=== PATIENT | male | born 1950 | race Caucasian/White ===

== ENCOUNTER 2023-09-27 08:58 | Inpatient (IN) | payer MEDICARE, OTHER, SELFPAY ==
[2023-09-27] VITALS (8 sets, daily range): BP systolic 134–166; BP diastolic 53–73; BMI 26.3; BMI 26.1
--- NOTE | 2023-09-27 06:33 | ED.GENMED ---
Addendum entered and electronically signed by Rasheed Summers DO 09/27/23 08:20:
Reviewed with patient has been compliant with his lactulose, was given a prescription for Xifaxan was not started due to cost
Sees GI at [place]
Addendum entered and electronically signed by Rasheed Summers DO 09/27/23 08:11:
Update labs noted CT report noted will start lactulose and saline check urine
Will require admission
Original Note:
History of Present Illness
General
Chief Complaint: Fall
Source: patient and spouse
Exam Limitations: altered mental status
Time Seen by Provider: 09/27/23 06:23
Nursing documentation reviewed up to this point in time: agreed with
Travel History
Have you had any contact with someone who has COVID-19?: No
Do you have any symptoms of coronavirus? Fever > 100 degrees, chills, cough, shortness of breath, sore throat, loss of taste or smell, muscle aches, or headache?: No
History of Present Illness
History of Present Illness:
73-year-old male former alcoholic chronic liver disease no alcohol for a year per the she found him on the ground today confused she had heard a thump and some acute on the ground very long brought to the ER because he was confused, he is
required lactulose in the past, here he knows his he follows commands looks tremulous but nontoxic
Past History
Past History
ED Past Medical History: CAD, HTN, Other (Alcohol abuse) and Other (anemia)
ED Past Surgical History: None
Social History
Tobacco: Non-smoker
Alcohol: Former
Drug: None
Personal:
Living: with family
Employment: Not employed
Review of Systems
Review of Systems
Unable to obtain full review of systems at this time due to: due to acuity
Other source history: family
All Other Systems: Not applicable
EENT: Reports no symptoms
Respiratory: Reports no symptoms
Cardiac: Reports no symptoms
ABD/GI: Reports no symptoms
: Reports no symptoms
Musculoskeletal: Denies joint pain, muscle pain or neck pain
Skin: Reports no symptoms
Neurological: Reports weakness; Denies headache
Phy Exam
Physical Exam
Physical Exam:
Physical Exam
General: Tremulous 73 male without jaundice
Neck: No tongue bite
Heart: s1/s2 regular rate and rhythm, no murmur. equal radial pulses.
Lungs: no acute respiratory distress. clear bilaterally
Abdomen: Nontender
Neuro: Follows commands oriented to person tremulous
Skin: no rash
Psychiatric: Cooperative
Extremities: No pain with movement of the hip
Course
Orders/Labs/Results
Orders:
Orders
09/27/23 06:30
Electrocardiogram (*1) Urgent
Reason for Study: Other
Other Reason for Exam: trauma
CT Cervical Spine W/o Iv Contr Urgent
Comment:
Reason For Exam: fall
CT Head W/o Iv Contrast Urgent
Comment:
Reason For Exam: fall
Cardiac Monitoring- Treatment ONCE
EKG- Treatment ONCE
Alcohol Urgent
Complete Blood Count/With Diff Urgent
Comprehensive Metabolic Panel Urgent
09/27/23 06:31
Ammonia Urgent
Vital Signs
Initial and Last Documented VS:
Initial Vital Signs
Temp Pulse Resp BP Pulse Ox
98.3 F 63 20 158/70 93
09/27/23 06:03 09/27/23 06:03 09/27/23 06:03 09/27/23 06:03 09/27/23 06:03
Last Documented Vital Signs
Temp Pulse Resp BP Pulse Ox
98.3 F 67 15 149/73 99
09/27/23 06:03 09/27/23 06:45 09/27/23 06:45 09/27/23 06:33 09/27/23 06:45
MDM/Problems Addressed
Differential Diagnosis Includes:
Encephalopathy alcohol intoxication alcohol withdrawal occult infection occult trauma
MDM/Problems Addressed:
Fall confusion
Chronic conditions affecting care:
Alcoholism AF
Chronic conditions affecting care: Neurological disorder and Psychiatric illness
Acute Exacerbation and/or Progression of Chronic Illness: Neurological disorder and Psychiatric illness
*Radiology
Radiology exam reviewed: preliminary read by ED provider
*Pulse Oximetry
Patient hypoxic: no
*EKG
Interpreted by ED Provider?: Yes
Interpretation: abnormal
Comparison EKG: no comparison EKG present
Heart Rate: 61
Rate: normal
Rhythm: sinus
Ischemia: other (long qtd)
*Belt Turner Interpretation
Rate: normal
Interpretation: normal
Heart Rate: 78
Rhythm: sinus
*Critical Care Note
Total Time (30-74mins, 75-104mins- exclusive of procedures): 30
ED Attending Note
-
Portions of this chart may have been created with voice recognition software.� Occasional wrong word or��sound alike� substitutions may have occurred due to the inherent limitations of voice recognition software.
Discharge Plan
Departure
Prescriptions:
No Action
atorvastatin 40 mg Tablet
40 mg PO QPM Qty: 0 0RF
folic acid 1 mg Tablet
1 mg PO DAILY Qty: 0 0RF
naltrexone 50 mg tablet
50 mg PO DAILY
amiodarone [Pacerone] 200 mg Tablet
100 mg PO DAILY 30 Days Qty: 15 0RF
thiamine HCl (vitamin B1) 100 mg Tablet
100 mg PO DAILY 30 Days Qty: 30 0RF
pantoprazole 40 mg Tablet,Delayed Release (Dr/Ec)
40 mg PO BID 30 Days Qty: 60 0RF
magnesium oxide 500 mg Tablet
500 mg PO BID 30 Days Qty: 60 0RF
furosemide 20 mg Tablet
20 mg PO DAILY 30 Days Qty: 30 0RF
potassium chloride [Klor-Con M20] 20 mEq Tablet,Er Particles/Crystals
20 meq PO BID
ferrous sulfate 325 mg (65 mg iron) tablet
325 mg PO Q48H
lactulose 10 gram/15 mL Solution
30 g PO TID Qty: 0 0RF
Rx Instructions:
Aim for having 2-3 soft bowel movements every day
Can take an extra dose if needed or skip doses if already have 2-3 bowel movements for the day.
Interventions
Interventions:
*Risk Screen - Suicide Last Done: 09/27/23 06:03
*General Assessment Last Done: 09/27/23 06:03
*Neglect/Abuse Screening Last Done: 09/27/23 06:03
ED- Fall Risk Assessment Last Done: 09/27/23 06:03
*ED COVID-19 Vaccine History Last Done: 09/27/23 06:03
[2023-09-27 07:27] LABS: % Basophils 0.3 % (0-2); % Eosinophils 1.9 % (0-6); % Immature Granulocytes 0.8 % (0-0.5); % Lymphocytes 9.4 % (20.5-51.1); % Monocytes 28.2 % (1.7-9.3); % Neutrophils 59.4 % (42.2-75.2); Absolute Eosinophils 0.1 10^3/uL (0-0.7); Absolute Lymphocytes 0.4 10^3/uL (1.2-3.4); Absolute Monocytes 1.1 10^3/uL (0.1-0.6); Absolute Neutrophils 2.2 10^3/uL (1.4-6.5); Hematocrit 30.9 % (39.0-52.0); Hemoglobin 10.6 g/dL (13.0-18.0); Mean Corp Hgb Conc. 34.3 g/dL (33.0-37.0); Mean Corpuscular Hgb 28.1 pg (27.0-31.0); Mean Platelet Volume 11.6 fL (7.4-10.4); Nucleated Red Blood Cells % 0 % (-); Platelet Count 62 10^3/uL (130-400); Red Blood Cell Count 3.77 10^6/uL (4.70-6.10); Red Cell Dist. Width 16.8 % (11.5-14.5); White Blood Cell Count 3.7 10^3/uL (4.8-10.8)
[2023-09-27 07:48] LABS: Ammonia 91 umol/L (9-30)
[2023-09-27 07:54] LABS: ALT (SGPT) 25 U/L (0-50); AST (SGOT) 34 U/L (17-59); Albumin 3.4 g/dl (3.5-5.0); Alkaline Phosphatase 215 U/L (38-126); Blood Urea Nitrogen 29 mg/dl (9-20); Calcium 8.8 mg/dl (8.4-10.2); Carbon Dioxide 24 mmol/L (22-30); Chloride 109 mmol/L (98-107); Estimated Creatinine Clearance 61 ml/min; Glucose 100 mg/dl (70-99); Potassium 3.9 mmol/L (3.5-5.1); Sodium 137 mmol/L (135-145); Total Bilirubin 3.4 mg/dl (0.2-1.3); Total Protein 5.7 g/dl (6.3-8.2); eGFR 58.73
[2023-09-27 07:55] LABS: Alcohol None Detected
[2023-09-27] MEDS: DUPHALAC/CHRONULAC 20 GRAMS PO (08:14)
[2023-09-27] MEDS: NSS 1000 IV (08:16)
--- NOTE | 2023-09-27 08:43 | HPS.HSE ---
Addendum entered and electronically signed by Per Schwartz MD 09/27/23 14:16:
Correction--> time spent on encounter 75 minutes total.
Original Note:
Family Physician
-
Family Physician: AISHWARYA Vivas
Chief Complaint
-
Mental status changes
History of Present Illness
Patient is 73 years old male with history of alcohol use disorder, liver cirrhosis, alcohol use disorder, CVA, paroxysmal A-fib, coronary artery disease, CHF, CKD, hyperlipidemia, ambulatory dysfunction, presented to the hospital with mental status
changes. Most of information gathered from at bedside as patient is unable to provide accurate information at the moment. Patient fell today at home and he has been confused over the last couple days. No reports of fevers chills cough or
dysuria. There is report of some constipation and when I asked if he has been moving his bowels regularly, his tells me that sometimes he moves his bowels only once a day and he has been taking lactulose. Denies melena or hematemesis,
odynophagia, dysphagia, abdominal pain, or diarrhea. He has upper endoscopy and colonoscopy with capsule endoscopy back in 2022 from anemia workup by GI. He also had FibroScan back in July this year with concern for cirrhosis. In the ER, he
was noted to have an ammonia level of 91. He has hemoglobin 10.6, WBC of 2.7 platelet of 62 to creatinine 1.3, BUN of 29, CT scan of the head diffuse cortical atrophy with nonspecific white matter changes but no acute intracranial abnormalities.
He also had CT scan of the cervical spine with no degenerative changes or fractures. He was referred to hospitalist service for evaluation.
Medical History
Past Medical History
Past Medical History: Reports Other (Warnicke's encephalopathy, alcohol use disorder, liver cirrhosis, CVA, paroxysmal A-fib, CAD, CHF, CKD, hyperlipidemia, ambulatory dysfunction.)
Past Surgical History: Reports None
Social History
Tobacco: Non-smoker
Alcohol: Former
Drug: None
Family History
Family History: Not pertinent
Allergies / Home Medications
Allergies reflects when Allergies were last updated in [facility].
Home Medications with original date entered in [facility]
Allergy/Medication List:
Allergies
Allergy/AdvReac Type Severity Reaction Status Date / Time
No Known Allergies Allergy Verified 06/29/23 10:30
Home Medications
atorvastatin 40 mg tablet 40 mg PO QPM High cholesterol #0 tabs 08/28/22
folic acid 1 mg tablet 1 mg PO DAILY Supplement #0 tabs 08/28/22
naltrexone 50 mg tablet 50 mg PO DAILY AUD 10/12/22
amiodarone 200 mg tablet (Pacerone) 100 mg PO DAILY 30 days #15 tabs 12/20/22
furosemide 20 mg tablet 20 mg PO DAILY 30 days #30 tabs 12/20/22
magnesium oxide 500 mg PO BID 30 days #60 tabs 12/20/22
pantoprazole 40 mg tablet,delayed release 40 mg PO BID 30 days #60 tabs 12/20/22
thiamine HCl (vitamin B1) 100 mg tablet 100 mg PO DAILY 30 days #30 tabs 12/20/22
ferrous sulfate 325 mg (65 mg iron) tablet 325 mg PO Q48H 06/29/23
potassium chloride 20 mEq tablet,extended release(part/cryst) (Klor-Con M) 20 meq PO BID 06/29/23
lactulose 10 gram/15 mL oral solution 30 g (45 mL) PO TID #0 mL 06/30/23
Review of Systems
-
Unable to obtain full review of systems at this time due to: Acuity
Physical Exam
Vital Signs
Vital Signs
Temp Pulse Resp BP Pulse Ox
98.3 F 60 15 134/53 98
09/27/23 06:03 09/27/23 08:15 09/27/23 06:45 09/27/23 08:11 09/27/23 07:55
Physical exam:
General: Acutely ill
HEENT: Normocephalic, Atraumatic and Moist Mucous Membranes
Respiratory: Clear to Auscultation; Negative Wheezes, Rales or Rhonchi
Cardiac: Regular Rhythm and S1/S2
GI: Soft, Nontender and Nondistended
Musculoskeletal: No Clubbing, No Cyanosis and No Edema
Neuro: Lethargic and disoriented, mild asterixis present
Psych: Calm
Physical Exam
General: Other
Laboratory Results
-
09/27/23 07:16
09/27/23 07:16
Laboratory Results
Total Bilirubin 3.4 mg/dl (0.2-1.3) H 09/27/23 07:16
AST 34 U/L (17-59) 09/27/23 07:16
ALT 25 U/L (0-50) 09/27/23 07:16
Alkaline Phosphatase 215 U/L (38-126) H 09/27/23 07:16
Impression/Plan
-
IMPRESSION:
Patient 73 years old male with multiple comorbidities presented to the hospital with mental status changes consistent with acute hepatic encephalopathy. Ammonia level was 91.
Impression:
Acute hepatic encephalopathy
Pancytopenia
Conditions prior to presentation:
Liver cirrhosis
Wernicke's encephalopathy
Paroxysmal A-fib
History of alcohol use disorder in the past
CVA
PLAN:
Obtain chest x-ray and urinalysis and urine culture
Follow-up blood cultures
Increase lactulose, 20 g p.o. 3 times daily
Monitor LFTs and ammonia level and electrolytes
GI consult ([facility] texted GI today)
Follow-up cultures
Cardiac monitoring
Monitor mental status closely
PT OT eval
Speech therapy eval for swallow
DVT prophylaxis, SCD (hold off on Lovenox in light of thrombocytopenia)
CODE STATUS full code
Addendum:
Shortly after admission, patient became more agitated, so dose of Ativan IV was given and placed on soft restraints. Will give further recommendations based on his clinical course.
Total time spent on today's encounter was 52 minutes which included time spent in counseling the patient/family regarding diagnosis and treatment plan as listed above, goals of care, and symptom management. Case was discussed with nursing staff,
specialists, and care coordinators/case management. All labs and imaging personally reviewed by me. Remainder the time spent in detailed review of previous records, lab data, imaging, and other medical provider documentation.
[2023-09-27] MEDS: ATIVAN 1 MG IV (11:08)
[2023-09-27] MEDS: NSS (PRESERVATIVE FREE) 0.5 ML IV (11:09)
--- NOTE | 2023-09-27 11:10 | CON.GI ---
Addendum entered and electronically signed by AISHWARYA Sanches 09/27/23 17:02:
spoke with case management Xifaxan will need prior auth through GI office. Message sent for Saturday to get auth.
Addendum entered and electronically signed by Carissa Rudolph MD 09/27/23 16:14:
I saw and examined the patient.
The SUPERINTENDENT TRANSMISSION or PA's note was reviewed and I agree with the note.
Comment:
This patient is a 73-year-old man with a history of hypertension, CHF and A-fib. He also has a history of cirrhosis and had several admissions for an elevated ammonia. He has followed up as an outpatient is noted to be cirrhotic. He did come in
with confusion and decreased stool. He reportedly had increased lactulose doses given by his without result.
Sedate but not combative.
abd: soft, nontender
impression:
cirrhosis
encephalopathy
plan:
mcgrath culture
increase lactulose
add xifaxin
add PPI
Original Note:
Consultation
-
Date/Time Consultation Requested: 09/27/23 0920
Date/Time Consultation Performed: 09/27/23 1110
Requesting Provider: Per Schwartz MD
Performing Provider: AISHWARYA Corral, Carissa Rudolph MD
Reason for Consultation: hepatic encephalopathy
Medical History
Chief Complaint / HPI
Chief Complaint: confusion
History of Present Illness:
Pt is a 73yo with hx HTN, CHF, afib not on anticoagulation with hx GI bleed, ETOH abuse quit 07/2022, cirrhosis, thrombocytopenia, anemia, CKD, with admission in May and June with confusion with elevated ammonia level with fall. CT
around that time with possible rectal mass but rectal exam neg and pt had recent stable colonoscopy and noted anemia. He had follow up with Dr. Elam in June with fibroscan noted F4 in July with concern for cirrhosis. He now returns today
with fall and change in mental status on admission ammonia was 91. Asked to see for hepatic encephalopathy. He was also noted with combative behavior after admission requiring restraints and Ativan use. In reviewing with family patient has been
compliant with medication. actually did give addition doses of lactulose this past week with confusion and decreased stools. does assist with medication and would be aware if any dose skipped. Pt did not have script plan in past and
difficulty with Xifaxan cost but now has new plan.
In reviewing with some mild confusion at times since admission several months ago. He otherwise denies odynophagia, dysphagia, GERD, abdominal pain, diarrhea, blood or black in stools. Pt did completed EGD/colon and capsule in 2022
with noted anemia.
Past Medical History
Past Medical History: Arrhythmias (afib no on AC, prolonged QT), CAD, CHF, HTN, Hypercholesterolemia, Renal Failure (CKD) and Other (alcohol abuse, anemia, possible cirrhosis, thrombocytopenia, mumps as child, PNA/UTI sepsis July 2022, covid
2021, fatty liver, constipation)
Social History
Tobacco: Non-Smoker
Alcohol: Former (hx heavy ETOH )
Drug: None
Personal:
Living: With Family
Employment: Retired
Family History
Family History: Other (no family hx colon cA or polyps)
Allergies / Home Medications
Allergy/AdvReac Type Severity Reaction Status Date / Time
No Known Allergies Allergy Verified 06/29/23 10:30
Medication Instructions Recorded
atorvastatin 40 mg tablet 40 mg PO QPM High cholesterol #0 08/28/22
tabs
folic acid 1 mg tablet 1 mg PO DAILY Supplement #0 tabs 08/28/22
amiodarone 200 mg tablet (Pacerone) 100 mg PO DAILY 30 days #15 tabs 12/20/22
furosemide 20 mg tablet 20 mg PO DAILY 30 days #30 tabs 12/20/22
magnesium oxide 500 mg PO BID 30 days #60 tabs 12/20/22
pantoprazole 40 mg tablet,delayed 40 mg PO BID 30 days #60 tabs 12/20/22
release
thiamine HCl (vitamin B1) 100 mg 100 mg PO DAILY 30 days #30 tabs 12/20/22
tablet
ferrous sulfate 325 mg (65 mg 325 mg PO Q48H Supplement 06/29/23
iron) tablet
potassium chloride 20 mEq 20 meq PO BID Electrolyte Repletion 06/29/23
tablet,extended
release(part/cryst) (Klor-Con M)
lactulose 10 gram/15 mL oral 30 g (45 mL) PO TID #0 mL 06/30/23
solution
Benefiber Powder 1.5 tsp PO BIDPRN PRN constipation 09/27/23
polyethylene glycol 3350 17 gram 17 g PO DAILY PRN constipation 09/27/23
oral powder packet (Miralax)
Review of Systems
-
History Source: Patient and Family
Constitutional: Reports No Symptoms
EENT: Reports No Symptoms
Respiratory: Reports No Symptoms
Cardiac: Reports No Symptoms
Abdomen/GI: Reports Other (several stools per day with lactulose use )
: Reports No Symptoms
Musculoskeletal: Reports Other (s/p fall overnight )
Neurological: Reports Other (some confusion in coversation )
Endocrine: Reports No Symptoms
Vital Signs
Temp Pulse Resp BP Pulse Ox
98.3 F 63 12 166/69 100
09/27/23 10:04 09/27/23 10:04 09/27/23 10:04 09/27/23 10:04 09/27/23 10:04
Physical Exam
Exam
General: Well Developed, Well Nourished and Other (improved with ativan )
HEENT: Normocephalic, Anicteric and Moist Mucous Membranes
Respiratory: Clear
Cardiac: Regular Rhythm
GI: Soft, Non Tender and Non Distended
Musculoskeletal: No Clubbing and No Cyanosis
Skin: Warm and Dry
Neuro: Other (sleepy but arousable and less combative than on admission)
Psych: Calm and Confused
Results
WBC 3.7 10^3/uL (4.8-10.8) L 09/27/23 07:16
Hgb 10.6 g/dL (13.0-18.0) L 09/27/23 07:16
Hct 30.9 % (39.0-52.0) L 09/27/23 07:16
MCV 82.0 fL (80.0-94.0) 09/27/23 07:16
Plt Count 62 10^3/uL (130-400) L 09/27/23 07:16
Absolute Neuts (auto) 2.2 10^3/uL (1.4-6.5) 09/27/23 07:16
Sodium 137 mmol/L (135-145) 09/27/23 07:16
Potassium 3.9 mmol/L (3.5-5.1) 09/27/23 07:16
Chloride 109 mmol/L (98-107) H 09/27/23 07:16
Carbon Dioxide 24 mmol/L (22-30) 09/27/23 07:16
BUN 29 mg/dl (9-20) H 09/27/23 07:16
Creatinine 1.3 mg/dL (0.7-1.3) 09/27/23 07:16
Calcium 8.8 mg/dl (8.4-10.2) 09/27/23 07:16
Total Bilirubin 3.4 mg/dl (0.2-1.3) H 09/27/23 07:16
AST 34 U/L (17-59) 09/27/23 07:16
ALT 25 U/L (0-50) 09/27/23 07:16
Alkaline Phosphatase 215 U/L (38-126) H 09/27/23 07:16
Diagnostic Image Results:
06/18/23 US abdomen
1). Diffuse fatty infiltration of the liver.
2). Portal hypertension with splenomegaly and hepatofugal flow in the main portal vein
3). Mild intrahepatic biliary dilatation
06/20- GENIA 1.59
Prior GI Procedures:�
EGD:� 11/2022- small HH, gastritis, normal duodenum
Colonoscopy:� 11/2022- fair prep, small polyp in cecum, friability of anorectum, prominent IC valve
capsule 12/2022 normal
Fibroscan: - F4 cirrhosis
Assessment / Plan
-
Pt is a 73yo with hx HTN, CHF, afib not on anticoagulation with hx GI bleed, ETOH abuse quit 07/2022, cirrhosis, thrombocytopenia, anemia, CKD, with admission in May and June with confusion with elevated ammonia level with fall. CT
around that time with possible rectal mass but rectal exam neg and pt had recent stable colonoscopy and noted anemia. He had follow up with Dr. Elam in June with fibroscan noted F4 in July with concern for cirrhosis. He now returns today
with fall and change in mental status on admission ammonia was 91. Asked to see for hepatic encephalopathy. He was also noted with combative behavior after admission requiring restraints and Ativan use. In reviewing with family patient has been
compliant with medication. actually did give addition doses of lactulose this past week with confusion and decreased stools. does assist with medication and would be aware if any dose skipped. Pt did not have script plan in past and
difficulty with Xifaxan cost but now has new plan.
�
-hepatic encephalopathy
-cirrhosis
-pancytopenia
-hx multiple fall with fall prior to admission
-ETOH abuse quit 07/2022
other
-afib off anticoagulation
-CAD
-CKD
-tremor
- PNA/UTI/sepsis 07/2022
-hx DELILAH
-echo 07/2022 with severely reduced LV function with Ef 30-35% improved on Echo in 05/2023 50-55 %
-covid infection
-abnormal CT with underfilling upper rectum -- no abnormality on rectal exam and recent colonoscopy in November 2022
-possible PVT not seen on follow up MRI in 2022
-hx prior non compliance
PLAN:
concern for hepatic encephalopathy with hx cirrhosis with elevated ammonia on admission
HE can be seen with infection(await urine cx, will add blood cx and CXR), bleeding(current stable hbg), electrolyte imbalance, progression of disease, med non compliance(per family no skipped meds)
vs other
will increase lactulose to 30gram QID
add xifaxan and check medication coverage with new plan
continued ETOH abstinence
trend labs
add INR for AM to calculate meld
reviewed with nursing to monitor for bruising with recent fall prior to admission
add PPI as patient was taking at home
remains off anticoagulation with hx GI bleeding
US/AFP 06/20 up to date on HCC screening
family updated, no prior hepatology evaluation in past
Pt due follow up 10/[address] Elam -- may need to reschedule pending length of admission
will follow
-
-
Thank you for consultation and allowing me to participate in the patient's care. Please call the metal bonding worker GI physician during the after hours with any questions or concerns.
[2023-09-27] MEDS: KCL 20 MEQ PO (13:19)
[2023-09-27] MEDS: VITAMIN B1 100 MG PO (13:19)
[2023-09-27] MEDS: XIFAXAN 550 MG PO ×2 (13:19→22:23)
[2023-09-27] MEDS: PACERONE 100 MG PO (13:19)
[2023-09-27] MEDS: LASIX 20 MG PO (13:19)
[2023-09-27] MEDS: FOLVITE 1 MG PO (13:19)
[2023-09-27] MEDS: DUPHALAC/CHRONULAC 30 GRAMS PO ×3 (13:20→22:23)
[2023-09-27] MEDS: MAGNESIUM OXIDE 500 MG PO ×2 (13:20→22:23)
--- NOTE | 2023-09-27 14:35 | PTOTSP ---
SPEECH THERAPY SWALLOW EVALUATION:
Clinical signs of oropharyngeal dysphagia, likely acute related to altered mental status secondary to hepatic encephalopathy. Patient remains at risk for aspiration and related complications given confusion, lethargy, and current CXR concerning for
pneumonia. Recommend cautious diet of IDDSI Level 4 Puree diet, thin liquids. Medications crushed in puree. 1:1 assistance/100% supervision with meals. Strict aspiration precautions including: NO straw; small single sips; small bites; only feed when
awake/alert; upright positioning. Discontinue oral diet should patient show decline in mental or respiratory status. Speech therapy to follow, monitor CXR and labs, assess diet tolerance and modify as appropriate, provide continued education
regarding aspiration risks and precautions, and determine need for instrumental assessment of swallowing. Discussed with patient, RN, and MD.
RECOMMEND:
1) cautious diet of IDDSI Level 4 Puree diet, thin liquids
2) Medications crushed in puree
3) 1:1 assistance/100% supervision with meals
4) Strict aspiration precautions including: NO straw; small single sips; small bites; only feed when awake/alert; upright positioning
5) Discontinue oral diet should patient show decline in mental or respiratory status
6) Speech therapy to follow, monitor CXR and labs, assess diet tolerance and modify as appropriate, provide continued education regarding aspiration risks and precautions, and determine need for instrumental assessment of swallowing
--- NOTE | 2023-09-27 16:04 | CM ---
Spoke with STEEPING PRESS OPERATOR who stated that she needed a check on Xifaxan 550 BID. Looked up hodgson and for 60 it is [phone]. Per pricing screen it appears that this medication requires prior authorization. This was communicated to medical staff.
Plan: Case management will continue to follow and assist with discharge planning. Will need to meet with patient to obtain assessment.
[2023-09-27] MEDS: LIPITOR 40 MG PO (18:03)
[2023-09-27] MEDS: KCL PO (22:17)
[2023-09-27] MEDS: KCL ELIXIR 20 MEQ PO (22:23)
[2023-09-28] VITALS (7 sets, daily range): BP systolic 117–145; BP diastolic 50–65; PULSE 60; O2SAT 99
[2023-09-28 07:55] LABS: Hematocrit 29.9 % (39.0-52.0); Hemoglobin 10.3 g/dL (13.0-18.0); Mean Corp Hgb Conc. 34.4 g/dL (33.0-37.0); Mean Corpuscular Hgb 28.4 pg (27.0-31.0); Mean Corpuscular Volume 82.4 fL (80.0-94.0); Mean Platelet Volume 11.3 fL (7.4-10.4); Platelet Count 73 10^3/uL (130-400); Red Blood Cell Count 3.63 10^6/uL (4.70-6.10); White Blood Cell Count 3.8 10^3/uL (4.8-10.8)
[2023-09-28 08:05] LABS: INR 1.31; PT 16.2 Sec (11.4-14.6)
[2023-09-28 08:11] LABS: Ammonia 36 umol/L (9-30)
[2023-09-28] MEDS: DUPHALAC/CHRONULAC 30 GRAMS PO ×4 (08:49→21:30)
[2023-09-28] MEDS: KCL ELIXIR 20 MEQ PO ×2 (08:51→21:30)
[2023-09-28] MEDS: VITAMIN B1 100 MG PO (08:51)
[2023-09-28] MEDS: PACERONE 100 MG PO (08:51)
[2023-09-28] MEDS: LASIX 20 MG PO (08:51)
[2023-09-28] MEDS: FOLVITE 1 MG PO (08:51)
[2023-09-28] MEDS: FEOSOL 325 MG PO (08:51)
[2023-09-28] MEDS: PROTONIX 40 MG PO (08:51)
[2023-09-28] MEDS: MAGNESIUM OXIDE 500 MG PO ×2 (08:51→21:30)
[2023-09-28] MEDS: XIFAXAN 550 MG PO ×2 (08:51→21:30)
[2023-09-28 09:29] LABS: ALT (SGPT) 21 U/L (0-50); AST (SGOT) 26 U/L (17-59); Albumin 3.3 g/dl (3.5-5.0); Alkaline Phosphatase 135 U/L (38-126); Blood Urea Nitrogen 22 mg/dl (9-20); Carbon Dioxide 25 mmol/L (22-30); Chloride 106 mmol/L (98-107); Estimated Creatinine Clearance 70 ml/min; Glucose 81 mg/dl (70-99); Potassium 3.9 mmol/L (3.5-5.1); Sodium 138 mmol/L (135-145); Total Bilirubin 3.6 mg/dl (0.2-1.3); Total Protein 5.4 g/dl (6.3-8.2); eGFR > 60.00
--- NOTE | 2023-09-28 10:20 | W.PN.HOSP.TC ---
Today's Communication/Plan
-
Continue lactulose. Monitor mental status.
Assessment / Plan
Assessment / Plan
Physical exam:
General: Acutely ill
HEENT: Normocephalic, Atraumatic and Moist Mucous Membranes
Respiratory: Clear to Auscultation; Negative Wheezes, Rales or Rhonchi
Cardiac: Regular Rhythm and S1/S2
GI: Soft, Nontender and Nondistended
Musculoskeletal: No Clubbing, No Cyanosis and No Edema
Neuro: Alert and disoriented, mild asterixis present, cognitive deficits
Psych: Calm
A/P:
Impression:
Acute hepatic encephalopathy
Pancytopenia
Probable Pneumonia
Abnormal chest x-ray
Conditions prior to presentation:
Liver cirrhosis
Wernicke's encephalopathy
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
History of alcohol use disorder in the past
CVA
CAD
CKD
Possible PVT
PLAN:
Ammonia level, 91--> 36
MELD-NA score around 15 (6% mortality risk 90 d)
Blood cultures no growth, urinalysis clear.
Seen and reviewed and interpreted by myself chest x-ray. Chest x-ray mildly abnormal unclear if pneumonia but we will cover for pneumonia with IV ceftriaxone and Doxy. Also lymphadenopathy so will need follow-up images as outpatient.
Potassium normal
No evidence of GI bleed.
Increase lactulose, now up to 30 g 4 times daily
Continues with Xifaxan
Up to date on US AFP, plan to repeat 11/2023.
ETOH abstinence
Monitor LFTs and ammonia level and electrolytes
GI consult and follow-up appreciated
Continue follow-up cultures
Continue cardiac monitoring
Monitor mental status closely
PT� OT eval Speech therapy eval for swallow appreciated.
Updated at bedside today on 09/27
DVT prophylaxis, SCD (hold off on Lovenox in light of thrombocytopenia)
CODE STATUS full code
Anticipated Discharge: 24 - 48 hours
Subjective/Interval History
-
Date of Service: September 28, 2023
Patient was more calm overall today compared to yesterday but did have an episode of agitation requiring benzodiazepines. No bowel movement reported today.
Objective Data
-
Labs:
Laboratory Results
09/28/23
07:44
WBC 3.8 L
Hgb 10.3 L
Hct 29.9 L
Plt Count 73 L
PT 16.2 H
INR 1.31
Sodium 138
Potassium 3.9
Chloride 106
Carbon Dioxide 25
BUN 22 H
Creatinine 1.1
Glucose 81
Calcium 9.0
Total Bilirubin 3.6 H
AST 26
ALT 21
Alkaline Phosphatase 135 H
Vital Signs:
Vital Signs
Temp Pulse Resp BP Pulse Ox
98.0 F 56 16 136/57 98
09/28/23 07:00 09/28/23 07:00 09/28/23 07:00 09/28/23 07:00 09/28/23 07:00
I&O
09/27/23 09/28/23 09/29/23
06:59 06:59 06:59
Intake Total 240 / 240
Balance 240 / 240
[2023-09-28 10:27] LABS: Absolute Neutrophils -Man Diff 2.3 10^3/uL (1.4-6.5); Atypical Lymphocytes 1 %; Band Neutrophils 0 % (0-3); Eosinophils 1 % (0-6); Lymphocytes 14 % (20-51); Monocytes 23 % (2-9); Platelets Checked Yes; Segmented Neutrophils 61 % (42-75)
[2023-09-28 10:28] LABS: Anisocytosis 1+; Hypochromasia 1+; Normal RBC Morphology No; Polychromasia 1+
[2023-09-28 10:29] LABS: Acanthocytes 1+; Ovalocytes 1+; Total Cells Counted 100
--- NOTE | 2023-09-28 11:40 | W.PN.GI.CBS2 ---
Addendum entered and electronically signed by Carissa Rudolph MD 09/28/23 13:43:
I saw and examined the patient.
The SOLID DIE CUTTER or PA's note was reviewed and I agree with the note.
Comment:
Pt was oriented and calm when I saw him early am but then was more agitated a few hours later. No complaints of pain
oriented for me x2
impression:
alcohol abuse
cirrhosis
encephalopathy
plan:
infectious w/u
lactulose 4x/day
Original Note:
Today's Communication / Plan
-
Infectious workup. Continue lactulose 30 g 4 times daily. Monitor mental status. Trend daily MELD labs.
Assessment / Plan
-
The pt is a 73yo with hx HTN, CHF, afib not on anticoagulation with hx GI bleed, ETOH abuse quit 07/2022, cirrhosis, thrombocytopenia, anemia, CKD, with admission in May and June with confusion with elevated ammonia level with fall. CT
around that time with possible rectal mass but rectal exam neg and pt had recent stable colonoscopy and noted anemia. He had follow up with Dr. Elam in June with fibroscan noted F4 in July with concern for cirrhosis. He now returns today
with fall and change in mental status on admission ammonia was 91. Asked to see for hepatic encephalopathy. He was also noted with combative behavior after admission requiring restraints and Ativan use. In reviewing with family patient has been
compliant with medication. actually did give addition doses of lactulose this past week with confusion and decreased stools. does assist with medication and would be aware if any dose skipped.
Problem list:
-hepatic encephalopathy, elevated ammonia level improving
-cirrhosis
-pancytopenia
-hx multiple fall with fall prior to admission
-ETOH abuse quit 07/2022
-Chest x-ray showing questionable pneumonia, right hilar enlargement per radiology read
-Agitation
Other pertinent medical history:
-afib off anticoagulation
-CAD
-CKD
-tremor
- PNA/UTI/sepsis 07/2022
-hx DELILAH
-echo 07/2022 with severely reduced LV function with Ef 30-35% improved on Echo in 05/2023 50-55 %
-covid infection
-abnormal CT with underfilling upper rectum -- no abnormality on rectal exam and recent colonoscopy in November 2022
-possible PVT not seen on follow up MRI in 2022
-hx prior non compliance
Recommendations:
-Etiology of presentation likely secondary to hepatic encephalopathy with hx cirrhosis with elevated ammonia on admission versus underlying infectious etiology versus other.
---Chest x-ray showing possible pneumonia/right hilar enlargement. Urinalysis pending. Blood cultures are pending. No signs of bleeding currently.
-Await cultures, rule out infectious process
-Continue lactulose 30g 4 times daily and titrate to 2-3 bowel movements daily. Ammonia level improved to 36
-Continue Xifaxan twice daily
-Trend daily MELD labs, MELD sodium score is 15 indicating a 6% estimated 90-day mortality rate.
-Alcohol abstinence
-Did discuss with the patient Lesli that the patient is agitated currently. Monitor for falls.
-Daily PPI
-US/AFP 06/20 up to date on HCC screening, needs repeat in November 2023
-Outpatient GI follow-up after discharge if not discharged before his follow-up on 10/[address] Elam
-will follow
Subjective
Subjective
Date of Service: September 28, 2023
The patient was seen and examined at the bedside. He is somewhat agitated this morning. He denies any complaints and wants to go home. Chest x-ray done yesterday which shows some possible suspicion for pneumonia. Also questionable enlargement of
the right hilum suspicious for lymphadenopathy. Urinalysis is pending. Blood cultures are pending. His family feels he is mentation is better but still somewhat confused.
Objective
Data Reviewed
Laboratory Data:
Laboratory Results
09/28/23 07:44
09/28/23 07:44
Laboratory Results
PT 16.2 Sec (11.4-14.6) H 09/28/23 07:44
INR 1.31 09/28/23 07:44
Total Bilirubin 3.6 mg/dl (0.2-1.3) H 09/28/23 07:44
AST 26 U/L (17-59) 09/28/23 07:44
ALT 21 U/L (0-50) 09/28/23 07:44
Alkaline Phosphatase 135 U/L (38-126) H 09/28/23 07:44
Vital Signs and I&O:
Vital Signs
Temp Pulse Resp BP Pulse Ox
98.0 F 56 16 136/57 98
09/28/23 07:00 09/28/23 07:00 09/28/23 07:00 09/28/23 07:00 09/28/23 07:00
I&O
09/27/23 09/28/23 09/29/23
06:59 06:59 06:59
Intake Total 240 / 240
Balance 240 / 240
Physical Exam
Physical Exam
HEENT: Anicteric
Cardiology: S1 and S2 (Regular rate/rhythm)
Pulmonary: Clear
GI: Soft, Non Distended, Non Tender and Normal Bowel Sounds
Neuro: Other (Confused, agitated)
[2023-09-28] MEDS: NSS (PRESERVATIVE FREE) 0.5 ML IV (12:42)
[2023-09-28] MEDS: ATIVAN 1 MG IV (12:42)
[2023-09-28 13:04] LABS: Urine Albumin Negative (Neg - Trace); Urine Bilirubin Negative (Negative); Urine Character Clear (Clear); Urine Color Yellow; Urine Glucose Negative (Negative); Urine Ketone Negative (Negative); Urine Leukocyte Negative (Negative); Urine Nitrite Negative (Negative); Urine Occult Blood Negative (Negative); Urine Urobilinogen Negative (Neg - 1+)
[2023-09-28] MEDS: LIPITOR 40 MG PO (17:11)
[2023-09-28] MEDS: ROCEPHIN 1000 MG IV (17:12)
[2023-09-28] MEDS: STERILE WATER FOR INJECTION 10 ML IV (17:13)
[2023-09-28] MEDS: VIBRAMYCIN 100 MG PO (21:30)
[2023-09-29 03:29] VITALS: BP 131/56
[2023-09-29 07:00] VITALS: BP 106/50
[2023-09-29 07:17] LABS: Ammonia 81 umol/L (9-30); Hematocrit 27.5 % (39.0-52.0); Hemoglobin 9.4 g/dL (13.0-18.0); Mean Corp Hgb Conc. 34.2 g/dL (33.0-37.0); Mean Corpuscular Hgb 28.1 pg (27.0-31.0); Mean Corpuscular Volume 82.3 fL (80.0-94.0); Mean Platelet Volume 11.1 fL (7.4-10.4); Platelet Count 66 10^3/uL (130-400); Red Blood Cell Count 3.34 10^6/uL (4.70-6.10); Red Cell Dist. Width 16.7 % (11.5-14.5); White Blood Cell Count 3.4 10^3/uL (4.8-10.8)
[2023-09-29 07:19] LABS: INR 1.42; PT 17.2 Sec (11.4-14.6)
[2023-09-29 08:08] LABS: ALT (SGPT) 21 U/L (0-50); AST (SGOT) 31 U/L (17-59); Albumin 2.9 g/dl (3.5-5.0); Alkaline Phosphatase 150 U/L (38-126); Blood Urea Nitrogen 26 mg/dl (9-20); Calcium 8.5 mg/dl (8.4-10.2); Carbon Dioxide 23 mmol/L (22-30); Chloride 104 mmol/L (98-107); Estimated Creatinine Clearance 64 ml/min; Glucose 89 mg/dl (70-99); Potassium 4.1 mmol/L (3.5-5.1); Sodium 135 mmol/L (135-145); Total Bilirubin 2.7 mg/dl (0.2-1.3); eGFR > 60.00
[2023-09-29] MEDS: VITAMIN B1 100 MG PO (08:19)
[2023-09-29] MEDS: DUPHALAC/CHRONULAC 30 GRAMS PO ×4 (08:19→21:20)
[2023-09-29] MEDS: VIBRAMYCIN 100 MG PO ×2 (08:19→19:21)
[2023-09-29] MEDS: PROTONIX 40 MG PO (08:19)
[2023-09-29] MEDS: KCL ELIXIR 20 MEQ PO ×2 (08:19→19:21)
[2023-09-29] MEDS: LASIX 20 MG PO (08:19)
[2023-09-29] MEDS: XIFAXAN 550 MG PO ×2 (08:20→19:21)
[2023-09-29] MEDS: PACERONE 100 MG PO (08:20)
[2023-09-29] MEDS: FOLVITE 1 MG PO (08:20)
[2023-09-29] MEDS: MAGNESIUM OXIDE 500 MG PO ×2 (08:20→19:21)
--- NOTE | 2023-09-29 08:28 | W.PN.HOSP.TC ---
Today's Communication/Plan
-
Continue lactulose and Xifaxan. Continue IV ceftriaxone and Doxy. Repeat ammonia in a.m.
Assessment / Plan
Assessment / Plan
Physical exam:
General: Acutely ill
HEENT: Normocephalic, Atraumatic and Moist Mucous Membranes
Respiratory: Clear to Auscultation; Negative Wheezes, Rales or Rhonchi
Cardiac: Regular Rhythm and S1/S2
GI: Soft, Nontender and Nondistended
Musculoskeletal: No Clubbing, No Cyanosis and No Edema
Neuro: Alert and disoriented, no asterixis present, cognitive deficits
Psych: Calm
A/P:
Impression:
Acute hepatic encephalopathy
Pancytopenia
Probable Pneumonia
Abnormal chest x-ray
Conditions prior to presentation:
Liver cirrhosis
Wernicke's encephalopathy
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
History of alcohol use disorder in the past
CVA
CAD
CKD
Possible PVT
PLAN:
Ammonia level, 91--> 36-->81
Repeat ammonia in a.m.
MELD-NA score around 15 (6% mortality risk 90 d)
Blood cultures no growth, urinalysis clear.
Seen and reviewed and interpreted by myself chest x-ray. Chest x-ray mildly abnormal unclear if pneumonia but we will cover for pneumonia and cont with IV ceftriaxone and Doxy. Also lymphadenopathy so will need follow-up images as outpatient.
Potassium normal
No evidence of GI bleed.
Increase lactulose, now up to 30 g 4 times daily
Continues with Xifaxan
Might add some benzo low dose as needed
Up to date on US AFP, plan to repeat 11/2023.
ETOH abstinence
Monitor LFTs and ammonia level and electrolytes
GI consult and follow-up appreciated
Continue follow-up cultures
Continue cardiac monitoring
Monitor mental status closely
PT� OT eval Speech therapy eval for swallow appreciated.
Updated at bedside today on 09/27
DVT prophylaxis, SCD (hold off on Lovenox in light of thrombocytopenia)
CODE STATUS full code
Anticipated Discharge: 24 - 48 hours
Subjective/Interval History
-
Date of Service: September 29, 2023
Patient more alert today and more calm. Ammonia went up. Patient is having bowel movements.
Objective Data
-
Labs:
Laboratory Results
09/29/23
06:58
WBC 3.4 L
Hgb 9.4 L
Hct 27.5 L
Plt Count 66 L
PT 17.2 H
INR 1.42
Sodium 135
Potassium 4.1
Chloride 104
Carbon Dioxide 23
BUN 26 H
Creatinine 1.2
Glucose 89
Calcium 8.5
Total Bilirubin 2.7 H
AST 31
ALT 21
Alkaline Phosphatase 150 H
Vital Signs:
Vital Signs
Temp Pulse Resp BP Pulse Ox
98.0 F 59 16 106/50 98
09/29/23 07:00 09/29/23 07:00 09/29/23 07:00 09/29/23 07:00 09/29/23 07:00
I&O
09/28/23 09/29/23 09/30/23
06:59 06:59 06:59
Intake Total 240 / 240 760 / 760
Output Total 1680 / 1680
Balance 240 / 240 -920 / -920
--- NOTE | 2023-09-29 09:42 | W.PN.GI.CBS2 ---
Today's Communication / Plan
-
follow clinically
Assessment / Plan
-
The pt is a 73yo with hx HTN, CHF, afib not on anticoagulation with hx GI bleed, ETOH abuse quit 07/2022, cirrhosis, thrombocytopenia, anemia, CKD, with admission in May and June with confusion with elevated ammonia level with fall. CT
around that time with possible rectal mass but rectal exam neg and pt had recent stable colonoscopy and noted anemia. He had follow up with Dr. Elam in June with fibroscan noted F4 in July with concern for cirrhosis. He now returns today
with fall and change in mental status on admission ammonia was 91. Asked to see for hepatic encephalopathy. He was also noted with combative behavior after admission requiring restraints and Ativan use. In reviewing with family patient has been
compliant with medication. actually did give addition doses of lactulose this past week with confusion and decreased stools. does assist with medication and would be aware if any dose skipped.
Problem list:
-hepatic encephalopathy, elevated ammonia level improving
-cirrhosis
-pancytopenia
-hx multiple fall with fall prior to admission
-ETOH abuse quit 07/2022
-Chest x-ray showing questionable pneumonia, right hilar enlargement per radiology read
-Agitation
Other pertinent medical history:
-afib off anticoagulation
-CAD
-CKD
-tremor
- PNA/UTI/sepsis 07/2022
-hx DELILAH
-echo 07/2022 with severely reduced LV function with Ef 30-35% improved on Echo in 05/2023 50-55 %
-covid infection
-abnormal CT with underfilling upper rectum -- no abnormality on rectal exam and recent colonoscopy in November 2022
-possible PVT not seen on follow up MRI in 2022
-hx prior non compliance
Recommendations:
- continue lactulose and xifaxin (pt appears oriented and calm but ammonia did go up today)
- UA and blood cultures negative
- xray questions mild pneumonia, management per primary team
Subjective
Subjective
Date of Service: September 29, 2023
Pt again appears oriented and calm when seen in am. Pt receiving lactulose
Objective
Data Reviewed
Laboratory Data:
Laboratory Results
09/29/23 06:58
09/29/23 06:58
Laboratory Results
PT 17.2 Sec (11.4-14.6) H 09/29/23 06:58
INR 1.42 09/29/23 06:58
Total Bilirubin 2.7 mg/dl (0.2-1.3) H 09/29/23 06:58
AST 31 U/L (17-59) 09/29/23 06:58
ALT 21 U/L (0-50) 09/29/23 06:58
Alkaline Phosphatase 150 U/L (38-126) H 09/29/23 06:58
Vital Signs and I&O:
Vital Signs
Temp Pulse Resp BP Pulse Ox
98.0 F 59 16 106/50 98
09/29/23 07:00 09/29/23 07:00 09/29/23 07:00 09/29/23 07:00 09/29/23 07:00
I&O
09/28/23 09/29/23 09/30/23
06:59 06:59 06:59
Intake Total 240 / 240 760 / 760
Output Total 1680 / 1680
Balance 240 / 240 -920 / -920
Physical Exam
Physical Exam
GI: Soft, Non Distended and Non Tender
Neuro: Non Focal (oriented)
[2023-09-29 09:51] LABS: Absolute Neutrophils -Man Diff 2.5 10^3/uL (1.4-6.5); Band Neutrophils 1 % (0-3); Eosinophils 2 % (0-6); Lymphocytes 9 % (20-51); Monocytes 14 % (2-9); Segmented Neutrophils 74 % (42-75)
[2023-09-29 09:52] LABS: Anisocytosis 1+; Hypochromasia 1+; Normal RBC Morphology No; Ovalocytes Slight; Platelets Checked Yes; Total Cells Counted 100
[2023-09-29 11:26] VITALS: BP 121/52
[2023-09-29] MEDS: ATIVAN 0.5 MG PO (12:03)
[2023-09-29 14:46] VITALS: BP 117/51
[2023-09-29] MEDS: LIPITOR 40 MG PO (17:28)
[2023-09-29] MEDS: STERILE WATER FOR INJECTION 10 ML IV (17:31)
[2023-09-29] MEDS: ROCEPHIN 1000 MG IV (17:31)
--- NOTE | 2023-09-29 19:33 | PTCARENOTE ---
Pt agitated demanding to leave while is at bedside. Pt difficult to redirect PRN Ativan given at 1203. left and pt calmer.
[2023-09-29 23:10] VITALS: BP 100/48
[2023-09-30 03:02] VITALS: BP 116/50
[2023-09-30 07:00] VITALS: BP 117/51
[2023-09-30 07:00] LABS: Ammonia 110 umol/L (9-30)
[2023-09-30 07:15] LABS: Hemoglobin 10.4 g/dL (13.0-18.0); Mean Corp Hgb Conc. 34.7 g/dL (33.0-37.0); Mean Corpuscular Hgb 28.4 pg (27.0-31.0); Mean Platelet Volume 11.5 fL (7.4-10.4); Nucleated Red Blood Cells % 0 % (-); Platelet Count 79 10^3/uL (130-400); Red Blood Cell Count 3.66 10^6/uL (4.70-6.10); Red Cell Dist. Width 16.7 % (11.5-14.5); White Blood Cell Count 3.9 10^3/uL (4.8-10.8)
--- NOTE | 2023-09-30 07:16 | W.PN.HOSP.TC ---
Today's Communication/Plan
-
D/C planning today
Assessment / Plan
Assessment / Plan
Physical exam:
General: No distress
HEENT: Normocephalic, Atraumatic and Moist Mucous Membranes
Respiratory: Clear to Auscultation; Negative Wheezes, Rales or Rhonchi
Cardiac: Regular Rhythm and S1/S2
GI: Soft, Nontender and Nondistended
Musculoskeletal: No Clubbing, No Cyanosis and No Edema
Neuro: Alert and disoriented, no asterixis present, cognitive deficits
Psych: Calm
A/P:
Impression:
Acute hepatic encephalopathy
Pancytopenia
Probable Pneumonia
Abnormal chest x-ray
Conditions prior to presentation:
Liver cirrhosis
Wernicke's encephalopathy
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
History of alcohol use disorder in the past
CVA
CAD
CKD
Possible PVT
PLAN:
Ammonia level, 91--> 36-->81-->110
Despite elevated ammonia GI contacted me and they strongly feel that he can be discharged today despite elevation of his numbers today and if he stays in the hospital he would get worse. GI cleared him for discharge today.
Repeat ammonia as OP.
Change abx to oral today
MELD-NA score around 15 (6% mortality risk 90 d)
Blood cultures no growth, urinalysis clear.
Seen and reviewed and interpreted by myself chest x-ray. Chest x-ray mildly abnormal unclear if pneumonia but we will cover for pneumonia and cont with IV ceftriaxone and Doxy and change to oral today. Also lymphadenopathy so will need follow-up
images as outpatient.
Potassium normal
No evidence of GI bleed.
Increase lactulose, now up to 30 g 4 times daily
Continues with Xifaxan
Added some benzo low dose as needed
Up to date on US AFP, plan to repeat 11/2023.
ETOH abstinence
Monitor LFTs and ammonia level and electrolytes
GI consult and follow-up appreciated
Continue follow-up cultures
Continue cardiac monitoring
Monitor mental status closely
PT� OT eval Speech therapy eval for swallow appreciated.
Updated today on 09/29
DVT prophylaxis, SCD (hold off on Lovenox in light of thrombocytopenia)
CODE STATUS full code
Anticipated Discharge: Today
Subjective/Interval History
-
Date of Service: September 30, 2023
Alert. No chest pain or shortness of breath
Objective Data
-
Labs:
Laboratory Results
09/30/23
06:40
WBC Pending
Hgb Pending
Hct Pending
Plt Count Pending
PT Pending
INR Pending
Sodium Pending
Potassium Pending
Chloride Pending
Carbon Dioxide Pending
BUN Pending
Creatinine Pending
Glucose Pending
Calcium Pending
Total Bilirubin Pending
AST Pending
ALT Pending
Alkaline Phosphatase Pending
Vital Signs:
Vital Signs
Temp Pulse Resp BP Pulse Ox
97.8 F 60 20 116/50 95
09/30/23 03:02 09/30/23 03:02 09/30/23 03:02 09/30/23 03:02 09/30/23 03:02
I&O
09/29/23 09/30/23 10/01/23
06:59 06:59 06:59
Intake Total 760 / 760 390 / 390
Output Total 1680 / 1680 1500 / 1500
Balance -920 / -920 -1110 / -1110
[2023-09-30 07:23] LABS: INR 1.46; PT 17.6 Sec (11.4-14.6)
[2023-09-30 07:39] LABS: ALT (SGPT) 23 U/L (0-50); AST (SGOT) 29 U/L (17-59); Albumin 3.2 g/dl (3.5-5.0); Alkaline Phosphatase 145 U/L (38-126); Blood Urea Nitrogen 25 mg/dl (9-20); Calcium 8.9 mg/dl (8.4-10.2); Carbon Dioxide 23 mmol/L (22-30); Chloride 104 mmol/L (98-107); Estimated Creatinine Clearance 59 ml/min; Glucose 88 mg/dl (70-99); Potassium 3.9 mmol/L (3.5-5.1); Sodium 137 mmol/L (135-145); Total Protein 5.3 g/dl (6.3-8.2); eGFR 58.73
[2023-09-30] MEDS: XIFAXAN 550 MG PO (07:46)
[2023-09-30] MEDS: PROTONIX 40 MG PO (07:46)
[2023-09-30] MEDS: VITAMIN B1 100 MG PO (07:46)
[2023-09-30] MEDS: LASIX 20 MG PO (07:46)
[2023-09-30] MEDS: MAGNESIUM OXIDE 500 MG PO (07:46)
[2023-09-30] MEDS: FEOSOL 325 MG PO (07:47)
[2023-09-30] MEDS: PACERONE 100 MG PO (07:47)
[2023-09-30] MEDS: FOLVITE 1 MG PO (07:47)
[2023-09-30] MEDS: VIBRAMYCIN 100 MG PO (07:47)
[2023-09-30] MEDS: KCL ELIXIR 20 MEQ PO (07:48)
[2023-09-30] MEDS: DUPHALAC/CHRONULAC 30 GRAMS PO ×2 (07:48→12:20)
[2023-09-30 08:26] LABS: Absolute Neutrophils -Man Diff 2.6 10^3/uL (1.4-6.5); Anisocytosis 1+; Atypical Lymphocytes 1 %; Band Neutrophils 0 % (0-3); Hypochromasia 1+; Lymphocytes 10 % (20-51); Monocytes 20 % (2-9); Normal RBC Morphology No; Platelets Checked Yes; Segmented Neutrophils 69 % (42-75)
[2023-09-30 08:27] LABS: Acanthocytes 1+; Ovalocytes 1+; Total Cells Counted 100
--- NOTE | 2023-09-30 09:51 | PTOTSP ---
SPEECH THERAPY SWALLOW THERAPY FOLLOW UP:
Patient continues to present with signs of oropharyngeal dysphagia, though significantly improved from evaluation 3 days ago. Dysphagia likely acutely related to weakness/lethargy secondary to hepatic encephalopathy. Patient appears to be tolerating
current diet without difficulty; Recommend diet upgrade to IDDSI Level 6 Soft and Bite size with thin liquids; Continue NO STRAW; Medications whole with liquid as tolerated. Aspiration precautions including: upright positioning; small single
sips/bites; slow rate of intake; supervision to ensure use of strategies. Speech therapy to follow, assess diet tolerance and modify as appropriate, and provide continued education regarding aspiration risks/precautions. Discussed
recommendations/aspiration precautions with patient, who verbalized his understanding. Recommendations sent to Dr. Schwartz via [facility] text.
RECOMMEND:
1) IDDSI Level 6 Soft and Bite size with thin liquids
2) NO STRAW
3) Medications whole with liquid as tolerated
4) Aspiration precautions including: upright positioning; small single sips/bites; slow rate of intake; supervision to ensure use of strategies
5) Speech therapy to follow, assess diet tolerance and modify as appropriate, and provide continued education regarding aspiration risks/precautions
--- NOTE | 2023-09-30 10:13 | CM ---
Placed a call to both patient's 's cell and home number to obtain information for assessment, however had to leave a vm left a non urgent message on both phones encouraging patient's to return call when she can. Will f/u if no return call
has been received.
Plan: Case management will continue to follow and assist with discharge planning. Assessment needs to be obtained. Will keep trying to communicate with patient's .
[2023-09-30 10:16] VITALS: BMI 26.1
--- NOTE | 2023-09-30 10:58 | W.PN.GI.CBS2 ---
Addendum entered and electronically signed by Carissa Rudolph MD 09/30/23 12:09:
I saw and examined the patient.
The RESTAURANT CREW MEMBER or PA's note was reviewed and I agree with the note.
Comment:
Pt with no complaints. Oriented x 3
not tremulous
abd: soft, nontender
impression:
resolved encephalopathy
plan:
lactulose, xifaxin
f/u with Dr Elam on
infectious w/u was negative
Addendum entered and electronically signed by Doris Schofield NP 09/30/23 11:40:
Spoke to the pts and she is aware of the plan and agreeable.
Original Note:
Today's Communication / Plan
-
Continue lactulose 4 times daily. Xifaxan twice daily, will get prior authorization from our office. Follow-up in the office on 10/02 as previously scheduled. No new GI recommendations, will sign off call back with questions or concerns.
Assessment / Plan
-
The pt is a 73yo with hx HTN, CHF, afib not on anticoagulation with hx GI bleed, ETOH abuse quit 07/2022, cirrhosis, thrombocytopenia, anemia, CKD, with admission in May and June with confusion with elevated ammonia level with fall. CT
around that time with possible rectal mass but rectal exam neg and pt had recent stable colonoscopy and noted anemia. He had follow up with Dr. Elam in June with fibroscan noted F4 in July with concern for cirrhosis. He now returns today
with fall and change in mental status on admission ammonia was 91. Asked to see for hepatic encephalopathy. He was also noted with combative behavior after admission requiring restraints and Ativan use. In reviewing with family patient has been
compliant with medication. actually did give addition doses of lactulose this past week with confusion and decreased stools. does assist with medication and would be aware if any dose skipped.
Problem list:
-hepatic encephalopathy, elevated ammonia level
-cirrhosis
-pancytopenia
-hx multiple fall with fall prior to admission
-ETOH abuse quit 07/2022
-Chest x-ray showing questionable pneumonia, right hilar enlargement per radiology read
-Agitation
Other pertinent medical history:
-afib off anticoagulation
-CAD
-CKD
-tremor
- PNA/UTI/sepsis 07/2022
-hx DELILAH
-echo 07/2022 with severely reduced LV function with Ef 30-35% improved on Echo in 05/2023 50-55 %
-covid infection
-abnormal CT with underfilling upper rectum -- no abnormality on rectal exam and recent colonoscopy in November 2022
-possible PVT not seen on follow up MRI in 2022
-hx prior non compliance
Recommendations:
-Despite rising level of ammonia he is oriented, calm, and cooperative.
-Continue lactulose 30 g 4 times daily. I did discuss with him regarding needing to adjust based on his stool response. He should have 2-3 bowel movements daily. Also was discussed with his family prior to discharge
-Continue Xifaxan twice daily. Will need to get prior authorization for Xifaxan per admitting consultation. Will get paperwork started through our office.
-Continue antibiotics as per hospitalist for pneumonia
-Discussed with aicha Garcia for discharge from GI standpoint with close follow-up outpatient.
-He does have a follow-up with Dr. Elam on 10/02 which he should go to. We can reassess him closely at that time.
-GI will sign off, no new recommendations at this time. Call back with questions or concerns
Subjective
Subjective
Date of Service: September 30, 2023
The patient seen and examined at the bedside. He denies any acute complaints. He is oriented and calm. Noted with rising ammonia level today but clinically appears at baseline. He is having bowel movements with lactulose.
Objective
Data Reviewed
Laboratory Data:
Laboratory Results
09/30/23 06:40
09/30/23 06:40
Laboratory Results
PT 17.6 Sec (11.4-14.6) H 09/30/23 06:40
INR 1.46 09/30/23 06:40
Total Bilirubin 3.0 mg/dl (0.2-1.3) H 09/30/23 06:40
AST 29 U/L (17-59) 09/30/23 06:40
ALT 23 U/L (0-50) 09/30/23 06:40
Alkaline Phosphatase 145 U/L (38-126) H 09/30/23 06:40
Vital Signs and I&O:
Vital Signs
Temp Pulse Resp BP Pulse Ox
98.2 F 58 16 117/51 95
09/30/23 07:00 09/30/23 07:00 09/30/23 07:00 09/30/23 07:00 09/30/23 07:00
I&O
09/29/23 09/30/23 10/01/23
06:59 06:59 06:59
Intake Total 760 / 760 390 / 390
Output Total 1680 / 1680 1500 / 1500
Balance -920 / -920 -1110 / -1110
Physical Exam
Physical Exam
HEENT: Anicteric
Cardiology: S1 and S2 (Regular rate/rhythm)
Pulmonary: Clear
GI: Soft, Non Distended, Non Tender and Normal Bowel Sounds
Neuro: Non Focal and Other (Mildly tremulous left upper extremity)
[2023-09-30 11:00] VITALS: BP 126/50
--- NOTE | 2023-09-30 11:26 | W.DCSUMMARY ---
Discharge Summary
Discharge Data
Date of Admission: 09/27/23
Date of Discharge: 09/30/23
-
Pending Results: No
Hospital Course
Patient 73 years old male with multiple comorbidities including hypertension, A-fib, CHF, GI bleed in the past, cirrhosis, alcohol use disorder in the past, pancytopenia, CKD presented to the hospital mental status changes consistent with acute
hepatic encephalopathy. GI was consulted. Patient was started on increased doses of lactulose and Xifaxan. Patient had periods of agitation requiring benzodiazepines. He did not have any evidence of alcohol withdrawal. There were suspicions for
pneumonia and he has been treated appropriately with IV antibiotics and will be switched to oral to complete a short course as outpatient. Mental status has improved and otherwise he is hemodynamically stable. His ammonia level on the other hand
has increased but GI feels that this is expected fluctuations of ammonia level and they have cleared him for discharge today. GI also strongly recommends to discharge otherwise he can get worse staying in the hospital as per their recommendations.
Patient and also very eager to go home. He will be discharged today.
Discharge duration: 35 minutes
Discharge Plan
-
Patient Disposition: Home (Routine Discharge)
Discharge Diagnosis/Procedures: Hepatic encephalopathy. Pancytopenia.
Condition: Fair
Diet: Low Cholesterol
Activity: As tolerated
Driving Restrictions: As prior to admission
Blood Work: Please PCP to order CBC, CMP, Ammonia within 1 week
Referrals:
Darlene Quintero CRNP [Family Provider] - in less than 1 week
Greg Elam MD [Active] - 10/03/23 11:30 am
Prescriptions:
New
cefdinir 300 mg Capsule
300 mg PO Q12 5 Days Qty: 10 0RF
Continued
atorvastatin 40 mg Tablet
40 mg PO QPM Qty: 0 0RF
folic acid 1 mg Tablet
1 mg PO DAILY Qty: 0 0RF
amiodarone [Pacerone] 200 mg Tablet
100 mg PO DAILY 30 Days Qty: 15 0RF
thiamine HCl (vitamin B1) 100 mg Tablet
100 mg PO DAILY 30 Days Qty: 30 0RF
pantoprazole 40 mg Tablet,Delayed Release (Dr/Ec)
40 mg PO BID 30 Days Qty: 60 0RF
magnesium oxide 500 mg Tablet
500 mg PO BID 30 Days Qty: 60 0RF
furosemide 20 mg Tablet
20 mg PO DAILY 30 Days Qty: 30 0RF
potassium chloride [Klor-Con M20] 20 mEq Tablet,Er Particles/Crystals
20 meq PO BID
ferrous sulfate 325 mg (65 mg iron) tablet
325 mg PO Q48H
polyethylene glycol 3350 [Miralax] 17 gram Powder In Packet
17 g PO DAILY PRN (Reason: constipation)
Benefiber Powder
1.5 tsp PO BIDPRN PRN (Reason: constipation)
Changed
lactulose 10 gram/15 mL Solution
30 g PO QID 14 Days Qty: 3785 0RF
Discharge Orders:
Discharge Patient (As Directed); Ordered 09/30/23
Ordered By: Per Schwartz
Discharge Date and Time
Discharge Date/Time: 09/30/23 13:14
[2023-09-30] MEDS: OMNICEF 300 MG PO (12:19)
--- NOTE | 2023-09-30 12:23 | CM ---
Addendum entered by JULISA He 09/30/23 12:34:
Imm provided and signed is now on chart.
Original Note:
Reviewed chart, met with patient and his who was at bedside to obtain information for assessment. Also received consult for VN. Patient's stated that patient lives with him in a two story (1st floor set up) with two steps to enter.
Patient needs assistance and supervision for all ADLs, personal care, dressing and bathing. Patient's does all the laundry, cooking, cleaning and senior cost accountant.
She drives and can get patient to his appointments and does all the shopping.
Patient has three daughters, however, they are spread out and do not live nearby, therefore patient's takes care of everything herself. She confirmed that she can handle the scope of his care but was agreeable to VN and selected .
Patient has a prescription plan and uses [facility] [phone]
Deidreet's PCP is, Darlene NEFF.
Plan: Case management will continue to follow and assist with discharge planning. Patient would like to return home with VN. VN liason updated.
[2023-09-30 12:45] VITALS: BMI 25.9
--- NOTE | 2023-09-30 14:07 | VNURNOTE ---
Home Health Liaison met with patient and Dacia at 1215 to discuss [facility] nurse/therapy, visits, schedule and homebound status. Patient is agreeable and understands that visits at home will be 2-3 x per week to assess and teach medical management.
[facility] brochure provided with contact information. Patient is aware that [facility] will contact them for start of care in 1-2 days after discharge from .
[facility] referral completed in [facility].
== END 2023-09-30 13:14 | disposition home or self-care (01) | DRG 442 ==
LOC: 3 WEST ACU 08:58
PROVIDERS: Nurse Practitioner Adult Health; Nurse Practitioner Family; ADMITTING PHYSICIAN Hospitalist; CONSULT PHYSICIAN Internal Medicine; EMERGENCY PHYSICIAN Emergency Medicine; FAMILY PHYSICIAN Nurse Practitioner Adult Health
DX: K76.82 Hepatic encephalopathy (principal); D61.818 Other pancytopenia; K76.6 Portal hypertension; I13.0 Hypertensive heart and chronic kidney disease with heart failure and stage 1 through stage 4 chronic kidney disease, or unspecified chronic kidney disease; E51.2 Wernicke's encephalopathy; K92.2 Gastrointestinal hemorrhage, unspecified; K74.60 Unspecified cirrhosis of liver; I25.10 Atherosclerotic heart disease of native coronary artery without angina pectoris; N18.9 Chronic kidney disease, unspecified; I48.0 Paroxysmal atrial fibrillation; Z78.1 Physical restraint status; F10.10 Alcohol abuse, uncomplicated; I50.9 Heart failure, unspecified
CPT/HCPCS: 70450; 71045; 72125; 80053; 81003; 82077; 82140; 85025; 85610; 87040; 92526; 92610; 93005; 96360; 97116; 97162; 97166; 99291

== ENCOUNTER 2023-12-15 14:05 | Inpatient (IN) | payer MEDICARE, OTHER, SELFPAY ==
[2023-12-15 10:06] VITALS: BP 165/79
[2023-12-15 10:43] VITALS: BMI 25.9
[2023-12-15 10:58] VITALS: BP 145/58
[2023-12-15 11:00] VITALS: BP 144/61
[2023-12-15 11:04] LABS: Hematocrit 33.3 % (39.0-52.0); Hemoglobin 11.5 g/dL (13.0-18.0); Mean Corp Hgb Conc. 34.5 g/dL (33.0-37.0); Mean Corpuscular Hgb 28.3 pg (27.0-31.0); Mean Corpuscular Volume 81.8 fL (80.0-94.0); Mean Platelet Volume 10.4 fL (7.4-10.4); Nucleated Red Blood Cells % 0 % (-); Platelet Count 60 10^3/uL (130-400); Red Blood Cell Count 4.07 10^6/uL (4.70-6.10); Red Cell Dist. Width 16.1 % (11.5-14.5); Venous Blood Gas B.E. -0.5 mmol/L (-4 to +4); Venous Blood Gas HCO3 24.9 mmol/L (22-27); Venous Blood Gas O2 Sat % 63.4 %; Venous Blood Gas pCO2 43 mmHg (35-48); Venous Blood Gas pH 7.37 (7.32-7.43); Venous Blood Gas pO2 38 mmHg (30-50)
[2023-12-15 11:06] LABS: Venous Blood Gas O2 Therapy ra
[2023-12-15 11:07] LABS: White Blood Cell Count 2.4 10^3/uL (4.8-10.8)
[2023-12-15 11:14] LABS: Ammonia 69 umol/L (9-30)
[2023-12-15 11:23] LABS: ALT (SGPT) 45 U/L (0-50); AST (SGOT) 46 U/L (17-59); Albumin 3.6 g/dl (3.5-5.0); Alkaline Phosphatase 201 U/L (38-126); Blood Urea Nitrogen 25 mg/dl (9-20); Calcium 9.6 mg/dl (8.4-10.2); Carbon Dioxide 23 mmol/L (22-30); Chloride 110 mmol/L (98-107); Estimated Creatinine Clearance 56 ml/min; Glucose 121 mg/dl (70-99); Sodium 140 mmol/L (135-145); Total Protein 5.8 g/dl (6.3-8.2); eGFR 53.74
[2023-12-15 11:29] LABS: Troponin I < 0.012 ng/ml
--- NOTE | 2023-12-15 11:48 | ED.GENMED ---
History of Present Illness
General
Chief Complaint: Change in Mental Status
Source: patient and spouse
Exam Limitations: altered mental status
Time Seen by Provider: 12/15/23 10:15
Travel History
Have you had any contact with someone who has COVID-19?: No
Do you have any symptoms of coronavirus? Fever > 100 degrees, chills, cough, shortness of breath, sore throat, loss of taste or smell, muscle aches, or headache?: No
History of Present Illness
History of Present Illness:
73-year-old male with a history of alcoholic cirrhosis who presents after his noticed that he had difficulty with the speech. She states it first was very garbled and then seemed like he could not get his words out. Symptoms now seem a little
bit better but is not quite back to his baseline. She did not note any focal motor deficits. She states he has been taking his lactulose 3 times a day. He has had hepatic encephalopathy in the past seems that his symptoms seem similar to then.
He has been taking lactulose but has not been taking the Rituxan
Past History
Past History
ED Past Medical History: CAD, HTN and Other (Alcohol abuse, cirrhosis, hepatic encephalopathy)
ED Past Surgical History: None
Social History
Tobacco: Non-smoker
Alcohol: Former
Drug: None
Personal:
Living: with family
Employment: Not employed
Phy Exam
Physical Exam
Physical Exam:
CONSTITUTIONAL Patient alert and oriented to person. Vital signs reviewed.
HEAD atraumatic, normocephalic.
EYES eyelids normal to inspection, Pupils equally round and reactive to light, Extraocular muscles intact, Conjunctiva normal, Sclera normal.
NECK normal range of motion, Trachea midline, no jugular venous distention.
RESPIRATORY CHEST No respiratory distress noted, Chest expansion equal, Bilateral breath sounds clear.
CARDIOVASCULAR regular rate and rhythm, Heart sounds normal.
ABDOMEN abdomen nontender, Bowel sounds normal. No distention.
BACK normal inspection, no obvious deformities
UPPER EXTREMITY range of motion normal, Motor strength normal, no cyanosis, no edema.
LOWER EXTREMITY range of motion normal, Motor strength normal.
NEURO speech is slow but understandable. No pronator drift. Cranial Nerves intact to screening exam. Asterixis noted.
Course
Orders/Labs/Results
Orders:
Orders
12/15/23 10:22
CT Head W/o Iv Contrast Urgent
Comment:
Reason For Exam: speech changes
Bedside Glucose- Treatment ONCE
Cardiac Monitoring- Treatment ONCE
12/15/23 10:23
Electrocardiogram (*1) Stat
Reason for Study: Other
Other Reason for Exam: neuro symptoms
EKG- Treatment ONCE
12/15/23 10:53
Ammonia Urgent
Complete Blood Count/With Diff Urgent
Comprehensive Metabolic Panel Urgent
Manual Differential Urgent
Troponin I Urgent
Venous Blood Gas Urgent
%Oxygen/Room Air: ra
12/15/23 11:45
Lactulose [Duphalac/Chronulac] 20 grams PO NOW STA
Abnormal Lab Results
12/15/23
10:53
WBC 2.4 L* 10^3/uL
(4.8-10.8)
RBC 4.07 L 10^6/uL
(4.70-6.10)
Hgb 11.5 L g/dL
(13.0-18.0)
Hct 33.3 L %
(39.0-52.0)
RDW 16.1 H %
(11.5-14.5)
Plt Count 60 L 10^3/uL
(130-400)
Lymphocytes (Manual) 13 L %
(20-51)
Monocytes (Manual) 14 H %
(2-9)
Chloride 110 H mmol/L
(98-107)
BUN 25 H mg/dl
(9-20)
Creatinine 1.4 H mg/dL
(0.7-1.3)
Glucose 121 H mg/dl
(70-99)
Total Bilirubin 4.0 H mg/dl
(0.2-1.3)
Alkaline Phosphatase 201 H U/L
(38-126)
Ammonia 69 H umol/L
(9-30)
Total Protein 5.8 L g/dl
(6.3-8.2)
12/15/23 10:53
12/15/23 10:53
Vital Signs
Initial and Last Documented VS:
Initial Vital Signs
Temp Pulse BP Pulse Ox
97.8 F 62 165/79 100
12/15/23 10:06 12/15/23 10:06 12/15/23 10:06 12/15/23 10:06
Last Documented Vital Signs
Temp Pulse Resp BP Pulse Ox
97.8 F 58 13 145/58 100
12/15/23 10:06 12/15/23 11:00 12/15/23 11:00 12/15/23 10:58 12/15/23 11:00
MDM/Problems Addressed
MDM/Problems Addressed:
Metabolic encephalopathy, hepatic encephalopathy, aphasia chronic liver disease
Chronic conditions affecting care:
Chronic liver disease
*Pulse Oximetry
Patient hypoxic: no
*EKG
Interpreted by ED Provider?: Yes
Interpretation: abnormal
Rate: bradycardiac
Rhythm: sinus and PVC's
Ischemia: non-specific ST changes
*Gas Pumping Station Operator Interpretation
Rate: bradycardiac
Interpretation: abnormal
Rhythm: sinus and PVC's
*Critical Care Note
Total Time (30-74mins, 75-104mins- exclusive of procedures): 30 minutes
Data Reviewed
Review of Other/Old Records Reveals: Labs (Prior labs reviewed)
Source: patient
Further Testing Considered But Not Given:
Consider blood cultures but afebrile. No signs of SBP
Patient Management
Discussion with other providers: Hospitalist
Escalation/DeEscalation of care consider admission/obs:
73-year-old who presents with asterixis and aphasia. Suspect metabolic encephalopathy as etiology. Cannot fully rule out TIA/CVA but symptoms are improving as per . He is having a bowel movement here and got lactulose this morning. Admit
ED Attending Note
-
Portions of this chart may have been created with voice recognition software.� Occasional wrong word or��sound alike� substitutions may have occurred due to the inherent limitations of voice recognition software.
Discharge Plan
Departure
Patient Disposition: Admit
Date of Disposition: 12/15/23
Time of Disposition: 12:55
Admit to: Telemetry
Presentation/result/management discussed w/ accepting MD/DO: Hospitalist
Discharge Problem:
Acute metabolic encephalopathy, Acute hepatic encephalopathy, Aphasia, Thrombocytopenia
Prescriptions:
No Action
atorvastatin 40 mg Tablet
40 mg PO QPM Qty: 0 0RF
folic acid 1 mg Tablet
1 mg PO DAILY Qty: 0 0RF
amiodarone [Pacerone] 200 mg Tablet
100 mg PO DAILY 30 Days Qty: 15 0RF
thiamine HCl (vitamin B1) 100 mg Tablet
100 mg PO DAILY 30 Days Qty: 30 0RF
pantoprazole 40 mg Tablet,Delayed Release (Dr/Ec)
40 mg PO BID 30 Days Qty: 60 0RF
magnesium oxide 500 mg Tablet
500 mg PO BID 30 Days Qty: 60 0RF
furosemide 20 mg Tablet
20 mg PO DAILY 30 Days Qty: 30 0RF
potassium chloride [Klor-Con M20] 20 mEq Tablet,Er Particles/Crystals
20 meq PO BID
ferrous sulfate 325 mg (65 mg iron) tablet
325 mg PO Q48H
polyethylene glycol 3350 [Miralax] 17 gram Powder In Packet
17 g PO DAILY PRN (Reason: constipation)
lactulose 10 gram/15 mL Solution
30 g PO QID 14 Days Qty: 3785 0RF
Referrals:
Darlene Quintero CRNP [Family Provider] -
Interventions
Interventions:
*Risk Screen - Suicide Last Done: 12/15/23 10:06
*General Assessment Last Done: 12/15/23 10:06
*Neglect/Abuse Screening Last Done: 12/15/23 10:06
ED- Fall Risk Assessment Last Done: 12/15/23 11:01
*ED COVID-19 Vaccine History Last Done: 12/15/23 11:01
ED- Pulmonary Assessment Last Done: 12/15/23 11:01
ED- Neurological Assessment Last Done: 12/15/23 11:01
ED- Cardiac Assessment Last Done: 12/15/23 11:01
Discharge Date and Time
Print Language: [place]
[2023-12-15 11:55] LABS: Absolute Neutrophils -Man Diff 1.7 10^3/uL (1.4-6.5); Band Neutrophils 2 % (0-3); Segmented Neutrophils 70 % (42-75)
[2023-12-15 11:56] LABS: Eosinophils 1 % (0-6); Lymphocytes 13 % (20-51); Monocytes 14 % (2-9); Platelets Checked Yes; Total Cells Counted 100
[2023-12-15 11:58] LABS: Anisocytosis Slight; Normal RBC Morphology No; Ovalocytes Slight
--- NOTE | 2023-12-15 13:39 | HPS.HSE ---
Family Physician
-
Family Physician: AISHWARYA Vivas
Chief Complaint
-
Confusion/aphasia
History of Present Illness
Patient is a 73-year-old male with past medical history of alcoholic cirrhosis, history of recurrent hepatic encephalopathy, pancytopenia, history of mechanical fall, coronary disease, paroxysmal A-fib off of anticoagulation, baseline tremors, CKD
stage II, obesity was brought into ER by spouse after patient was noted to having worsening confusion and difficulty with speech. Patient was admitted in in October 19 for episode hepatic encephalopathy and according to spouse postdischarge
patient has been compliant with medication regimen. Patient able to get around by himself with walker and spouse did not report any falls in the last few weeks. Spouse not sure if patient having any bowel movements for last few days. No reported
abdominal pain/nausea/vomiting episode. In the morning today patient was noted to be confused and aphasic and was brought into the ER. By the time my visit patient was able to verbalize few words although remains confused.
No associated complaints of chest pain/shortness of breath/dizziness/syncope/dysuria.
Medical History
Past Medical History
Past Medical History: Reports Other
Additional Past Medical History:
alcoholic cirrhosis, history of recurrent hepatic encephalopathy, pancytopenia, history of mechanical fall, coronary disease, paroxysmal A-fib off of anticoagulation, baseline tremors, CKD stage II, obesity
Past Surgical History: Reports Other
Social History
Tobacco: Non-smoker
Alcohol: Former
Drug: None
Personal:
Living: With Family
Family History
Family History: Not pertinent
Allergies / Home Medications
Allergies reflects when Allergies were last updated in [facility]
Home Medications with original date entered in [facility]
Allergy/Medication List:
Allergies
Allergy/AdvReac Type Severity Reaction Status Date / Time
No Known Allergies Allergy Verified 12/15/23 10:09
Home Medications
atorvastatin 40 mg tablet 40 mg PO QPM High cholesterol #0 tabs 08/28/22
folic acid 1 mg tablet 1 mg PO DAILY Supplement #0 tabs 08/28/22
amiodarone 200 mg tablet (Pacerone) 100 mg (1/2 x 200 mg) PO DAILY 30 days #15 tabs 12/20/22
furosemide 20 mg tablet 20 mg PO DAILY 30 days #30 tabs 12/20/22
magnesium oxide 500 mg PO BID 30 days #60 tabs 12/20/22
pantoprazole 40 mg tablet,delayed release 40 mg PO BID 30 days #60 tabs 12/20/22
thiamine HCl (vitamin B1) 100 mg tablet 100 mg PO DAILY 30 days #30 tabs 12/20/22
ferrous sulfate 325 mg (65 mg iron) tablet 325 mg PO Q48H Supplement 06/29/23
potassium chloride 20 mEq tablet,extended release(part/cryst) (Klor-Con M) 20 meq PO BID Electrolyte Repletion 06/29/23
lactulose 10 gram/15 mL oral solution 30 g (45 mL) PO QID 14 days #3,785 mL 09/30/23
Review of Systems
-
Unable to obtain full review of systems at this time due to: Acuity
Physical Exam
Vital Signs
Vital Signs
Temp Pulse Resp BP Pulse Ox
97.8 F 58 13 145/58 100
12/15/23 10:06 12/15/23 11:00 12/15/23 11:00 12/15/23 10:58 12/15/23 11:00
Physical Exam
General: No Apparent Distress and Obese
HEENT: Atraumatic; No Oxygen
Respiratory: Clear
Cardiac: S1/S2 and Regular Rhythm; No Murmur or Rub
GI: Soft, Non Tender and Non Distended; No Organomegaly
Musculoskeletal: No Clubbing, No Cyanosis and No Edema
Skin: No Rash
Neuro: Awake, Alert, Nonfocal/grossly intact and Tremors; No Oriented
Laboratory Results
-
12/15/23 10:53
12/15/23 10:53
Laboratory Results
Total Bilirubin 4.0 mg/dl (0.2-1.3) H 12/15/23 10:53
AST 46 U/L (17-59) 12/15/23 10:53
ALT 45 U/L (0-50) 12/15/23 10:53
Alkaline Phosphatase 201 U/L (38-126) H 12/15/23 10:53
Troponin I < 0.012 ng/ml 12/15/23 10:53
Data Reviewed
-
CT Scan: Image Personally Visualized and interpreted, Report Reviewed by me, Discussed with Physician and Discussed with Patient
Lab Data: Labs Reviewed by me and Discussed with Patient
Impression/Plan
-
1. Hepatic encephalopathy
-No clear exacerbating factor of infection/volume depletion/medication noncompliance/sedative medication
-Per spouse patient taking lactulose regularly although unsure if had enough bowel movements
-CT head without contrast negative for acute abnormality
-Ammonia level 69, lower than previous visit although not helpful in regarding of specificity of diagnosis
-Start patient on oral lactulose 30g qid with goal of 2-3 bowel movements a day
-Add rifaximin to regimen while in hospital
-Admit to [facility] for further monitoring
2. Alcoholic cirrhosis
Elevated LFT
-No signs of decompensated liver failure
-No history of other complicating factors of ascites/variceal bleed
-EGD in December 18 showing gastritis/hernia. Colonoscopy showing small polyp only
-check INR/LFT in morning
3. Pancytopenia
-CBC trend reviewed and counts close to baseline
-Continue to follow
4. Parox afib
-Not on anticoagulation due to increased fall risk and bleed risk
-EKG showing sinus bradycardia with first-degree AV block
history of mechanical fall
coronary disease
tremors
CKD stage II
obesity
DVT PPX - heparin subq
Full code
Total time spent : 76 mins
I personally saw and examined the patient.
I have reviewed all diagnostic interpretations and treatment plans as written.
Time includes patient management by me, time spent at the patients bedside, time to review lab and imaging results, discussing patient care, documentation in the medical record, and time spent with the family or caregiver and discussing care plan
with RN/Consultants.
[2023-12-15 15:16] VITALS: BP 163/73; BMI 25.0
[2023-12-15] MEDS: PACERONE 100 MG PO (16:07)
[2023-12-15] MEDS: FEOSOL 325 MG PO (16:08)
[2023-12-15] MEDS: LIPITOR 40 MG PO (17:21)
[2023-12-15] MEDS: DUPHALAC/CHRONULAC 30 GRAMS PO ×2 (17:22→21:02)
[2023-12-15] MEDS: XIFAXAN 550 MG PO ×2 (17:27→21:05)
--- NOTE | 2023-12-15 17:51 | PTCARENOTE ---
1500 Received patient from ED AAOx2. Pt confused secondary to Hepatic Encephalopathy. Pt oriented to room. Pt's at bedside. Pt tolerated diet well. Offered no complaints. Made pt comfortable. Cont to assess patient status.
[2023-12-15] MEDS: PROTONIX 40 MG PO (20:34)
[2023-12-15] MEDS: HEPARIN 5000 UNITS SC (20:34)
[2023-12-15 23:39] VITALS: BP 132/58
[2023-12-16 05:41] LABS: Hematocrit 28.2 % (39.0-52.0); Hemoglobin 9.7 g/dL (13.0-18.0); Mean Corp Hgb Conc. 34.4 g/dL (33.0-37.0); Mean Corpuscular Hgb 28.3 pg (27.0-31.0); Mean Corpuscular Volume 82.2 fL (80.0-94.0); Mean Platelet Volume 11.9 fL (7.4-10.4); Platelet Count 57 10^3/uL (130-400); Red Blood Cell Count 3.43 10^6/uL (4.70-6.10); Red Cell Dist. Width 15.9 % (11.5-14.5); White Blood Cell Count 3.1 10^3/uL (4.8-10.8)
[2023-12-16 06:00] VITALS: BMI 24.9
[2023-12-16 06:07] LABS: ALT (SGPT) 37 U/L (0-50); AST (SGOT) 38 U/L (17-59); Albumin 2.8 g/dl (3.5-5.0); Alkaline Phosphatase 143 U/L (38-126); Blood Urea Nitrogen 26 mg/dl (9-20); Calcium 9.1 mg/dl (8.4-10.2); Carbon Dioxide 22 mmol/L (22-30); Chloride 110 mmol/L (98-107); Estimated Creatinine Clearance 66 ml/min; Glucose 86 mg/dl (70-99); Potassium 3.6 mmol/L (3.5-5.1); Sodium 140 mmol/L (135-145); Total Bilirubin 3.6 mg/dl (0.2-1.3); Total Protein 4.8 g/dl (6.3-8.2); eGFR > 60.00
[2023-12-16 07:55] VITALS: BP 134/60
[2023-12-16] MEDS: LASIX 20 MG PO (08:12)
[2023-12-16] MEDS: PROTONIX 40 MG PO ×2 (08:12→20:30)
[2023-12-16] MEDS: VITAMIN B1 100 MG PO (08:12)
[2023-12-16] MEDS: PACERONE 100 MG PO (08:12)
[2023-12-16] MEDS: XIFAXAN 550 MG PO ×2 (08:12→20:30)
[2023-12-16] MEDS: FOLVITE 1 MG PO (08:13)
[2023-12-16] MEDS: HEPARIN 5000 UNITS SC ×2 (08:13→20:30)
[2023-12-16] MEDS: DUPHALAC/CHRONULAC 30 GRAMS PO ×4 (08:16→21:07)
[2023-12-16 08:30] VITALS: BP 134/60
[2023-12-16 10:52] LABS: Urine Albumin Negative (Neg - Trace); Urine Bilirubin Negative (Negative); Urine Character Clear (Clear); Urine Color Yellow; Urine Glucose Negative (Negative); Urine Ketone Trace (Negative); Urine Leukocyte Negative (Negative); Urine Nitrite Negative (Negative); Urine Occult Blood Negative (Negative); Urine Specific Gravity 1.015 (<1.030); Urine Urobilinogen Negative (Neg - 1+)
[2023-12-16 15:57] VITALS: BP 134/56
--- NOTE | 2023-12-16 16:21 | CM ---
Alert awake oriented patient who lives with his Dacia who lives in a 2 story home with 2 step to enter and he lives on first floor. He is assisted in all activities of daily living.He and offered Vn they declined need.
[facility] hx /[facility] history
Pharmacy [facility]
PCP DR Quintero
PLAN Home Declined VN
[2023-12-16] MEDS: LIPITOR 40 MG PO (18:37)
--- NOTE | 2023-12-16 19:29 | W.PN.HOSP.TC ---
Addendum entered and electronically signed by Erik Quiñonez MD 12/16/23 22:45:
Attending Addendum-
I saw and evaluated the patient. I reviewed the resident�s note and agree with findings and plan as documented in the resident�s note. Patient wants to go home. No BM since yesterday. Feels restless. Full 12 point ROS reviewed and negative except as
documented Exam: Vitals reviewed in chart GEN-NAD fecor hepaticus heart irreg irreg lungs clear abd soft no fluid wave LE 1+ pitting edema B/L Neuro AAOx2 asterixis present b/l
1. Hepatic encephalopathy
-grade 2
-No clear exacerbating factor of infection/volume depletion/medication noncompliance/sedative medication
-Per spouse patient taking lactulose regularly although unsure if had enough bowel movements
-CT head without contrast negative for acute abnormality
-no need to trend ammonia
-increase oral lactulose qid with goal of 2-3 bowel movements a day
-cont rifaximin to regimen while in hospital
2. Alcoholic cirrhosis
-No signs of decompensated liver failure
-No history of other complicating factors of ascites/variceal bleed
-EGD in December 18 showing gastritis/hernia. Colonoscopy showing small polyp only
-check INR/LFT in morning to calculate MELD
3. Pancytopenia
- CBC trend reviewed and counts close to baseline
- trending down
- likely to to ETOH abuse/liver disease
- Continue to follow daily
4. Parox afib
-Not on anticoagulation due to increased fall risk and bleed risk
-EKG showing sinus bradycardia with first-degree AV block
-repeat EKG
-continue amiodarone
5. DELILAH on CKD stage II
- resolving
- repeat BMP in am
6. HFpEF-
cont lasix
ef 50-55%
daily weights
fluid restrict monitor strict Isand Os
7. DAVE
- hb trending down
- repeat cbc in am
DVT PPX - heparin sub q
Full code
Time spent coordinating care, review of plan of care with resident, review of records, med rec, consults, notes, labs, rads, d/w nursing and POA/ � 57 mins
Original Note:
Today's Communication/Plan
-
.
Assessment / Plan
Assessment / Plan
# Hepatic encephalopathy
patient on lactulose at home
CT head without contrast negative for acute abnormality
Mental status and speech back to baseline
Ammonia level 69
Lactulose 30g qid with goal of 2-3 bowel movements a day
Continue rifaximin 550 mg, twice daily
#Alcoholic cirrhosis
Ultrasonogram abdomen 06/18/2023�portal hypertension with splenomegaly, fatty infiltration of the liver, biliary dilatation
FibroScan�F4
MELD score- 17.
Normal LFT, ALP 143
Trend LFTs
#Pancytopenia
CBC trend reviewed and counts close to baseline
Continue to follow
# Paroxysmal A-fib
Not on anticoagulation due to increased bleed risk
EKG showing sinus bradycardia with first-degree AV block
Continue amiodarone
Telemetry
#DVT PPX - heparin subq
# Thiamine 100 mg per oral
#Folic acid 1 mg per oral
# Ferrous sulfate 325 mg per oral
Anticipated Discharge: 24 - 48 hours
Subjective/Interval History
-
Date of Service: December 16, 2023
Patient appears to be oriented to time place and location, he is not confused. Patient's mentioned that his speech and his mental status is back to his baseline.
No nausea, vomiting, abdominal pain. Patient reports not having a bowel movement since yesterday.
Objective Data
-
Vital Signs:
Vital Signs
Temp Pulse Resp BP Pulse Ox
98.0 F 64 16 134/56 98
12/16/23 15:57 12/16/23 15:57 12/16/23 15:57 12/16/23 15:57 12/16/23 15:57
I&O
12/15/23 12/16/23 12/17/23
06:59 06:59 06:59
Intake Total 240 / 240 840 / 840
Output Total 575 / 575
Balance 240 / 240 265 / 265
Review of Systems
-
All other systems: Reviewed and negative (As per HPI)
Physical Exam
-
General: Well Developed, Well Nourished and No Apparent Distress
HEENT: Normocephalic and Atraumatic
Respiratory: Clear to Auscultation
Cardiac: S1/S2 and Murmur
GI: Soft, Nontender and Nondistended
Neuro: Awake, Alert, Oriented, AO x 3, Nonfocal/Grossly Intact and Other (Asterixis); Negative Slurred Speech
[2023-12-16 23:23] VITALS: BP 117/53
[2023-12-17 03:24] VITALS: BP 119/64
[2023-12-17 05:25] LABS: Hematocrit 28.2 % (39.0-52.0); Hemoglobin 9.5 g/dL (13.0-18.0); Mean Corp Hgb Conc. 33.7 g/dL (33.0-37.0); Mean Corpuscular Volume 83.2 fL (80.0-94.0); Mean Platelet Volume 11.4 fL (7.4-10.4); Nucleated Red Blood Cells % 0 % (-); Platelet Count 60 10^3/uL (130-400); Red Blood Cell Count 3.39 10^6/uL (4.70-6.10); Red Cell Dist. Width 15.8 % (11.5-14.5); White Blood Cell Count 2.6 10^3/uL (4.8-10.8)
[2023-12-17 05:40] LABS: PT 18.9 Sec (11.4-14.6)
[2023-12-17 05:48] LABS: ALT (SGPT) 39 U/L (0-50); AST (SGOT) 43 U/L (17-59); Albumin 2.7 g/dl (3.5-5.0); Alkaline Phosphatase 134 U/L (38-126); Blood Urea Nitrogen 25 mg/dl (9-20); Calcium 8.7 mg/dl (8.4-10.2); Carbon Dioxide 21 mmol/L (22-30); Chloride 111 mmol/L (98-107); Estimated Creatinine Clearance 66 ml/min; Glucose 80 mg/dl (70-99); Potassium 3.4 mmol/L (3.5-5.1); Sodium 139 mmol/L (135-145); Total Bilirubin 3.3 mg/dl (0.2-1.3); Total Protein 4.7 g/dl (6.3-8.2); eGFR > 60.00
[2023-12-17 06:00] VITALS: BMI 25.0
[2023-12-17 07:55] VITALS: BP 111/44
[2023-12-17 08:05] LABS: Lymphocytes 17 % (20-51); Segmented Neutrophils 65 % (42-75)
[2023-12-17 08:06] LABS: Absolute Neutrophils -Man Diff 1.6 10^3/uL (1.4-6.5); Band Neutrophils 0 % (0-3); Eosinophils 2 % (0-6); Monocytes 16 % (2-9); Normal RBC Morphology Yes; Platelets Checked Yes; Total Cells Counted 100
[2023-12-17] MEDS: DUPHALAC/CHRONULAC 30 GRAMS PO ×2 (08:41→13:41)
[2023-12-17] MEDS: LASIX 20 MG PO (08:41)
[2023-12-17] MEDS: FOLVITE 1 MG PO (08:41)
[2023-12-17] MEDS: PACERONE 100 MG PO (08:42)
[2023-12-17] MEDS: VITAMIN B1 100 MG PO (08:43)
[2023-12-17] MEDS: XIFAXAN 550 MG PO (08:43)
[2023-12-17] MEDS: PROTONIX 40 MG PO (08:43)
[2023-12-17] MEDS: HEPARIN 5000 UNITS SC (08:43)
[2023-12-17 10:55] VITALS: BP 106/43
[2023-12-17 11:55] VITALS: BP 106/43
[2023-12-17 14:00] VITALS: BP 125/54; PULSE 67; O2SAT 99
--- NOTE | 2023-12-17 14:59 | W.DCSUMMARY ---
Addendum entered and electronically signed by Erik Quiñonez MD 12/17/23 22:32:
Attending Addendum:
Read reviewed and agree. See same day progress note for additional details.
Germain Quiñonez MD
Original Note:
Documented by User: Zachary Alejandro MD, Resident 12/17/23 21:03
Discharge Summary
Discharge Data
Date of Admission: 12/15/23
Date of Discharge: 12/17/23
-
Pending Results: No
Hospital Course
Primary care physician : Dr Darlene Loaiza
Discharge diagnosis :Acute hepatic encephalopathy
Chronic conditions :
Hepatic encephalopathy, cirrhosis
Paroxysmal atrial fibrillation
History of alcohol abuse
CKD stage II
Coronary artery disease
Heart failure with preserved ejection fraction
Hyperlipidemia
Ambulatory dysfunction
Hospital Course :
73-year-old male with above-mentioned past medical history was brought in to the ER by spouse after patient was noted having confusion and speech difficulty.No associated complaints of chest pain/shortness of breath/dizziness/syncope/dysuria.
Patient had previous multiple hospital admissions, the latest 1 being in the month of September for hepatic encephalopathy. Patient's spouse mentioned that he was compliant with his home lactulose, but was not sure if he had bowel movements in the past
few days. CT head without contrast was negative for acute abnormality in the ER. Ammonia was 69 on admission. Patient was continued on oral lactulose, and started on rifaximin with which patient symptoms improved . EKG-sinus bradycardia with
first-degree AV block with frequent premature ventricular complexes. He has a history of paroxysmal A-fib, home amiodarone was continued, not anticoagulated due to risk of bleeding, fall, monitored on telemetry. Rest of his home medications were
continued during the hospital stay. His CBC, CMP were closely monitored, potassium repleted. His MELD score-19. Patient has clinically improved, back to his baseline mental status, speech normal and appeared stable for discharge, PT/OT consulted.
PT evaluation at discharge recommended home PT to help improve functional strength and reduce caregiver burden. Vital stable for discharge. Patient was discharged to home with follow-up with primary care physician and psychiatric aides teacher.
Discharge Plan
-
Patient Disposition: Home (Routine Discharge)
Discharge Diagnosis/Procedures: Hepatic encephalopathy
Condition: Fair
Diet: Low Fat and Low Sodium
Activity: As tolerated
Driving Restrictions: As prior to admission
Bathing Restrictions: None
Referrals:
Darlene Loaiza CRNP [Family Provider] -
Prescriptions:
New
polyethylene glycol 3350 [HealthyLax] 17 gram Powder In Packet
17 g PO DAILYPRN PRN (Reason: constipation) 30 Days Qty: 30 0RF
bisacodyl 10 mg Suppository
10 mg LA [id number] PRN (Reason: constipation) Qty: 90 0RF
Xifaxan 550 mg Tablet
550 mg PO BID Qty: 60 0RF
Continued
atorvastatin 40 mg Tablet
40 mg PO QPM Qty: 0 0RF
folic acid 1 mg Tablet
1 mg PO DAILY Qty: 0 0RF
amiodarone [Pacerone] 200 mg Tablet
100 mg PO DAILY 30 Days Qty: 15 0RF
thiamine HCl (vitamin B1) 100 mg Tablet
100 mg PO DAILY 30 Days Qty: 30 0RF
pantoprazole 40 mg Tablet,Delayed Release (Dr/Ec)
40 mg PO BID 30 Days Qty: 60 0RF
furosemide 20 mg Tablet
20 mg PO DAILY 30 Days Qty: 30 0RF
potassium chloride [Klor-Con M20] 20 mEq Tablet,Er Particles/Crystals
20 meq PO BID
ferrous sulfate 325 mg (65 mg iron) tablet
325 mg PO Q48H
lactulose 10 gram/15 mL Solution
30 g PO QID 14 Days Qty: 3785 0RF
magnesium oxide 500 mg tablet
500 mg PO BID
Discharge Orders:
Discharge Patient (As Directed); Ordered 12/17/23
Ordered By: Zachary Alejandro
Discharge Date and Time
Discharge Date/Time: 12/17/23 19:28
Print Language: BURMESE

Documented by User: Erik Quiñonez MD 12/17/23 22:22
Discharge Summary
Discharge Data
Date of Admission: 12/15/23
Date of Discharge: 12/17/23
Discharge Plan
-
Patient Disposition: Home (Routine Discharge)
Discharge Diagnosis/Procedures: Hepatic encephalopathy
Condition: Fair
Diet: Low Fat and Low Sodium
Activity: As tolerated
Driving Restrictions: As prior to admission
Bathing Restrictions: None
Referrals:
Darlene Loaiza CRNP [Family Provider] -
Prescriptions:
New
polyethylene glycol 3350 [HealthyLax] 17 gram Powder In Packet
17 g PO DAILYPRN PRN (Reason: constipation) 30 Days Qty: 30 0RF
bisacodyl 10 mg Suppository
10 mg LA [id number] PRN (Reason: constipation) Qty: 90 0RF
Xifaxan 550 mg Tablet
550 mg PO BID Qty: 60 0RF
Continued
atorvastatin 40 mg Tablet
40 mg PO QPM Qty: 0 0RF
folic acid 1 mg Tablet
1 mg PO DAILY Qty: 0 0RF
amiodarone [Pacerone] 200 mg Tablet
100 mg PO DAILY 30 Days Qty: 15 0RF
thiamine HCl (vitamin B1) 100 mg Tablet
100 mg PO DAILY 30 Days Qty: 30 0RF
pantoprazole 40 mg Tablet,Delayed Release (Dr/Ec)
40 mg PO BID 30 Days Qty: 60 0RF
furosemide 20 mg Tablet
20 mg PO DAILY 30 Days Qty: 30 0RF
potassium chloride [Klor-Con M20] 20 mEq Tablet,Er Particles/Crystals
20 meq PO BID
ferrous sulfate 325 mg (65 mg iron) tablet
325 mg PO Q48H
lactulose 10 gram/15 mL Solution
30 g PO QID 14 Days Qty: 3785 0RF
magnesium oxide 500 mg tablet
500 mg PO BID
Discharge Orders:
Discharge Patient (As Directed); Ordered 12/17/23
Ordered By: Zachary Alejandro
Discharge Date and Time
Discharge Date/Time: 12/17/23 19:28
Print Language: BURMESE
[2023-12-17 15:55] VITALS: BP 112/55
[2023-12-17] MEDS: FEOSOL 325 MG PO (16:19)
--- NOTE | 2023-12-17 17:09 | W.PN.HOSP.TC ---
Addendum entered and electronically signed by Erik Quiñonez MD 12/17/23 22:31:
Attending Addendum-
I saw and evaluated the patient. I reviewed the resident�s note and agree with findings and plan as documented in the resident�s note. feel much improved back to baseline mentation. had BM last PM. Full 12 point ROS reviewed and negative except as
documented Exam: Vitals reviewed in chart GEN-NAD heart irreg irreg lungs clear abd soft no fluid wave LE 1+ pitting edema B/L Neuro AAOx2 asterixis present b/l
1. Hepatic encephalopathy
-grade 2
-No clear exacerbating factor of infection/volume depletion/medication noncompliance/sedative medication
-Per spouse patient taking lactulose regularly although unsure if had enough bowel movements
-CT head without contrast negative for acute abnormality
-no need to trend ammonia
-increase oral lactulose qid with goal of 2-3 bowel movements a day
-cont rifaximin as OP- c/s CM re obtaining meds
- back to baseline mentation
2. Alcoholic cirrhosis
-No signs of decompensated liver failure
-No history of other complicating factors of ascites/variceal bleed
-EGD in December 18 showing gastritis/hernia. Colonoscopy showing small polyp only
-MELD-Na- 19
- f/u GI as OP
3. Pancytopenia
- CBC trend reviewed and counts close to baseline
- trending down
- likely to to ETOH abuse/liver disease
- Continue to follow as OP
4. Parox afib
-Not on anticoagulation due to increased fall risk and bleed risk
-EKG showing sinus bradycardia with first-degree AV block
-repeat EKG
-continue amiodarone
5. DELILAH on CKD stage II
- resolving
- repeat BMP in am
6. HFpEF-
cont lasix
ef 50-55%
daily weights
fluid restrict monitor strict Is and Os
7. DAVE
- hb stable
- repeat cbc as OP
8. Hypokalemia
- replete prior to DC
DVT PPX - heparin sub q
Full code
Dispo DC home with HC refusing VN
Time spent coordinating care, review of plan of care with resident, review of records, med rec, consults, notes, labs, rads, DC planning, d/w nursing CM re rifaximen, and POA/ � 35 mins
Original Note:
Today's Communication/Plan
-
Discharge today
Assessment / Plan
Assessment / Plan
# Hepatic encephalopathy
[place] criteria grade 2 hepatic encephalopathy
patient on lactulose at home
CT head without contrast negative for acute abnormality
Mental status and speech back to baseline
Ammonia level 69
Lactulose 30g qid with goal of 2-3 bowel movements a day
Continue rifaximin 550 mg, twice daily
#Alcoholic cirrhosis
Ultrasonogram abdomen 06/18/2023�portal hypertension with splenomegaly, fatty infiltration of the liver, biliary dilatation
FibroScan�F4
MELD Na score- 19.
Normal LFT, ALP 134
#Pancytopenia
CBC trend reviewed and counts close to baseline
Continue to follow
# Paroxysmal A-fib
Not on anticoagulation due to increased bleed risk
EKG showing sinus bradycardia with first-degree AV block
Continue amiodarone
Telemetry
#DELILAH on CKD stage II
resolving
Mild hypokalemia, 3.4
Repleted
# HFpEF-
cont lasix
Monitor I&O's
#DVT PPX - heparin subq
# Thiamine 100 mg per oral
#Folic acid 1 mg per oral
# Ferrous sulfate 325 mg per oral
#PT/OT eval
#Case management consulted, for discharge
# Follow-up with Dr. Elam as an outpatient, after discharge.
Anticipated Discharge: Today
Subjective/Interval History
-
Date of Service: December 17, 2023
Patient appears to be oriented to time place and location, he is not confused.
No nausea, vomiting, abdominal pain. Patient reports having a bowel movement yesterday night.
Objective Data
-
Labs:
Laboratory Results
12/17/23
04:30
WBC 2.6 L
Hgb 9.5 L
Hct 28.2 L
Plt Count 60 L
PT 18.9 H
INR 1.60
Sodium 139
Potassium 3.4 L
Chloride 111 H
Carbon Dioxide 21 L
BUN 25 H
Creatinine 1.2
Glucose 80
Calcium 8.7
Total Bilirubin 3.3 H
AST 43
ALT 39
Alkaline Phosphatase 134 H
Vital Signs:
Vital Signs
Temp Pulse Resp BP Pulse Ox
98.7 F 61 16 112/55 98
12/17/23 15:55 12/17/23 15:55 12/17/23 15:55 12/17/23 15:55 12/17/23 15:55
I&O
12/16/23 12/17/23 12/18/23
06:59 06:59 06:59
Intake Total 240 / 240 1080 / 1080
Output Total 1250 / 1250
Balance 240 / 240 -170 / -170
Review of Systems
-
All other systems: Reviewed and negative (As per HPI)
Physical Exam
-
General: No Apparent Distress
HEENT: Normocephalic and Atraumatic
Respiratory: Clear to Auscultation
Cardiac: S1/S2 and Irregular Rhythm
GI: Soft, Nontender, Nondistended and Normal Bowel Sounds
Skin: Warm and Dry
Neuro: Awake, Alert, Oriented and AO x 3
--- NOTE | 2023-12-17 17:39 | CM ---
entered order for dc at 17:30.
Pt refused VN .
Pts will drive him home.
PLAn Home no needs
[2023-12-17] MEDS: KCL 40 MEQ PO (17:47)
== END 2023-12-17 19:28 | disposition home or self-care (01) | DRG 442 ==
LOC: 4 EAST ACU 14:05
PROVIDERS: Student in an Organized Health Care Education/Training Program; ADMITTING PHYSICIAN Hospitalist; ATTENDING PHYSICIAN Family Medicine; EMERGENCY PHYSICIAN Emergency Medicine; FAMILY PHYSICIAN Nurse Practitioner Adult Health
DX: K76.82 Hepatic encephalopathy (principal); D61.818 Other pancytopenia; I50.30 Unspecified diastolic (congestive) heart failure; I13.0 Hypertensive heart and chronic kidney disease with heart failure and stage 1 through stage 4 chronic kidney disease, or unspecified chronic kidney disease; N17.9 Acute kidney failure, unspecified; K70.30 Alcoholic cirrhosis of liver without ascites; K29.70 Gastritis, unspecified, without bleeding; I48.0 Paroxysmal atrial fibrillation; I44.0 Atrioventricular block, first degree; N18.2 Chronic kidney disease, stage 2 (mild); E66.9 Obesity, unspecified; Z68.25 Body mass index [BMI] 25.0-25.9, adult
CPT/HCPCS: 70450; 80053; 81003; 82140; 82805; 84484; 85025; 85027; 85610; 93005; 97162; 99291

== ENCOUNTER → 2023-12-30 09:25 | Outpatient (REF) | payer MEDICARE, OTHER, SELFPAY | LOC: HWRAD 09:25 | PROVIDERS: ATTENDING PHYSICIAN Internal Medicine Gastroenterology; FAMILY PHYSICIAN Nurse Practitioner Adult Health | DX: K74.60 Unspecified cirrhosis of liver (principal) | CPT/HCPCS: 76700 ==

== ENCOUNTER 2024-03-03 09:19 | Emergency (ER) | payer MEDICARE, OTHER, SELFPAY ==
[2024-03-03 09:35] VITALS: BP 127/57
--- NOTE | 2024-03-03 10:10 | ED.GENMED ---
History of Present Illness
General
Chief Complaint: Fever
Source: patient
Exam Limitations: none
Time Seen by Provider: 03/03/24 10:01
Nursing documentation reviewed up to this point in time: agreed with
History of Present Illness
History of Present Illness:
Patient with history of chronic liver disease secondary to alcohol abuse, currently taking lactulose at home, presents to ED secondary to recurrent confusion noted by spouse over the past 2 days, similar to previous episodes related to hepatic
encephalopathy. However, per spouse, in the past, patient never had fever associated with his symptoms. Denies headache. Denies rash. Denies vomiting or diarrhea. Denies coughing or sore throat. Patient has been complaining of ear itching
sensation. Denies sick contact. Denies recent travel. Denies recent change in medications or diet. Patient has been taking lactulose and has had normal bowel movements at home.
Past History
Past History
ED Past Medical History: CAD, HTN and Other (Alcohol abuse, cirrhosis, hepatic encephalopathy)
ED Past Surgical History: None
Social History
Tobacco: Non-smoker
Alcohol: Former
Drug: None
Personal:
Living: with family
Employment: Not employed
Review of Systems
Review of Systems
Allergies reviewed?: Yes
All Other Systems: ROS reviewed and negative except as documented in HPI and ROS
Constitutional: Reports fever
EENT: Reports no symptoms
Respiratory: Reports no symptoms
Cardiac: Reports no symptoms
ABD/GI: Reports no symptoms; Denies abdominal pain, nausea, vomiting or diarrhea
Musculoskeletal: Reports no symptoms
Skin: Reports no symptoms
Neurological: Reports other (confusion)
Phy Exam
Physical Exam
Physical Exam:
Physical Exam
General: no apparent distress, not acutely ill. febrile
Head: nc/at. eomi
Neck: supple. no meningeal signs.
Heart: s1/s2 regular rate and rhythm, no murmur. equal radial pulses.
Lungs: no acute respiratory distress. clear bilaterally
Abdomen: normal bowel sounds. not tender.
Neuro: alert and oriented. no focal neurological deficits
Skin: LLE erythema/swelling/warmth noted over medial aspect including malleolus, without open drainage. Left 1st toe with dry necrotic nail noted
Psychiatric: well kept. interactive and cooperative
Extremities: no calf tenderness.
Course
Orders/Labs/Results
Orders:
Orders
03/03/24 10:10
Ibuprofen [Motrin] 400 mg PO NOW STA
03/03/24 10:17
Alcohol Urgent
Urinalysis Reflex To Culture Urgent
Date Specimen was Collected: 03/03/24
Time Specimen was Collected: 10:14
Urine Microscopic Reflex Cult Urgent
03/03/24 10:21
Ammonia Urgent
COVID-19 Antigen Urgent
Source: Nasal Swab
Complete Blood Count/With Diff Urgent
Comprehensive Metabolic Panel Urgent
Lactic Acid Q4H
Comment: CANCEL 2nd LACTIC ACID IF 1st LACTIC ACID IS LESS THAN 2
Magnesium Urgent
Blood Culture Routine
MISHEL Source: Blood/Venous
Specimen Description:
Blood Culture Urgent
MISHEL Source: Blood/Venous
Specimen Description:
03/03/24 11:07
Add On- LAB Urgent
Tests Added?: alcohol urine
03/03/24 11:40
CR Chest - 2 Views Urgent
Comment:
Reason For Exam: fever
03/03/24 11:47
Vancomycin 1 Gram/200 ml [Vancocin] 1 gram in 200 ml IV NOW
03/03/24 12:48
Case Management Consult ONCE
Case Management Consult: [facility]/Home Care
03/03/24 13:18
Add On- LAB Urgent
Tests Added?: ETOH serum
Abnormal Lab Results
03/03/24 03/03/24
10:17 10:21
WBC 11.3 H 10^3/uL
(4.8-10.8)
RBC 3.55 L 10^6/uL
(4.70-6.10)
Hgb 10.2 L g/dL
(13.0-18.0)
Hct 29.1 L %
(39.0-52.0)
RDW 16.5 H %
(11.5-14.5)
Plt Count 57 L 10^3/uL
(130-400)
MPV 11.4 H fL
(7.4-10.4)
Abs Immat Gran (auto) 0.1 H 10^3/uL
(0-0.05)
Absolute Neuts (auto) 9.2 H 10^3/uL
(1.4-6.5)
Absolute Lymphs (auto) 0.4 L 10^3/uL
(1.2-3.4)
Absolute Monos (auto) 1.7 H 10^3/uL
(0.1-0.6)
Neutrophils % 80.9 H %
(42.2-75.2)
Lymphocytes % 3.7 L %
(20.5-51.1)
Monocytes % 14.7 H %
(1.7-9.3)
Chloride 108 H mmol/L
(98-107)
Carbon Dioxide 17 L mmol/L
(22-30)
BUN 27 H mg/dl
(9-20)
Creatinine 1.5 H mg/dL
(0.7-1.3)
Glucose 122 H mg/dl
(70-99)
Lactic Acid 3.5 H mmol/L
(0.7-2.0)
Total Bilirubin 5.3 H mg/dl
(0.2-1.3)
Alkaline Phosphatase 133 H U/L
(38-126)
Total Protein 5.5 L g/dl
(6.3-8.2)
Urine Ketones Trace A
(Negative)
Urine Bilirubin 1+ A
(Negative)
Leukocyte Esterase Rfl Trace A
(Negative)
Urine RBC 3-6 A /HPF
(0-2)
Urine Bacteria (Reflex) Few A
(Negative)
03/03/24 10:21
03/03/24 10:21
Vital Signs
Initial and Last Documented VS:
Initial Vital Signs
Temp Pulse Resp BP Pulse Ox
100.4 F H 75 18 127/57 97
03/03/24 09:35 03/03/24 09:35 03/03/24 09:35 03/03/24 09:35 03/03/24 09:35
Last Documented Vital Signs
Temp Pulse Resp BP Pulse Ox
99.4 F 68 14 114/48 97
03/03/24 12:10 03/03/24 11:45 03/03/24 11:30 03/03/24 13:00 03/03/24 13:45
MDM/Problems Addressed
MDM/Problems Addressed:
History and exam concerning for sepsis, likely secondary to lower leg cellulitis. Fortunately, after Motrin was administered with improvement in his temperature, patient mental status also improved accordingly, confirmed by his spouse. In light of
patient's presenting symptoms as well as underlying liver disease, recommended admission to hospital for IV antibiotics. However, at this time, patient requesting to be discharged home. As such, patient given 1 g of vancomycin in the ED and
antibiotics will be prescribed (doxycycline), as well as setting patient up for visiting RN by case management. Advised spouse to consider bringing patient back to ED with worsening symptoms despite abx
*Critical Care Note
Total Time (30-74mins, 75-104mins- exclusive of procedures): Not Applicable
ED Attending Note
-
Portions of this chart may have been created with voice recognition software.� Occasional wrong word or��sound alike� substitutions may have occurred due to the inherent limitations of voice recognition software.
Discharge Plan
Departure
Patient Disposition: Home (Routine Discharge)
Date of Disposition: 03/03/24
Time of Disposition: 12:48
Patient with high blood pressure during this ER visit?: Yes
Condition: Fair
Discharge Problem:
Cellulitis of left leg
Instructions: Cellulitis (Skin Infection), Adult ED
Prescriptions:
New
doxycycline hyclate 100 mg tablet
100 mg PO BID Qty: 12 0RF
No Action
atorvastatin 40 mg Tablet
40 mg PO QPM Qty: 0 0RF
folic acid 1 mg Tablet
1 mg PO DAILY Qty: 0 0RF
amiodarone [Pacerone] 200 mg Tablet
100 mg PO DAILY 30 Days Qty: 15 0RF
thiamine HCl (vitamin B1) 100 mg Tablet
100 mg PO DAILY 30 Days Qty: 30 0RF
pantoprazole 40 mg Tablet,Delayed Release (Dr/Ec)
40 mg PO BID 30 Days Qty: 60 0RF
furosemide 20 mg Tablet
20 mg PO DAILY 30 Days Qty: 30 0RF
potassium chloride [Klor-Con M20] 20 mEq Tablet,Er Particles/Crystals
20 meq PO BID
ferrous sulfate 325 mg (65 mg iron) tablet
325 mg PO Q48H@1200
lactulose 10 gram/15 mL Solution
30 g PO QID 14 Days Qty: 3785 0RF
magnesium oxide 500 mg tablet
500 mg PO BID
polyethylene glycol 3350 [HealthyLax] 17 gram Powder In Packet
17 g PO DAILYPRN PRN (Reason: constipation) 30 Days Qty: 30 0RF
sennosides [senna] 8.6 mg Tablet
17.2 mg PO DAILY
Referrals:
Darlene Quintero CRNP [Family Provider] -
Activity Restrictions/Additional Instructions:
As discussed, please follow-up with your primary care physician for reevaluation. Please consider returning to ED with worsening symptoms. Your prescription has been sent electronically to [facility] pharmacy in [place].
Interventions
Interventions:
*Risk Screen - Suicide Last Done: 03/03/24 09:35
*General Assessment Last Done: 03/03/24 09:35
*Neglect/Abuse Screening Last Done: 03/03/24 09:35
ED- Fall Risk Assessment Last Done: 03/03/24 14:02
*ED COVID-19 Vaccine History Last Done: 03/03/24 10:25
*Nursing Disposition Last Done: 03/03/24 14:06
ED- Neurological Assessment Last Done: 03/03/24 10:25
ED-Skin Assessment Last Done: 03/03/24 12:47
Discharge Date and Time
Discharge Date/Time: 03/03/24 14:06
Print Language: UKRAINIAN
[2024-03-03] MEDS: MOTRIN 400 MG PO (10:22)
[2024-03-03 10:24] VITALS: BP 116/44
[2024-03-03 10:25] VITALS: BMI 28.2
[2024-03-03 10:27] LABS: Urine Albumin Trace (Neg - Trace); Urine Bilirubin 1+ (Negative); Urine Character Clear (Clear); Urine Color Yellow; Urine Glucose Negative (Negative); Urine Ketone Trace (Negative); Urine Leukocyte Trace (Negative); Urine Nitrite Negative (Negative); Urine Occult Blood Negative (Negative); Urine Specific Gravity 1.015 (<1.030); Urine Urobilinogen 1+ (Neg - 1+)
[2024-03-03 10:51] LABS: % Basophils 0.2 % (0-2); % Immature Granulocytes 0.5 % (0-0.5); % Lymphocytes 3.7 % (20.5-51.1); % Monocytes 14.7 % (1.7-9.3); % Neutrophils 80.9 % (42.2-75.2); Absolute Immature Granulocytes 0.1 10^3/uL (0-0.05); Absolute Lymphocytes 0.4 10^3/uL (1.2-3.4); Absolute Monocytes 1.7 10^3/uL (0.1-0.6); Absolute Neutrophils 9.2 10^3/uL (1.4-6.5); Hematocrit 29.1 % (39.0-52.0); Hemoglobin 10.2 g/dL (13.0-18.0); Mean Corp Hgb Conc. 35.1 g/dL (33.0-37.0); Mean Corpuscular Hgb 28.7 pg (27.0-31.0); Mean Platelet Volume 11.4 fL (7.4-10.4); Nucleated Red Blood Cells % 0 % (-); Platelet Count 57 10^3/uL (130-400); Red Blood Cell Count 3.55 10^6/uL (4.70-6.10); Red Cell Dist. Width 16.5 % (11.5-14.5); White Blood Cell Count 11.3 10^3/uL (4.8-10.8)
[2024-03-03 10:58] LABS: Urine Urothelial Cell 0-2 /LPF (FEW)
[2024-03-03 10:59] LABS: Urine Bacteria Few (Negative)
[2024-03-03 11:05] VITALS: BP 117/45
[2024-03-03 11:05] LABS: Ammonia 16 umol/L (9-30)
[2024-03-03 11:06] LABS: Lactic Acid 3.5 mmol/L (0.7-2.0)
[2024-03-03 11:08] LABS: ALT (SGPT) 33 U/L (0-50); AST (SGOT) 47 U/L (17-59); Albumin 3.5 g/dl (3.5-5.0); Alkaline Phosphatase 133 U/L (38-126); Blood Urea Nitrogen 27 mg/dl (9-20); Calcium 8.9 mg/dl (8.4-10.2); Carbon Dioxide 17 mmol/L (22-30); Chloride 108 mmol/L (98-107); Estimated Creatinine Clearance 51 ml/min; Glucose 122 mg/dl (70-99); Magnesium 1.9 mg/dl (1.6-2.3); Potassium 4.1 mmol/L (3.5-5.1); Sodium 136 mmol/L (135-145); Total Bilirubin 5.3 mg/dl (0.2-1.3); Total Protein 5.5 g/dl (6.3-8.2); eGFR 49.47
[2024-03-03 11:12] LABS: COVID-19 Antigen Negative (Negative)
[2024-03-03] MEDS: VANCOCIN 200 IV (12:05)
[2024-03-03 12:06] VITALS: BP 119/44
--- NOTE | 2024-03-03 12:59 | CM ---
Addendum entered by Regla Jackson RN 03/03/24 13:17:
CM sent referral via [facility] to [facility].
Original Note:
CM reviewed medical records. CM met with patient and in room. CM confirmed that patient and patient's are agreeable to [facility]. Referral sent TT to [facility] cadd technician.
CM updated ED physician.
[2024-03-03 13:00] VITALS: BP 114/48
--- NOTE | 2024-03-03 14:02 | VNURNOTE ---
Home Health Liaison met with patient and Dacia at bedside to discuss [facility] nurse visits, schedule and homebound status. Patient is agreeable and understands that visits at home will be 1-3 x per week to assess and teach medical management. [facility]
brochure provided with contact information. Patient is aware that [facility] will contact them for start of care within a few days after discharge from . [facility] referral updated in [facility].
[2024-03-03 15:26] LABS: Alcohol None Detected
== END 2024-03-03 14:06 | disposition home or self-care (01) ==
LOC: EMR 09:19
PROVIDERS: EMERGENCY PHYSICIAN Emergency Medicine; FAMILY PHYSICIAN Nurse Practitioner Adult Health
DX: L03.116 Cellulitis of left lower limb (principal); K76.89 Other specified diseases of liver; F10.10 Alcohol abuse, uncomplicated; I25.10 Atherosclerotic heart disease of native coronary artery without angina pectoris; I10 Essential (primary) hypertension; K76.82 Hepatic encephalopathy
CPT/HCPCS: 99283; 96365; 71046; 80053; 81003; 81015; 82077; 82140; 83605; 83735; 85025; 87040; 87811

== ENCOUNTER 2024-06-20 13:21 | Inpatient (IN) | payer MEDICARE, OTHER, SELFPAY ==
[2024-06-20] VITALS (8 sets, daily range): BP systolic 120–150; BP diastolic 49–65; BMI 28.4; BMI 27.1
--- NOTE | 2024-06-20 10:05 | ED.GENMED ---
History of Present Illness
<Gladis Cordero MD, Resident - Last Filed: 06/20/24 12:33>
General
Chief Complaint: Fall
Time Seen by Provider: 06/20/24 09:20
History of Present Illness
History of Present Illness:
74 y/o male with past medical history of cirrhosis and hepatic encephalopathy, HTN, CAD, heart failure presenting to the ED with fall. Pt notes he was walking in a dark room when he tripped and fell to the ground on night. Was not able to
stand up after that and slept on the floor that night. Per , pt refused to come to the hospital then and Saturday morning. Called EMS today since he could not ambulate and was having pain. Pt notes pain left sided extremity pain above knee. Is
unable to bear weight and has had no ambulation since fall. Denies hitting head, chest pain, lightheadedness, palpitations, recent cough, change in bowel movements, urinary symptoms, fever, chills. Denies headache and confusion. Has no history of
back pain and stroke/TIA.
Past History
<Gladis Cordero MD, Resident - Last Filed: 06/20/24 12:33>
Past History
ED Past Medical History: CAD, HTN and Other (Alcohol abuse, cirrhosis, hepatic encephalopathy)
ED Past Surgical History: None
Social History
Tobacco: Non-smoker
Alcohol: Former
Drug: None
Personal:
Living: with family
Employment: Not employed
Review of Systems
<Gladis Cordero MD, Resident - Last Filed: 06/20/24 12:33>
Review of Systems
Constitutional: Reports no symptoms
EENT: Reports no symptoms
Respiratory: Reports no symptoms
Cardiac: Reports no symptoms
ABD/GI: Reports no symptoms
: Reports no symptoms
Musculoskeletal: Reports edema and other (left lower extremity pain)
Skin: Reports no symptoms
Neurological: Reports no symptoms
Endocrine: Reports no symptoms
Hematologic/Lymphatic: Reports no symptoms
Psychiatric: Reports no symptoms
Phy Exam
<Gladis Cordero MD, Resident - Last Filed: 06/20/24 12:33>
Physical Exam
Physical Exam:
GENERAL: Alert, in no apparent distress
EYE: pupils equal and reactive
NECK: Supple, no significant adenopathy.
ENT: o/p clr, mmm.
CARDIAC: Regular rate and rhythm. Mild systolic murmur.
LUNGS: Clear breath sounds bilaterally, no acute respiratory distress, no wheezes/rales/rhonchi
ABDOMEN: Soft, without focal tenderness, no r/g, no cvat
NEUROLOGICAL: Alert and oriented, no focal neuro deficits
SKIN: Warm and dry, skin intact.
MUSCULOSKELETAL: Focal tenderness at left hip joint. Unable to move LLE due to pain. Distal LLE strength: 5/5. Bilateral LE swelling. Distal pulses could not be palpated.
PSYCH: Normal and appropriate interaction.
Course
<Gladis Cordero MD, Resident - Last Filed: 06/20/24 12:33>
Orders/Labs/Results
Orders:
Orders
06/20/24 10:02
CR Hip - LT w/wo Pel 2-3 Vw* Urgent
Comment:
Reason For Exam: fall with hip pain
Include a pelvis x-ray?: Yes
US Periph Venous LOWER Ext LT Urgent
Comment:
Reason For Exam: LLE pain and swelling
06/20/24 10:03
Urinalysis Reflex To Culture Urgent
Date Specimen was Collected: 06/20/24
Time Specimen was Collected: 12:15
06/20/24 10:05
Electrocardiogram (*1) Urgent
Reason for Study: Fatigue / Weakness
EKG- Treatment ONCE
06/20/24 10:09
CPK [Creatine Phosphokinase] Urgent
Complete Blood Count/With Diff Urgent
Comprehensive Metabolic Panel Urgent
06/20/24 10:55
CT Cervical Spine W/o Iv Contr Urgent
Comment:
Reason For Exam: found down
CT Head W/o Iv Contrast Urgent
Comment:
Reason For Exam: found down
06/20/24 11:31
Oxycodone [Roxicodone] 5 mg PO NOW STA
06/20/24 11:32
0.9% Sodium Chloride 500 ml [Nss] 500 ml IV BOLUS
06/20/24 12:17
Prothrombin Time Urgent
Abnormal Lab Results
06/20/24 06/20/24
10:09 12:17
RBC 3.56 L 10^6/uL
(4.70-6.10)
Hgb 10.4 L g/dL
(13.0-18.0)
Hct 31.9 L %
(39.0-52.0)
MCHC 32.6 L g/dL
(33.0-37.0)
RDW 18.2 H %
(11.5-14.5)
Plt Count 61 L 10^3/uL
(130-400)
MPV 10.7 H fL
(7.4-10.4)
Abs Immat Gran (auto) 0.1 H 10^3/uL
(0-0.05)
Absolute Lymphs (auto) 0.3 L 10^3/uL
(1.2-3.4)
Absolute Monos (auto) 1.2 H 10^3/uL
(0.1-0.6)
Immature Gran % 0.8 H %
(0-0.5)
Neutrophils % 75.7 H %
(42.2-75.2)
Lymphocytes % 5.2 L %
(20.5-51.1)
Monocytes % 17.7 H %
(1.7-9.3)
PT 18.4 H Sec
(11.4-14.6)
BUN 40 H mg/dl
(9-20)
Creatinine 1.8 H mg/dL
(0.7-1.3)
Glucose 145 H mg/dl
(70-99)
Total Bilirubin 7.0 H mg/dl
(0.2-1.3)
Alkaline Phosphatase 148 H U/L
(38-126)
Creatine Kinase 302 H U/L
(55-170)
Total Protein 5.6 L g/dl
(6.3-8.2)
06/20/24 10:09
06/20/24 10:09
Vital Signs
Initial and Last Documented VS:
Initial Vital Signs
Temp Pulse Resp BP Pulse Ox
37.1 C 64 28 150/65 98
06/20/24 09:06 06/20/24 09:06 06/20/24 09:06 06/20/24 09:06 06/20/24 09:06
Last Documented Vital Signs
Temp Pulse Resp BP Pulse Ox
37.1 C 56 16 122/49 93
06/20/24 09:06 06/20/24 11:15 06/20/24 11:15 06/20/24 11:00 06/20/24 11:15
<John Valladares MD - Last Filed: 06/20/24 12:48>
Orders/Labs/Results
Orders:
Orders
06/20/24 10:02
CR Hip - LT w/wo Pel 2-3 Vw* Urgent
Comment:
Reason For Exam: fall with hip pain
Include a pelvis x-ray?: Yes
US Periph Venous LOWER Ext LT Urgent
Comment:
Reason For Exam: LLE pain and swelling
06/20/24 10:03
Urinalysis Reflex To Culture Urgent
Date Specimen was Collected: 06/20/24
Time Specimen was Collected: 12:15
06/20/24 10:05
Electrocardiogram (*1) Urgent
Reason for Study: Fatigue / Weakness
EKG- Treatment ONCE
06/20/24 10:09
CPK [Creatine Phosphokinase] Urgent
Complete Blood Count/With Diff Urgent
Comprehensive Metabolic Panel Urgent
06/20/24 10:55
CT Cervical Spine W/o Iv Contr Urgent
Comment:
Reason For Exam: found down
CT Head W/o Iv Contrast Urgent
Comment:
Reason For Exam: found down
06/20/24 11:31
Oxycodone [Roxicodone] 5 mg PO NOW STA
06/20/24 11:32
0.9% Sodium Chloride 500 ml [Nss] 500 ml IV BOLUS
06/20/24 12:17
Prothrombin Time Urgent
Abnormal Lab Results
06/20/24 06/20/24
10:09 12:17
RBC 3.56 L 10^6/uL
(4.70-6.10)
Hgb 10.4 L g/dL
(13.0-18.0)
Hct 31.9 L %
(39.0-52.0)
MCHC 32.6 L g/dL
(33.0-37.0)
RDW 18.2 H %
(11.5-14.5)
Plt Count 61 L 10^3/uL
(130-400)
MPV 10.7 H fL
(7.4-10.4)
Abs Immat Gran (auto) 0.1 H 10^3/uL
(0-0.05)
Absolute Lymphs (auto) 0.3 L 10^3/uL
(1.2-3.4)
Absolute Monos (auto) 1.2 H 10^3/uL
(0.1-0.6)
Immature Gran % 0.8 H %
(0-0.5)
Neutrophils % 75.7 H %
(42.2-75.2)
Lymphocytes % 5.2 L %
(20.5-51.1)
Monocytes % 17.7 H %
(1.7-9.3)
PT 18.4 H Sec
(11.4-14.6)
BUN 40 H mg/dl
(9-20)
Creatinine 1.8 H mg/dL
(0.7-1.3)
Glucose 145 H mg/dl
(70-99)
Total Bilirubin 7.0 H mg/dl
(0.2-1.3)
Alkaline Phosphatase 148 H U/L
(38-126)
Creatine Kinase 302 H U/L
(55-170)
Total Protein 5.6 L g/dl
(6.3-8.2)
06/20/24 10:09
06/20/24 10:09
Vital Signs
Initial and Last Documented VS:
Initial Vital Signs
Temp Pulse Resp BP Pulse Ox
37.1 C 64 28 150/65 98
06/20/24 09:06 06/20/24 09:06 06/20/24 09:06 06/20/24 09:06 06/20/24 09:06
Last Documented Vital Signs
Temp Pulse Resp BP Pulse Ox
37.1 C 56 16 122/49 93
06/20/24 09:06 06/20/24 11:15 06/20/24 11:15 06/20/24 11:00 06/20/24 11:15
<Gladis Cordero MD, Resident - Last Filed: 06/20/24 12:33>
MDM/Problems Addressed
Differential Diagnosis Includes:
Left hip fracture
DVT
Rhabdomyolysis
[place]
UTI
MDM/Problems Addressed:
#Fall
- Left hip x-ray
- CBC, CMP, CPK
- EKG
- Left lower extremity US
- U/A
<Gladis Cordero MD, Resident - Last Filed: 06/20/24 12:33>
*Critical Care Note
Total Time (30-74mins, 75-104mins- exclusive of procedures): Not Applicable
ED Attending Note
<Gladis Cordero MD, Resident - Last Filed: 06/20/24 12:33>
-
Portions of this chart may have been created with voice recognition software.� Occasional wrong word or��sound alike� substitutions may have occurred due to the inherent limitations of voice recognition software.
<John Valladares MD - Last Filed: 06/20/24 12:48>
ED Attending Note
Patient seen and examined by attending physician: Yes
I performed a history and physical exam of patient and discussed management with resident, I reviewed resident's note and agree with documented findings and plan of care.: Yes
ED Attending Note:
I have seen and evaluated the patient with a [id number] encounter. I have spoken to the resident and involved in the medical history, the physical exam, medical decision making.
Evaluation and management service: agree unless noted differently below.
Results interpretation: agree unless noted differently below.
Focused HPI: 74-year-old male with a past medical history of atrial fibrillation, hypertension, hyperlipidemia, CHF, cirrhosis, alcohol use who presents to the emergency department with his from home for evaluation of left leg pain. Patient
had a fall on evening�he reports that he fell asleep in his armchair afternoon and when he woke up it was dark outside and so he got up to turn on the lights. He says that he lost his balance and fell down and landed on his left
side. He had immediate pain in his left hip/thigh and was not able to get up on his own. When his came back from work he requested that she leave him alone and let him sleep on the floor and so he slept on the floor night into Saturday
morning. Unfortunately Saturday morning he was still unable to get up and so EMS was called to the scene. They lifted him into his armchair and recommended he come to the emergency room to be assessed but he declined transport at that time. He has
not been able to put any weight on his legs since then and pain has been uncontrolled and so ultimately agreed to come to the emergency room today. He does not believe that he hit his head on the floor. He denies any headache or neck pain. He
denies any back pain. Denies any chest or rib pain. He denies any pain in his upper extremities. He is not on blood thinners but has known cirrhosis and is thrombocytopenic.
Physical exam: Awake alert with a GCS of 15. Hypertensive, otherwise normal vitals. Head is atraumatic. No tenderness in the cervical spine. No tenderness in the thoracic or lumbar spine and no signs of trauma to the back or flank. He has no
tenderness in the upper extremities bilaterally. No rib tenderness or abdominal tenderness. On exam of his left hip he has no bruising or ecchymosis. He has pain with any attempts at passive range of motion of the left hip. He has +2 pitting
edema in the left lower extremity but no erythema or warmth. No knee or calf tenderness on the left. He has a strong palpable femoral pulse and a strong palpable DP pulse in the left leg.
Medical Decision Makin-year-old male presents for evaluation after fall with left leg injury. He did have prolonged downtime into Saturday morning (by choice). Initially declined transport but with uncontrolled hip pain came in today
to be evaluated. Vitals and exam as above. Will check CT head and cervical spine, x-ray of the left hip. Will also check DVT study given asymmetric edema�could be from hip injury but will rule out DVT as well. Will check labs including a CBC and
a CMP, INR, CPK. Treat pain. Reassess after the above.
Labs reviewed: CBC shows thrombocytopenia with a platelet count of 61. Stable anemia. CMP shows mild DELILAH. Mild CPK elevation at 302. Provide IV fluids. CT head and cervical spine negative. X-ray of hip shows fracture. Case discussed with
orthopedics for consultation. Case discussed with hospitalist for admission.
Discharge Plan
Departure
Patient Disposition: Admit
Date of Disposition: 06/20/24
Time of Disposition: :24
Presentation/result/management discussed w/ accepting MD/DO: Hospitalist
Discharge Problem:
Hip fracture
Prescriptions:
No Action
atorvastatin 40 mg Tablet
40 mg PO QPM Qty: 0 0RF
folic acid 1 mg Tablet
1 mg PO DAILY Qty: 0 0RF
amiodarone [Pacerone] 200 mg Tablet
100 mg PO DAILY 30 Days Qty: 15 0RF
thiamine HCl (vitamin B1) 100 mg Tablet
100 mg PO DAILY 30 Days Qty: 30 0RF
pantoprazole 40 mg Tablet,Delayed Release (Dr/Ec)
40 mg PO BID 30 Days Qty: 60 0RF
furosemide 20 mg Tablet
20 mg PO DAILY 30 Days Qty: 30 0RF
potassium chloride [Klor-Con M20] 20 mEq Tablet,Er Particles/Crystals
20 meq PO BID
ferrous sulfate 325 mg (65 mg iron) tablet
325 mg PO Q48H@1200
lactulose 10 gram/15 mL Solution
30 g PO QID 14 Days Qty: 3785 0RF
magnesium oxide 500 mg tablet
500 mg PO BID
polyethylene glycol 3350 [HealthyLax] 17 gram Powder In Packet
17 g PO DAILYPRN PRN (Reason: constipation) 30 Days Qty: 30 0RF
sennosides [senna] 8.6 mg Tablet
17.2 mg PO DAILY
doxycycline hyclate 100 mg tablet
100 mg PO BID Qty: 12 0RF
Referrals:
Darlene Quintero CRNP [Family Provider] -
Interventions
Interventions:
*Risk Screen - Suicide Last Done: 06/20/24 09:13
*General Assessment Last Done: 06/20/24 09:13
*Neglect/Abuse Screening Last Done: 06/20/24 09:13
ED- Fall Risk Assessment Last Done: 06/20/24 09:14
*ED COVID-19 Vaccine History Last Done: 06/20/24 09:11
ED-Musculoskeletal Assessment Last Done: 06/20/24 09:15
ED- Neurological Assessment Last Done: 06/20/24 09:15
ED-Skin Assessment Last Done: 06/20/24 09:15
Discharge Date and Time
Print Language: YORUBA
[2024-06-20 10:41] LABS: % Basophils 0.3 % (0-2); % Eosinophils 0.3 % (0-6); % Immature Granulocytes 0.8 % (0-0.5); % Lymphocytes 5.2 % (20.5-51.1); % Monocytes 17.7 % (1.7-9.3); % Neutrophils 75.7 % (42.2-75.2); Absolute Immature Granulocytes 0.1 10^3/uL (0-0.05); Absolute Lymphocytes 0.3 10^3/uL (1.2-3.4); Absolute Monocytes 1.2 10^3/uL (0.1-0.6); Hematocrit 31.9 % (39.0-52.0); Hemoglobin 10.4 g/dL (13.0-18.0); Mean Corp Hgb Conc. 32.6 g/dL (33.0-37.0); Mean Corpuscular Hgb 29.2 pg (27.0-31.0); Mean Corpuscular Volume 89.6 fL (80.0-94.0); Mean Platelet Volume 10.7 fL (7.4-10.4); Nucleated Red Blood Cells % 0 % (-); Platelet Count 61 10^3/uL (130-400); Red Blood Cell Count 3.56 10^6/uL (4.70-6.10); Red Cell Dist. Width 18.2 % (11.5-14.5); White Blood Cell Count 6.6 10^3/uL (4.8-10.8)
[2024-06-20 11:03] LABS: ALT (SGPT) 33 U/L (0-50); AST (SGOT) 39 U/L (17-59); Albumin 3.6 g/dl (3.5-5.0); Alkaline Phosphatase 148 U/L (38-126); Blood Urea Nitrogen 40 mg/dl (9-20); Calcium 8.7 mg/dl (8.4-10.2); Carbon Dioxide 28 mmol/L (22-30); Chloride 101 mmol/L (98-107); Creatine Phosphokinase 302 U/L (55-170); Estimated Creatinine Clearance 44 ml/min; Glucose 145 mg/dl (70-99); Potassium 4.3 mmol/L (3.5-5.1); Sodium 139 mmol/L (135-145); Total Protein 5.6 g/dl (6.3-8.2)
[2024-06-20] MEDS: ROXICODONE 5 MG PO ×3 (12:16→22:50)
[2024-06-20] MEDS: NSS 500 IV (12:16)
[2024-06-20 12:36] LABS: PT 18.4 Sec (11.4-14.6)
--- NOTE | 2024-06-20 12:41 | HPS.HSE ---
Family Physician
-
Family Physician: AISHWARYA Vivas
Chief Complaint
-
fall
History of Present Illness
74 y/o male with past medical history of cirrhosis and hepatic encephalopathy, HTN, CAD, heart failure presenting to the ED with fall. Pt notes he was walking in a dark room when he tripped and fell to the ground on night. Was not able to
stand up after that and slept on the floor that night.he got to the chair with the assistance of EMS yesterday but he continued to have left LE pain with any activity. his pain progressed today, which prompted him to come to the ER. denied NGUYỄN, dizzy
or syncope. denied fever, chills,chest pain, sob. denied abdominal pain,n,v,d. denied dysuria or hematuria.
He drinks 1/2 pink vodka daily. last drink was on
HiP X ray with Impacted nondisplaced subcapital femoral neck fracture with varus angulation. No intra-articular or intertrochanteric extension or dislocation.received fluids and oxy in ER. admitting for further management.
Medical History
Past Medical History
Past Medical History: Reports Other
Additional Past Medical History:
CHF
fatty liver
alchol abuse
htn
anemia
CKD
alcoholic cirrhosis of liver without ascites
depression
atrial fib
portal hypertension
HLD
essential tremor
Past Surgical History: Reports None
Social History
Tobacco: Non-smoker
Alcohol: Daily
Drug: None
Personal:
Living: With Family
Family History
Family History: Not pertinent
Allergies / Home Medications
Allergies reflects when Allergies were last updated in [employer].
Home Medications with original date entered in [employer]
Allergy/Medication List:
Allergies
Allergy/AdvReac Type Severity Reaction Status Date / Time
No Known Allergies Allergy Verified 08/06/24 09:34
Home Medications
atorvastatin 40 mg tablet 40 mg PO QPM High cholesterol #0 tabs 08/28/22
folic acid 1 mg tablet 1 mg PO DAILY Supplement #0 tabs 08/28/22
amiodarone 200 mg tablet (Pacerone) 100 mg (1/2 x 200 mg) PO DAILY 30 days #15 tabs 12/20/22
furosemide 20 mg tablet 20 mg PO DAILY 30 days #30 tabs 12/20/22
pantoprazole 40 mg tablet,delayed release 40 mg PO BID 30 days #60 tabs 12/20/22
thiamine HCl (vitamin B1) 100 mg tablet 100 mg PO DAILY 30 days #30 tabs 12/20/22
ferrous sulfate 325 mg (65 mg iron) tablet 325 mg PO Q48H@1200 Supplement 06/29/23
potassium chloride 20 mEq tablet,extended release(part/cryst) (Klor-Con M) 20 meq PO BID Electrolyte Repletion 06/29/23
lactulose 10 gram/15 mL oral solution 30 g (45 mL) PO QID 14 days #3,785 mL 09/30/23
magnesium oxide 500 mg PO BID Supplement 12/16/23
polyethylene glycol 3350 17 gram oral powder packet (HealthyLax) 17 g PO DAILYPRN PRN constipation 30 days #30 ea 12/17/23
doxycycline hyclate 100 mg tablet 100 mg PO BID #12 tabs 03/03/24
sennosides 8.6 mg tablet (senna) 17.2 mg PO DAILY 03/03/24
Review of Systems
-
Constitutional: Reports No Symptoms
EENT: Reports No Symptoms
Respiratory: Reports No Symptoms
Cardiac: Reports No Symptoms
Abdomen/GI: Reports No Symptoms
: Reports No Symptoms
Musculoskeletal: Reports Other (left LE pain, swelling)
Skin: Reports No Symptoms
Neurological: Reports No Symptoms
Endocrine: Reports No Symptoms
Hematologic/Lymphatic: Reports No Symptoms
Psych: Reports No Symptoms
Physical Exam
Vital Signs
Vital Signs
Temp Pulse Resp BP Pulse Ox
98.8 F 56 16 122/49 93
06/20/24 09:06 06/20/24 11:15 06/20/24 11:15 06/20/24 11:00 06/20/24 11:15
Physical Exam
General: Well Developed, Well Nourished and No Apparent Distress
HEENT: NormoCephalic, Moist mucous membranes and Atraumatic
Respiratory: Clear
Cardiac: S1/S2 and Regular Rhythm; No Murmur or Rub
GI: Soft, Non Tender, Non Distended and Normal Bowel Sounds; No Organomegaly
Rectal: Deferred by Provider
Musculoskeletal: No Clubbing, No Cyanosis and Other (Left LE swollen, short)
Skin: No Rash
Neuro: AO x 3 and Nonfocal/grossly intact
Psych: Calm
Laboratory Results
-
06/20/24 10:09
06/20/24 10:09
Laboratory Results
Total Bilirubin 7.0 mg/dl (0.2-1.3) H 06/20/24 10:09
AST 39 U/L (17-59) 06/20/24 10:09
ALT 33 U/L (0-50) 06/20/24 10:09
Alkaline Phosphatase 148 U/L (38-126) H 06/20/24 10:09
Data Reviewed
-
Diagnostic Radiology: Report Reviewed by me
Lab Data: Labs Reviewed by me
Impression/Plan
-
#left hip fracture s/p fall
-shalini consulted
-CT head and cervical spine with No acute intracranial abnormality noted.
2. No acute fracture or subluxation of the cervical spine. Multilevel degenerative changes of the cervical spine.
-Hip x ray with Impacted nondisplaced subcapital femoral neck fracture with varus angulation. No intra-articular or intertrochanteric extension or dislocation
-pain controlled with oxy, Dilaudid and Tylenol
-NPO after MN
-PT/OT consulted
#anemia of chronic disease
-hgb stable at 10.4
-no active bleeding
-ctm
-ferrous sulfate continued
#chronic thrombocytopenia
-platelet 61
-ctm
#CKD stage 3b
-cr 1.8
-ctm
#hyperbilirubinemia
#hxt of hepatic encephalopathy
#alcohol cirrhosis
-total bili7.0
-ctm
-lactulose continued
mild rhabdo
-CK 307
-fluids
-CK in am
#alcohol abuse
-was sober for 1.5 years
-now drinks 1.5pint vodka daily
-alcohol protocol
-monitor MSAS score
#Parox afib
-EKG with sinus Rhythm with 1st degree AV block
-Not on anticoagulation due to increased fall risk
#. HFpEF
-not in acute exacerbation
-hold lasix
-ef 50-55%
daily weights
fluid restrict monitor strict Is and Os
#HLD
-statin continued
#DVT PPX - Lovenox
Full code
[2024-06-20 13:24] LABS: Urine Albumin Trace (Neg - Trace); Urine Bilirubin Negative (Negative); Urine Character Clear (Clear); Urine Color Amber; Urine Glucose Negative (Negative); Urine Ketone Negative (Negative); Urine Leukocyte Negative (Negative); Urine Nitrite Negative (Negative); Urine Occult Blood 1+ (Negative); Urine Specific Gravity 1.015 (<1.030); Urine Urobilinogen 1+ (Neg - 1+)
--- NOTE | 2024-06-20 13:57 | CM ---
Chart reviewed. Patient is here for left hip fx s/p fall. at bedside. CM introduced self and role. Patient lives in a home with 1 'big' step to enter. He shared that he was independent with a walker. He also owns a 'travel' w/c'. He has an
active PCP and pharmacy. He denies any +SDOHs. He is retired. He was an [employer] for 48 years.
ANTICIPATED DISCHARGE PLAN: Short term rehab vs. home health care PT/OT, depending on PT/OT's evaluation.
[2024-06-20 14:11] LABS: Urine Bacteria Few (Negative)
[2024-06-20] MEDS: NSS 1000 IV (15:16)
--- NOTE | 2024-06-20 15:24 | PTCARENOTE ---
Patient refusing Tylenol due to h/o cirrhosis.
[2024-06-20 16:04] LABS: GGTP 38 U/L (15-73); Magnesium 2.5 mg/dl (1.6-2.3); Phosphorus 3.2 mg/dl (2.5-4.5)
[2024-06-20 16:05] LABS: Alcohol None Detected
[2024-06-20 16:10] LABS: B-Hydroxybutyrate 0.05 mmol/L (0.02-0.27)
--- NOTE | 2024-06-20 17:08 | CON.MD ---
Consultation - Medical
-
Full consult dictated. 74 yo male with history of alcoholism, cirrhosis and multiple other medical issues fell at home night. He was able to get into a chair on Saturday but was unable to ambulate secondary to pain. Presented to the ER
today and found to have a left femoral neck fracture. Admitted for care. I have spoken to the patient and his regarding treatment recommendations. While the xrays revealed a possibly nondisplaced fracture the CT scan has revealed a displaced
femoral neck fracture. I have recommended left hip hemiarthroplasty. Risks, complications, and postop expectations discussed. The need for blood products discussed at length. NPO after MN. Plan for surgery tomorrow if stable. Platelets and
blood ordered. Plasma available in the Blood Bank.
[2024-06-20] MEDS: LIPITOR 40 MG PO (17:27)
[2024-06-20] MEDS: DUPHALAC/CHRONULAC 30 GRAMS PO ×2 (17:28→22:00)
[2024-06-20 18:27] LABS: Amphetamines Negative (Negative); Barbiturates Negative (Negative); Benzodiazepines Negative (Negative); Buprenorphine Negative (Negative); Cocaine Negative (Negative); Marijuana Negative (Negative); Methadone Negative (Negative); Methamphetamines Negative (Negative); Opiates Negative (Negative); Phencyclidine Negative (Negative); Tricyclic Antidepressants Negative (Negative)
--- NOTE | 2024-06-20 19:06 | PTCARENOTE ---
Patient resting comfortably. Roxicodone given for left hip discomfort with good relief, ice applied to left hip for comfort. Patient voiding withut difficulty in urinal, tolerated 100% of dinner. Call calero in reach, bed alarm maintained.
--- NOTE | 2024-06-20 19:13 | W.PN.UPDATE ---
Update Note
Progress Note Update
Attending addendum
74 y/o man with PMH of:
cirrhosis and hepatic encephalopathy,
HTN,
CAD,
heart failure
presents to the ED after a fall. He was walking in a dark room, tripped, fell to the ground on night. He was not able to stand up after that and slept on the floor that night. He continued to have left LE pain with any activity. and the
pain progressed today, which prompted him to come to the ED. He denies NGUYỄN, dizzy, syncope, fever, chills,chest pain, sob, abdominal pain,n,v,d, dysuria or hematuria. He usually drinks 1/2 pink vodka daily. His last drink was on . In the
ED, the HiP X-ray showed:
Impacted nondisplaced subcapital femoral neck fracture with varus angulation.
No intra-articular or intertrochanteric extension or dislocation.
He received fluids and oxy in ER.
Past Medical History
Past Medical History: Reports Other
Additional Past Medical History:
CHF
fatty liver
alchol abuse
htn
anemia
CKD
alcoholic cirrhosis of liver without ascites
depression
atrial fib
portal hypertension
HLD
essential tremor
Physical Exam
General: Well Developed, Well Nourished and No Apparent Distress
HEENT: NormoCephalic, Moist mucous membranes and Atraumatic
Respiratory: Clear
Cardiac: S1/S2 and Regular Rhythm; No Murmur or Rub
GI: Soft, Non Tender, Non Distended and Normal Bowel Sounds; No Organomegaly
Psych: Calm
Impression/Plan
1. left hip fracture s/p fall
Ortho consulted
Likely OK to have surgery if am labs OK, and platelets > 50
If platelets < 50 in am, transfuse platelets then do surgery-
NPO after MN
2. See midlevel note for further details on rest of medical issues:
anemia of chronic disease
chronic thrombocytopenia
CKD stage 3b
hyperbilirubinemia
hxt of hepatic encephalopathy
alcohol cirrhosis
mild rhabdo
alcohol abuse
Parox afib
HFpEF
HLD
[2024-06-20] MEDS: SENOKOT 17.2 MG PO (19:59)
[2024-06-20] MEDS: KCL 20 MEQ PO (19:59)
[2024-06-20] MEDS: COLACE 100 MG PO (19:59)
[2024-06-20] MEDS: PROTONIX 40 MG PO (20:00)
[2024-06-20] MEDS: THIAMINE INJECTION 200 MG IV (20:03)
[2024-06-21] VITALS (18 sets, daily range): BP systolic 113–154; BP diastolic 44–71; BMI 27.5
[2024-06-21 05:16] LABS: Creatine Phosphokinase 133 U/L (55-170)
[2024-06-21] MEDS: ROXICODONE 5 MG PO (05:21)
[2024-06-21] MEDS: NSS 1000 IV (07:05)
[2024-06-21] MEDS: PROTONIX 40 MG PO ×2 (07:49→20:18)
[2024-06-21] MEDS: FOLVITE 1 MG PO (07:49)
[2024-06-21] MEDS: DUPHALAC/CHRONULAC 30 GRAMS PO ×3 (07:49→22:22)
[2024-06-21] MEDS: SENOKOT 17.2 MG PO ×2 (07:49→20:18)
[2024-06-21] MEDS: KCL 20 MEQ PO (07:50)
[2024-06-21] MEDS: PACERONE 100 MG PO (07:50)
[2024-06-21] MEDS: THIAMINE INJECTION 200 MG IV (07:50)
[2024-06-21] MEDS: COLACE PO (07:56)
[2024-06-21 08:30] LABS: Hematocrit 28.6 % (39.0-52.0); Hemoglobin 9.3 g/dL (13.0-18.0); Mean Corp Hgb Conc. 32.5 g/dL (33.0-37.0); Mean Corpuscular Hgb 30.3 pg (27.0-31.0); Mean Corpuscular Volume 93.2 fL (80.0-94.0); Mean Platelet Volume 11.8 fL (7.4-10.4); Platelet Count 65 10^3/uL (130-400); Red Blood Cell Count 3.07 10^6/uL (4.70-6.10); Red Cell Dist. Width 18.5 % (11.5-14.5); White Blood Cell Count 4.8 10^3/uL (4.8-10.8)
[2024-06-21 08:42] LABS: Blood Urea Nitrogen 41 mg/dl (9-20); Calcium 7.8 mg/dl (8.4-10.2); Carbon Dioxide 22 mmol/L (22-30); Chloride 106 mmol/L (98-107); Estimated Creatinine Clearance 50 ml/min; Glucose 107 mg/dl (70-99); Sodium 138 mmol/L (135-145)
--- NOTE | 2024-06-21 10:24 | CM ---
Addendum entered by Crystal Rondon 06/21/24 15:08:
Patient initially seen at bedside this am, and assessment completed. Patient now transferred to ICU. CM will continue to follow for discharge planning needs.
Original Note:
Patient stated that patient had been at [facility] following covid but did not have a particularly good experience due to covid restrictions, Patient had [facility] and we somewhat resistant to participating in exercises. Patient reviewed options
with CM and discussed PAC data. Options for SNF reviewed and awaiting PT/OT assessments. CM will discuss with patient and consults concerning alcohol issues when he returns from OR. CM will continue to follow for discharge planning needs.
Plan; SNF vs home with OR; need to review Substance abuse concerns when patient able; pending PT/OT assessment
--- NOTE | 2024-06-21 12:12 | PTCARENOTE ---
Pt ordered MSAS. MSAS at 12pm not completed due to patient being in the OR.
--- NOTE | 2024-06-21 12:58 | CON.PUL ---
Consultation
Consultation Request
Date/Time Consultation Requested: 06/21/2024-2 PM
Date/Time Consultation Performed: 06/21/2024-3 PM
Requesting Provider: Hospitalist
Performing Provider: Dr. Philippe
Reason for Consultation: Postoperative critical care management
Medical History
-
Chief Complaint: Hip fracture
History of Present Illness:
74-year-old daily vodka drinker with a history of cirrhosis and hepatic encephalopathy, hypertension, CAD and heart failure presented after he tripped and fell night found to have impacted nondisplaced subcapital femoral neck fracture with
varus angulation requiring OR fixation-miner consulted for postoperative critical care management 06/21/2024. Patient seen postoperatively in the surgical intensive care unit. He is somewhat groggy but arousable. His last drink was
. He has no signs or symptoms of withdrawal. Several years ago he went through withdrawal and did not have anything to drink for 21 months, however, recently started to drink again. He currently denies any shortness of breath, chest pain,
chest tightness, mucus, productive cough, abdominal pain, nausea or focal weakness
Past Medical History
Past Medical History: None (Hypertension. Hyperlipidemia. Alcohol use disorder. Cirrhosis with history of hepatic encephalopathy. Portal hypertension. CAD. Atrial fibrillation. Heart failure-unknown EF. Fatty liver. Chronic kidney disease.
Depression. Essential tremors.)
Social History
Tobacco: Non-smoker
Alcohol: Daily (Half a bottle of vodka daily)
Drug: None
Personal:
Living: With Family
Occupational Exposures: No known asbestos exposure
Environmental Exposures: No known tuberculosis exposure
Family History
Family History: Reviewed & Not Pertinent
Allergies / Home Medications
Allergies
Allergy/AdvReac Type Severity Reaction Status Date / Time
No Known Allergies Allergy Verified 03/03/24 09:34
Home Medications
�Medication �Instructions �Recorded �Confirmed �Last Taken �Type
atorvastatin 40 mg tablet 40 mg PO QPM High cholesterol #0 08/28/22 06/20/24 06/19/24 Rx
tabs
folic acid 1 mg tablet 1 mg PO DAILY Supplement #0 tabs 08/28/22 06/20/24 06/20/24 Rx
amiodarone 200 mg tablet (Pacerone) 100 mg (1/2 x 200 mg) PO DAILY 30 12/20/22 06/20/24 06/20/24 Rx
days #15 tabs
pantoprazole 40 mg tablet,delayed 40 mg PO BID 30 days #60 tabs 12/20/22 06/20/24 06/20/24 Rx
release
thiamine HCl (vitamin B1) 100 mg 100 mg PO DAILY 30 days #30 tabs 12/20/22 06/20/24 06/20/24 Rx
tablet
ferrous sulfate 325 mg (65 mg 325 mg PO Q48H@1200 Supplement 06/29/23 06/20/24 06/18/24 History
iron) tablet
potassium chloride 20 mEq 20 meq PO BID Electrolyte Repletion 06/29/23 06/20/24 06/20/24 History
tablet,extended
release(part/cryst) (Klor-Con M)
lactulose 10 gram/15 mL oral 30 g (45 mL) PO QID 14 days #3,785 09/30/23 06/20/24 06/20/24 Rx
solution mL
magnesium oxide 500 mg PO BID Supplement 12/16/23 06/20/24 06/20/24 History
polyethylene glycol 3350 17 gram 17 g PO DAILYPRN PRN constipation 12/17/23 06/20/24 03/02/24 Rx
oral powder packet (HealthyLax) 30 days #30 ea
furosemide 20 mg tablet 20 mg PO DAILY Fluid 06/20/24 06/20/24 06/20/24 History
Retention/Swelling
Review of Systems
-
Unable to Obtain full review of systems at this time due to: Other (Per HPI)
Vitals / Labs / Diagnostic Testing
Vital Signs
Temp Pulse Resp BP Pulse Ox
98.2 F 63 17 115/52 93
06/21/24 07:15 06/21/24 07:15 06/21/24 07:15 06/21/24 07:15 06/21/24 08:00
Lab Data
06/21/24 08:11
06/21/24 08:11
Diagnostic Testing:
Physical Exam
-
Exam:
Well-nourished and well-developed in no apparent distress
HEENT-atraumatic, normocephalic
Neck-supple, no JVD, no bruit
Heart-regular rate and rhythm-no murmurs, rubs or gallops
Chest-clear to auscultation, no wheezes, crackles
Back-no tenderness
Abdomen-soft, nontender, nondistended, no hepatosplenomegaly
Extremities-no cyanosis, clubbing, edema and good peripheral pulses
Integument-intact, no rashes, lesions or ecchymosis
Neurology-alert and oriented, nonfocal motor and sensory exam
Assessment
-
74-year-old daily vodka drinker with a history of cirrhosis and hepatic encephalopathy, hypertension, CAD and heart failure presented after he tripped and fell night found to have impacted nondisplaced subcapital femoral neck fracture with
varus angulation requiring OR fixation-miner consulted for postoperative critical care management 06/21/2024.
Status post fall/impacted left nondisplaced subcapital femoral fracture and varus angulation
For OR fixation-Dr. Parker 06/21/2024
Mild fxnfsf-gisbtplbjt-igpinjdheg 9.3 and postoperatively 8.0-500 mL EBL
Chronic thrombocytopenia-platelets 61
DELILAH on top of chronic kidney disease
Mild hyperglycemia
Elevated LFTs-total bilirubin 7.0
Alcohol use disorder-last drink -alcohol level undetected on admission 06/21/2024
Mild rhabdomyolysis-CPK 307
Conditions present prior to admission:
Hypertension.
Hyperlipidemia.
Alcohol use disorder.
Cirrhosis with history of hepatic encephalopathy.
Portal hypertension.
CAD.
Atrial fibrillation.
Heart failure-preserved EF
Fatty liver.
Chronic kidney disease.
Depression.
Essential tremors.
Plan
Patient will be monitored postoperatively in the surgical intensive care unit
Extubate if successful spontaneous breathing trial
Supplemental oxygen as needed
Nebulizers as needed-currently not bronchospastic
Aspiration precautions
Orthopedic surgery following-correspondence reviewed
Operative records reviewed
Cefazolin initiated
Monitor hemoglobin and platelet count-500 mL EBL
Transfuse as needed
Intravenous fluids
Monitor renal function
Nephrology evaluation if renal function does not improve
Monitor blood sugar
Insulin supplementation as needed
Follow-up LFTs
Follow MSAS
Thiamine, folate and multivitamins
Monitor for alcohol withdrawal treatment protocol
Benzodiazepines as needed
Phenobarbital if needed
Alcohol cessation counseling
DVT mkvwpdjosne-ogsfdmqzhi-ygrxi chemical once okayed by orthopedics-note patient has chronic thrombocytopenia
GI prophylaxis-on pantoprazole
Nutrition
Early mobilization/physical therapy
Reviewed with at the bedside
Critical care statement: A total of 55 minutes of critical care time was provided for this patient today. This includes management of unstable vital signs, evaluation of the patient at bedside, reviewing the patient's pertinent medical records
including radiographs, microbiology, laboratory evaluations, and discussion with primary team, consultants, pharmacy, nutrition, physical therapy, case management, charge nurse, critical care nursing, and respiratory therapy.
Diagnostic data:
Chest x-ray 09/27/2023-low lung volumes with increased interstitial markings
Chest x-ray 03/03/2024-hyperaeration suggesting a component of COPD
Hip x-ray 06/20/2024-impacted nondisplaced subcapital femoral neck fracture on the left
Lower extremity ultrasound 06/20/2024-no evidence for left lower extremity DVT
CT head and spine cervical 06/20/2024-no acute intracranial abnormalities, no acute fracture or subluxation of the cervical spine
CT pelvis 06/20/2024-mildly displaced left femoral neck fracture with slight impaction and varus angulation, mild colonic stool burden
Echocardiogram 06/14/2023-EF 60-65%, trace mitral regurgitation, no aortic stenosis or regurgitation
Data Reviewed
-
EKG: Report reviewed by me
Radiology: Report reviewed by me
CT Scan: Report reviewed by me
Ultrasound: Report reviewed by me
Medical Tests (Nuc Med, Echo etc): Report reviewed by me
Labs: Labs reviewed by me
Old Records: Reviewed
Critical Care Time (in minutes): 55
--- NOTE | 2024-06-21 13:57 | W.PN.HOSP.TC ---
Today's Communication/Plan
-
check labs
Tawny
monitor BP
hold lasix today
IV abx per ortho
ICU monitoring overnight
Assessment / Plan
Assessment / Plan
#left hip fracture s/p fall
-CT head and cervical spine with No acute intracranial abnormality noted. No acute fracture or subluxation of the cervical spine. Multilevel degenerative changes of the cervical spine.
-Hip x ray with Impacted nondisplaced subcapital femoral neck fracture with varus angulation. No intra-articular or intertrochanteric extension or dislocation
-pain controlled with oxy, Dilaudid and Tylenol
-PT/OT consulted
-s/p left hip hemiarthoplasty by Dr. Parker. Recommend ICU monitoring post op.
-on asa 81mg BID for DVT ppx.
-Anesthesia report noted. 450-500cc blood loss. repeat h/h. Monitor hgb closely.
-per ortho-additional 2 dose of cefazolin post op noted
-ICU consulted
#Suspecting acute blood loss anemia
#anemia of chronic disease
-repeat labs stat now
-ferrous sulfate continued
#chronic thrombocytopenia
-platelet 65
-ctm
#Elevated creatine w/CKD stage 3b
-cr 1.6 from 1.8
-ctm
#hyperbilirubinemia
#hxt of hepatic encephalopathy
#alcohol cirrhosis
-total bili7.0
-ctm
-lactulose continued
mild rhabdo
-CK improved
-DC IVF.
#alcohol abuse
-was sober for 1.5 years
-now drinks 1.5pint vodka daily
-alcohol protocol
-monitor MSAS score
#Parox afib
-EKG with sinus Rhythm with 1st degree AV block
-Not on anticoagulation due to increased fall risk/thrombocytopenia
#. HFpEF
-restart lasix in am if bp stable
-ef 50-55%
daily weights
fluid restrict monitor strict Is and Os
#HLD
-statin continued
#DVT PPX - asa bid
Full code
Anticipated Discharge: > 48 hours
Subjective/Interval History
-
Date of Service: June 21, 2024
seen post OP
states hip pain is better compared to yesterday
awake
A line noted-bp stable
Objective Data
-
Labs:
Laboratory Results
06/21/24 06/21/24
08:11 13:56
WBC 4.8 Pending
Hgb 9.3 L Pending
Hct 28.6 L Pending
Plt Count 65 L Pending
Sodium 138
Potassium 4.0
Chloride 106
Carbon Dioxide 22
BUN 41 H
Creatinine 1.6 H
Glucose 107 H
Calcium 7.8 L
Vital Signs:
Vital Signs
Temp Pulse Resp BP Pulse Ox
98.2 F 62 18 131/56 98
06/21/24 13:35 06/21/24 13:35 06/21/24 13:35 06/21/24 13:30 06/21/24 13:35
I&O
06/20/24 06/21/24 06/22/24
06:59 06:59 06:59
Intake Total 1680 / 1680
Output Total 600 / 600
Balance 1080 / 1080
Physical Exam
-
General: Well Developed, Well Nourished and No Apparent Distress
HEENT: Normocephalic and Atraumatic
Respiratory: Clear to Auscultation
Cardiac: S1/S2
GI: Soft, Nontender, Nondistended and Normal Bowel Sounds
Musculoskeletal: Other (R a line noted)
Skin: Warm and Dry
Neuro: Awake, Alert, Oriented and No Motor Deficits
Psych: Calm
Data Reviewed
-
Total Time Spent with Patient (in minutes): 55
--- NOTE | 2024-06-21 14:15 | PTCARENOTE ---
pt aaox3. states no pain left hip dressing intact with min bloody drainage noted. nc2l. breath sounds diminished at base shallow. a line in place. nsr seen on monitor. reviewed plan of care with pt and at bedside. dp pulses present.
[2024-06-21 14:20] LABS: % Basophils 0.4 % (0-2); % Eosinophils 1.3 % (0-6); % Immature Granulocytes 1.1 % (0-0.5); % Lymphocytes 6.1 % (20.5-51.1); % Monocytes 16.9 % (1.7-9.3); % Neutrophils 74.2 % (42.2-75.2); Absolute Eosinophils 0.1 10^3/uL (0-0.7); Absolute Immature Granulocytes 0.1 10^3/uL (0-0.05); Absolute Lymphocytes 0.3 10^3/uL (1.2-3.4); Absolute Monocytes 0.9 10^3/uL (0.1-0.6); Absolute Neutrophils 3.9 10^3/uL (1.4-6.5); Hematocrit 25.2 % (39.0-52.0); Mean Corp Hgb Conc. 31.7 g/dL (33.0-37.0); Mean Corpuscular Hgb 29.3 pg (27.0-31.0); Mean Corpuscular Volume 92.3 fL (80.0-94.0); Mean Platelet Volume 10.5 fL (7.4-10.4); Nucleated Red Blood Cells % 0 % (-); Platelet Count 57 10^3/uL (130-400); Red Blood Cell Count 2.73 10^6/uL (4.70-6.10); Red Cell Dist. Width 18.2 % (11.5-14.5); White Blood Cell Count 5.3 10^3/uL (4.8-10.8)
[2024-06-21] MEDS: ANCEF 10 IV (14:25)
[2024-06-21] MEDS: DUPHALAC/CHRONULAC PO (16:03)
[2024-06-21] MEDS: ANCEF 5 IV ×2 (16:09→22:24)
[2024-06-21] MEDS: FEOSOL 325 MG PO (16:09)
[2024-06-21] MEDS: LIPITOR 40 MG PO (17:50)
[2024-06-21 20:15] LABS: Hematocrit 23.8 % (39.0-52.0); Hemoglobin 7.9 g/dL (13.0-18.0)
--- NOTE | 2024-06-21 20:15 | PTCARENOTE ---
resumed care of pt laying in bed AAOx3. MSAS assessed 5 at this time, pt with marked tremor, diaphoretic, and reports feeling anxious. see MAR. HR in the 50's-60's SB with prolonged QT on the monitor. POX 96% on 2 LO2 NC. Lungs dec at bases, occ.
non productive cough. + bowel, round abd. Pt unable to void at this time, will monitor. Left hip antibacterial surgical dressing intact with drainage traced. Pt rpeorts pain at tolerable level at this time. +2 LLE edema noted. Palpable peripheral
pulses present. Knee high seq in place. Right radial Tawny in place and transduced. Left forearm int capped. Pt repositioned per comfort. call calero in reach. Bed alarm in place. Will continue to monitor.
[2024-06-21] MEDS: COLACE 100 MG PO (20:18)
[2024-06-21] MEDS: LOW STRENGTH ASPIRIN 81 MG PO (20:18)
[2024-06-21] MEDS: ATIVAN 1 MG PO (20:29)
--- NOTE | 2024-06-21 22:51 | PTCARENOTE ---
Pt with no urine output and unable to void at this time. Bladder scanned for 610ml. St cath per MD order, 700ml dark tea urine drained. Pt repositioned per comfort. Pt reports pain at tolerable level. Remains tremulous. Will continue to monitor.
[2024-06-22] VITALS (15 sets, daily range): BP systolic 105–135; BP diastolic 44–98; PULSE 77–78; O2SAT 95–96; BMI 27.9
--- NOTE | 2024-06-22 04:00 | PTCARENOTE ---
Pt awake, G bath provided. Oral care complete. Face washed. pt repositioned. Pt reports left hip pain 4/10, PRN pain medication administered as ordered. Marked tremor noted. Pt with no urine output. bladder scanned for 200ml. Pt verbalizes no urge
to void. no other changes in assessment noted at this time. Will continue to monitor
[2024-06-22] MEDS: ROXICODONE 5 MG PO ×3 (04:17→20:40)
[2024-06-22 04:20] LABS: % Basophils 0.3 % (0-2); % Eosinophils 0.1 % (0-6); % Immature Granulocytes 0.6 % (0-0.5); % Lymphocytes 4.4 % (20.5-51.1); % Monocytes 18.2 % (1.7-9.3); % Neutrophils 76.4 % (42.2-75.2); ALT (SGPT) 23 U/L (0-50); AST (SGOT) 29 U/L (17-59); Absolute Lymphocytes 0.3 10^3/uL (1.2-3.4); Absolute Monocytes 1.2 10^3/uL (0.1-0.6); Absolute Neutrophils 5.2 10^3/uL (1.4-6.5); Albumin 2.5 g/dl (3.5-5.0); Alkaline Phosphatase 105 U/L (38-126); Blood Urea Nitrogen 38 mg/dl (9-20); Calcium 7.6 mg/dl (8.4-10.2); Carbon Dioxide 22 mmol/L (22-30); Chloride 107 mmol/L (98-107); Estimated Creatinine Clearance 50 ml/min; Glucose 135 mg/dl (70-99); Hematocrit 23.1 % (39.0-52.0); Hemoglobin 7.7 g/dL (13.0-18.0); Mean Corp Hgb Conc. 33.3 g/dL (33.0-37.0); Mean Corpuscular Hgb 29.7 pg (27.0-31.0); Mean Corpuscular Volume 89.2 fL (80.0-94.0); Mean Platelet Volume 9.7 fL (7.4-10.4); Nucleated Red Blood Cells % 0 % (-); Platelet Count 63 10^3/uL (130-400); Potassium 4.3 mmol/L (3.5-5.1); Red Blood Cell Count 2.59 10^6/uL (4.70-6.10); Red Cell Dist. Width 17.7 % (11.5-14.5); Sodium 138 mmol/L (135-145); Total Bilirubin 4.4 mg/dl (0.2-1.3); Total Protein 4.4 g/dl (6.3-8.2); White Blood Cell Count 6.8 10^3/uL (4.8-10.8)
--- NOTE | 2024-06-22 07:09 | W.PN.INTV ---
Addendum entered and electronically signed by Roxanne Fierro DO 06/28/24 07:48:
Acute pulmonary insufficiency (following surgery)
No other definitive diagnosis to support the need for oxygen (COPD exac, CHF etc.)
When criteria for respiratory failure not present
May extend stay or require additional resources; may need home O2
Original Note:
Today's Communication / Plan
Recommendations
Doing well postop, pain control
OOB, PT, rehab needed
Wean off supplemental O2, IS
Diet advanced, tolerated
Can transfer to floors today, we will sign off upon transfer
Assessment
-
74-year-old daily vodka drinker with a history of cirrhosis and hepatic encephalopathy, hypertension, CAD and heart failure presented after he tripped and fell night found to have impacted nondisplaced subcapital femoral neck fracture with
varus angulation requiring OR fixation-assembler chassis consulted for postoperative critical care management 06/21/2024.
Status post fall/impacted left nondisplaced subcapital femoral fracture and varus angulation
For OR fixation-Dr. Parker 06/22/2024
Mild fccusp-bwvvpyczoq-bujpbnuyqu 9.3 and postoperatively 8.0-500 mL EBL
Chronic thrombocytopenia-platelets 61
DELILAH on top of chronic kidney disease
Mild hyperglycemia
Elevated LFTs-total bilirubin 7.0
Alcohol use disorder-last drink -alcohol level undetected on admission 06/21/2024
Mild rhabdomyolysis-CPK 307
Pulmonary insufficiency, likely postop atelectasis
Conditions present prior to admission:
Hypertension.
Hyperlipidemia.
Alcohol use disorder.
Cirrhosis with history of hepatic encephalopathy.
Portal hypertension.
CAD.
Atrial fibrillation.
Heart failure-preserved EF
Fatty liver.
Chronic kidney disease.
Depression.
Essential tremors.
Plan
Patient will be monitored postoperatively in the surgical intensive care unit
Supplemental oxygen as needed, on 2L likely postop atelectasis, wean as tolerated
Nebulizers as needed-currently not bronchospastic
Aspiration precautions
Orthopedic surgery following-correspondence reviewed
Operative records reviewed
Cefazolin initiated-observe off abx postop
Pain control
Monitor hemoglobin and platelet count-500 mL EBL
Transfuse as needed
Can advance ASA to full strength eventually
Intravenous fluids
Monitor renal function
Nephrology evaluation if renal function does not improve
Monitor blood sugar
Insulin supplementation as needed
Follow-up LFTs
Follow MSAS
Thiamine, folate and multivitamins
Monitor for alcohol withdrawal treatment protocol
Benzodiazepines as needed
Phenobarbital if needed
Alcohol cessation counseling
DVT nabvynoyewa-ruzsssagmb-rpkxq chemical once okayed by orthopedics-note patient has chronic thrombocytopenia
GI prophylaxis-on pantoprazole
Nutrition
Early mobilization/physical therapy
Reviewed with at the bedside
Diagnostic data:
Chest x-ray 09/27/2023-low lung volumes with increased interstitial markings
Chest x-ray 03/03/2024-hyperaeration suggesting a component of COPD
Hip x-ray 06/20/2024-impacted nondisplaced subcapital femoral neck fracture on the left
Lower extremity ultrasound 06/20/2024-no evidence for left lower extremity DVT
CT head and spine cervical 06/20/2024-no acute intracranial abnormalities, no acute fracture or subluxation of the cervical spine
CT pelvis 06/20/2024-mildly displaced left femoral neck fracture with slight impaction and varus angulation, mild colonic stool burden
Echocardiogram 06/14/2023-EF 60-65%, trace mitral regurgitation, no aortic stenosis or regurgitation
-----
Critical Care time 35 mins -- The patient is admitted for acute critical illness for the treatment of vital organ failure and/or prevention of further life-threatening conditions. Total care includes time spent in review of history, physical exam,
medications, hemodynamic/ventilator parameters, laboratory data, imaging and discussion with house staff, pharmacy, respiratory therapy, frame opener, and nursing.
Subjective Dataa
Subjective Data
Date of Service:
Date of Service: June 22, 2024
Chief Complaint: Superintendent Distribution Follow Up
Subjective:
Doing well postop, stable on 2L NC
No new complaints
Pain improved with OR repair
Objective Data
Data Reviewed
Vital Signs / I&O / Oxygen:
Vital Signs
Temp Pulse Resp BP Pulse Ox
98.9 F 72 18 130/52 96
06/22/24 03:22 06/22/24 06:30 06/22/24 06:30 06/22/24 06:00 06/22/24 06:30
Intake and Output
06/21/24 06/22/24 06/23/24
06:59 06:59 06:59
Intake Total 1680 / 1680 480 / 480
Output Total 600 / 600 700 / 700
Balance 1080 / 1080 -220 / -220
SaO2 96
Nasal Cannula flow liters per 2
minute
Physical Exam
General: Comfortable and Other (NAD)
HEENT: Normocephalic, Anicteric and Moist Mucous Membranes
Cardiovascular: S1-S2 and Regular Rhythm
Respiratory: Clear and Non-Labored Respirations
GI: Soft, Non Distended and Non Tender
Neurology: Awake, Alert, Oriented and No Motor Deficits
Skin: Warm, Dry and Good Color
Labs/Micro/Reports
Lab Data
06/22/24 03:43
06/22/24 03:43
Laboratory Results
06/21/24
14:38
APTT Cancelled
[2024-06-22] MEDS: FOLVITE 1 MG PO (07:33)
[2024-06-22] MEDS: PACERONE 100 MG PO (07:33)
[2024-06-22] MEDS: LOW STRENGTH ASPIRIN 81 MG PO ×2 (07:34→20:28)
[2024-06-22] MEDS: DUPHALAC/CHRONULAC 30 GRAMS PO ×4 (07:34→21:46)
[2024-06-22] MEDS: COLACE 100 MG PO ×2 (07:34→20:28)
[2024-06-22] MEDS: PROTONIX 40 MG PO ×2 (07:34→20:28)
[2024-06-22] MEDS: SENOKOT 17.2 MG PO ×2 (07:34→20:28)
--- NOTE | 2024-06-22 07:51 | PTCARENOTE ---
pt aaox3. tremors noted in both hands pt states they are better and he does not feel as anxious as last night. msas 2. nc2l breath sounds diminished. left hip dressing intact with min drainage on dressing. reviewed plan of care with pt.
--- NOTE | 2024-06-22 08:46 | W.PN.HOSP.TC ---
Today's Communication/Plan
-
Tx to tele
Assessment / Plan
Assessment / Plan
#left hip fracture s/p fall
-CT head and cervical spine with No acute intracranial abnormality noted. No acute fracture or subluxation of the cervical spine. Multilevel degenerative changes of the cervical spine.
-Hip x ray with Impacted nondisplaced subcapital femoral neck fracture with varus angulation. No intra-articular or intertrochanteric extension or dislocation
-pain controlled with oxy, Dilaudid and Tylenol
-PT/OT consulted
-s/p left hip hemiarthoplasty by Dr. Parker. Recommend ICU monitoring post op.
-on asa 81mg BID for DVT ppx.
-Anesthesia report noted. 450-500cc blood loss. repeat h/h. Monitor hgb closely.
-per ortho-additional 2 dose of cefazolin post op noted
-H&H 7.7 which is lower than his baseline from admission but no ongoing bleeding. Has been stable in the last 24 hours. Blood pressure stable. Aim to keep hemoglobin more than 7.
#Suspecting acute blood loss anemia
#anemia of chronic disease
-Repeat H&H in AM. Aim to keep hemoglobin more than 7. Asymptomatic without chest pain or shortness of breath.
-ferrous sulfate continued
#chronic thrombocytopenia
-platelet 63
-ctm
#Elevated creatine w/CKD stage 3b
-cr 1.6 from 1.8
-ctm
#hyperbilirubinemia
#hxt of hepatic encephalopathy
#alcohol cirrhosis
-total bili 4.4.
-ctm
-lactulose continued
mild rhabdo
-CK improved
-DC IVF.
#alcohol abuse
-was sober for 1.5 years
-now drinks 1.5pint vodka daily
-alcohol protocol-no signs of withdrawal.
-monitor MSAS score
#Parox afib
-EKG with sinus Rhythm with 1st degree AV block
-Not on anticoagulation due to increased fall risk/thrombocytopenia
-Patient in sinus rhythm this morning.
#. HFpEF
-restart lasix
-ef 50-55%
daily weights
fluid restrict monitor strict Is and Os
#HLD
-statin continued
#DVT PPX - asa bid
Full code
Discussed with industrial waste inspector
Discussed with GENERAL LOT ATTENDANT
Medically stable for transfer to telemetry.
Total time spent on today's encounter was 52 minutes which included time spent in counseling the patient/family regarding diagnosis and treatment plan as listed above, goals of care, and symptom management. Case was discussed with nursing staff,
specialists, and care coordinators/case management. All labs and imaging personally reviewed by me. Remainder the time spent in detailed review of previous records, lab data, imaging, and other medical provider documentation.
Anticipated Discharge: 24 - 48 hours
Subjective/Interval History
-
Date of Service: June 22, 2024
Patient admitted postop to ICU for close monitoring.
Patient just finished breakfast without any issues. Good appetite.
Denies any chest pain or shortness of breath.
No lightheadedness.
Pain from the surgical site is manageable with the medication.
He lives with his . He sometimes uses walker but can do without it as well.
He was sober for 20 years but he went back to drinking alcohol because of stressors of life.
Denies any prior history of alcohol withdrawal or seizures.
Objective Data
-
Labs:
Laboratory Results
06/22/24
03:43
WBC 6.8
Hgb 7.7 L
Hct 23.1 L
Plt Count 63 L
Sodium 138
Potassium 4.3
Chloride 107
Carbon Dioxide 22
BUN 38 H
Creatinine 1.6 H
Glucose 135 H
Calcium 7.6 L
Total Bilirubin 4.4 H
AST 29
ALT 23
Alkaline Phosphatase 105
Vital Signs:
Vital Signs
Temp Pulse Resp BP Pulse Ox
98.9 F 70 17 125/52 99
06/22/24 07:55 06/22/24 07:45 06/22/24 07:45 06/22/24 07:33 06/22/24 07:51
I&O
06/21/24 06/22/24 06/23/24
06:59 06:59 06:59
Intake Total 1680 / 1680 480 / 480
Output Total 600 / 600 700 / 700
Balance 1080 / 1080 -220 / -220
Review of Systems
-
Respiratory: Denies Cough or Trouble Breathing
Cardiac: Denies Chest Pain
Abdomen/GI: Denies Abdominal Pain, Nausea or Vomiting
Neuro: Denies Dizzy or Headache
Physical Exam
-
General: Comfortable
Respiratory: Non Labored Respirations; Negative Wheezes, Crackles or Accessory Resp Muscle Use
Cardiac: Regular Rhythm, S1/S2 and Murmur; Negative Tachycardic
GI: Soft and Nontender
Musculoskeletal: Other (Left hip surgical site dressing clean)
Neuro: AO x 3; Negative Tremors
Psych: Calm; Negative Confused or Agitated
Data Reviewed
-
Labs: Labs Reviewed by me
--- NOTE | 2024-06-22 09:23 | W.PN.ORTHO ---
Today's Communication / Plan
-
Appreciate primary team's management, continue treatment
Dispo likely SNF, appreciate CM
Trend Hgb, goal 7+
Continue WBAT B/L LEs on walker/ assistance if deemed safe from a medical standpoint
ASA 81mg BID for DVT ppx
PT/OT when able, THPs x 6 weeks
Dressing to remain 7-10 days
Nakul out 2 weeks (office or SNF)
If nakul out at SNF recommend outpatient orthopedic follow-up in 4 weeks
Will follow
Assessment
.
Distal Motor Intact: Yes
Dressing:
Clean, dry and intact. Aquacel in place left thigh
Assessment:
POD#1 Left Hip Ever
Plan
.
Surgery / Date: Left Hip Ever Jun 21 ([facility])
DVT Prophylaxis: Aspirin
Activity:
Out of bed. May be WBAT on walker/assistance if deemed safe by the medical team
PT/OT, THPs x 6 weeks
Discharge Plan: SNF ([facility])
Subjective
.
.:
Patient resting comfortably. did not respond to verbal stimuli, therefore I DND
Vital Signs and Labs
.
Vital Signs and Labs:
Lab Results
06/22/24 03:43
06/22/24 03:43
Temp Pulse Resp BP Pulse Ox
98.9 F 70 17 125/52 99
06/22/24 07:55 06/22/24 07:45 06/22/24 07:45 06/22/24 07:33 06/22/24 07:51
PT 18.4 Sec (11.4-14.6) H 06/20/24 12:17
INR 1.50 06/20/24 12:17
--- NOTE | 2024-06-22 11:53 | PTCARENOTE ---
report given to 2s RN pt transferred to 2100 on 2l.
--- NOTE | 2024-06-22 12:07 | W.PN.INTV ---
Today's Communication / Plan
Recommendations
Transfer to telemetry
Monitor hemoglobin, transfuse for less than 7
PT OT
Assessment
-
74-year-old male with past medical history of liver cirrhosis secondary to abuse, HFpEF, atrial fibrillation presented to the ED on 06/20 for a fall. Hip x-ray revealed impacted nondisplaced subcapital femoral neck fracture with varus angulation.
He is brought to the OR and left hip hemiarthroplasty was performed by Dr. Parker on 06/21/24. He was then admitted to ICU for further monitoring postop.
Impression
#L hip fracture s/p fall - non displaced subcapital femoral fracture and varus angulation
#s/p OR L hip hemoarthoplasty by Anderson Parker 06/21/24
#Acute blood loss anemia s/p op on chronic anemia of chronic disease
#Liver cirrhosis secondary to alcohol use
#Alcohol use disorder
#Chronic thrombocytopenia
#Hyperbilirubinemia
#Mild Rhabdomyolysis
Conditions present prior to admission:
#HTN
#HLD
#Liver cirrhosis secondary to alcohol use
#Hx of hepatic enccephalopathy
#Portal hypertension
#Chronic thrombocytopenia
#Fatty liver
#CAD
#HFpEF
#A. Fib
#Depression
#Essential tremors
Plan
Orthopedic
-s/p L. hip hemiarthroplasty for observation in ICU
-Today downgrade to Tele
-PT/OT
Neurologic
-AAOx3, RASS 0
-Pain well managed on current pain regimen
-Alcohol use disorder
-MSAS
-Thiamine and folic acid
-Benzodiazepines as needed
-Monitor for signs of withdrawal
Cardiovascular
-Not on pressors, hemodynamically stable
-Hx HFpEF
-Not in acute exacerbation
-Last echo 06/14/23 LVEF 60-65%
-Increase in weight 2kg since admission and lower extremity edema
-Furosemide on hold for surgery - consider restarting tomorrow after repeat BMP to eval Cr as still elevated
-Daily I&Os, daily weights
-Fluid restrictions
-A. fib
-In sinus rhythm
-Continue amio
-ASA 81 BID per ortho for acute DVT prophylaxis. Not on home anticoagulation due to hx of falls, anemia of chronic disease and chronic thrombocytopenia.
Respiratory
-Comfortable on 2L O2
-Wean as possible
GI
-advance diet as tolerated
-Pantoprazole 40 BID per home meds
-Continue home constipation meds
-Hx Alcoholic cirrhosis
-Elevated LFTs/Bilirubinemia
-Continue lactulose
-LFTs now wnl
-Bilirubin downtrending 7.0 -> 4.4 today
-Monitor
Renal
-DELILAH on chronic CKD - Currently stage 3a
-Cr 1.8 on admission -> 1.6
-Baseline appears to be around 1.2-1.5 but unclear
-Monitor and restart lasix pending am cr
-Follow I&Os
ID
- Pre and post op cefazolin
- WBC wnl, chest x-ray clear, U/A clean
Heme/Onc
-DVT on ASA 81 BID per ortho
-Acute blood loss anemia on anemia of chronic disease
-hg 10.4 on admission ->7.7 today
-Anesthesia reports 450-500cc blood loss
-Monitor H&H
-Transfuse for hg <7
-Continue iron supplement
-Chronic thrombocytopenia
-secondary to liver cirrhosis
-Monitor ptl
-Transfuse plt <15 or if active signs of bleeding then transfuse for <50
Endocrine
-SSI as needed
-BG goals 140-180
-No hx of diabetes - HgA1c pending
DVT ASA 81 BID
Early nutrition
Early mobilization
Full Code
Subjective Dataa
Subjective Data
Date of Service:
Date of Service: June 22, 2024
Chief Complaint: Comber Operator Follow Up
Review of Systems
General: Fever (n), Chills (n) and Pain (Controlled)
Cardiopulmonary: Dyspnea (n), Cough (n), Wheezing, Chest Pain (n) and Edema
GI: Abdominal Pain (n), Nausea (n) and Vomiting (n)
Objective Data
Data Reviewed
Vital Signs / I&O / Oxygen:
Vital Signs
Temp Pulse Resp BP Pulse Ox
99.2 F 82 16 113/47 93
06/22/24 11:58 06/22/24 11:58 06/22/24 11:58 06/22/24 11:58 06/22/24 11:58
Intake and Output
06/21/24 06/22/24 06/23/24
06:59 06:59 06:59
Intake Total 1680 / 1680 480 / 480
Output Total 600 / 600 700 / 700 400 / 400
Balance 1080 / 1080 -220 / -220 -400 / -400
SaO2 93
Nasal Cannula flow liters per 2
minute
Physical Exam
General: Comfortable
HEENT: Normocephalic
Cardiovascular: S1-S2, Murmur (Systolic best heard at aortic point), Peripheral Edema (1+ bilateral lower extremities ) and Other
Respiratory: Clear
GI: Soft, Non Distended, Non Tender and Normal Bowel Sounds
Neurology: AO x 3
Skin: Warm
Labs/Micro/Reports
Lab Data
06/22/24 03:43
06/22/24 03:43
Laboratory Results
06/21/24
14:38
APTT Cancelled
--- NOTE | 2024-06-22 12:10 | PTCARENOTE ---
Patient transferred to [address] [place] [address] from ICU.Patient post left hemiarthroplasty yesterday to repair fractured left hip.He is alert and oriented.He reports his pain at a 5 out of 10.Therapy just finished working with him prior to his
transfer.Neurovascular assessment is within normal limits and ongoing.The left hip dressing has a small amount of old drainage present.The patient is in his bed with the call calero in reach.
[2024-06-22 14:25] LABS: Glycohemoglobin (HgbA1c) 4.3 % (4.0-5.6)
--- NOTE | 2024-06-22 14:28 | CM ---
CM following re: discharge planing.
Reviewed pt's chart, met with pt. Pt is downgraded from ICU level of care and CM met with pt in room 210.
PT and OT evaluations noted. Pt is aware, expressed his agreement. Pt stated he was at [facility] and he did not have a good experience and he does not want to have [facility] as an option. A list of SNFs provided to the pt. Pt preferred: [facility],
[facility] and [facility]'s home SNF. A referral to above SNFs made. Awaiting for determination
Also, pt stated his is at work and he will discuss with her those options and if his will have additional option he will let me know.
IMM reviewed, placed on chart, pt has a copy.
D/C plan: preferred SNF: [facility]. [facility] or [facility] [place].
CM will follow to assist pt with discharge to a preferred and accepted SNF.
[2024-06-22] MEDS: LIPITOR 40 MG PO (17:04)
[2024-06-22] MEDS: KCL 20 MEQ PO (20:27)
[2024-06-22] MEDS: MAGNESIUM OXIDE 500 MG PO (20:28)
[2024-06-23] VITALS (12 sets, daily range): BP systolic 87–130; BP diastolic 41–69; PULSE 73–78; O2SAT 100
[2024-06-23 05:50] LABS: Hemoglobin 6.6 g/dL (13.0-18.0); Mean Corpuscular Hgb 30.6 pg (27.0-31.0); Mean Corpuscular Volume 92.6 fL (80.0-94.0); Mean Platelet Volume 10.3 fL (7.4-10.4); Platelet Count 50 10^3/uL (130-400); Red Blood Cell Count 2.16 10^6/uL (4.70-6.10); White Blood Cell Count 5.9 10^3/uL (4.8-10.8)
[2024-06-23 06:02] LABS: ALT (SGPT) 21 U/L (0-50); AST (SGOT) 36 U/L (17-59); Albumin 2.1 g/dl (3.5-5.0); Alkaline Phosphatase 126 U/L (38-126); Blood Urea Nitrogen 43 mg/dl (9-20); Calcium 7.4 mg/dl (8.4-10.2); Carbon Dioxide 24 mmol/L (22-30); Chloride 102 mmol/L (98-107); Estimated Creatinine Clearance 47 ml/min; Glucose 114 mg/dl (70-99); Potassium 4.1 mmol/L (3.5-5.1); Sodium 131 mmol/L (135-145); Total Bilirubin 3.3 mg/dl (0.2-1.3); Total Protein 3.9 g/dl (6.3-8.2)
--- NOTE | 2024-06-23 07:17 | W.PN.ORTHO ---
Today's Communication / Plan
-
POD#2 left hip hemiarthroplasty under the direction of Dr. Parker
-WBAT. Total hip precautions. Ambulate with assistance of walker
-PT/OT
-Aspirin 81mg BID x4 weeks for DVT prophylaxis
-Continue pain management as needed
-Hemoglobin 6.6 on AM labs. Transfuse per primary. Continue to monitor
-Dressing to remain in place 7-10 days
-[place] out at 2 weeks postop
-Dispo likely SNF. Case management consulted
-If nakul out at SNF, recommend outpatient follow up in 4 weeks
-Patient is orthopedically stable postop, will sign off. Please reach out with any additional questions
Assessment
.
Distal Motor Intact: Yes
Dressing:
Clean, dry and intact.
Plan
.
Surgery / Date: Left Hip Ever Jun 21 (Elena)
DVT Prophylaxis: Aspirin
Activity:
Out of bed.
PT/OT
Subjective
.
.:
Patient resting comfortably in bed. He reports soreness to the left hip
Vital Signs and Labs
.
Vital Signs and Labs:
Lab Results
06/23/24 04:19
06/23/24 04:19
Temp Pulse Resp BP Pulse Ox
98.8 F 73 22 127/53 96
06/23/24 02:58 06/23/24 02:58 06/23/24 02:58 06/23/24 02:58 06/23/24 02:58
PT 18.4 Sec (11.4-14.6) H 06/20/24 12:17
INR 1.50 06/20/24 12:17
Physical Exam
-
Directed exam of left hip reveals surgical dressing in place, clean dry and intact. Mild tenderness to palpation of lateral hip. Thigh is soft and compressible. Able to plantar/dorsiflex the ankle. NVI distally.
[2024-06-23] MEDS: LOW STRENGTH ASPIRIN 81 MG PO ×2 (08:05→20:22)
[2024-06-23] MEDS: SENOKOT 17.2 MG PO ×2 (08:05→20:23)
[2024-06-23] MEDS: COLACE 100 MG PO ×2 (08:05→20:22)
[2024-06-23] MEDS: PROTONIX 40 MG PO ×2 (08:05→20:22)
[2024-06-23] MEDS: PACERONE 100 MG PO (08:06)
[2024-06-23] MEDS: LASIX 20 MG PO (08:07)
[2024-06-23] MEDS: FOLVITE 1 MG PO (08:07)
[2024-06-23] MEDS: MAGNESIUM OXIDE 500 MG PO ×2 (08:07→20:23)
[2024-06-23] MEDS: KCL 20 MEQ PO ×2 (08:07→20:22)
[2024-06-23] MEDS: DUPHALAC/CHRONULAC 30 GRAMS PO ×4 (08:07→21:39)
[2024-06-23] MEDS: ROXICODONE 5 MG PO ×2 (08:11→20:34)
--- NOTE | 2024-06-23 11:24 | CM ---
Chart reviewed
For blood transfusion today
PT - recs SNF - choices obtained. [facility] and [facility] can accept pend bed availability
CM will follow for discharge needs
Plan - snf when medically ready
[2024-06-23] MEDS: FEOSOL 325 MG PO (13:29)
--- NOTE | 2024-06-23 13:53 | W.PN.HOSP.TC ---
Today's Communication/Plan
-
Tx PRBC and follow HH
CW PT/OT eval after transfusion
DC planning
Assessment / Plan
Assessment / Plan
#left hip fracture s/p fall
-CT head and cervical spine with No acute intracranial abnormality noted. No acute fracture or subluxation of the cervical spine. Multilevel degenerative changes of the cervical spine.
-Hip x ray with Impacted nondisplaced subcapital femoral neck fracture with varus angulation. No intra-articular or intertrochanteric extension or dislocation
-pain controlled with oxy, Dilaudid and Tylenol
-PT/OT consulted
-s/p left hip hemiarthoplasty by Dr. Parker. Recommend ICU monitoring post op.
-on asa 81mg BID for DVT ppx.
-Anesthesia report noted. 450-500cc blood loss. repeat h/h. Monitor hgb closely.
-per ortho-additional 2 dose of cefazolin post op noted
-H&H 6.6 without external bleeding . Blood pressure stable. Aim to keep hemoglobin more than 7. Tx PRBC today
#Suspecting acute blood loss anemia
#anemia of chronic disease
-Follow H&H in AM. Aim to keep hemoglobin more than 7. Asymptomatic without chest pain or shortness of breath.
-ferrous sulfate continued
#chronic thrombocytopenia
-platelet 63
-ctm
#Elevated creatine w/CKD stage 3b
-cr 1.6 from 1.8
-ctm
#hyperbilirubinemia
#hxt of hepatic encephalopathy
#alcohol cirrhosis
-total bili 4.4.
-ctm
-lactulose continued
mild rhabdo
-CK improved
-DCed IVF.
#alcohol abuse
-was sober for 1.5 years
-now drinks 1.5pint vodka daily
-alcohol protocol-no signs of withdrawal.
-monitor MSAS score
#Parox afib
-EKG with sinus Rhythm with 1st degree AV block
-Not on anticoagulation due to increased fall risk/thrombocytopenia
-Patient in sinus rhythm this morning.
#. HFpEF
-restart lasix
-ef 50-55%
daily weights
fluid restrict monitor strict Is and Os
#HLD
-statin continued
#DVT PPX - asa bid
Full code
Anticipated Discharge: 24 - 48 hours
Subjective/Interval History
-
Date of Service: June 23, 2024
Pain from the left hip fracture repair #2 especially with movement otherwise okay.
Denies any shortness of breath or chest pain.
No nausea vomiting. Tolerating diet.
Does not have any tremors or feeling anxious without alcohol.
Objective Data
-
Labs:
Laboratory Results
06/23/24
04:19
WBC 5.9
Hgb 6.6 L*
Hct 20.0 L*
Plt Count 50 L D
Sodium 131 L
Potassium 4.1
Chloride 102
Carbon Dioxide 24
BUN 43 H
Creatinine 1.7 H
Glucose 114 H
Calcium 7.4 L
Total Bilirubin 3.3 H
AST 36
ALT 21
Alkaline Phosphatase 126
Vital Signs:
Vital Signs
Temp Pulse Resp BP Pulse Ox
99.5 F 72 14 117/43 96
06/23/24 11:10 06/23/24 11:10 06/23/24 11:10 06/23/24 11:10 06/23/24 11:10
I&O
06/22/24 06/23/24 06/24/24
06:59 06:59 06:59
Intake Total 480 / 480 1200 / 1200 0 / 0
Output Total 700 / 700 1075 / 1075
Balance -220 / -220 125 / 125 0 / 0
Review of Systems
-
Constitutional: Denies Fever
EENT: Denies Sore Throat
Respiratory: Denies Cough or Trouble Breathing
Cardiac: Denies Chest Pain
Neuro: Denies Dizzy
Physical Exam
-
General: No Apparent Distress
HEENT: Moist Mucous Membranes
Respiratory: Clear to Auscultation
Cardiac: Regular Rhythm and S1/S2
GI: Soft
Musculoskeletal: Other (Left hip surgical site dressing clean)
Neuro: AO x 3
Psych: Calm
Data Reviewed
-
Labs: Labs Reviewed by me
--- NOTE | 2024-06-23 16:16 | PN.CDI ---
CDI
- -
CDI:
Physician Documentation Request
Admit Date: 06/20/24 13:21
Dear Doctor Zeus,
Please review the following and provide your response in the progress notes.
Clinical Indicators:
Pt admitted for left hip fracture.
06/22 Dance Director note: 'Supplemental oxygen as needed, on 2L likely postop atelectasis, wean as tolerated.'
Selected Entries
06/21/24
20:00 06/22/24
20:30 06/23/24
16:15
Nasal Cannula flow liters per minute 2 2 2
Clarify which of the following accurately represents the patient's respiratory status following surgery:
Acute pulmonary insufficiency (following surgery)
Hypoxia only
Other
Additional information for Pulmonary Insufficiency:
Consider when patients require lobsterman oxygen therapy postoperatively
Weaned off oxygen initially then requiring supplemental oxygen
No other definitive diagnosis to support the need for oxygen (COPD exac, CHF etc.)
Unable to wean from vent
When criteria for respiratory failure not present
May extend stay or require additional resources; may need home O2
Additional information for Respiratory Failure:
Recognized criteria for Respiratory Failure (Source: [facility] Hospitalist May 2013)
ABGs: (1 or more) Symptoms Indicate:
1. p)2 <60 or RA SPO2 <91% on RA 1. Tachypnea, SOB, dyspnea 1. Type as:
2. pCO2 50 and pH <7.35 2. Use of accessory muscles a. Hypoxic
3. pO2 decrease of pCO2 increase by 3. Pallor or cyanosis b. Hypercapnic
10 mmHg from baseline if known 4. Anxiety or restlessness 2. If due to procedure or due to another cause
5. Unable to speak in full sentences
Supplemental O2 of > 40% Intubation is not required
Use of terms such as suspected, likely, concern for, or probable (associated with a specific diagnosis that is being evaluated, monitored, or treated as if it exists) are acceptable and can be coded in the inpatient setting, when documented at the
time of discharge.
Thank you,
Madisyn Cramer RN, BSN
CDI Specialist
Available via [employer] Text
Please use your independent medical judgment in providing your response.
[2024-06-23] MEDS: LIPITOR 40 MG PO (17:07)
[2024-06-23] MEDS: VITAMIN B1 100 MG PO (20:22)
[2024-06-24] VITALS (10 sets, daily range): BP systolic 106–125; BP diastolic 46–53; PULSE 73; BMI 28.9
--- NOTE | 2024-06-24 04:00 | DOWNTIME ---
There was a [facility] Client Cinder Pit Crane Operator Downtime on 06/24/2024 from 0100 to 06/24/2024 at 0350. Downtime documentation of patient's care, including medication administrations, has been reconciled in the electronic record per guidelines. Refer to the
patient's paper chart under the miscellaneous tab to see printed paper medication records and downtime forms.
[2024-06-24 06:39] LABS: Hematocrit 22.5 % (39.0-52.0); Hemoglobin 7.3 g/dL (13.0-18.0); Mean Corp Hgb Conc. 32.4 g/dL (33.0-37.0); Mean Corpuscular Hgb 29.7 pg (27.0-31.0); Mean Corpuscular Volume 91.5 fL (80.0-94.0); Mean Platelet Volume 10.4 fL (7.4-10.4); Platelet Count 67 10^3/uL (130-400); Red Blood Cell Count 2.46 10^6/uL (4.70-6.10); White Blood Cell Count 5.7 10^3/uL (4.8-10.8)
[2024-06-24 06:56] LABS: Blood Urea Nitrogen 43 mg/dl (9-20); Calcium 7.4 mg/dl (8.4-10.2); Carbon Dioxide 26 mmol/L (22-30); Chloride 103 mmol/L (98-107); Estimated Creatinine Clearance 47 ml/min; Glucose 106 mg/dl (70-99); Potassium 4.6 mmol/L (3.5-5.1); Sodium 136 mmol/L (135-145)
--- NOTE | 2024-06-24 09:04 | PN.CDI ---
CDI
- -
CDI:
Physician Documentation Request
Admit Date: 06/20/24 13:21
Dear Doctor Sri,
Please review the following and provide your response in the progress notes.
Clinical Indicators:
Pt admitted with left hip fracture s/p Hemiarthroplasty on 06/20.
06/22 Pulmonology note, ' Pulmonary insufficiency, likely postop atelectasis...Supplemental oxygen as needed, on 2L likely postop atelectasis, wean as tolerated...'
Per Vital signs it looks like pt was weaned to Room air 06/23 @ 0803 and then placed back on 2 LPM Via NC 06/23 1615
Selected Entries
06/20/24
09:06 06/21/24
13:00 06/21/24
13:15
Resp Rate 28
Nasal Cannula flow liters per minute 4 2
06/21/24
17:00 06/22/24
07:48 06/23/24
07:02
SaO2 91
Nasal Cannula flow liters per minute 2 2
06/23/24
16:15
Nasal Cannula flow liters per minute 2
Clarify which of the following accurately represents the patient's respiratory status following surgery:
Acute pulmonary insufficiency (following surgery)
Chronic pulmonary insufficiency (following surgery)
Other
Additional information for Pulmonary Insufficiency:
Consider when patients require care home oxygen therapy postoperatively
Weaned off oxygen initially then requiring supplemental oxygen
No other definitive diagnosis to support the need for oxygen (COPD exac, CHF etc.)
Unable to wean from vent
When criteria for respiratory failure not present
May extend stay or require additional resources; may need home O2
Additional information for Respiratory Failure:
Recognized criteria for Respiratory Failure (Source: [facility] Hospitalist May 2013)
ABGs: (1 or more) Symptoms Indicate:
1. p)2 <60 or RA SPO2 <91% on RA 1. Tachypnea, SOB, dyspnea 1. Type as:
2. pCO2 50 and pH <7.35 2. Use of accessory muscles a. Hypoxic
3. pO2 decrease of pCO2 increase by 3. Pallor or cyanosis b. Hypercapnic
10 mmHg from baseline if known 4. Anxiety or restlessness 2. If due to procedure or due to another cause
5. Unable to speak in full sentences
Supplemental O2 of > 40% Intubation is not required
Use of terms such as suspected, likely, concern for, or probable (associated with a specific diagnosis that is being evaluated, monitored, or treated as if it exists) are acceptable and can be coded in the inpatient setting, when documented at the
time of discharge.
Thank you,
Madisyn Cramer RN,BSN
CDI Specialist
Available via [employer] Text
Please use your independent medical judgment in providing your response.
[2024-06-24] MEDS: DUPHALAC/CHRONULAC 30 GRAMS PO ×4 (09:14→21:53)
[2024-06-24] MEDS: PACERONE 100 MG PO (09:14)
[2024-06-24] MEDS: FOLVITE 1 MG PO (09:14)
[2024-06-24] MEDS: SENOKOT 17.2 MG PO ×2 (09:14→20:14)
[2024-06-24] MEDS: PROTONIX 40 MG PO ×2 (09:14→20:13)
[2024-06-24] MEDS: VITAMIN B1 100 MG PO ×2 (09:14→20:13)
[2024-06-24] MEDS: MAGNESIUM OXIDE 500 MG PO ×2 (09:14→20:13)
[2024-06-24] MEDS: LASIX 20 MG PO (09:14)
[2024-06-24] MEDS: LOW STRENGTH ASPIRIN 81 MG PO ×2 (09:15→20:13)
[2024-06-24] MEDS: KCL 20 MEQ PO ×2 (09:15→20:13)
[2024-06-24] MEDS: COLACE 100 MG PO ×2 (09:16→20:13)
[2024-06-24] MEDS: ROXICODONE 5 MG PO ×3 (09:23→20:37)
--- NOTE | 2024-06-24 10:51 | CM ---
Addendum entered by Christina Apodaca 06/24/24 16:38:
Patient refused d/c to skilled rehab today. Patient thinks he can go home.
MD and RN both spoke with patient.
CM spoke with patient, spouse and daughter Fadumo (via phone) in patients room.
wants patient to go to skilled, daughter wants patient to go to skilled.
Discussed possibility of increased injury to self as he is not safe for d/c to home.
PT/OT both recommending skilled rehab.
Patient aware that if he is planning to go home he will need equipment and ambulance transportation and VN.
Patient sleeps on sofa, bed and bath 2nd floor.
Explained to patient VN would not be coming every day.
Patient will think about it overnight and hopefully will agree to going to skilled rehab.
Patient and spouse aware of CM availability.
RN and MD updated and aware of situation.
[facility] updated re no dc today.
Plan: hopefully skilled rehab
Addendum entered by Christina Apodaca 06/24/24 11:59:
TC to [facility] from [facility], approved for acceptance today.
Plan: [facility] after transfusion
[facility]
Report# [phone]

Original Note:
Patient seen bedside.
Patient agreeable to skilled rehab.
Spouse would prefer [facility],referral placed.
Left VM for [facility]/Admission coordinator.
Patient needs transfusion prior to d/c.
Plan: skilled rehab once bed available and medically stable.
--- NOTE | 2024-06-24 12:19 | W.PN.HOSP.TC ---
Today's Communication/Plan
-
DC
Assessment / Plan
Assessment / Plan
#left hip fracture s/p fall
-CT head and cervical spine with No acute intracranial abnormality noted. No acute fracture or subluxation of the cervical spine. Multilevel degenerative changes of the cervical spine.
-Hip x ray with Impacted nondisplaced subcapital femoral neck fracture with varus angulation. No intra-articular or intertrochanteric extension or dislocation
-pain controlled with oxy, Dilaudid and Tylenol
-PT/OT consulted -rec rehab
-s/p left hip hemiarthoplasty by Dr. Parker. Recommend ICU monitoring post op.
-on asa 81mg BID for DVT ppx.
-Anesthesia report noted. 450-500cc blood loss. repeat h/h.
-per ortho-additional 2 dose of cefazolin post op noted
#Suspecting acute blood loss anemia
#anemia of chronic disease
- Drop in post op HH to 6.6 noted. Increased to 7.3 after one unit. Pt for rehab and therapies so will aim to keep HH higher ,close to 8 -will order one more unit today.
-ferrous sulfate continued
#chronic thrombocytopenia
-platelet stable
-ctm
#Elevated creatine w/CKD stage 3b
-cr 1.7 from 1.8
-ctm
#hyperbilirubinemia
#hxt of hepatic encephalopathy
#alcohol cirrhosis
-total bili 4.4.
-ctm
-lactulose continued
mild rhabdo
-CK improved
-DCed IVF.
#alcohol abuse
-was sober for 1.5 years
-now drinks 1.5pint vodka daily
-alcohol protocol-no signs of withdrawal.
#Parox afib
-EKG with sinus Rhythm with 1st degree AV block
-Not on anticoagulation due to increased fall risk/thrombocytopenia
-Patient in sinus rhythm this morning.
#. HFpEF
-restart lasix
-ef 50-55%
daily weights
fluid restrict monitor strict Is and Os
#HLD
-statin continued
#DVT PPX - asa bid
Full code
Medically stable for DC to rehab .
More than 30 minutes spent in discharge including
Final examination of the patient
Summarizing hospital stay
Instructions for continuing care to all relevant caregivers
Preparation of discharge records, prescriptions, and referral forms
Total time spent (in minutes): 35
Anticipated Discharge: Today
Subjective/Interval History
-
Date of Service: June 24, 2024
Patient feels improved. Pain from the left hip surgical site manageable.
Denies any nausea vomiting. Tolerating diet.
Denies any chest pain or shortness of breath.
Today is off of oxygen.
Objective Data
-
Labs:
Laboratory Results
06/24/24
04:33
WBC 5.7
Hgb 7.3 L
Hct 22.5 L
Plt Count 67 L D
Sodium 136
Potassium 4.6
Chloride 103
Carbon Dioxide 26
BUN 43 H
Creatinine 1.7 H
Glucose 106 H
Calcium 7.4 L
Vital Signs:
Vital Signs
Temp Pulse Resp BP Pulse Ox
99.3 F 70 12 111/49 94
06/24/24 12:03 06/24/24 12:03 06/24/24 12:03 06/24/24 12:03 06/24/24 12:03
I&O
06/23/24 06/24/24 06/25/24
06:59 06:59 06:59
Intake Total 1200 / 1200 740 / 740 0 / 0
Output Total 1075 / 1075 1300 / 1300 300 / 300
Balance 125 / 125 -560 / -560 -300 / -300
Review of Systems
-
Constitutional: Denies Fever
EENT: Denies Sore Throat
Respiratory: Denies Cough or Trouble Breathing
Cardiac: Denies Chest Pain
Abdomen/GI: Denies Abdominal Pain, Nausea or Vomiting
Neuro: Denies Dizzy
Physical Exam
-
General: Comfortable
Respiratory: Clear to Auscultation and Non Labored Respirations; Negative Wheezes, Crackles or Accessory Resp Muscle Use
Cardiac: Regular Rhythm and S1/S2
GI: Soft and Nontender
Musculoskeletal: Other (Left hip dressing looks clean apart form old blood stain within the dressing.No active bleeding .)
Neuro: AO x 3
Psych: Calm; Negative Confused
Data Reviewed
-
Labs: Labs Reviewed by me
--- NOTE | 2024-06-24 16:41 | PTCARENOTE ---
Patient refusing SNF. Multiple conversations had w/ patient and spouse to provide insight into risks of going home. Roxanne PEREZ and Dr. Zeus jacob.
[2024-06-24] MEDS: LIPITOR 40 MG PO (17:17)
[2024-06-25] VITALS (8 sets, daily range): BP systolic 101–123; BP diastolic 39–53; PULSE 67; BMI 28.6
[2024-06-25 07:02] LABS: Hematocrit 23.4 % (39.0-52.0); Hemoglobin 7.7 g/dL (13.0-18.0); Mean Corp Hgb Conc. 32.9 g/dL (33.0-37.0); Mean Corpuscular Hgb 29.4 pg (27.0-31.0); Mean Corpuscular Volume 89.3 fL (80.0-94.0); Mean Platelet Volume 11.1 fL (7.4-10.4); Platelet Count 69 10^3/uL (130-400); Red Blood Cell Count 2.62 10^6/uL (4.70-6.10); Red Cell Dist. Width 17.4 % (11.5-14.5)
[2024-06-25] MEDS: PACERONE 100 MG PO (08:06)
[2024-06-25] MEDS: SENOKOT 17.2 MG PO (08:06)
[2024-06-25] MEDS: DUPHALAC/CHRONULAC 30 GRAMS PO ×4 (08:06→21:46)
[2024-06-25] MEDS: PROTONIX 40 MG PO ×2 (08:06→20:55)
[2024-06-25] MEDS: LASIX 20 MG PO (08:06)
[2024-06-25] MEDS: MAGNESIUM OXIDE 500 MG PO ×2 (08:06→20:55)
[2024-06-25] MEDS: COLACE 100 MG PO (08:06)
[2024-06-25] MEDS: VITAMIN B1 100 MG PO ×2 (08:06→20:55)
[2024-06-25] MEDS: FOLVITE 1 MG PO (08:06)
[2024-06-25] MEDS: LOW STRENGTH ASPIRIN 81 MG PO ×2 (08:07→20:55)
[2024-06-25] MEDS: KCL 20 MEQ PO ×2 (08:07→20:55)
[2024-06-25] MEDS: ROXICODONE 5 MG PO ×3 (08:13→21:46)
--- NOTE | 2024-06-25 08:24 | W.PN.HOSP.TC ---
Today's Communication/Plan
-
SNF placement pending
Assessment / Plan
Assessment / Plan
Physical Exam
General: Comfortable
Respiratory: Clear to Auscultation and Non Labored Respirations
Cardiac: Regular Rhythm and S1/S2
GI: Soft and Nontender. Positive bowel sounds.
Musculoskeletal: Other (Left hip dressing looks clean apart form old blood stain within the dressing.No active bleeding .)
Neuro: AO x 3
Psych: Calm; Negative Confused
Assessment/Plan
#Left hip fracture status post fall
-CT head and cervical spine with No acute intracranial abnormality noted. No acute fracture or subluxation of the cervical spine. Multilevel degenerative changes of the cervical spine.
-Hip x ray with Impacted nondisplaced subcapital femoral neck fracture with varus angulation. No intra-articular or intertrochanteric extension or dislocation
-pain controlled with oxy, Dilaudid and Tylenol
-PT/OT consulted -rec rehab
-s/p left hip hemiarthoplasty by Dr. Parker. Was in ICU post-op.
-on asa 81mg BID for DVT ppx.
-Anesthesia report noted. 450-500cc blood loss. repeat h/h.
-per ortho-additional 2 dose of cefazolin post op noted
#Suspecting acute blood loss anemia
#anemia of chronic disease
-2 units PRBCs transfused this admission
-ferrous sulfate continued
#chronic thrombocytopenia, likely from cirrhosis
-platelet stable
-ctm
#Elevated creatine w/CKD stage 3b
-cr 1.7 from 1.8
-ctm
#hyperbilirubinemia
#hxt of hepatic encephalopathy
#alcohol cirrhosis
-total bili 4.4 --> 3.3
-ctm
-lactulose continued
mild rhabdo
-CK improved
-DCed IVF.
#alcohol abuse
-was sober for 1.5 years
-now drinks 1.5pint vodka daily
-alcohol protocol-no signs of withdrawal.
#Parox afib
-EKG with sinus Rhythm with 1st degree AV block
-Not on anticoagulation due to increased fall risk/thrombocytopenia
-Continue to monitor on tele
#. HFpEF
-restart lasix
-ef 50-55%
daily weights
fluid restrict monitor strict Is and Os
#HLD
-statin continued
#DVT PPX - asa bid
Full code
Medically stable for DC to rehab .
Anticipated Discharge: 24 - 48 hours
Subjective/Interval History
-
Date of Service: June 25, 2024
Patient was seen and examined. He was sitting in his chair comfortably and denied any symptoms or complaints.
Objective Data
-
Labs:
Laboratory Results
06/25/24
06:07
WBC 5.0
Hgb 7.7 L
Hct 23.4 L
Plt Count 69 L
Vital Signs:
Vital Signs
Temp Pulse Resp BP Pulse Ox
99.3 F 69 14 101/40 95
06/25/24 07:00 06/25/24 07:00 06/25/24 07:00 06/25/24 07:00 06/25/24 07:00
I&O
06/24/24 06/25/24 06/26/24
06:59 06:59 06:59
Intake Total 740 / 740 1450 / 1450
Output Total 1300 / 1300 1225 / 1225
Balance -560 / -560 225 / 225
[2024-06-25] MEDS: FEOSOL 325 MG PO (12:14)
[2024-06-25] MEDS: LIPITOR 40 MG PO (17:27)
[2024-06-25] MEDS: SENOKOT PO (20:54)
[2024-06-25] MEDS: COLACE PO (20:55)
[2024-06-26 03:00] VITALS: BP 111/48
[2024-06-26 06:00] VITALS: BMI 28.2
[2024-06-26 06:49] LABS: Albumin 2.1 g/dl (3.5-5.0); Blood Urea Nitrogen 40 mg/dl (9-20); Calcium 7.3 mg/dl (8.4-10.2); Carbon Dioxide 25 mmol/L (22-30); Chloride 104 mmol/L (98-107); Estimated Creatinine Clearance 50 ml/min; Glucose 95 mg/dl (70-99); Magnesium 2.4 mg/dl (1.6-2.3); Potassium 4.4 mmol/L (3.5-5.1); Sodium 136 mmol/L (135-145)
[2024-06-26 07:00] VITALS: BP 98/40
[2024-06-26 07:33] LABS: Hematocrit 23.4 % (39.0-52.0); Hemoglobin 7.9 g/dL (13.0-18.0); Mean Corp Hgb Conc. 33.8 g/dL (33.0-37.0); Mean Corpuscular Hgb 30.7 pg (27.0-31.0); Mean Corpuscular Volume 91.1 fL (80.0-94.0); Mean Platelet Volume 10.5 fL (7.4-10.4); Platelet Count 70 10^3/uL (130-400); Red Blood Cell Count 2.57 10^6/uL (4.70-6.10); Red Cell Dist. Width 17.3 % (11.5-14.5); White Blood Cell Count 4.7 10^3/uL (4.8-10.8)
[2024-06-26] MEDS: PROTONIX 40 MG PO (07:35)
[2024-06-26] MEDS: LASIX 20 MG PO (07:35)
[2024-06-26] MEDS: MAGNESIUM OXIDE 500 MG PO (07:35)
[2024-06-26] MEDS: DUPHALAC/CHRONULAC 30 GRAMS PO ×3 (07:35→17:38)
[2024-06-26] MEDS: FOLVITE 1 MG PO (07:35)
[2024-06-26] MEDS: COLACE PO (07:36)
[2024-06-26] MEDS: LOW STRENGTH ASPIRIN 81 MG PO (07:36)
[2024-06-26] MEDS: PACERONE 100 MG PO (07:36)
[2024-06-26] MEDS: VITAMIN B1 100 MG PO (07:36)
[2024-06-26] MEDS: SENOKOT PO (07:36)
[2024-06-26] MEDS: KCL 20 MEQ PO (07:36)
[2024-06-26] MEDS: ROXICODONE 5 MG PO (08:47)
[2024-06-26 09:05] VITALS: BP 102/39; PULSE 64
--- NOTE | 2024-06-26 10:24 | W.PN.HOSP.TC ---
Today's Communication/Plan
-
Discharge today
Assessment / Plan
Assessment / Plan
Physical Exam
General: Comfortable
Respiratory: Clear to Auscultation Bilaterally
Cardiac: Regular Rhythm and S1/S2
GI: Soft and Nontender. Positive bowel sounds.
Musculoskeletal: Other (Left hip dressing looks clean apart form old blood stain within the dressing. No active bleeding.)
Neuro: AAO x 3
Psych: Calm; Negative Confused
Assessment/Plan
#Left hip fracture status post fall status post left hip hemiarthroplasty under the direction of Dr. Parker on 06/21/24
#Mildly displaced left femoral neck fracture with slight impaction and varus angulation with associated small overlying soft tissue contusion in the lateral soft tissues, as per CT Pelvis radiologist's report
-CT head and cervical spine with No acute intracranial abnormality noted. No acute fracture or subluxation of the cervical spine. Multilevel degenerative changes of the cervical spine.
-Hip x ray with Impacted nondisplaced subcapital femoral neck fracture with varus angulation. No intra-articular or intertrochanteric extension or dislocation
-pain controlled with oxy, Dilaudid and Tylenol
-PT/OT consulted -rec rehab
-s/p left hip hemiarthoplasty by Dr. Parker. Was in ICU post-op.
-Anesthesia report noted. 450-500cc blood loss. Hgb acceptable at this time
-WBAT. Total hip precautions. Ambulate with assistance of walker
-PT/OT
-Continue Aspirin 81mg BID x4 weeks for DVT prophylaxis (surgery was 06/21/24)
-Continue pain management as needed
-Dressing to remain in place 7-10 days
-[place] out at 2 weeks postop
-If nakul out at SNF, recommend outpatient follow up in 4 weeks, as per ortho
#Left Hip X-Ray with 'Mild degenerative changes of the pubis symphysis, both hips, bilateral sacroiliac joints and partially visualized lower lumbar spine. Soft tissues are grossly unremarkable'
#Multilevel degenerative changes of the cervical spine on CT Cervical Spine, as per radiologist's report
-As per radiologist's report
-Follow-up with PCP outpatient
#Diffuse subcutaneous edema within the lower extremity, as per radiologist's report
-Follow-up with PCP outpatient
#Mild circumferential wall thickening of the urinary bladder, as per radiologist's report
-Follow-up with PCP outpatient
#Mild colonic stool burden with a prominent rectal stool ball
-Continue bowel regimen and rectal suppository if needed
-Per patient's nurse, patient had a very large, softer but formed bowel movement last night
#Moderate atherosclerotic calcifications of the infrarenal abdominal aorta and branch vessels, as per radiologist's report on CT Pelvis
-Follow-up with PCP
#Suspecting acute blood loss anemia
#anemia of chronic disease
-2 units PRBCs transfused this admission
-ferrous sulfate continued
#chronic thrombocytopenia, likely from cirrhosis
-platelet stable
-ctm
#Hematuria on Urinalysis
-Follow-up with PCP/urology outpatient
#Elevated creatine w/CKD stage 3b
-cr 1.7 from 1.8
-ctm
#hyperbilirubinemia
#hxt of hepatic encephalopathy
#alcoholic liver cirrhosis
#Portal Hypertension
-total bili 4.4 --> 3.3
-ctm
-lactulose continued
#mild rhabdomyolysis
-CK improved
-DCed IVF.
#alcohol abuse
-was sober for 1.5 years
-now drinks 1.5pint vodka daily
-alcohol protocol-no signs of withdrawal.
#Paroxysmal atrial fibrillation
-EKG with sinus Rhythm with 1st degree AV block
-Not on anticoagulation due to increased fall risk/history of falls/thrombocytopenia/anemia of chronic disease
-Continue to monitor on tele
#Coronary Artery Disease
#HFpEF
-Continue Lasix
-ef 50-55%
daily weights
fluid restrict monitor strict Is and Os
#Hypertension
#Hyperlipidemia
-statin continued
#Depression
#Essential Tremors
#DVT PPX - asa bid
Full code
Medically stable for DC to rehab .
More than 30 minutes spent in discharge including
Final examination of the patient
Summarizing hospital stay
Instructions for continuing care to all relevant caregivers
Preparation of discharge records, prescriptions, and referral forms
Total time spent (in minutes): 38
Anticipated Discharge: Today
Subjective/Interval History
-
Date of Service: June 26, 2024
Patient was seen and examined. He denied any fever, chest pain, shortness of breath, any pain or new swelling in his legs, or any other complaints.
Objective Data
-
Labs:
Laboratory Results
06/26/24
04:16
WBC 4.7 L
Hgb 7.9 L
Hct 23.4 L
Plt Count 70 L
Sodium 136
Potassium 4.4
Chloride 104
Carbon Dioxide 25
BUN 40 H
Creatinine 1.6 H
Glucose 95
Calcium 7.3 L
Vital Signs:
Vital Signs
Temp Pulse Resp BP Pulse Ox
98.4 F 97 18 98/40 97
06/26/24 07:00 06/26/24 07:00 06/26/24 07:00 06/26/24 07:00 06/26/24 08:00
I&O
06/25/24 06/26/24 06/27/24
06:59 06:59 06:59
Intake Total 1450 / 1450 720 / 720
Output Total 1225 / 1225 550 / 550
Balance 225 / 225 170 / 170
[2024-06-26 11:10] VITALS: BP 116/52
--- NOTE | 2024-06-26 12:30 | CM ---
Addendum entered by Myah Zaldivar 06/26/24 15:14:
Pt for discharge today
Transport to be scheduled
Discussed IMM
Plan - Transfer to [facility]
R - [phone]
F - [phone]
Original Note:
Chart reviewed
PT/OT recs SNF. [facility] can accept
Discussed with pt. Discussed pt safety and improving strength and mobility prior to returning to home - pt declining
Spoke with pts - agrees with SNF, feels home would not be safe
Dr Sanchez made aware of discussion with pt and - plans to consult psych for evaluation
Plan - TBD after psych eval - poss SNF vs home with VN
--- NOTE | 2024-06-26 14:41 | CS.PSYCHR ---
Consult Summary - Psychiatry
-
Psychiatry consult for capacity to refuse SNF placement. 74 yo male admitted 06/20/2024 s/p left hip hemiarthroplasty now physically ready for transfer to SNF. Patient states he was refusing SNF secondary to concern of the potential costs. He states
that if he is certain that his health insurance will pay for it that he is willing to go. He understands the risks of refusing SNF with the alternative plan to go home. His is present and states she would like for him to go to SNF because she
knows she won't be able to care for him.
MSE- poor eye contact. non spontaneous speech. constricted affect. goal directed. denies SI/HI/AVH. no delusions. fully oriented.
Past psych hx- some anxiety growing up but nothing as an adult
D&A- admits to history of excess drinking. states he was able to avoid alcohol for 22 months but started drinking again last week
PMH-
CHF
fatty liver
alchol abuse
htn
anemia
CKD
alcoholic cirrhosis of liver without ascites
depression
atrial fib
portal hypertension
HLD
essential tremor
Social- . 3 adult daughters. grandchildren. 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
A/P- 74 yo male with alcohol use disorder s/p orthopedic surgery now in need of SNF placement. Patient has the capacity for making decision for where to go after discharge. He understands that SNF is the safest and most appropriate disposition plan
from here. He states he will go to SNF if his insurance is willing to cover the cost. Explained that I will discuss this with primary team and case management to ensure coverage. Psychiatry will sign off. Please contact team with further questions
or concerns.
[2024-06-26 16:05] VITALS: BP 102/41
--- NOTE | 2024-06-26 16:21 | W.DCSUMMARY ---
Discharge Summary
Discharge Data
Date of Admission: 06/20/24
Date of Discharge: 06/26/24
Total time spent discharging patient (in min): 38
-
Pending Results: No
Hospital Course
74 y/o male with past medical history of cirrhosis and hepatic encephalopathy, hypertension, coronary artery disease, and heart failure presented after a fall. Patient was found to have a left femoral neck fracture and had a left hip
hemiarthroplasty. Patient was admitted while intubated to the intensive care unit for postoperative critical care management. Patient had an estimated 500 mL of blood loss from surgery. Patient received 2 units of red blood cells given his anemia
with hemoglobin drop to less than 7. Patient [facility] refused [facility] to [facility] he continued to refuse despite multiple explanations that it was unsafe for him to go home, psychiatry was consulted for assessing
decision-making capacity, and patient then agreed to go to a SNF.
Discharge Plan
-
Patient Disposition: Custodial/SNF
Discharge Diagnosis/Procedures: #Mild atherosclerotic calcifications of the aortic arch, as per radiologist's report, on chest x-ray
#Left hip fracture status post fall status post left hip hemiarthroplasty under the direction of Dr. Parker on 06/21/24
#Mildly displaced left femoral neck fracture with slight impaction and varus angulation with associated small overlying soft tissue contusion in the lateral soft tissues, as per CT Pelvis radiologist's report
#Left Hip X-Ray with 'Mild degenerative changes of the pubis symphysis, both hips, bilateral sacroiliac joints and partially visualized lower lumbar spine. Soft tissues are grossly unremarkable'
#Multilevel degenerative changes of the cervical spine on CT Cervical Spine, as per radiologist's report
#Diffuse subcutaneous edema within the lower extremity, as per radiologist's report
#Mild circumferential wall thickening of the urinary bladder, as per radiologist's report
#Mild colonic stool burden with a prominent rectal stool ball
#Moderate atherosclerotic calcifications of the infra-renal abdominal aorta and branch vessels, as per radiologist's report on CT Pelvis
#Suspecting acute blood loss anemia
#Anemia of chronic disease
#Chronic thrombocytopenia, likely from cirrhosis
#Hematuria on Urinalysis
#Elevated creatine with Chronic Kidney Stage 3b
#Hyperbilirubinemia
#History of hepatic encephalopathy
#Alcoholic liver cirrhosis
#Portal Hypertension
#Mild rhabdomyolysis
#Alcohol abuse
#Paroxysmal atrial fibrillation
#1st degree AV block
#Coronary Artery Disease
#HFpEF
#Hypertension
#Hyperlipidemia
#Depression
#Essential Tremors
Condition: Good
Diet: Low Fat, Low Cholesterol, Low Sodium and Restrict fluids to 64 oz
Activity: Other activity
Additional Activity: WBAT. Total hip precautions. Ambulate with assistance of walker.
Blood Work: CBC, CMP and Magnesium within 3 to 4 days
Other Services: PT and OT
Specialty Instructions: Weigh Daily- Call MD for wt gain/loss 3 lbs overnight/5 lbs in 1 week
Activity Restrictions/Additional Instructions:
Continue Aspirin 81mg BID x4 weeks for DVT prophylaxis (surgery was 06/21/24)
Continue pain management as needed
Surgical dressing to remain in place 7-10 days; nakul out at 2 weeks post-op but if nakul are taken out at the SNF, recommend outpatient follow up with orthopedics in 4 weeks, as per ortho
Monitor closely for, and treat constipation
Referrals:
Caden Parker MD [Active] - in less than 1 week (Follow-up following hip surgery)
Darlene Quintero CRNP [Family Provider] -
Hasmukh Harding MD [Active] - in four to six weeks (Mild circumferential wall thickening of the urinary bladder on hospital imaging in May 2024)
Additional Discharge Medication Instructions: Aspirin 81 mg BID, as needed Oxycodone, Docusate and Sennosides are new medications.
Prescriptions:
New
docusate sodium 100 mg Capsule
100 mg PO BID Qty: 60 0RF
aspirin 81 mg Tablet,Chewable
81 mg PO BID Qty: 46 0RF
oxycodone 5 mg Tablet
5 mg PO Q6HPRN PRN (Reason: severe pain) Qty: 10 0RF
sennosides [Senna Laxative] 8.6 mg Tablet
17.2 mg PO BID Qty: 60 0RF
Continued
atorvastatin 40 mg Tablet
40 mg PO QPM Qty: 0 0RF
folic acid 1 mg Tablet
1 mg PO DAILY Qty: 0 0RF
amiodarone [Pacerone] 200 mg Tablet
100 mg PO DAILY 30 Days Qty: 15 0RF
thiamine HCl (vitamin B1) 100 mg Tablet
100 mg PO DAILY 30 Days Qty: 30 0RF
pantoprazole 40 mg Tablet,Delayed Release (Dr/Ec)
40 mg PO BID 30 Days Qty: 60 0RF
potassium chloride [Klor-Con M20] 20 mEq Tablet,Er Particles/Crystals
20 meq PO BID
ferrous sulfate 325 mg (65 mg iron) tablet
325 mg PO Q48H@1200
lactulose 10 gram/15 mL Solution
30 g PO QID 14 Days Qty: 3785 0RF
magnesium oxide 500 mg tablet
500 mg PO BID
polyethylene glycol 3350 [HealthyLax] 17 gram Powder In Packet
17 g PO DAILYPRN PRN (Reason: constipation) 30 Days Qty: 30 0RF
furosemide 20 mg tablet
20 mg PO DAILY
Discharge Orders:
Discharge Patient (As Directed); Ordered 06/26/24
Ordered By: Uriel Sanchez
Discharge Date and Time
Discharge Date/Time: 06/26/24 19:30
Print Language: MOSOT[place]
[2024-06-26] MEDS: LIPITOR 40 MG PO (17:38)
[2024-06-26 19:20] VITALS: BP 109/44
== END 2024-06-26 19:30 | DRG 521 ==
LOC: 2 SOUTH 13:21
PROVIDERS: Hospitalist; Internal Medicine; Nurse Practitioner Gerontology; Registered Nurse; ADMITTING PHYSICIAN Internal Medicine; ATTENDING PHYSICIAN Hospitalist; CONSULT PHYSICIAN Orthopaedic Surgery; EMERGENCY PHYSICIAN Emergency Medicine; FAMILY PHYSICIAN Nurse Practitioner Adult Health; OTHER PHYSICIAN Internal Medicine Critical Care Medicine; OTHER PHYSICIAN Psychiatry & Neurology Psychiatry
PROC: 0SRS0J9 Replacement of Left Hip Joint, Femoral Surface with Synthetic Substitute, Cemented, Open Approach (ICD-10-PCS; 2024-06-20)
PROC: 30233N1 Transfusion of Nonautologous Red Blood Cells into Peripheral Vein, Percutaneous Approach (ICD-10-PCS; 2024-06-23)
DX: S72.012A Unspecified intracapsular fracture of left femur, initial encounter for closed fracture (principal); J95.2 Acute pulmonary insufficiency following nonthoracic surgery; I13.0 Hypertensive heart and chronic kidney disease with heart failure and stage 1 through stage 4 chronic kidney disease, or unspecified chronic kidney disease; I50.32 Chronic diastolic (congestive) heart failure; K76.6 Portal hypertension; M62.82 Rhabdomyolysis; N17.9 Acute kidney failure, unspecified; D62 Acute posthemorrhagic anemia; K70.30 Alcoholic cirrhosis of liver without ascites; N18.32 Chronic kidney disease, stage 3b; F10.10 Alcohol abuse, uncomplicated; I25.10 Atherosclerotic heart disease of native coronary artery without angina pectoris; K76.0 Fatty (change of) liver, not elsewhere classified; F32.A Depression, unspecified; G25.0 Essential tremor; D63.1 Anemia in chronic kidney disease; D69.59 Other secondary thrombocytopenia; E78.5 Hyperlipidemia, unspecified; I44.0 Atrioventricular block, first degree; I48.0 Paroxysmal atrial fibrillation; W01.0XXA Fall on same level from slipping, tripping and stumbling without subsequent striking against object, initial encounter; Z79.899 Other long term (current) drug therapy
CPT/HCPCS: 70450; 71045; 72125; 72192; 73502; 80048; 80053; 80306; 81003; 81015; 82010; 82040; 82077; 82550; 82977; 83036; 83735; 84100; 85014; 85018; 85025; 85027; 85610; 86850; 86900; 86901; 86920; 86922; 93005; 93971; 97110; 97116; 97163; 97166; 97530; 97535; 99285; C1713; C1776; P9016

== ENCOUNTER → 2024-06-30 10:42 | Outpatient (REF) | payer OTHER, MEDICARE, SELFPAY ==
[2024-06-30 11:17] LABS: ALT (SGPT) 27 U/L (0-50); AST (SGOT) 31 U/L (17-59); Albumin 2.1 g/dl (3.5-5.0); Alkaline Phosphatase 114 U/L (38-126); Blood Urea Nitrogen 32 mg/dl (9-20); Calcium 7.1 mg/dl (8.4-10.2); Carbon Dioxide 24 mmol/L (22-30); Chloride 105 mmol/L (98-107); Glucose 95 mg/dl (70-99); Magnesium 2.6 mg/dl (1.6-2.3); Potassium 4.5 mmol/L (3.5-5.1); Sodium 135 mmol/L (135-145); Total Protein 3.9 g/dl (6.3-8.2)
[2024-06-30 11:44] LABS: Hematocrit 24.3 % (39.0-52.0); Mean Corp Hgb Conc. 32.9 g/dL (33.0-37.0); Mean Corpuscular Hgb 30.3 pg (27.0-31.0); Mean Platelet Volume 11.6 fL (7.4-10.4); Platelet Count 92 10^3/uL (130-400); Red Blood Cell Count 2.64 10^6/uL (4.70-6.10); Red Cell Dist. Width 17.1 % (11.5-14.5); White Blood Cell Count 5.8 10^3/uL (4.8-10.8)
== END ==
LOC: OLABP 10:42
PROVIDERS: ATTENDING PHYSICIAN Family Medicine
DX: S72.002D Fracture of unspecified part of neck of left femur, subsequent encounter for closed fracture with routine healing (principal); I50.32 Chronic diastolic (congestive) heart failure; K76.6 Portal hypertension; D62 Acute posthemorrhagic anemia; J98.11 Atelectasis; N17.9 Acute kidney failure, unspecified; K70.30 Alcoholic cirrhosis of liver without ascites; M62.82 Rhabdomyolysis; N18.32 Chronic kidney disease, stage 3b; W19.XXXD Unspecified fall, subsequent encounter; I48.0 Paroxysmal atrial fibrillation; E78.5 Hyperlipidemia, unspecified
CPT/HCPCS: 36415; 80053; 83735; 85027

== ENCOUNTER 2024-07-01 17:12 | Inpatient (IN) | payer MEDICARE, OTHER, SELFPAY ==
[2024-07-01] VITALS (11 sets, daily range): BP systolic 92–149; BP diastolic 37–59; BMI 29.6; BMI 30.4
[2024-07-01 12:30] LABS: % Basophils 0.1 % (0-2); % Immature Granulocytes 0.9 % (0-0.5); % Lymphocytes 3.3 % (20.5-51.1); % Monocytes 12.8 % (1.7-9.3); % Neutrophils 82.9 % (42.2-75.2); Absolute Immature Granulocytes 0.1 10^3/uL (0-0.05); Absolute Lymphocytes 0.4 10^3/uL (1.2-3.4); Absolute Monocytes 1.6 10^3/uL (0.1-0.6); Absolute Neutrophils 10.2 10^3/uL (1.4-6.5); Hematocrit 26.9 % (39.0-52.0); Hemoglobin 8.3 g/dL (13.0-18.0); Mean Corp Hgb Conc. 30.9 g/dL (33.0-37.0); Mean Corpuscular Hgb 29.3 pg (27.0-31.0); Mean Corpuscular Volume 95.1 fL (80.0-94.0); Mean Platelet Volume 10.8 fL (7.4-10.4); Nucleated Red Blood Cells % 0 % (-); Platelet Count 105 10^3/uL (130-400); Red Blood Cell Count 2.83 10^6/uL (4.70-6.10); Red Cell Dist. Width 17.2 % (11.5-14.5); White Blood Cell Count 12.3 10^3/uL (4.8-10.8)
--- NOTE | 2024-07-01 12:44 | ED.GENMED ---
History of Present Illness
<Radha Quispe PA-C - Last Filed: 07/01/24 22:12>
General
Chief Complaint: Fever
Source: patient
Exam Limitations: none
Time Seen by Provider: 07/01/24 12:44
Nursing documentation reviewed up to this point in time: agreed with
History of Present Illness
History of Present Illness:
74-year-old male with history of A-fib, CHF, CKD, presents today with a fever. Of note, he is status post 1 week from left hip ORIF. He currently denies pain in his hip, he states that the pain has been improving since postop. Fever noted on
routine vital sign check. He has no pain in his lower calf. He has no abdominal pain. He has no diarrhea. Does note mild cough, denies any sputum production. He denies burning with urination, shortness of breath, chest pain. He denies any pain
or drainage at his incision site. He denies any rashes or erythema noted to skin. His surgery was done by Dr. Bradford on 06/20/2024.
Past History
<Radha Quispe PA-C - Last Filed: 07/01/24 22:12>
Past History
ED Past Medical History: CAD, HTN and Other (Alcohol abuse, cirrhosis, hepatic encephalopathy)
ED Past Surgical History: None
Social History
Tobacco: Non-smoker
Alcohol: Former
Drug: None
Personal:
Living: with family
Employment: Not employed
Review of Systems
<Radha Quispe PA-C - Last Filed: 07/01/24 22:12>
Review of Systems
All Other Systems: ROS reviewed and negative except as documented in HPI and ROS
Phy Exam
<Radha Quispe PA-C - Last Filed: 07/01/24 22:12>
Physical Exam
Physical Exam:
General: Patient is well appearing and in no acute distress; non-toxic
Skin: Warm and dry, incision site noted to left hip, nakul in place, no active drainage from the wound, no surrounding erythema
Head: Normocephalic, atraumatic
Eyes: Sclera non-icteric. EOMs intact. PERRLA.
Cardiac: Regular rate and rhythm, no murmurs
Peripheral Vascular: Left lower extremity swelling noted to left calf, 2+ distal pulses bilaterally
Pulm: Normal respiratory effort, no wheezes, rales, rhonchi
Abdomen: No abdominal tenderness to palpation, abdomen soft, no guarding
Musculoskeletal: Tenderness palpation of left hip
Neuro: CN II-XII intact, no focal neurologic deficits.
Psychiatric: Appropriate mood and affect.
Sepsis
<RABIA Barragan Filed: 07/01/24 22:12>
Sepsis Screening
Sepsis Assessment: Sepsis
Sepsis Screen
Sepsis Screen: Sepsis
Date: 07/01/24
Time: 22:12
Course
<RABIA Barragan Filed: 07/01/24 22:12>
Orders/Labs/Results
Orders:
Orders
07/01/24 12:20
Complete Blood Count/With Diff Urgent
Comprehensive Metabolic Panel Urgent
Blood Culture Urgent
MISHEL Source: Blood/Venous
Specimen Description:
07/01/24 12:21
Lactate Level [Lactic Acid] Q4H
07/01/24 12:46
Blood Culture Routine
MISHEL Source: Blood/Venous
Specimen Description:
07/01/24 12:58
Acetaminophen [Tylenol] 650 mg PO NOW STA
CR Chest - 2 Views Urgent
Comment:
Reason For Exam: cough, fever
07/01/24 12:59
US Periph Venous LOWER Ext LT Urgent
Comment:
Reason For Exam: swelling LLE
07/01/24 13:16
COVID-19 Antigen Urgent
Source: Nasal Swab
Influenza A+B Rapid Molecular Urgent
MISHEL Source: Nasal Swab
Specimen Description:
07/01/24 13:20
0.9% Sodium Chloride 1000 ml [Nss] 1,000 ml IV BOLUS
07/01/24 16:25
Admit/Transfer Patient As Directed
Co-Sign Provider:
Level of Care: Inpatient admission
Assign to:: Telemetry
Physician / Group: Hospitalist
Diagnosis: Sepsis
Reason for Telemetry: Arrhythmia
Date to Stop Telemetry: 07/04/24
Time to Stop Telemetry: 11:00
Reason for Hospitalization: Sepsis likely from Pneumonia
Expected length of stay greater than two midnights?: Yes
ELOS- Estimated Length of Stay in days: 3
I certify the patient meets the requirements for IP care: Yes
07/01/24 16:27
PRN Pain Medication Management As Directed
May give lesser potent ordered pain med per pt: Yes
preference::
Protocol:: Medication orders for pain may be administered in a
manner that supports deferring to patient preference
when the pt is:
- Requesting an ordered lesser potent pain medication.
Least to most potent pain medications are defined
as: acetaminophen < NSAID < tramadol < opioids
(morphine, oxycodone, hydromorphone).
- Requesting a lesser dose of the same medication IF
ORDERED.
- Requesting a less intrusive route of administration
if both routes are prescribed by the provider (PO <
IV).
07/01/24 16:47
Code Status As Directed
Resuscitation Status: Full Code
Activity As Directed
Activity Level: As Tolerated
Intake/ Output As Directed
Frequency: Per unit guidelines
Vital Signs As Directed
Frequency: Per unit guidelines
Weight As Directed
Frequency: Daily
DX Deep Vein Thrombosis Video Routine
07/01/24 16:56
Lactate Level [Lactic Acid] Q4H
Urinalysis Reflex To Culture Urgent
Date Specimen was Collected: 07/01/24
Time Specimen was Collected: 16:56
Urine Microscopic Reflex Cult Urgent
07/01/24 19:11
MRSA Screen Routine
MISHEL Source: Nose
Specimen Description:
07/01/24 19:41
Acetaminophen [Tylenol] 650 mg PO Q4HPRN PRN
Bisacodyl [Dulcolax] 10 mg RECTAL DAILYPRN PRN
Magnesium Hydroxide [Milk of Magnesia] 30 ml PO DAILYPRN PRN
Oxycodone [Roxicodone] 5 mg PO Q6HPRN PRN
Phosphate Enema [Fleet Phosphate Enema-Adult] 118 ml RECTAL DAILYPRN PRN
Polyethylene Glycol Powder [Miralax] 17 grams PO DAILYPRN PRN
07/01/24 19:41
DX Deep Vein Thrombosis Video Routine
07/01/24 20:00
Aspirin Chewable [Low Strength Aspirin] 81 mg PO BID
Docusate Sodium [Colace] 100 mg PO BID
Pantoprazole [Protonix] 40 mg PO BID
Sennosides [Senokot] 17.2 mg PO BID
07/01/24 22:00
Atorvastatin [Lipitor] 40 mg PO HS
Lactulose [Duphalac/Chronulac] 30 grams PO QID
07/02/24 Breakfast
Regular
At Your Request: Limited Participation
Complete Blood Count/With Diff IN AM
Comprehensive Metabolic Panel IN AM
07/02/24 08:00
Amiodarone [Pacerone] 100 mg PO DAILY
FOLic ACID [Folvite] 1 mg PO DAILY
Ferrous Sulfate [Feosol] 325 mg PO Q48H
Thiamine HCl [Vitamin B1] 100 mg PO DAILY
07/04/24 11:00
DC Protocol for Telemetry ONCE
Abnormal Lab Results
07/01/24 07/01/24 07/01/24
12:20 12:21 16:56
WBC 12.3 H 10^3/uL
(4.8-10.8)
RBC 2.83 L 10^6/uL
(4.70-6.10)
Hgb 8.3 L g/dL
(13.0-18.0)
Hct 26.9 L %
(39.0-52.0)
MCV 95.1 H fL
(80.0-94.0)
MCHC 30.9 L g/dL
(33.0-37.0)
RDW 17.2 H %
(11.5-14.5)
Plt Count 105 L 10^3/uL
(130-400)
MPV 10.8 H fL
(7.4-10.4)
Abs Immat Gran (auto) 0.1 H 10^3/uL
(0-0.05)
Absolute Neuts (auto) 10.2 H 10^3/uL
(1.4-6.5)
Absolute Lymphs (auto) 0.4 L 10^3/uL
(1.2-3.4)
Absolute Monos (auto) 1.6 H 10^3/uL
(0.1-0.6)
Immature Gran % 0.9 H %
(0-0.5)
Neutrophils % 82.9 H %
(42.2-75.2)
Lymphocytes % 3.3 L %
(20.5-51.1)
Monocytes % 12.8 H %
(1.7-9.3)
Carbon Dioxide 20 L mmol/L
(22-30)
BUN 35 H mg/dl
(9-20)
Creatinine 2.0 H mg/dL
(0.7-1.3)
Glucose 161 H mg/dl
(70-99)
Lactic Acid 2.8 H mmol/L
(0.7-2.0)
Calcium 7.4 L mg/dl
(8.4-10.2)
Total Bilirubin 4.5 H mg/dl
(0.2-1.3)
Total Protein 4.3 L g/dl
(6.3-8.2)
Albumin 2.3 L g/dl
(3.5-5.0)
Urine Bilirubin 1+ A
(Negative)
Leukocyte Esterase Rfl Trace A
(Negative)
Urine Bacteria (Reflex) Few A
(Negative)
07/01/24 12:20
07/01/24 12:20
Vital Signs
Initial and Last Documented VS:
Initial Vital Signs
Temp Pulse Resp
98.4 F 70 20
07/01/24 11:53 07/01/24 11:53 07/01/24 11:53
Last Documented Vital Signs
Temp Pulse Resp BP Pulse Ox
101.3 F H 71 22 149/53 99
07/01/24 21:23 07/01/24 21:22 07/01/24 21:22 07/01/24 21:22 07/01/24 21:22
<Hasmukh Prsaad, DO - Last Filed: 07/01/24 15:39>
Orders/Labs/Results
Orders:
Orders
07/01/24 12:20
Complete Blood Count/With Diff Urgent
Comprehensive Metabolic Panel Urgent
Blood Culture Urgent
MISHEL Source: Blood/Venous
Specimen Description:
07/01/24 12:21
Lactate Level [Lactic Acid] Q4H
07/01/24 12:46
Blood Culture Routine
MISHEL Source: Blood/Venous
Specimen Description:
07/01/24 12:58
Acetaminophen [Tylenol] 650 mg PO NOW STA
CR Chest - 2 Views Urgent
Comment:
Reason For Exam: cough, fever
07/01/24 12:59
US Periph Venous LOWER Ext LT Urgent
Comment:
Reason For Exam: swelling LLE
07/01/24 13:16
COVID-19 Antigen Urgent
Source: Nasal Swab
Influenza A+B Rapid Molecular Urgent
MISHEL Source: Nasal Swab
Specimen Description:
07/01/24 13:20
0.9% Sodium Chloride 1000 ml [Nss] 1,000 ml IV BOLUS
07/01/24 16:25
Admit/Transfer Patient As Directed
Co-Sign Provider:
Level of Care: Inpatient admission
Assign to:: Telemetry
Physician / Group: Hospitalist
Diagnosis: Sepsis
Reason for Telemetry: Arrhythmia
Date to Stop Telemetry: 07/04/24
Time to Stop Telemetry: 11:00
Reason for Hospitalization: Sepsis likely from Pneumonia
Expected length of stay greater than two midnights?: Yes
ELOS- Estimated Length of Stay in days: 3
I certify the patient meets the requirements for IP care: Yes
07/01/24 16:27
PRN Pain Medication Management As Directed
May give lesser potent ordered pain med per pt: Yes
preference::
Protocol:: Medication orders for pain may be administered in a
manner that supports deferring to patient preference
when the pt is:
- Requesting an ordered lesser potent pain medication.
Least to most potent pain medications are defined
as: acetaminophen < NSAID < tramadol < opioids
(morphine, oxycodone, hydromorphone).
- Requesting a lesser dose of the same medication IF
ORDERED.
- Requesting a less intrusive route of administration
if both routes are prescribed by the provider (PO <
IV).
07/01/24 16:47
Code Status As Directed
Resuscitation Status: Full Code
Activity As Directed
Activity Level: As Tolerated
Intake/ Output As Directed
Frequency: Per unit guidelines
Vital Signs As Directed
Frequency: Per unit guidelines
Weight As Directed
Frequency: Daily
DX Deep Vein Thrombosis Video Routine
07/01/24 16:56
Lactate Level [Lactic Acid] Q4H
Urinalysis Reflex To Culture Urgent
Date Specimen was Collected: 07/01/24
Time Specimen was Collected: 16:56
Urine Microscopic Reflex Cult Urgent
07/01/24 19:11
MRSA Screen Routine
MISHEL Source: Nose
Specimen Description:
07/01/24 19:41
Acetaminophen [Tylenol] 650 mg PO Q4HPRN PRN
Bisacodyl [Dulcolax] 10 mg RECTAL DAILYPRN PRN
Magnesium Hydroxide [Milk of Magnesia] 30 ml PO DAILYPRN PRN
Oxycodone [Roxicodone] 5 mg PO Q6HPRN PRN
Phosphate Enema [Fleet Phosphate Enema-Adult] 118 ml RECTAL DAILYPRN PRN
Polyethylene Glycol Powder [Miralax] 17 grams PO DAILYPRN PRN
07/01/24 19:41
DX Deep Vein Thrombosis Video Routine
07/01/24 20:00
Aspirin Chewable [Low Strength Aspirin] 81 mg PO BID
Docusate Sodium [Colace] 100 mg PO BID
Pantoprazole [Protonix] 40 mg PO BID
Sennosides [Senokot] 17.2 mg PO BID
07/01/24 22:00
Atorvastatin [Lipitor] 40 mg PO HS
Lactulose [Duphalac/Chronulac] 30 grams PO QID
07/02/24 Breakfast
Regular
At Your Request: Limited Participation
Complete Blood Count/With Diff IN AM
Comprehensive Metabolic Panel IN AM
07/02/24 08:00
Amiodarone [Pacerone] 100 mg PO DAILY
FOLic ACID [Folvite] 1 mg PO DAILY
Ferrous Sulfate [Feosol] 325 mg PO Q48H
Thiamine HCl [Vitamin B1] 100 mg PO DAILY
07/04/24 11:00
DC Protocol for Telemetry ONCE
Abnormal Lab Results
07/01/24 07/01/24 07/01/24
12:20 12:21 16:56
WBC 12.3 H 10^3/uL
(4.8-10.8)
RBC 2.83 L 10^6/uL
(4.70-6.10)
Hgb 8.3 L g/dL
(13.0-18.0)
Hct 26.9 L %
(39.0-52.0)
MCV 95.1 H fL
(80.0-94.0)
MCHC 30.9 L g/dL
(33.0-37.0)
RDW 17.2 H %
(11.5-14.5)
Plt Count 105 L 10^3/uL
(130-400)
MPV 10.8 H fL
(7.4-10.4)
Abs Immat Gran (auto) 0.1 H 10^3/uL
(0-0.05)
Absolute Neuts (auto) 10.2 H 10^3/uL
(1.4-6.5)
Absolute Lymphs (auto) 0.4 L 10^3/uL
(1.2-3.4)
Absolute Monos (auto) 1.6 H 10^3/uL
(0.1-0.6)
Immature Gran % 0.9 H %
(0-0.5)
Neutrophils % 82.9 H %
(42.2-75.2)
Lymphocytes % 3.3 L %
(20.5-51.1)
Monocytes % 12.8 H %
(1.7-9.3)
Carbon Dioxide 20 L mmol/L
(22-30)
BUN 35 H mg/dl
(9-20)
Creatinine 2.0 H mg/dL
(0.7-1.3)
Glucose 161 H mg/dl
(70-99)
Lactic Acid 2.8 H mmol/L
(0.7-2.0)
Calcium 7.4 L mg/dl
(8.4-10.2)
Total Bilirubin 4.5 H mg/dl
(0.2-1.3)
Total Protein 4.3 L g/dl
(6.3-8.2)
Albumin 2.3 L g/dl
(3.5-5.0)
Urine Bilirubin 1+ A
(Negative)
Leukocyte Esterase Rfl Trace A
(Negative)
Urine Bacteria (Reflex) Few A
(Negative)
07/01/24 12:20
07/01/24 12:20
Vital Signs
Initial and Last Documented VS:
Initial Vital Signs
Temp Pulse Resp
98.4 F 70 20
07/01/24 11:53 07/01/24 11:53 07/01/24 11:53
Last Documented Vital Signs
Temp Pulse Resp BP Pulse Ox
101.3 F H 71 22 149/53 99
07/01/24 21:23 07/01/24 21:22 07/01/24 21:22 07/01/24 21:22 07/01/24 21:22
<Radha Quispe PA-C - Last Filed: 07/01/24 22:12>
MDM/Problems Addressed
Differential Diagnosis Includes:
see below
MDM/Problems Addressed:
NUMBER AND COMPLEXITY OF PROBLEMS ADDRESSED AT THE ENCOUNTER
� Chronic conditions affecting care: CHF, A-fib, cirrhosis
� Acute Exacerbation and/or Progression of Chronic Illness:
� Differential Diagnosis includes: Differentials include back uremia, cellulitis, DVT, pneumonia, COVID-19, influenza
AMOUNT AND/OR COMPLEXITY OF DATA TO BE REVIEWED AND ANALYZED
� I performed an independent evaluation of and my interpretation is:
X-rays: Left lower lobe pneumonia noted
Laboratory Studies: Leukocytosis with left shift
Other:
� Review of other/old records: Reviewed discharge summary from 08/26/2023, patient seen for left ORIF of hip
RISK OF COMPLICATIONS AND/OR MORBIDITY OR MORTALITY OF PATIENT MANAGEMENT
� Social determinants of health affecting care: n/a
� Discussion with other providers: ER attending
� Escalation of care including admission/observation vs risk of discharge considered:
74-year-old male department today with concerns of fever of unknown origin. Of note he had left ORIF of the hip done a week ago. He notes that his pain has been well-controlled in his hip. He denies any drainage or redness surrounding his
incision site. On physical examination, he is well-appearing, he he is febrile rectally temperature will 102, his incision site is intact. His lungs are clear. In light of fever and patient did have subjective coughing, did obtain chest x-ray
which shows pneumonia. Will admit for IV antibiotics. Blood cultures pending. Lactic acid initially elevated, will give fluids.
<Radha Quispe PA-C - Last Filed: 07/01/24 22:12>
*Critical Care Note
Total Time (30-74mins, 75-104mins- exclusive of procedures): Not Applicable
ED Attending Note
<Radha Quispe PA-C - Last Filed: 07/01/24 22:12>
-
Portions of this chart may have been created with voice recognition software.� Occasional wrong word or��sound alike� substitutions may have occurred due to the inherent limitations of voice recognition software.
<Hasmukh Prasad, DO - Last Filed: 07/01/24 15:39>
ED Attending Note
Patient seen and examined by attending physician: Yes
I performed the substantive portion of visit, reviewed & personally made and approve the management plan that is documented in note by myself or ELOY.: Yes
ED Attending Note:
I have seen and evaluated the patient with a [id number] encounter. I have spoken to the advance practicer provider and involved in the medical history, the physical exam, medical decision making.
Evaluation and management service: agree unless noted differently below.
Results interpretation: agree unless noted differently below.
Focused HPI: 74-year-old male presenting for evaluation of fever. He recently had left hip replacement. He is coming from rehab
Physical exam: Weak and fatigued. No acute distress. Thigh incision is clean and intact
Medical Decision Making: Chest x-ray consistent with pneumonia. Will start antibiotics and admit
Discharge Plan
Departure
Patient Disposition: Admit
Date of Disposition: 07/01/24
Time of Disposition: 15:28
Admit to: Med/Surg
Presentation/result/management discussed w/ accepting MD/DO: Hospitalist
Patient with high blood pressure during this ER visit?: No
Condition: Fair
Discharge Problem:
Pneumonia, Fever
Interventions
Interventions:
*Risk Screen - Suicide Last Done: 07/01/24 21:35
*General Assessment Last Done: 07/01/24 11:59
*Neglect/Abuse Screening Last Done: 07/01/24 11:59
ED- Fall Risk Assessment Last Done: 07/01/24 15:07
*ED COVID-19 Vaccine History Last Done: 07/01/24 15:18
*Nursing Disposition Last Done: 07/01/24 21:05
ED- Neurological Assessment Last Done: 07/01/24 12:55
ED-Skin Assessment Last Done: 07/01/24 12:55
Discharge Date and Time
Discharge Date/Time: 07/01/24 21:05
[2024-07-01 12:48] LABS: ALT (SGPT) 26 U/L (0-50); AST (SGOT) 31 U/L (17-59); Albumin 2.3 g/dl (3.5-5.0); Alkaline Phosphatase 121 U/L (38-126); Blood Urea Nitrogen 35 mg/dl (9-20); Calcium 7.4 mg/dl (8.4-10.2); Carbon Dioxide 20 mmol/L (22-30); Chloride 105 mmol/L (98-107); Glucose 161 mg/dl (70-99); Potassium 4.5 mmol/L (3.5-5.1); Sodium 135 mmol/L (135-145); Total Bilirubin 4.5 mg/dl (0.2-1.3); Total Protein 4.3 g/dl (6.3-8.2); eGFR 34.81
[2024-07-01 12:49] LABS: Lactic Acid 2.8 mmol/L (0.7-2.0)
[2024-07-01] MEDS: TYLENOL 650 MG PO ×2 (13:12→22:00)
[2024-07-01 13:40] LABS: COVID-19 Antigen Negative (Negative)
[2024-07-01] MEDS: NSS 1000 IV ×2 (13:50→20:51)
--- NOTE | 2024-07-01 16:23 | HPS.HSE ---
Addendum entered and electronically signed by Tenzin Adame MD 07/01/24 18:09:
I personally performed a history and physical exam of the patient and discussed management with the resident. I reviewed the resident's note and agree with the documented findings and plan of care HPI/CC.
Discussed with patient and at bedside
He recently had a fall and ORIF on the left hip was transferred to [facility] from where he is presenting with a fever. Patient denies any chest pain shortness of breath he has occasional cough occasional cough with liquid intake, no abdominal pain
no left leg pain. No headaches he had a fever today other than that he is feeling well.
Examination significant for left lower extremity edema no discharge from the left hip side. Abdomen is soft and nontender. Chest rales left base showed wheezes noted mostly expiratory
Will plan on admitting him to treat as pneumonia
Blood cultures have been sent
send sputum cultures if possible
Vancomycin and cefepime for now and narrow antibiotics as able
Orthopedics to evaluate the hip even though I do not think there is infection
Speech evaluation
Dopplers of the left lower extremity does not show any DVT
Patient is not on anticoagulation likely secondary to his alcohol use, falls and high risk of bleeding
Hold Lasix as he is also in acute kidney injury
Gentle IV fluids only 1 more liter
Restart Lasix as able. Hold potassium along with holding Lasix as potassium is 4.5 today.
No risk of alcohol withdrawal as his last drink was over 2 weeks ago
Lactic acidosis resolved
Discussed with at bedside
Original Note:
Family Physician
-
Family Physician: Madhu Pham MD
Chief Complaint
-
Fever and cough
History of Present Illness
74 y/o male with past medical history of A.fib, Ckd 3b, cirrhosis and hepatic encephalopathy, HTN, CAD, CHF presenting to the ED with new onset fever found on routine vital check. He was at [facility] when he was found to have fever of 103F. He is
status post 1 week from left hip ORIF with Dr. Parker on 06/20/24 after a fall. Patient reports that his Left leg/hip pain is improving with time. Reports occasional dry cough, Denies SOB, chest pain, abdominal pain, diarrhea. He denies any rashes
or erythema noted to skin, denies any pain in the incision site.
In the ER, he was found to have Fever of 102.2, RR 20, wbc of 12.3. Lactic acid was 2.8, He was given Tylenol which helped with the fever. Was given 1000ml of NS bolus.
CXR showed Left Lower Lobe Pneumonia.
Medical History
Past Medical History
Past Medical History: Reports CAD and CHF
Additional Past Medical History:
Alcohol abuse, cirrhosis, hepatic encephalopathy
Past Surgical History: Reports Orthopedic (Left hip ORIF 06/20/24)
Social History
Tobacco: Non-smoker
Alcohol: Former (quit 2-3 weeks ago)
Drug: None
Personal:
Living: With Family (currently at [facility] after left hip orif)
Family History
Family History: Not pertinent
Allergies / Home Medications
Allergies reflects when Allergies were last updated in [facility].
Home Medications with original date entered in [facility]
Allergy/Medication List:
Allergies
Allergy/AdvReac Type Severity Reaction Status Date / Time
No Known Allergies Allergy Verified 03/03/24 09:34
Home Medications
folic acid 1 mg tablet 1 mg PO DAILY Supplement #0 tabs 08/28/22
amiodarone 200 mg tablet (Pacerone) 100 mg (1/2 x 200 mg) PO DAILY 30 days #15 tabs 12/20/22
pantoprazole 40 mg tablet,delayed release 40 mg PO BID 30 days #60 tabs 12/20/22
thiamine HCl (vitamin B1) 100 mg tablet 100 mg PO DAILY 30 days #30 tabs 12/20/22
ferrous sulfate 325 mg (65 mg iron) tablet 325 mg PO Q48H Supplement 06/29/23
potassium chloride 20 mEq tablet,extended release(part/cryst) (Klor-Con M) 20 meq PO BID Electrolyte Repletion 06/29/23
lactulose 10 gram/15 mL oral solution 30 g (45 mL) PO QID 14 days #3,785 mL 09/30/23
polyethylene glycol 3350 17 gram oral powder packet (HealthyLax) 17 g PO DAILYPRN PRN constipation 30 days #30 ea 12/17/23
furosemide 20 mg tablet 20 mg PO DAILY Fluid Retention/Swelling 06/20/24
aspirin 81 mg chewable tablet 81 mg PO BID #46 tabs 06/26/24
docusate sodium 100 mg capsule 100 mg PO BID #60 caps 06/26/24
oxycodone 5 mg tablet 5 mg PO Q6HPRN PRN severe pain #10 tabs 06/26/24
sennosides 8.6 mg tablet (Senna Laxative) 17.2 mg (2 x 8.6 mg) PO BID #60 tabs 06/26/24
acetaminophen 325 mg tablet 650 mg PO Q4HPRN PRN mild pain/fever 07/01/24
atorvastatin 40 mg tablet 40 mg PO HS High cholesterol 07/01/24
bisacodyl 10 mg rectal suppository 10 mg NC DAILYPRN PRN if no bm on day 5 and after MOM 07/01/24
magnesium hydroxide 400 mg/5 mL oral suspension (Milk of Magnesia) 2,400 mg PO DAILYPRN PRN if no BM for 4 days 07/01/24
sodium phosphates 19 gram-7 gram/118 mL enema (Fleet Enema) 118 ml NC DAILYPRN PRN if no bm after dulcolax or by day 6 no BM 07/01/24
Review of Systems
-
History Source: Patient and Family
Constitutional: Reports Fever
Respiratory: Reports Cough
Cardiac: Denies Chest Pain
Abdomen/GI: Denies Abdominal Pain
: Reports No Symptoms
Musculoskeletal: Reports Edema (Left LE)
Skin: Reports No Symptoms
Neurological: Reports No Symptoms
Hematologic/Lymphatic: Reports No Symptoms
Psych: Reports Calm
Physical Exam
Vital Signs
Vital Signs
Temp Pulse Resp BP Pulse Ox
99.1 F 58 13 104/43 96
07/01/24 15:07 07/01/24 16:00 07/01/24 16:00 07/01/24 16:00 07/01/24 15:02
Physical Exam
General: Well Developed, Well Nourished and Comfortable
HEENT: NormoCephalic and Atraumatic
Respiratory: Crackles (Left Lower Lobe) and Non Labored Respirations
Cardiac: S1/S2 and Regular Rhythm
GI: Soft, Non Tender and Non Distended
Musculoskeletal: Edema, Left Lower Extremity (Incision clean dry and intact)
Skin: Warm and Dry
Neuro: Awake, Alert and Oriented
Psych: Calm
Laboratory Results
-
07/01/24 12:20
07/01/24 12:20
Laboratory Results
Lactic Acid Cancelled 07/01/24 13:06
Total Bilirubin 4.5 mg/dl (0.2-1.3) H 07/01/24 12:20
AST 31 U/L (17-59) 07/01/24 12:20
ALT 26 U/L (0-50) 07/01/24 12:20
Alkaline Phosphatase 121 U/L (38-126) 07/01/24 12:20
Data Reviewed
-
Diagnostic Radiology: Image Personally Visualized and interpreted, Report Reviewed by me, Discussed with Physician and Discussed with Patient
Ultrasound: Report Reviewed by me, Discussed with Physician and Discussed with Patient
Lab Data: Labs Reviewed by me, Discussed with Physician and Discussed with Patient
Impression/Plan
-
74-year-old male s/p Left hip orif 06/20/24 with history of A-fib, CHF, CKD 3b, presents today with a fever and mild cough.
#Sepsis- likely source left lower lobe pneumonia, less likely surgical site infection
-admit to med/surg
-received 1000ml bolus in id; 1 addition bag of NSS
-Iv cefepime and vanco; will limit after blood and sputum culture are back
-mrsa screen
-speech eval
#Lactic acidosis
-resolved after NS bolus
# recent Left hip ORIF
- ortho eval tomorrow am
#anemia of chronic disease- hb baseline around 8
-repeat labs in the AM
#chronic thrombocytopenia
-platelet 105;repeat cbc in the am
#Elevated creatine w/CKD stage 3b
-cr 2.0
-hold lasix for now
#hyperbilirubinemia
#hxt of hepatic encephalopathy
#alcohol cirrhosis
-total bili4.5
-continue lactulose
#alcohol abuse
-last drink 3 weeks ago
#Parox afib
-Not on anticoagulation due to increased fall risk/thrombocytopenia
-continue asa and amio
#. HFpEF
-hold lasix for now
-ef 50-55%
daily weights
#HLD
-statin continued
#DVT PPX - heparin sc
Full code
[2024-07-01 17:10] LABS: Urine Albumin Negative (Neg - Trace); Urine Bilirubin 1+ (Negative); Urine Character Clear (Clear); Urine Color Yellow; Urine Glucose Negative (Negative); Urine Ketone Negative (Negative); Urine Leukocyte Trace (Negative); Urine Nitrite Negative (Negative); Urine Occult Blood Negative (Negative); Urine Specific Gravity 1.015 (<1.030); Urine Urobilinogen 1+ (Neg - 1+)
[2024-07-01 17:18] LABS: Urine Bacteria Few (Negative); Urine Epithelial Cast 0-2 /LPF; Urine Red Blood Cell 0-2 /HPF (0-2); Urine Squamous Cell 0-2 /LPF (Few); Urine White Cell 0-2 /HPF (0-5)
[2024-07-01 17:24] LABS: Lactic Acid 1.2 mmol/L (0.7-2.0)
--- NOTE | 2024-07-01 20:27 | PHA.VAN.IN ---
Assessment
- Assessment
Renal Function: Appears elevated from baseline (06/30/24 BASELINE SCR:1.6)
Concomitant Antimicrobials: CEFEPIME
- Previous Dosing Experience
Previous Regimen: SINGLE DOSE ONLY
Plan
- Plan
Initial / Loading Dose: 2GM
Maintenance Regimen: DOSING BY RANDOM LEVELS
Monitoring: RANDOM VANCOMYCIN LEVEL 07/02/24 AM
Pharmacokinetics Vancomycin I
- -
Patient Age: 74
Patient Sex: Male
Vancomycin Day #: 1
Indication: Pulmonary/Respiratory (SEPSIS)
Requesting Provider: TERESSA
Height / Weight:
Height 6 ft 3 in
Actual Weight 107.5 kg
- Vital Signs / Lab Results
Temp Pulse Resp BP Pulse Ox
99.1 F 55 13 92/53 96
07/01/24 15:07 07/01/24 19:00 07/01/24 19:00 07/01/24 19:00 07/01/24 19:00
Lab Results - Hematology
07/01/24
12:20
WBC 12.3 H
Lab Results - Chemistry
07/01/24
12:20
BUN 35 H
Creatinine 2.0 H
Albumin 2.3 L
07/01/24 07/01/24 07/01/24
12:21 13:06 16:56
Lactic Acid 2.8 H Cancelled 1.2
Lab Results - Urine
07/01/24
16:56
Urine Nitrite (Reflex) Negative
Leukocyte Esterase Rfl Trace A
Urine WBC (Reflex) 0-2
Ur Squamous Epith Cells 0-2
Urine Bacteria (Reflex) Few A
Microbiology Results
07/01/24 13:16 Influenza Types A & B (ABDI) - Final
Nasal Swab Negative for Influenza A & B, NAAT
Negative results must be combined with clinical observations
and patient history.
Nucleic Acid Amplification test (NAAT)performed on the
[employer] platform.
[2024-07-01] MEDS: LOW STRENGTH ASPIRIN 81 MG PO (20:40)
[2024-07-01] MEDS: COLACE 100 MG PO (20:40)
[2024-07-01] MEDS: PROTONIX 40 MG PO (20:40)
[2024-07-01] MEDS: MAXIPIME 2000 MG IV (20:41)
[2024-07-01] MEDS: STERILE WATER FOR INJECTION 10 ML IV (20:41)
[2024-07-01] MEDS: HEPARIN 5000 UNITS SC (20:44)
[2024-07-01] MEDS: VANCOCIN 540 MG IV (20:53)
[2024-07-01] MEDS: DUPHALAC/CHRONULAC 30 GRAMS PO (22:00)
[2024-07-01] MEDS: LIPITOR 40 MG PO (22:00)
[2024-07-01] MEDS: SENOKOT 17.2 MG PO (22:00)
[2024-07-01] MEDS: ROXICODONE 5 MG PO (22:00)
[2024-07-02] VITALS (7 sets, daily range): BP systolic 95–119; BP diastolic 34–50; BMI 30.7; BMI 31.3
[2024-07-02] MEDS: TYLENOL 650 MG PO ×3 (05:34→20:55)
--- NOTE | 2024-07-02 07:13 | W.PN.HOSP.TC ---
Addendum entered and electronically signed by Tenzin Adame MD 07/02/24 16:57:
74-year-old man presented from [facility] with fever. He had left hip ORIF done 06/20/2024.
Patient feels better had fevers overnight
Cardiovascular system S1-S2 appreciated
Chest bilateral rales left more than right
Abdomen soft and nontender
Left lower extremity edema
# Sepsis secondary to left lower lobe pneumonia
No evidence of any surgical site infection
Patient was evaluated by orthopedics
Continue cefepime and vancomycin
Await cultures
Speech evaluation-recommends regular solids and thin liquids
White count improving
Lactic acidosis resolved
# Recent left hip ORIF-Doppler negative for any edema
Orthopedics consulted
Postop care
Laila still in-to be removed on July 04
Weightbearing as tolerated
PT OT
# Anemia of chronic disease
# Chronic thrombocytopenia
# DELILAH on CKD stage IIIb-hold Lasix. Gentle IV fluids with bicarb
# History of cirrhosis with history of heavy alcohol use in the past. Last alcohol was was on the day of admission last time he has not had any alcohol in 3 weeks
# Fatty liver
# Paroxysmal atrial fibrillation-not on anticoagulation secondary to increased risk of falls and thrombocytopenia. Continue aspirin and amiodarone
# GERD-continue PPI
# Chronic HFpEF-hold Lasix. Echo with EF of 50 to 55% # hyperlipidemia will continue statin
# Short-term memory loss
# DVT prophylaxis-subcutaneous heparin
Left a message for
Part of this note was created using voice recognition system. Occasional wrong word or��sound alike� substitutions may have inadvertently occurred due to the inherent limitations of voice recognition software. If noted kindly bring it to my
attention for correction.
Original Note:
Today's Communication/Plan
-
continue iv abx
ortho consult.
Assessment / Plan
Assessment / Plan
74-year-old male s/p Left hip orif 06/20/24 with history of A-fib, CHF, CKD 3b, presented with a fever and mild cough.
#Sepsis- likely source left lower lobe pneumonia, less likely surgical site infection
-d/c IV fluid
-continue Iv cefepime and vanco; will narrow after blood and sputum culture are back
-mrsa screen and BC pending
-speech recs regular solid/thin liquids
-wbc improving
#Lactic acidosis
-resolved
# recent Left hip ORIF
- Left LE edema
- Doppler negative
-xray unramarkable for any changes besides post op
- ortho consulted
#anemia of chronic disease- hb baseline around 8
-repeat labs in the AM
#chronic thrombocytopenia
-platelet 86;repeat cbc in the am
#Elevated creatine w/CKD stage 3b
-cr 1.9
-hold lasix for now
#hyperbilirubinemia
#hxt of hepatic encephalopathy
#alcohol cirrhosis
-total bili4.6
-continue lactulose
#alcohol abuse
-last drink 3 weeks ago
-no concern for withdrawal sym
#Parox afib
-Not on anticoagulation due to increased fall risk/thrombocytopenia
-continue asa and amio
#. HFpEF
-hold lasix for now
-ef 50-55%
daily weights
#HLD
-statin continued
#DVT PPX - heparin sc
Full code
Anticipated Discharge: 24 - 48 hours
Subjective/Interval History
-
Date of Service: July 02, 2024
Fever overnight, 101.3
Objective Data
-
Labs:
Laboratory Results
07/02/24
06:00
WBC Pending
Hgb Pending
Hct Pending
Plt Count Pending
Sodium Pending
Potassium Pending
Chloride Pending
Carbon Dioxide Pending
BUN Pending
Creatinine Pending
Glucose Pending
Calcium Pending
Total Bilirubin Pending
AST Pending
ALT Pending
Alkaline Phosphatase Pending
Vital Signs:
Vital Signs
Temp Pulse Resp BP Pulse Ox
101.1 F H 63 18 101/41 95
07/02/24 05:38 07/02/24 03:20 07/02/24 03:20 07/02/24 03:20 07/02/24 03:20
I&O
07/01/24 07/02/24 07/03/24
06:59 06:59 06:59
Output Total 200 / 200
Balance -200 / -200
Review of Systems
-
History Source: Patient
Constitutional: Reports Fever
EENT: Denies Sore Throat
Respiratory: Reports Cough; Denies Trouble Breathing
Cardiac: Denies Chest Pain
Abdomen/GI: Denies Abdominal Pain, Nausea or Vomiting
Neuro: Denies Dizzy
Physical Exam
-
General: Well Developed, Well Nourished and Comfortable
Respiratory: Wheezes, Crackles (left) and Non Labored Respirations; Negative Accessory Resp Muscle Use
Cardiac: Regular Rhythm and S1/S2
GI: Soft and Nontender
Musculoskeletal: Edema, Left Lower Extrem
Skin: Warm and Dry
Neuro: Awake, Alert and AO x 3
Psych: Calm; Negative Confused
Data Reviewed
-
Ultrasound: Report Reviewed by me
Labs: Labs Reviewed by me, Discussed with Physician and Discussed with Patient
--- NOTE | 2024-07-02 07:48 | W.PN.ORTHO ---
Today's Communication / Plan
-
PT/OT
Weightbearing as tolerated with walker
X-ray left hip this morning
Aquacel dressing in place while here at hospital
Aspirin for DVT prophylaxis
Skin clips to be removed Thursday, July 04, 2024
Follow-up with orthopedics 1 month postop
Assessment
.
Distal Motor Intact: Yes
Dressing:
Incision is open to air. Incision is clean, dry and intact. Incision was cleaned with Betadine and new Aquacel applied.
Plan
.
Surgery / Date: Left hip hemiarthroplasty 06/20 Elena
DVT Prophylaxis: Aspirin
Activity:
Out of bed.
PT/OT
Subjective
.
.:
Patient resting comfortably. Status post left hip hemiarthroplasty June 20, [address] Parker. Postoperatively he was experiencing fevers and chest x-ray revealed he has pneumonia for which she is being treated for now. Left hip no
significant pain. No pain in the left lower extremity.
Vital Signs and Labs
.
Vital Signs and Labs:
Temp Pulse Resp BP Pulse Ox
101.1 F H 63 18 101/41 95
07/02/24 05:38 07/02/24 03:20 07/02/24 03:20 07/02/24 03:20 07/02/24 03:20
[2024-07-02] MEDS: VITAMIN B1 100 MG PO (08:00)
[2024-07-02] MEDS: SENOKOT 17.2 MG PO ×2 (08:00→20:04)
[2024-07-02] MEDS: PROTONIX 40 MG PO ×2 (08:00→20:04)
[2024-07-02] MEDS: PACERONE 100 MG PO (08:00)
[2024-07-02] MEDS: LOW STRENGTH ASPIRIN 81 MG PO ×2 (08:00→20:04)
[2024-07-02] MEDS: MAXIPIME 2000 MG IV ×2 (08:01→20:04)
[2024-07-02] MEDS: FEOSOL 325 MG PO (08:01)
[2024-07-02] MEDS: COLACE 100 MG PO ×2 (08:01→20:04)
[2024-07-02] MEDS: STERILE WATER FOR INJECTION 10 ML IV ×2 (08:02→20:05)
[2024-07-02] MEDS: HEPARIN 5000 UNITS SC ×2 (08:02→20:05)
[2024-07-02] MEDS: FOLVITE 1 MG PO (08:03)
[2024-07-02] MEDS: DUPHALAC/CHRONULAC 30 GRAMS PO ×4 (08:06→20:55)
--- NOTE | 2024-07-02 08:15 | PTOTSP ---
Speech Language Pathology
Pt seen for clinical bedside swallow evaluation. Known to PHYSICAL THERAPY PROFESSOR department at with previous VSE completed 08/22/22 given PNA at that time with findings of functional swallow and recommendations for regular solids/thin liquids. Pt denied having had
PNA since that time until current admission.
P.O. trials of regular solids and thin liquids provided. Also seen for med pass with meds whole with liquids. Adequate mastication, bolus formation, and A-P transit noted with no oral residue. No overt signs of aspiration.
Pt has not noted significant change in swallow function since July 2022. Will hold on VSE at this time. Pt not interested in VSE regardless.
Recommend:
(1) Regular solids/thin liquids
(2) General aspiration precautions
(3) Meds as tolerated
(4) PHYSICAL THERAPY PROFESSOR to sign off. Please reconsult as indicated
[2024-07-02 08:50] LABS: % Basophils 0.2 % (0-2); % Eosinophils 0.1 % (0-6); % Monocytes 9.6 % (1.7-9.3); % Neutrophils 87.1 % (42.2-75.2); Absolute Immature Granulocytes 0.1 10^3/uL (0-0.05); Absolute Lymphocytes 0.2 10^3/uL (1.2-3.4); Absolute Monocytes 0.9 10^3/uL (0.1-0.6); Absolute Neutrophils 8.1 10^3/uL (1.4-6.5); Hematocrit 25.1 % (39.0-52.0); Hemoglobin 8.1 g/dL (13.0-18.0); Mean Corp Hgb Conc. 32.3 g/dL (33.0-37.0); Mean Corpuscular Hgb 30.5 pg (27.0-31.0); Mean Corpuscular Volume 94.4 fL (80.0-94.0); Mean Platelet Volume 10.8 fL (7.4-10.4); Nucleated Red Blood Cells % 0 % (-); Platelet Count 86 10^3/uL (130-400); Red Blood Cell Count 2.66 10^6/uL (4.70-6.10); Red Cell Dist. Width 17.2 % (11.5-14.5); White Blood Cell Count 9.3 10^3/uL (4.8-10.8)
[2024-07-02 09:16] LABS: ALT (SGPT) 25 U/L (0-50); AST (SGOT) 31 U/L (17-59); Albumin 2.2 g/dl (3.5-5.0); Alkaline Phosphatase 99 U/L (38-126); Blood Urea Nitrogen 41 mg/dl (9-20); Calcium 7.1 mg/dl (8.4-10.2); Carbon Dioxide 17 mmol/L (22-30); Chloride 109 mmol/L (98-107); Estimated Creatinine Clearance 46 ml/min; Glucose 97 mg/dl (70-99); Potassium 4.8 mmol/L (3.5-5.1); Sodium 136 mmol/L (135-145); Total Bilirubin 4.6 mg/dl (0.2-1.3); Total Protein 4.1 g/dl (6.3-8.2); eGFR 37.02
--- NOTE | 2024-07-02 09:20 | PHA.VAN.FU ---
Vancomycin Assessment / Plan
- Assessment
Renal Function: Stable
WBC's are: WNL
Concomitant Antimicrobials: cefepime
- Assessment - Therapeutic Drug Monitoring
Random Level: 13 - drawn ~11H after 2g loading dose
- Dosing Plan
Dosing by Level: Re-dose today (Vanc 1000mg)
- Monitoring Plan
Random Level: 07/03 0600
- Follow Up
Pharmacy will continue to follow.
Vancomycin Follow UP
- -
Patient Age: 74
Patient Sex: Male
Vancomycin Day #: 2
Indication: Pulmonary/Respiratory
Requesting Provider: Dr. Gilmore
Pertinent Antimicrobial Allergies:
NKDA
Height / Weight:
Height 6 ft 2 in
Actual Weight 108.409 kg
Pertinent Past Medical History: BMI ~31, CKD
- Vital Signs / Lab Results
Temp Pulse Resp BP Pulse Ox
98.8 F 68 18 119/49 97
07/02/24 08:09 07/02/24 08:09 07/02/24 08:09 07/02/24 08:09 07/02/24 08:09
Lab Results - Hematology
07/01/24 07/02/24
12:20 08:13
WBC 12.3 H 9.3
Lab Results - Chemistry
07/01/24 07/02/24
12:20 08:13
BUN 35 H 41 H
Creatinine 2.0 H 1.9 H
Estimated Creat Clear 46
Albumin 2.3 L 2.2 L
07/01/24 07/01/24 07/01/24
12:21 13:06 16:56
Lactic Acid 2.8 H Cancelled 1.2
Lab Results - Urine
07/01/24
16:56
Urine Nitrite (Reflex) Negative
Leukocyte Esterase Rfl Trace A
Ur Squamous Epith Cells 0-2
Microbiology Results
07/01/24 13:16 Influenza Types A & B (ABDI) - Final
Nasal Swab Negative for Influenza A & B, NAAT
Negative results must be combined with clinical observations
and patient history.
Nucleic Acid Amplification test (NAAT)performed on the
[employer] platform.
Therapeutic Drug Monitoring
Random Vancomycin 13.0 ug/ml 07/02/24 08:13
[2024-07-02] MEDS: VANCOCIN 200 IV (13:24)
[2024-07-02] MEDS: SODIUM BICARBONATE 1050 MEQ IV (17:32)
[2024-07-02] MEDS: LIPITOR 40 MG PO (20:55)
[2024-07-03] MEDS: TYLENOL 650 MG PO ×3 (03:14→23:21)
[2024-07-03 03:26] VITALS: BP 96/38
[2024-07-03 05:23] VITALS: BMI 31.3
[2024-07-03] MEDS: SODIUM BICARBONATE 1050 MEQ IV (06:03)
[2024-07-03 07:16] LABS: Vancomycin Random 12.7 ug/ml
--- NOTE | 2024-07-03 07:17 | W.PN.HOSP.TC ---
Addendum entered and electronically signed by Tenzin Adame MD 07/03/24 14:27:
I saw and evaluated the patient. I reviewed the resident�s note and agree with findings and plan as documented in the resident�s note except for changes in my documentation.
Cardiovascular system S1-S2 appreciated
Chest bilateral rales left more than right
Abdomen soft and nontender
Left lower extremity edema
# Sepsis secondary to left lower lobe pneumonia
No evidence of any surgical site infection
Patient was evaluated by orthopedics
Continue cefepime and stop vancomycin
Await cultures
Speech evaluation-recommends regular solids and thin liquids
White count improving
Lactic acidosis resolved
# Recent left hip ORIF-Doppler negative for any edema
Orthopedics consulted
Postop care
Wendover still in-to be removed on Saturday, July 04
Weightbearing as tolerated
PT OT
# Diarrhea , vomiting- Check Stools
# Anemia of chronic disease
# Chronic thrombocytopenia
# DELILAH on CKD stage IIIb-hold Lasix. Gentle IV fluids with bicarb
# History of cirrhosis with history of heavy alcohol use in the past. Last alcohol was was on the day of admission last time he has not had any alcohol in 3 weeks
# Fatty liver
# Paroxysmal atrial fibrillation-not on anticoagulation secondary to increased risk of falls and thrombocytopenia. Continue aspirin and amiodarone
# GERD-continue PPI
# Chronic HFpEF-hold Lasix. Echo with EF of 50 to 55%
# Hyperlipidemia will continue statin
# Short-term memory loss
# DVT prophylaxis-subcutaneous heparin changed to ASA
D/W at bed side
Part of this note was created using voice recognition system. Occasional wrong word or��sound alike� substitutions may have inadvertently occurred due to the inherent limitations of voice recognition software. If noted kindly bring it to my
attention for correction.
Original Note:
Today's Communication/Plan
-
cont cefepime
decrease lactulose
repeat labs in pm
d/c vanco
Assessment / Plan
Assessment / Plan
74-year-old male s/p Left hip orif 06/20/24 with history of A-fib, CHF, CKD 3b, presented with a fever and mild cough.
#Sepsis- likely source left lower lobe pneumonia, less likely surgical site infection
-s/p 1 bag dextrose with na bicarb
-continue Iv cefepime ; will narrow after blood and sputum culture are back
-mrsa screen negative; vanco d/c
-BC NGTD
-speech recs regular solid/thin liquids
-wbc improving; repeat cxr progressed PNA
- 1 additional bag of dextrose with na bicarb today
-incentive spirometer
-h&h in the pm
#nausea/vomting/diarrhea
- decreased lactulose to bid
-order c diff
#hypocalcemia
-calcium carbonate 500mg bid PO
#Lactic acidosis
-resolved
# recent Left hip ORIF
- Left LE edema
- Doppler negative
-xray unramarkable for any changes besides post op
-Wendover still in-to be removed on July 04
-Weightbearing as tolerated
#anemia of chronic disease- hb 7.3 baseline around 8
-repeat labs in the pm
-transfuse if hb drop <7
#chronic thrombocytopenia
-platelet 69;repeat cbc in the am
#Elevated creatine w/CKD stage 3b
-cr 1.9
-hold lasix for now
#hyperbilirubinemia
#hxt of hepatic encephalopathy
#alcohol cirrhosis
-total bili4.6
-continue lactulose
#alcohol abuse
-last drink 3 weeks ago
-no concern for withdrawal sym
#Parox afib
-Not on anticoagulation due to increased fall risk/thrombocytopenia
-continue asa and amio
#. HFpEF
-hold lasix,asa for now
-ef 50-55%
daily weights
#HLD
-statin continued
#DVT PPX - heparin sc
Full code
Anticipated Discharge: Within 24 hours
Subjective/Interval History
-
Date of Service: July 03, 2024
cough, nausea and fever 101.7
Objective Data
-
Labs:
Laboratory Results
07/03/24
06:46
WBC Pending
Hgb Pending
Hct Pending
Plt Count Pending
Sodium Pending
Potassium Pending
Chloride Pending
Carbon Dioxide Pending
BUN Pending
Creatinine Pending
Glucose Pending
Calcium Pending
Vital Signs:
Vital Signs
Temp Pulse Resp BP Pulse Ox
99.9 F 68 18 96/38 95
07/03/24 03:26 07/03/24 03:26 07/03/24 03:26 07/03/24 03:26 07/03/24 03:26
I&O
07/02/24 07/03/24 07/04/24
06:59 06:59 06:59
Intake Total 1020 / 1020
Output Total 200 / 200 1000 / 1000
Balance -200 / -200 20 / 20
Review of Systems
-
History Source: Patient
Constitutional: Reports Fever
EENT: Denies Sore Throat
Respiratory: Reports Cough; Denies Trouble Breathing
Cardiac: Denies Chest Pain
Abdomen/GI: Reports Nausea and Vomiting; Denies Abdominal Pain
Neuro: Denies Dizzy
Physical Exam
-
General: Well Developed, Well Nourished and Comfortable
Respiratory: Wheezes (left) and Non Labored Respirations; Negative Accessory Resp Muscle Use
Cardiac: Regular Rhythm and S1/S2
GI: Soft and Nontender
Musculoskeletal: Edema, Left Lower Extrem
Skin: Warm and Dry
Neuro: Awake, Alert and AO x 3
Psych: Calm; Negative Confused
Data Reviewed
-
Diagnostic Radiology: Report Reviewed by me, Discussed with Physician and Discussed with Patient
Labs: Labs Reviewed by me, Discussed with Physician and Discussed with Patient
--- NOTE | 2024-07-03 07:20 | W.PN.UPDATE ---
Update Note
Progress Note Update
Radiographs from 07/02/24 reviewed- no osseous or hardware abnormalities
//
PT/OT
Weightbearing as tolerated with walker
X-ray left hip this morning
Aquacel dressing in place while here at hospital
Aspirin for DVT prophylaxis
Skin clips to be removed Thursday, July 04, 2024
Follow-up with orthopedics 1 month postop
[2024-07-03 07:26] VITALS: BP 113/34
[2024-07-03 07:38] LABS: Blood Urea Nitrogen 49 mg/dl (9-20); Calcium 6.9 mg/dl (8.4-10.2); Carbon Dioxide 16 mmol/L (22-30); Chloride 107 mmol/L (98-107); Estimated Creatinine Clearance 44 ml/min; Glucose 130 mg/dl (70-99); Potassium 4.5 mmol/L (3.5-5.1); Sodium 132 mmol/L (135-145); eGFR 34.81
[2024-07-03 07:51] LABS: Hematocrit 22.2 % (39.0-52.0); Hemoglobin 7.3 g/dL (13.0-18.0); Mean Corp Hgb Conc. 32.9 g/dL (33.0-37.0); Mean Corpuscular Hgb 29.4 pg (27.0-31.0); Mean Corpuscular Volume 89.5 fL (80.0-94.0); Mean Platelet Volume 11.3 fL (7.4-10.4); Platelet Count 69 10^3/uL (130-400); Red Blood Cell Count 2.48 10^6/uL (4.70-6.10); Red Cell Dist. Width 16.7 % (11.5-14.5); White Blood Cell Count 6.6 10^3/uL (4.8-10.8)
[2024-07-03 08:54] LABS: Albumin 1.8 g/dl (3.5-5.0)
[2024-07-03] MEDS: COLACE PO (09:26)
[2024-07-03] MEDS: SENOKOT PO (09:26)
[2024-07-03] MEDS: HEPARIN 5000 UNITS SC (09:28)
[2024-07-03] MEDS: FLUSH (NSS) 1 FLUSH IV (09:29)
[2024-07-03] MEDS: MAXIPIME 2000 MG IV ×2 (09:29→21:16)
[2024-07-03] MEDS: STERILE WATER FOR INJECTION 10 ML IV ×2 (09:29→21:17)
[2024-07-03] MEDS: TIGAN 200 MG IM (09:30)
[2024-07-03] MEDS: SODIUM BICARBONATE 1150 MEQ IV (09:30)
[2024-07-03 09:32] LABS: Iron < 20 ug/dl (49-181); Total Iron Binding Capacity 216 ug/dl (261-462)
[2024-07-03] MEDS: DUPHALAC/CHRONULAC PO ×2 (09:42→21:14)
--- NOTE | 2024-07-03 10:30 | PTCARENOTE ---
Found pt this am incont large amts loose jacob BM/urine; vomiting bile secretions. Dr. Adame notified. Pt given Tigan 200 mg IM x 1 dose. Will continue to monitor.
[2024-07-03] MEDS: PROTONIX 40 MG PO ×2 (10:34→21:17)
[2024-07-03] MEDS: FOLVITE 1 MG PO (10:34)
[2024-07-03] MEDS: LOW STRENGTH ASPIRIN 81 MG PO ×2 (10:34→21:16)
[2024-07-03] MEDS: PACERONE 100 MG PO (10:35)
[2024-07-03] MEDS: OSCAL CAL 500 500 MG PO ×2 (10:35→21:17)
[2024-07-03] MEDS: VITAMIN B1 100 MG PO (10:35)
[2024-07-03 11:54] VITALS: BP 108/47
[2024-07-03 15:16] VITALS: BP 119/52
--- NOTE | 2024-07-03 16:37 | PTCARENOTE ---
Pt AAO x3, forgetful at times; occ slow to respond. COELHO slowly; can position self in bed with minimal assistance. VSS. Telemetry:NSR with occ PAC's. On room air- pulse ox 95%, no SOB noted. Abd obese, soft; refusing meal trays; taking only
small amts liquids PO. Incont large amts loose brown BM; Cdif (_). Voids clear frederick urine in urinal/incont small amts; wears Depends. Lt hip dsg D/I. IVF's D5W with 150 meq NaHCO3 @ 75 ml/hr infusing via Lt forearm site without sx of
infiltration. Resting quietly at present. Will continue to monitor.
--- NOTE | 2024-07-03 17:13 | CM ---
Pt admitted from [facility] where he was receiving therapy s/p fx femur. Readmitted for pneumonia and sepsis. Anticipate return to [facility] for continued therapy.
Plan: CM to follow for discharge back to [facility].
[2024-07-03 17:55] LABS: Vitamin D, 25-OH*** < 12.8 ng/mL (30-80)
[2024-07-03 18:28] LABS: Vitamin B12 669 pg/ml (239-931)
[2024-07-03 19:34] LABS: Hematocrit 25.3 % (39.0-52.0); Hemoglobin 8.4 g/dL (13.0-18.0)
[2024-07-03 19:50] VITALS: BP 116/54
[2024-07-03] MEDS: LIPITOR 40 MG PO (21:17)
[2024-07-03 23:50] VITALS: BP 114/54
[2024-07-04] VITALS (12 sets, daily range): BP systolic 90–114; BP diastolic 30–55; PULSE 71–83; O2SAT 91; BMI 31.2; BMI 30.7
--- NOTE | 2024-07-04 07:05 | W.PN.HOSP.TC ---
Addendum entered and electronically signed by Tenzin Adame MD 07/04/24 15:22:
I saw and evaluated the patient. I reviewed the resident�s note and agree with findings and plan as documented in the resident�s note.
Patient is afebrile. He feels okay. He is still coughing.
Left leg edematous not more than how it was when he came in.
Despite IV fluids creatinine trending up
No obstruction on ultrasound or bladder scan.
Urinalysis without significant proteinuria no eosinophils
Doubt hepatorenal
Worsening anemia. Also has thrombocytopenia
Rectal exam is heme-negative brown stool
Check complement levels, sed rate and CRP
If sed rate is elevated-we will also check vasculitis workup
Hemolysis labs-unconjugated bilirubin 1.7
Agree with nephrology evaluation
Agree with 1 unit of PRBC
Follow creatinine
Avoid hypotension
Continue PT OT
Original Note:
Today's Communication/Plan
-
1 bag pRBC
usg renal and bladder
nephro consult
cont abx
bladder scan for PVR
Assessment / Plan
Assessment / Plan
74-year-old male s/p Left hip orif 06/20/24 with history of A-fib, CHF, CKD 3b, presented with a fever and mild cough.
#Sepsis- likely source left lower lobe pneumonia, less likely surgical site infection
-s/p 2 bag dextrose with na bicarb
-continue Iv cefepime ; will narrow after blood and sputum culture are back
-mrsa screen negative; vanco d/c
-BC NGTD
-speech recs regular solid/thin liquids
-wbc improving; repeat cxr progressed PNA
-incentive spirometer
#nausea/vomting/diarrhea
- s/p 1 dose tigan
- decreased lactulose to bid
- c diff neagtive
#hypocalcemia
-calcium carbonate 500mg bid PO
#Lactic acidosis
-resolved
# recent Left hip ORIF
- Left LE edema
- Doppler negative
-xray unramarkable for any changes besides post op
-Laila still in-to be removed on July 04
-Weightbearing as tolerated
#anemia of chronic disease- hb 7.1 baseline around 8
-transfuse 1 pRBC today; consent obtained
#chronic thrombocytopenia
-platelet 71;repeat cbc in the am
#Elevated creatine w/CKD stage 3b
-cr 2.7- junior on ckd
-hold lasix for now
-nephro consulted
-usg kidney and bladder
UA, Urine NA, urine eosinophils
#hyperbilirubinemia
#hxt of hepatic encephalopathy
#alcohol cirrhosis
-total bili4.6
-continue lactulose
#alcohol abuse
-last drink 3 weeks ago
-no concern for withdrawal sym
#Parox afib
-Not on anticoagulation due to increased fall risk/thrombocytopenia
-continue asa and amio
#. HFpEF
-hold lasix,asa for now
-ef 50-55%
daily weights
#HLD
-statin continued
#DVT PPX - asa
Full code
Anticipated Discharge: 24 - 48 hours
Subjective/Interval History
-
Date of Service: July 04, 2024
offers no new complains. nausea and vomiting stopped after tigan yesterday
Objective Data
-
Labs:
Laboratory Results
07/03/24 07/04/24 07/04/24
18:50 06:52 06:53
WBC Pending
Hgb 8.4 L Pending
Hct 25.3 L Pending
Plt Count Pending
Sodium Pending
Potassium Pending
Chloride Pending
Carbon Dioxide Pending
BUN Pending
Creatinine Pending
Glucose Pending
Calcium Pending
Total Bilirubin Pending
AST Pending
ALT Pending
Alkaline Phosphatase Pending
Vital Signs:
Vital Signs
Temp Pulse Resp BP Pulse Ox
98.4 F 74 18 108/51 92
07/04/24 03:50 07/04/24 03:50 07/04/24 03:50 07/04/24 03:50 07/04/24 03:50
I&O
07/03/24 07/04/24 07/05/24
06:59 06:59 06:59
Intake Total 1020 / 1020 1220 / 1220
Output Total 1000 / 1000 700 / 700
Balance 20 520 / 520
Review of Systems
-
History Source: Patient
EENT: Denies Sore Throat
Respiratory: Reports Cough; Denies Trouble Breathing
Cardiac: Denies Chest Pain
Abdomen/GI: Denies Abdominal Pain
Neuro: Denies Dizzy
Physical Exam
-
General: Well Developed, Well Nourished and Comfortable
Respiratory: Wheezes (improved) and Non Labored Respirations; Negative Accessory Resp Muscle Use
Cardiac: Regular Rhythm and S1/S2
GI: Soft and Nontender
Musculoskeletal: Edema, Left Lower Extrem
Skin: Warm and Dry
Neuro: Awake, Alert and AO x 3
Psych: Calm; Negative Confused
Data Reviewed
-
Labs: Labs Reviewed by me, Discussed with Physician and Discussed with Patient
[2024-07-04 07:47] LABS: % Basophils 0.3 % (0-2); % Immature Granulocytes 4.5 % (0-0.5); % Lymphocytes 2.8 % (20.5-51.1); % Monocytes 18.1 % (1.7-9.3); % Neutrophils 74.3 % (42.2-75.2); Absolute Immature Granulocytes 0.2 10^3/uL (0-0.05); Absolute Lymphocytes 0.1 10^3/uL (1.2-3.4); Absolute Monocytes 0.6 10^3/uL (0.1-0.6); Absolute Neutrophils 2.6 10^3/uL (1.4-6.5); Hematocrit 21.7 % (39.0-52.0); Hemoglobin 7.1 g/dL (13.0-18.0); Mean Corp Hgb Conc. 32.7 g/dL (33.0-37.0); Mean Corpuscular Hgb 30.2 pg (27.0-31.0); Mean Corpuscular Volume 92.3 fL (80.0-94.0); Mean Platelet Volume 11.9 fL (7.4-10.4); Nucleated Red Blood Cells % 0 % (-); Platelet Count 71 10^3/uL (130-400); Red Blood Cell Count 2.35 10^6/uL (4.70-6.10); Red Cell Dist. Width 16.6 % (11.5-14.5); White Blood Cell Count 3.5 10^3/uL (4.8-10.8)
[2024-07-04 08:25] LABS: ALT (SGPT) 31 U/L (0-50); AST (SGOT) 61 U/L (17-59); Albumin 1.8 g/dl (3.5-5.0); Alkaline Phosphatase 80 U/L (38-126); Blood Urea Nitrogen 64 mg/dl (9-20); Calcium 6.6 mg/dl (8.4-10.2); Carbon Dioxide 20 mmol/L (22-30); Chloride 104 mmol/L (98-107); Estimated Creatinine Clearance 33 ml/min; Glucose 112 mg/dl (70-99); Sodium 134 mmol/L (135-145); Total Bilirubin 3.3 mg/dl (0.2-1.3); Total Protein 3.5 g/dl (6.3-8.2); eGFR 24.28
--- NOTE | 2024-07-04 08:35 | PTCARENOTE ---
Made Dr. Gilmore aware of pt's critical Calcium level of 6.6 this morning.
[2024-07-04] MEDS: DUPHALAC/CHRONULAC PO ×2 (09:25→21:59)
[2024-07-04] MEDS: LOW STRENGTH ASPIRIN 81 MG PO ×2 (09:26→21:59)
[2024-07-04] MEDS: FEOSOL 325 MG PO (09:26)
[2024-07-04] MEDS: FOLVITE 1 MG PO (09:26)
[2024-07-04] MEDS: MAXIPIME 2000 MG IV ×2 (09:26→22:00)
[2024-07-04] MEDS: STERILE WATER FOR INJECTION 10 ML IV ×2 (09:26→22:00)
[2024-07-04] MEDS: VITAMIN B1 100 MG PO (09:27)
[2024-07-04] MEDS: OSCAL CAL 500 500 MG PO ×2 (09:27→21:59)
[2024-07-04] MEDS: FLUSH (NSS) 2 FLUSH IV (09:27)
[2024-07-04] MEDS: PROTONIX 40 MG PO ×2 (09:27→21:59)
--- NOTE | 2024-07-04 09:30 | PTCARENOTE ---
Pt's BP when working with PT this morning 90/30, pt asymptomatic. Rechecked BP and noted to be 96/42. Discussed hypotension with Dr. Gilmore and if he was ok with pt receiving ordered Amiodarone this morning. Dr. Gilmore ok with pt receiving
Amiodarone.
[2024-07-04] MEDS: PACERONE 100 MG PO (09:39)
[2024-07-04 12:47] LABS: Urine Albumin Trace (Neg - Trace); Urine Bilirubin 1+ (Negative); Urine Character Clear (Clear); Urine Color Amber; Urine Glucose Negative (Negative); Urine Ketone 1+ (Negative); Urine Leukocyte Negative (Negative); Urine Nitrite Negative (Negative); Urine Occult Blood 1+ (Negative); Urine Urobilinogen Negative (Neg - 1+)
[2024-07-04 12:55] LABS: Direct Bilirubin 1.6 mg/dl (0.0-0.4)
[2024-07-04 12:58] LABS: Urine Bacteria Many (Negative); Urine Hyaline Cast 0-2 /LPF (0-2); Urine Red Blood Cell 0-2 /HPF (0-2); Urine White Cell 0-2 /HPF (0-5)
[2024-07-04 13:54] LABS: Body Fluid for Eosinophils No Eosinophils seen
[2024-07-04 14:08] LABS: Urine Sodium < 5 mmol/L (30-90)
--- NOTE | 2024-07-04 15:31 | W.CON.NEPH ---
Medical History
-
Chief Complaint: Fever,cough
History of Present Illness:
74 y/o male with past medical history of A.fib on Amiodarone, ASA, , Ckd 3b cr 1.5-1.8 range, cirrhosis and h/o hepatic encephalopathy on lactulose, CAD, CHF on lasix presenting to the ED with new onset fever noted in [facility] on 07/01. She was
at in May for fall and had hip fracture for which she had left hip ORIF with Dr. Parker on 06/20/24l. She required transfusion for acute blood loss anemia. he initially refused to go to rehab but finally agreed and d/c on 06/26. In rehab he
had n/v/d? with poor po intake, in ER He noted with temp of 102.. diagnosed sepsis with PNA(LL) and started on antibiotics. His cr on admit was at 2 which was stable until yesterday and today up at 2.7. Hence nephrology consulted to further
evaluate. He is poor historian, provided more information. He currently offers no CP or sob. Left leg edema since surgery and no DVT on US. He denies any abd pain. notes decreased appetite for last 2weeks.
Past Medical History
Afib,
CKD
HTN
CAD
Cirrhosis
Portal hypertension, h/o encephalopthy
ETOH use
CHF
Depression. Essential tremors.
HLD
Past Surgical History: Other (Left hip ORIF 06/20/24)
Social History
Tobacco: Former Smoker (quit 2-3weeks ago)
Alcohol: Former (quit 2-3weeks ago [employer])
Personal:
Living: [facility] (after recent d/c)
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
Family History
Family History: Not Pertinent
Allergies / Home Medications
Allergy/AdvReac Type Severity Reaction Status Date / Time
No Known Allergies Allergy Verified 03/03/24 09:34
�Medication �Instructions �Recorded �Confirmed �Type
folic acid 1 mg tablet 1 mg PO DAILY Supplement #0 tabs 08/28/22 07/01/24 Rx
amiodarone 200 mg tablet (Pacerone) 100 mg (1/2 x 200 mg) PO DAILY 30 12/20/22 07/01/24 Rx
days #15 tabs
pantoprazole 40 mg tablet,delayed 40 mg PO BID 30 days #60 tabs 12/20/22 07/01/24 Rx
release
thiamine HCl (vitamin B1) 100 mg 100 mg PO DAILY 30 days #30 tabs 12/20/22 07/01/24 Rx
tablet
ferrous sulfate 325 mg (65 mg 325 mg PO Q48H Supplement 06/29/23 07/01/24 History
iron) tablet
potassium chloride 20 mEq 20 meq PO BID Electrolyte Repletion 06/29/23 07/01/24 History
tablet,extended
release(part/cryst) (Klor-Con M)
lactulose 10 gram/15 mL oral 30 g (45 mL) PO QID 14 days #3,785 09/30/23 07/01/24 Rx
solution mL
polyethylene glycol 3350 17 gram 17 g PO DAILYPRN PRN constipation 12/17/23 07/01/24 Rx
oral powder packet (HealthyLax) 30 days #30 ea
furosemide 20 mg tablet 20 mg PO DAILY Fluid 06/20/24 07/01/24 History
Retention/Swelling
aspirin 81 mg chewable tablet 81 mg PO BID #46 tabs 06/26/24 07/01/24 Rx
docusate sodium 100 mg capsule 100 mg PO BID #60 caps 06/26/24 07/01/24 Rx
oxycodone 5 mg tablet 5 mg PO Q6HPRN PRN severe pain #10 06/26/24 07/01/24 Rx
tabs
sennosides 8.6 mg tablet (Senna 17.2 mg (2 x 8.6 mg) PO BID #60 06/26/24 07/01/24 Rx
Laxative) tabs
acetaminophen 325 mg tablet 650 mg PO Q4HPRN PRN mild 07/01/24 07/01/24 History
pain/fever
atorvastatin 40 mg tablet 40 mg PO HS High cholesterol 07/01/24 07/01/24 History
bisacodyl 10 mg rectal suppository 10 mg MA DAILYPRN PRN if no bm on 07/01/24 07/01/24 History
day 5 and after MOM
magnesium hydroxide 400 mg/5 mL 2,400 mg PO DAILYPRN PRN if no BM 07/01/24 07/01/24 History
oral suspension (Milk of Magnesia) for 4 days
sodium phosphates 19 gram-7 118 ml MA DAILYPRN PRN if no bm 07/01/24 07/01/24 History
gram/118 mL enema (Fleet Enema) after dulcolax or by day 6 no BM
Review of Systems
-
difficult to obtain from pt, all complete 12 point ROS have been inquired and found negative other than stated in HPI
Physical Exam
Vital Signs
Vital Signs
Temp Pulse Resp BP Pulse Ox
97.7 F 65 18 97/44 94
07/04/24 14:39 07/04/24 14:39 07/04/24 14:39 07/04/24 14:39 07/04/24 14:39
Lab Results
WBC 3.5 10^3/uL (4.8-10.8) L 07/04/24 06:52
RBC 2.35 10^6/uL (4.70-6.10) L 07/04/24 06:52
Hgb 7.1 g/dL (13.0-18.0) L 07/04/24 06:52
Hct 21.7 % (39.0-52.0) L 07/04/24 06:52
Plt Count 71 10^3/uL (130-400) L 07/04/24 06:52
Sodium 134 mmol/L (135-145) L 07/04/24 06:53
Potassium 5.0 mmol/L (3.5-5.1) 07/04/24 06:53
Chloride 104 mmol/L (98-107) 07/04/24 06:53
Carbon Dioxide 20 mmol/L (22-30) L 07/04/24 06:53
BUN 64 mg/dl (9-20) H 07/04/24 06:53
Creatinine 2.7 mg/dL (0.7-1.3) H 07/04/24 06:53
eGFR 24.28 07/04/24 06:53
Glucose 112 mg/dl (70-99) H 07/04/24 06:53
Calcium 6.6 mg/dl (8.4-10.2) L* 07/04/24 06:53
Albumin 1.8 g/dl (3.5-5.0) L 07/04/24 06:53
CXR: 07/03:
IMPRESSION:
Parenchymal airspace opacity within the left lower lobe, increasing from July 01 radiograph, and likely representing pneumonia.
No evidence for associated pleural effusion.
renal US:
FINDINGS: The right kidney measures 11.5 cm in length and the left kidney measures 11.4 cm in length. The bilateral kidneys show no signs of hydronephrosis, focal lesions, or calcifications, left kidney somewhat difficult to visualize as the patient
could not lay in decubitus position.
The urinary bladder virtually completely empty, cannot be evaluated.
IMPRESSION: Somewhat limited study, without findings to suggest renal collecting system dilatation bilaterally.
Urinary bladder virtually completely empty, cannot be evaluated.
Physical Exam
General: Awake, Alert, No Distress and Nontoxic
HEENT: EOMI, Anicteric and No JVD
Respiratory: Normal Excursion, Nonlabored Respirations and Other (decreased anteriorly)
Cardiac: S1/S2 and Regular Rate/Rhythm
Breast: Deferred by me
Abdomen: Soft, Nontender and Nondistended
Musculoskeletal: No Cyanosis and Edema (left leg 2+)
Skin: No Rash
Neuro: Nonfocal/Grossly Intact
Psych: Appropriate
Data Reviewed
-
Radiology: Report Reviewed by me, Discussed with Patient and Discussed with Family
Labs: Labs Reviewed by me, Discussed with Nurse, Discussed with Patient and Discussed with Family
Assessment/Plan
-
IMP:
DELILAH with [id number] cr 1.5-1.8
Sepsis- left lower lobe pneumonia
nausea/vomting/diarrhea
hypocalcemia-vit D def
recent Left hip ORIF 06/24
Left LE edema
Acute on chr Anemia
chronic thrombocytopenia
non gap met acidosis
Hyponatremia
hyperbilirubinemia
hxt of hepatic encephalopathy
alcohol cirrhosis
alcohol abuse
Parox afib
HFpEF
HLD
Hypoalbuminemia
Plan:
A/w sepsis, PNA
DELILAH-UA relatively bland, U na low , neg U eosinophils
prerenal specially with soft Bps and underlying cirrhosis , HRS in differential too
cr increasing despite IVF-may be ATN phase too , resume IVF 1/2 NS with bicarb
renal US with out hydro , PVR not high
need to monitor UOP-low threshold for gonzalez
complements sent per primary
severe hypoalbuminemia likely contributing to his edema too in post op state
soft BPs, add prn midodrine
holding diuretics
Transfusion for anemia , heme neg stools per notes, likely fe def-need IV fe once bld cx neg
prn diuretics
met acidosis is improving
hypocalcemia from vit D def-on po naty and s/p vit D2 today , check i naty
labs in am and daily wts
d/w at bedside in detail
d/w nursing
[2024-07-04 15:33] LABS: Reticulocyte Count 1.5 % (0.4-2.8)
[2024-07-04 15:54] LABS: LDH 215 U/L (120-246)
[2024-07-04] MEDS: DRISDOL (VITAMIN D2) 50000 UNITS PO (16:04)
[2024-07-04] MEDS: ROBITUSSIN 100 MG PO (16:04)
--- NOTE | 2024-07-04 16:45 | PTCARENOTE ---
Completed unit of PRBCs entirely at this time without any noted transfusion reaction.
[2024-07-04] MEDS: SODIUM BICARBONATE 1075 MEQ IV (18:52)
[2024-07-04] MEDS: LIPITOR 40 MG PO (21:59)
[2024-07-05 03:15] VITALS: BP 118/62
[2024-07-05] MEDS: ROXICODONE 5 MG PO (04:21)
[2024-07-05] MEDS: ROBITUSSIN 100 MG PO ×2 (04:25→09:26)
[2024-07-05 06:00] VITALS: BMI 31.0
[2024-07-05 07:03] LABS: % Basophils 0.2 % (0-2); % Immature Granulocytes 0.8 % (0-0.5); % Lymphocytes 4.6 % (20.5-51.1); % Monocytes 6.9 % (1.7-9.3); % Neutrophils 87.5 % (42.2-75.2); Absolute Lymphocytes 0.2 10^3/uL (1.2-3.4); Absolute Monocytes 0.4 10^3/uL (0.1-0.6); Absolute Neutrophils 4.5 10^3/uL (1.4-6.5); Hemoglobin 8.6 g/dL (13.0-18.0); Mean Corp Hgb Conc. 33.1 g/dL (33.0-37.0); Mean Corpuscular Hgb 29.9 pg (27.0-31.0); Mean Corpuscular Volume 90.3 fL (80.0-94.0); Mean Platelet Volume 11.4 fL (7.4-10.4); Nucleated Red Blood Cells % 0 % (-); Platelet Count 88 10^3/uL (130-400); Red Blood Cell Count 2.88 10^6/uL (4.70-6.10); Red Cell Dist. Width 16.3 % (11.5-14.5); White Blood Cell Count 5.2 10^3/uL (4.8-10.8)
--- NOTE | 2024-07-05 07:03 | W.PN.HOSP.TC ---
Addendum entered and electronically signed by Tenzin Adame MD 07/05/24 13:00:
I saw and evaluated the patient. I reviewed the resident�s note and agree with findings and plan as documented in the resident�s note
Patient was seen earlier today. He appeared to be slightly drowsy and tremulous also had an asterixis
Cardiovascular system S1-S2 appreciated
Chest decreased breath sounds at bases rales on the left side
Abdomen soft nontender left lower extremity edema
Change cefepime to ceftriaxone I would use 2 g
Blood cultures are negative
Elevated inflammatory markers
Unclear if this is a progression of his CKD.
Urine sodium low possible prerenal stimulus. Doubt hepatorenal etiology
Nephrology has been consulted
Continue IV fluids
Increased ammonia noted-mild hepatic encephalopathy. Go back on lactulose to 4 times daily -was changed to twice daily because of several loose bowel movements.
Elevated CRP. Complement levels pending. Continue serology workup as ordered.
While he admitted to being slightly depressed I would hold off on starting Remeron at this point as it will be difficult to assess his encephalopathy tomorrow.
Status post 1 unit of packed red blood cells with appropriate rise in hemoglobin-he was heme-negative on exam
Thrombocytopenia and mild pancytopenia could also be from his cirrhosis
With nursing at bedside
Discussed with nephrology
to update
Original Note:
Today's Communication/Plan
-
continue abx- changesd to ceftriaxone
repeat labs in the am
nephro following-cr improving
Assessment / Plan
Assessment / Plan
74-year-old male s/p Left hip orif 06/20/24 with history of A-fib, CHF, CKD 3b, presented with a fever and mild cough.
#Sepsis- likely source left lower lobe pneumonia, less likely surgical site infection
-s/p 2 bag dextrose with na bicarb
-continue Iv abx ; cefepime changes to ceftriaxone, will narrow after blood and sputum culture are back
-mrsa screen negative; vanco d/c
-BC NGTD
-speech recs regular solid/thin liquids
-wbc improving; repeat cxr progressed PNA
-encourage use of incentive spirometer
-Robitussin for cough
-esr 40, crp 149
heptoglobin pending
-check ammonia
#nausea/vomting/diarrhea
- s/p 1 dose tigan 07/03
- decreased lactulose to bid
- c diff neagtive
- resolved
#Depression/insomnia
-consider rameron 7.5 at hs
#hypocalcemia- likely from vit D def
-calcium carbonate 500mg bid PO
- i naty is loq 0.97
-start vit d3 50mcg
#Lactic acidosis
-resolved
# recent Left hip ORIF
- Left LE edema
- Doppler negative
-xray unramarkable for any changes besides post op
-[place] still in-to be removed on July 04
-Weightbearing as tolerated
#anemia of chronic disease- hb 8.6 baseline around 8
-s/p 1 pRBC 07/04/24
-erythropoietin pending
#chronic thrombocytopenia
-platelet 88;repeat cbc in the am
#Elevated creatine w/CKD stage 3b
-cr 2.7- junior on ckd
-hold lasix for now
-nephro input appreciated
-usg kidney and bladder unremarkable
- Cr increasing despite IVF-may be ATN phase, IVF 1/2 NS with bicarb
#hyperbilirubinemia
#hxt of hepatic encephalopathy
#alcohol cirrhosis
-total bili4.2;direct 2.0
-continue lactulose
#alcohol abuse
-last drink 3 weeks ago
-no concern for withdrawal sym
#Parox afib
-Not on anticoagulation due to increased fall risk/thrombocytopenia
-continue asa and amio
#. HFpEF
-hold lasix,asa for now
-ef 50-55%
daily weights
#HLD
-statin continued
#DVT PPX - asa
Full code
Anticipated Discharge: Within 24 hours
Subjective/Interval History
-
Date of Service: July 05, 2024
Lethargic and depressed
Objective Data
-
Labs:
Laboratory Results
07/05/24
06:44
WBC 5.2
Hgb 8.6 L D
Hct 26.0 L
Plt Count 88 L D
Sodium Pending
Potassium Pending
Chloride Pending
Carbon Dioxide Pending
BUN Pending
Creatinine Pending
Glucose Pending
Calcium Pending
Total Bilirubin Pending
AST Pending
ALT Pending
Alkaline Phosphatase Pending
Vital Signs:
Vital Signs
Temp Pulse Resp BP Pulse Ox
97.9 F 62 20 118/62 93
07/05/24 03:15 07/05/24 03:15 07/05/24 03:15 07/05/24 03:15 07/05/24 03:15
I&O
07/04/24 07/05/24 07/06/24
06:59 06:59 06:59
Intake Total 1670 / 1670 1750 / 1750
Output Total 700 / 700 275 / 275
Balance 970 / 970 1475 / 1475
Review of Systems
-
History Source: Patient
EENT: Denies Sore Throat
Respiratory: Reports Cough; Denies Trouble Breathing
Cardiac: Denies Chest Pain
Abdomen/GI: Denies Abdominal Pain
Neuro: Denies Dizzy
Psych: Reports Sad
Physical Exam
-
General: Well Developed, Well Nourished and Comfortable
Respiratory: Wheezes (improved) and Non Labored Respirations; Negative Accessory Resp Muscle Use
Cardiac: Regular Rhythm and S1/S2
GI: Soft and Nontender
Musculoskeletal: Edema, Left Lower Extrem
Skin: Warm and Dry
Neuro: Awake, Alert and AO x 3
Psych: Calm and Depressed; Negative Confused
Data Reviewed
-
Ultrasound: Report Reviewed by me
Labs: Labs Reviewed by me, Discussed with Physician and Discussed with Patient
[2024-07-05 07:05] LABS: Ionized Calcium 0.97 mMOL/L (1.15-1.33)
[2024-07-05 07:40] LABS: Complement C3 62 mg/dl (88-165)
[2024-07-05 07:45] LABS: ALT (SGPT) 37 U/L (0-50); AST (SGOT) 80 U/L (17-59); Albumin 1.8 g/dl (3.5-5.0); Alkaline Phosphatase 89 U/L (38-126); Blood Urea Nitrogen 77 mg/dl (9-20); Calcium 6.3 mg/dl (8.4-10.2); Carbon Dioxide 22 mmol/L (22-30); Chloride 103 mmol/L (98-107); Estimated Creatinine Clearance 37 ml/min; Glucose 104 mg/dl (70-99); Potassium 4.4 mmol/L (3.5-5.1); Sodium 133 mmol/L (135-145); Total Bilirubin 4.2 mg/dl (0.2-1.3); Total Protein 3.5 g/dl (6.3-8.2); eGFR 27.97
[2024-07-05 07:55] VITALS: BP 131/97
[2024-07-05 08:24] LABS: Erythrocyte Sed Rate 40 mm/hour (0-20)
[2024-07-05] MEDS: DUPHALAC/CHRONULAC PO ×3 (09:25→21:17)
[2024-07-05] MEDS: FOLVITE 1 MG PO (09:25)
[2024-07-05] MEDS: LOW STRENGTH ASPIRIN 81 MG PO ×2 (09:25→20:36)
[2024-07-05] MEDS: STERILE WATER FOR INJECTION 10 ML IV (09:25)
[2024-07-05] MEDS: OSCAL CAL 500 500 MG PO ×3 (09:25→21:17)
[2024-07-05] MEDS: PACERONE 100 MG PO (09:25)
[2024-07-05] MEDS: MAXIPIME 2000 MG IV (09:25)
[2024-07-05] MEDS: VITAMIN D3 (cholecalciferol) 50 MCG PO (09:26)
[2024-07-05] MEDS: PROTONIX 40 MG PO ×2 (09:26→20:36)
[2024-07-05] MEDS: TYLENOL 650 MG PO ×2 (09:26→15:12)
[2024-07-05] MEDS: VITAMIN B1 100 MG PO (09:26)
[2024-07-05] MEDS: SODIUM BICARBONATE 1075 MEQ IV (09:27)
[2024-07-05] MEDS: FLUSH (NSS) 1 FLUSH IV (09:28)
[2024-07-05] MEDS: DUPHALAC/CHRONULAC 30 GRAMS PO ×2 (09:41→14:46)
[2024-07-05 11:00] VITALS: BP 107/63
[2024-07-05 12:30] LABS: Ammonia 56 umol/L (9-30)
--- NOTE | 2024-07-05 13:01 | PTCARENOTE ---
Pt is up to remove telemetry today. Discussed with Dr. Adame if she wants to continue monitor or if she is ok to remove it. Dr. Adame indicated to continue telemetry today.
[2024-07-05] MEDS: ROCEPHIN 2000 MG IV (15:06)
[2024-07-05] MEDS: STERILE WATER FOR INJECTION 20 ML IV (15:06)
--- NOTE | 2024-07-05 15:08 | W.PN.NEPH.PH ---
Today's Communication / Plan
-
cotn IVF another day
IV naty
IV fe
labs in am
Assessment/Plan
-
IMP:
DELILAH with [id number] cr 1.5-1.8
Sepsis- left lower lobe pneumonia
nausea/vomting/diarrhea
hypocalcemia-vit D def
recent Left hip ORIF 06/24
Left LE edema
Acute on chr Anemia
chronic thrombocytopenia
non gap met acidosis
Hyponatremia
hyperbilirubinemia
hxt of hepatic encephalopathy
alcohol cirrhosis
alcohol abuse
Parox afib
HFpEF
HLD
Hypoalbuminemia
Plan:
A/w sepsis, PNA
DELILAH-UA relatively bland, U na low , neg U eosinophils
prerenal specially with soft Bps and underlying cirrhosis less likely HRS with improvign cr
cont on more day of IVF-monitor UOP-improving
renal US with out hydro , PVR not high
c3 is low but in setting of cirrhosis
severe hypoalbuminemia likely contributing to his edema too in post op state
improving BPs, prn midodrine
holding diuretics
He better post PRBC, likely fe def-start IV fe
met acidosis is improving
hypocalcemia from vit D def-on po naty and s/p vit D2 today ,IV naty today
monitor mild hyponatremia
labs in am and daily wts
d/w primary
d/w nursing
-
-
Date of Service: July 05, 2024
CC / HPI / ROS
-
Chief Complaint:
DELILAH with CKD
History of Present Illness:
cr improving to 2.4
sodium stable 133
UOP improving nonoliguric so far, no sig PVR per nursing
BP stable, no fever
ON RA
hb better at 8.6, naty 6.3, alb 1.8
Review of Systems:
no cp or osb
feels weak, lethargic earlier wiht oxy now more awake, AMmonia slightly up 56
Labs
-
Labs:
WBC 5.2 10^3/uL (4.8-10.8) 07/05/24 06:44
RBC 2.88 10^6/uL (4.70-6.10) L 07/05/24 06:44
Hgb 8.6 g/dL (13.0-18.0) L D 07/05/24 06:44
Hct 26.0 % (39.0-52.0) L 07/05/24 06:44
Plt Count 88 10^3/uL (130-400) L D 07/05/24 06:44
Sodium 133 mmol/L (135-145) L 07/05/24 06:44
Potassium 4.4 mmol/L (3.5-5.1) 07/05/24 06:44
Chloride 103 mmol/L (98-107) 07/05/24 06:44
Carbon Dioxide 22 mmol/L (22-30) 07/05/24 06:44
BUN 77 mg/dl (9-20) H 07/05/24 06:44
Creatinine 2.4 mg/dL (0.7-1.3) H 07/05/24 06:44
eGFR 27.97 07/05/24 06:44
Glucose 104 mg/dl (70-99) H 07/05/24 06:44
Calcium 6.3 mg/dl (8.4-10.2) L* 07/05/24 06:44
Albumin 1.8 g/dl (3.5-5.0) L 07/05/24 06:44
Physical Exam
-
Vital Signs:
Vital Signs
Temp Pulse Resp BP Pulse Ox
98.1 F 58 16 107/63 94
07/05/24 11:00 07/05/24 11:00 07/05/24 11:00 07/05/24 11:00 07/05/24 11:00
Cardiovascular:: Regular rate and rhythm
Respiratory:: Bilateral: Rales (left base)
Lung Excursion:: Normal
Abdomen:: Nontender and Soft
Extremity Edema:: +3: Left: and None: Right:
Silverio Catheter: No
[2024-07-05] MEDS: FLUSH (NSS) 2 FLUSH IV (15:10)
[2024-07-05 15:30] VITALS: BP 127/55
[2024-07-05] MEDS: FERRLECIT 110 MG IV (16:52)
--- NOTE | 2024-07-05 17:45 | PTCARENOTE ---
Made Dr. Adame aware that pt has had 3 BMs today, last one being very large, liquid brown. Dr. Adame indicated that it is ok to hold 1800 dose of Lactulose.
[2024-07-05] MEDS: CALCIUM GLUCONATE 130 MG IV (18:50)
[2024-07-05 19:05] VITALS: BP 129/56
[2024-07-05] MEDS: LIPITOR 40 MG PO (21:17)
[2024-07-05 23:09] VITALS: BP 116/59
[2024-07-06] VITALS (8 sets, daily range): BP systolic 122–147; BP diastolic 52–68; PULSE 64–65; O2SAT 96; BMI 31.0
[2024-07-06] MEDS: SODIUM BICARBONATE 1075 MEQ IV (03:05)
[2024-07-06] MEDS: ROBITUSSIN 100 MG PO (03:06)
[2024-07-06 07:40] LABS: Hematocrit 29.4 % (39.0-52.0); Hemoglobin 9.4 g/dL (13.0-18.0); Mean Corpuscular Hgb 28.9 pg (27.0-31.0); Mean Corpuscular Volume 90.5 fL (80.0-94.0); Mean Platelet Volume 12.1 fL (7.4-10.4); Platelet Count 94 10^3/uL (130-400); Red Blood Cell Count 3.25 10^6/uL (4.70-6.10); Red Cell Dist. Width 16.3 % (11.5-14.5); White Blood Cell Count 4.8 10^3/uL (4.8-10.8)
[2024-07-06 07:45] LABS: Ammonia < 9 umol/L (9-30)
--- NOTE | 2024-07-06 07:59 | W.PN.HOSP.TC ---
Addendum entered and electronically signed by Lnein Schulz MD 07/06/24 16:27:
Seen and examined by me independently in collaboration with the outside medical sales representative.
Lab data and imaging data reviewed.
Addendum as below :
Patient with ongoing large-volume loose stools. His current hypokalemia and worsened renal function suggestive of JUNIOR suspect some of it may be fluid losses from diarrhea. Hold lactulose today. Ammonia level is normal now and is mentating okay.
Replete potassium. Continue with IV fluids per nephrology and follow creatinine in a.m.
From pneumonia standpoint patient is afebrile and oxygenating well and hemodynamically stable. Has reached medical stability for discharge from pneumonia standpoint.
Obtain PT OT eval for disposition.
Original Note:
Today's Communication/Plan
-
hold lactulose
replete k
bmp in the am
pt/ot
Assessment / Plan
Assessment / Plan
74-year-old male s/p Left hip orif 06/20/24 with history of A-fib, CHF, CKD 3b, presented with a fever and mild cough.
#Sepsis- likely source left lower lobe pneumonia, less likely surgical site infection
-s/p 2 bag dextrose with na bicarb
-continue Iv abx ; cefepime changes to ceftriaxone on 07/05, will narrow after blood and sputum culture are back
-mrsa screen negative; vanco d/c
-BC NGTD
-speech recs regular solid/thin liquids
-wbc improving; repeat cxr progressed PNA
-encourage use of incentive spirometer
-Robitussin for cough
-esr 40, crp 149
heptoglobin pending
-ammonia was high 07/05/24; lactulose increased, ammonia loq on 07/06/24 and patient having large BM; hold lactulose for now
- kcl 40 for hypokalemia today
#nausea/vomting/diarrhea
- s/p 1 dose tigan 07/03
- c diff neagtive
#Depression/insomnia
-consider rameron 7.5 at hs
#hypocalcemia- likely from vit D def
-calcium carbonate 500mg bid PO
- I naty is 0.97
- vit d3 50mcg
#Lactic acidosis
-resolved
# recent Left hip ORIF
- Left LE edema
- Doppler negative
-xray unramarkable for any changes besides post op
-Lail[place] still in-to be removed on July 04
-Weightbearing as tolerated
#anemia of chronic disease- hb 8.6 baseline around 8
-s/p 1 pRBC 07/04/24
-erythropoietin pending
#chronic thrombocytopenia
-platelet 94;repeat cbc in the am
#Elevated creatine w/CKD stage 3b
-cr 2.4- junior on ckd
-hold lasix for now
-nephro input appreciated
-usg kidney and bladder unremarkable
#hyperbilirubinemia
#hxt of hepatic encephalopathy
#alcohol cirrhosis
-total bili 2.9
#alcohol abuse
-last drink 3 weeks ago
-no concern for withdrawal sym
#Parox afib
-Not on anticoagulation due to increased fall risk/thrombocytopenia
-continue asa and amio
#. HFpEF
-hold lasix,asa for now
-ef 50-55%
daily weights
#HLD
-statin continued
#DVT PPX - asa
Full code
Anticipated Discharge: 24 - 48 hours
Subjective/Interval History
-
Date of Service: July 06, 2024
no new complaints
Objective Data
-
Labs:
Laboratory Results
07/06/24
07:14
WBC 4.8
Hgb 9.4 L
Hct 29.4 L
Plt Count 94 L
Sodium Pending
Potassium Pending
Chloride Pending
Carbon Dioxide Pending
BUN Pending
Creatinine Pending
Glucose Pending
Calcium Pending
Total Bilirubin Pending
AST Pending
ALT Pending
Alkaline Phosphatase Pending
Vital Signs:
Vital Signs
Temp Pulse Resp BP Pulse Ox
97.9 F 61 16 122/52 96
07/06/24 07:02 07/06/24 07:02 07/06/24 07:02 07/06/24 07:02 07/06/24 07:02
I&O
07/05/24 07/06/24 07/07/24
06:59 06:59 06:59
Intake Total 1750 / 1750 2610 / 2610
Output Total 275 / 275 1565 / 1565
Balance 1475 / 1475 1045 / 1045
Review of Systems
-
History Source: Patient
EENT: Denies Sore Throat
Respiratory: Denies Cough or Trouble Breathing
Cardiac: Denies Chest Pain
Abdomen/GI: Denies Abdominal Pain
Neuro: Denies Dizzy
Psych: Reports Sad
Physical Exam
-
General: Well Developed, Well Nourished and Comfortable
Respiratory: Non Labored Respirations; Negative Wheezes or Accessory Resp Muscle Use
Cardiac: Regular Rhythm and S1/S2
GI: Soft and Nontender
Musculoskeletal: Edema, Left Lower Extrem
Skin: Warm and Dry
Neuro: Awake, Alert and AO x 3
Psych: Calm and Depressed; Negative Confused
Data Reviewed
-
Labs: Labs Reviewed by me, Discussed with Physician and Discussed with Patient
[2024-07-06 08:31] LABS: ALT (SGPT) 45 U/L (0-50); AST (SGOT) 100 U/L (17-59); Albumin 1.9 g/dl (3.5-5.0); Alkaline Phosphatase 103 U/L (38-126); Blood Urea Nitrogen 74 mg/dl (9-20); Calcium 6.7 mg/dl (8.4-10.2); Carbon Dioxide 20 mmol/L (22-30); Chloride 105 mmol/L (98-107); Estimated Creatinine Clearance 38 ml/min; Glucose 96 mg/dl (70-99); Sodium 135 mmol/L (135-145); Total Bilirubin 2.9 mg/dl (0.2-1.3); Total Protein 3.7 g/dl (6.3-8.2); eGFR 29.43
[2024-07-06] MEDS: DUPHALAC/CHRONULAC PO ×2 (09:28→12:54)
[2024-07-06] MEDS: LOW STRENGTH ASPIRIN 81 MG PO ×2 (09:29→20:04)
[2024-07-06] MEDS: PROTONIX 40 MG PO ×2 (09:29→20:04)
[2024-07-06] MEDS: VITAMIN B1 100 MG PO (09:29)
[2024-07-06] MEDS: FEOSOL 325 MG PO (09:29)
[2024-07-06] MEDS: PACERONE 100 MG PO (09:29)
[2024-07-06] MEDS: OSCAL CAL 500 500 MG PO ×3 (09:29→22:08)
[2024-07-06] MEDS: FOLVITE 1 MG PO (09:30)
[2024-07-06] MEDS: VITAMIN D3 (cholecalciferol) 50 MCG PO (09:30)
--- NOTE | 2024-07-06 11:42 | W.PN.NEPH.PH ---
Today's Communication / Plan
-
Follow BMP
Replete potassium
Replete calcium
Ionized calcium in a.m.
Can utilize IV albumin for blood pressure as needed
Assessment/Plan
-
IMP:
DELILAH with [id number] cr 1.5-1.8
Sepsis- left lower lobe pneumonia
nausea/vomting/diarrhea
hypocalcemia-vit D def
recent Left hip ORIF 06/24
Left LE edema
Acute on chr Anemia
chronic thrombocytopenia
non gap met acidosis
Hyponatremia
hyperbilirubinemia
hxt of hepatic encephalopathy
alcohol cirrhosis
alcohol abuse
Parox afib
HFpEF
HLD
Hypoalbuminemia
Plan:
A/w sepsis, PNA
DELILAH-UA relatively bland, U na low , neg U eosinophils
prerenal specially with soft Bps and underlying cirrhosis less likely HRS with improvign cr
UOP-improving, creatinine at 2.3, nonoliguric with urine output around 1500 cc
Replete potassium
renal US with out hydro , PVR not high
c3 is low but in setting of cirrhosis
severe hypoalbuminemia likely contributing to his edema too in post op state
improving BPs, prn midodrine
holding diuretics
He better post PRBC, likely fe def-start IV fe
met acidosis is improving
hypocalcemia from vit D def-on po naty and s/p vit D2 today ,IV naty again today
follow up ionized calcium in am
monitor mild hyponatremia
labs in am and daily wts
d/w primary
d/w nursing
-
-
Date of Service: July 06, 2024
CC / HPI / ROS
-
Chief Complaint:
DELILAH with CKD
History of Present Illness:
cr improving to 2.3
sodium stable 135
K low
UOP improving nonoliguric so far, no sig PVR per nursing
BP stable, no fever
ON RA
hb better at 8.6, naty 6.3, alb 1.8
Review of Systems:
no cp or osb
feels weak, lethargic earlier wiht oxy now more awake, AMmonia slightly up 56
Labs
-
Labs:
WBC 4.8 10^3/uL (4.8-10.8) 07/06/24 07:14
RBC 3.25 10^6/uL (4.70-6.10) L 07/06/24 07:14
Hgb 9.4 g/dL (13.0-18.0) L 07/06/24 07:14
Hct 29.4 % (39.0-52.0) L 07/06/24 07:14
Plt Count 94 10^3/uL (130-400) L 07/06/24 07:14
Sodium 135 mmol/L (135-145) 07/06/24 07:14
Potassium 3.0 mmol/L (3.5-5.1) L D 07/06/24 07:14
Chloride 105 mmol/L (98-107) 07/06/24 07:14
Carbon Dioxide 20 mmol/L (22-30) L 07/06/24 07:14
BUN 74 mg/dl (9-20) H 07/06/24 07:14
Creatinine 2.3 mg/dL (0.7-1.3) H 07/06/24 07:14
eGFR 29.43 07/06/24 07:14
Glucose 96 mg/dl (70-99) 07/06/24 07:14
Calcium 6.7 mg/dl (8.4-10.2) L* 07/06/24 07:14
Albumin 1.9 g/dl (3.5-5.0) L 07/06/24 07:14
Physical Exam
-
Vital Signs:
Vital Signs
Temp Pulse Resp BP Pulse Ox
97.9 F 61 16 122/52 96
07/06/24 07:02 07/06/24 09:29 07/06/24 07:02 07/06/24 09:29 07/06/24 09:24
Cardiovascular:: Regular rate and rhythm
Respiratory:: Bilateral: Rales (left base)
Lung Excursion:: Normal
Abdomen:: Nontender and Soft
Extremity Edema:: +3: Left: and None: Right:
Silverio Catheter: No
[2024-07-06] MEDS: FERRLECIT 110 MG IV (12:43)
[2024-07-06] MEDS: KCL 40 MEQ PO (12:43)
[2024-07-06] MEDS: FLUSH (NSS) 1 FLUSH IV ×3 (12:44→14:30)
[2024-07-06] MEDS: ROCEPHIN 2000 MG IV (14:02)
[2024-07-06] MEDS: STERILE WATER FOR INJECTION 20 ML IV (14:02)
[2024-07-06 14:28] LABS: Rheumatoid Agglutinin Less Than 10 IU (<10 IU)
[2024-07-06] MEDS: CALCIUM GLUCONATE 130 MG IV (14:30)
--- NOTE | 2024-07-06 16:02 | PTCARENOTE ---
Pt AAO x3; forgetful at times. COELHO slowly; has frequent jerking tremors of arms/legs. OOB to chair with assist x2/walker, john well. No c/o Lt hip pain with oOB activity. VSS. Telemetry:NSR. On room air- pulse ox 97%, no SOB noted. Abd obese,
soft, john PO. Incont large amts loose jacob/brown BM. Voids frederick urine in urinal; also incont at times. Lt hip dsg D/I. IVF's 1/2NSS with 75 meq NaHCO3 @ 75 ml/hr infusing via Rt forearm site without sx of ibfiltration. Resting in bed at present,
no c/o. Will continue to monitor.
--- NOTE | 2024-07-06 16:47 | CM ---
Referral sent to [facility] for return to continue rehab services at SNF. CM to follow up in AM to determine if a bed will be available for Everardo to return to [facility] at discharge.
[2024-07-06] MEDS: DUPHALAC/CHRONULAC 30 GRAMS PO (20:02)
[2024-07-06] MEDS: LIPITOR 40 MG PO (22:08)
[2024-07-06 23:34] LABS: Erythropoietin (EPO) 64 mU/mL (4-27)
[2024-07-07 03:30] VITALS: BP 120/60
[2024-07-07 06:00] VITALS: BMI 31.0
--- NOTE | 2024-07-07 07:22 | W.PN.HOSP.TC ---
Addendum entered and electronically signed by Hector Gilmore MD, Resident 07/07/24 18:08:
PT/OT evaluated him and recommended rehab however he refused to return to the rehab and insisted on going home AGAINST MEDICAL ADVICE and states ' I will sign any form to go home'. We spoke to regarding ongoing situation and she seemed
helpless and agreed to follow Mr. Restrepo's wishes. He was seen by psychiatrist who advised patient's capacity appears intact, patient remained willing to leave AMA. BMP prescription was provided. Antibiotics sent to the pharmacy . Patient
understand low potassium can cause cardiac ill effects including ventral fibrillation and arrhythmias which can also result in neurological problems including stroke. He understands without Pt/ot his risk of fall is high which can potentially cause
another fracture.
Addendum entered and electronically signed by Lenin Schulz MD 07/07/24 14:25:
seen and examined by me independently in collaboration with the medical services assistant.
Lab data and imaging data reviewed.
Addendum as below :
Patient with 3 loose bowel movements today. He had only 1 dose of lactulose yesterday.
Denies any abdominal pain. No nausea vomiting. Not much appetite. Abdomen is soft. Electrolyte abnormalities of low potassium secondary to diarrhea noted. Improving creatinine .
replete IV and p.o. potassium today and repeat BMP later today.
No tenderness to pneumonia-patient denies any cough, shortness of breath. Afebrile. White count is normal. Chest is clear without any added sounds. Will complete total of 7-day course of antibiotics. Will switch to Ceftin p.o. at the time of
discharge.
Patient is alert and oriented. Mini-Mental status exam today 26 which is normal.
He was advised that he would benefit another day in the hospital to replete the potassium and follow the kidney function as well as his diarrheal output.
He says he wants to go home.
He understands low potassium can cause cardiac ill effects including ventricular fibrillation and arrhythmias. Offered him to check his stools for more testing including norovirus.
Dwelled onhis physical ability in the setting of ongoing diarrhea. He says at home he would better at him as he has powder room the next his living room. He has a walker and has a urinal chair. He thinks he will do okay at home. Went over
concerns of physical disabilities and need of Rehab as recommended by PT . He states that he is not returning to rehab again.
I feel he understands the dz of pneumoina, diarrhea , hypokalemia and renal dysfunction tx and ill effects if not corrected appropriately.
. Discharge would be AGAINST MEDICAL ADVICE and he said he would like to go home today and will sign the document.
Left a message to his on the listed phone number.
Original Note:
Today's Communication/Plan
-
Replete potassium, IV 40 and p.o. 40 mEq in the a.m. and p.o. 40 mEq in the p.m.
P.o. antibiotics Ceftin 500 mg twice daily
Hold lactulose
Updated Ortho for potential removal of skin clips
actuarial manager aware
Assessment / Plan
Assessment / Plan
74-year-old male s/p Left hip orif 06/20/24 with history of A-fib, CHF, CKD 3b, presented with a fever and mild cough.
#Sepsis- likely source left lower lobe pneumonia, less likely surgical site infection
-s/p 2 bag dextrose with na bicarb
-continue abx ; ceftriaxone changes to Ceftin 500 mg twice daily
-mrsa screen negative; vanco d/c
-BC NGTD
-speech recs regular solid/thin liquids
-wbc improving; repeat cxr progressed PNA
-encourage use of incentive spirometer
-Robitussin for cough
-esr 40, crp 149
heptoglobin pending
-ammonia was high 07/05/24; lactulose increased, ammonia low on 07/06/24 and patient having large BM; hold lactulose for now
- will check MME today
#nausea/vomting/diarrhea
- s/p 1 dose tigan 07/03
- c diff neagtive
-check for noro
#Depression/insomnia
- likely due to electrolyte imbalance
#hypocalcemia- likely from vit D def
-calcium carbonate 500mg bid PO
- I naty is 1.05
- vit d3 50mcg
#Lactic acidosis
-resolved
# recent Left hip ORIF
- Left LE edema
- Doppler negative
-xray unramarkable for any changes besides post op
-[place] still in-to be removed; ortho updated
-Weightbearing as tolerated
#anemia of chronic disease- hb 8.6 baseline around 8
-s/p 1 pRBC 07/04/24
-erythropoietin 64H
#chronic thrombocytopenia
-platelet 94;repeat cbc in the am
#Elevated creatine w/CKD stage 3b wwith hypoKalemia
-cr 2.2
-hold lasix for now
-nephro input appreciated
-usg kidney and bladder unremarkable
- Iv kcl40 and po 40meq today in the Am, 40meq po in the pm
#hyperbilirubinemia
#hxt of hepatic encephalopathy
#alcohol cirrhosis
-total bili 2.9
#alcohol abuse
-last drink 3 weeks ago
-no concern for withdrawal sym
#Parox afib
-Not on anticoagulation due to increased fall risk/thrombocytopenia
-continue asa and amio
#. HFpEF
-hold lasix,asa for now
-ef 50-55%
daily weights
#HLD
-statin continued
#DVT PPX - asa
Full code
Anticipated Discharge: Within 24 hours
Subjective/Interval History
-
Date of Service: July 07, 2024
Large watery BM, 3 in last 12 hrs
Objective Data
-
Labs:
Laboratory Results
07/07/24
06:00
WBC Pending
Hgb Pending
Hct Pending
Plt Count Pending
Sodium Pending
Potassium Pending
Chloride Pending
Carbon Dioxide Pending
BUN Pending
Creatinine Pending
Glucose Pending
Calcium Pending
Vital Signs:
Vital Signs
Temp Pulse Resp BP Pulse Ox
97.9 F 64 20 120/60 94
07/07/24 03:30 07/07/24 03:30 07/07/24 03:30 07/07/24 03:30 07/07/24 03:30
I&O
07/06/24 07/07/24 07/08/24
06:59 06:59 06:59
Intake Total 2610 / 2610 4350 / 4350
Output Total 1565 / 1565 1225 / 1225
Balance 1045 / 1045 3125 / 3125
Review of Systems
-
History Source: Patient
EENT: Denies Sore Throat
Respiratory: Denies Cough or Trouble Breathing
Cardiac: Denies Chest Pain
Abdomen/GI: Reports Diarrhea; Denies Abdominal Pain, Nausea or Vomiting
Neuro: Denies Dizzy
Psych: Reports Sad
Physical Exam
-
General: Well Developed, Well Nourished and Comfortable
Respiratory: Non Labored Respirations; Negative Wheezes or Accessory Resp Muscle Use
Cardiac: Regular Rhythm and S1/S2
GI: Soft and Nontender
Musculoskeletal: Edema, Left Lower Extrem
Skin: Warm and Dry
Neuro: Awake, Alert and AO x 3
Psych: Calm and Depressed; Negative Confused
Data Reviewed
-
Labs: Labs Reviewed by me, Discussed with Physician and Discussed with Patient
[2024-07-07 07:25] VITALS: BP 130/60
[2024-07-07 07:57] LABS: Ionized Calcium 1.05 mMOL/L (1.15-1.33)
--- NOTE | 2024-07-07 08:00 | PTCARENOTE ---
sclera noted with yellow tint
[2024-07-07 08:45] LABS: Hematocrit 30.4 % (39.0-52.0); Hemoglobin 9.7 g/dL (13.0-18.0); Mean Corp Hgb Conc. 31.9 g/dL (33.0-37.0); Mean Corpuscular Hgb 29.3 pg (27.0-31.0); Mean Corpuscular Volume 91.8 fL (80.0-94.0); Mean Platelet Volume 11.5 fL (7.4-10.4); Platelet Count 98 10^3/uL (130-400); Red Blood Cell Count 3.31 10^6/uL (4.70-6.10); Red Cell Dist. Width 16.6 % (11.5-14.5)
[2024-07-07 08:53] LABS: Blood Urea Nitrogen 63 mg/dl (9-20); Calcium 7.2 mg/dl (8.4-10.2); Carbon Dioxide 19 mmol/L (22-30); Chloride 106 mmol/L (98-107); Estimated Creatinine Clearance 40 ml/min; Glucose 87 mg/dl (70-99); Potassium 2.7 mmol/L (3.5-5.1); Sodium 136 mmol/L (135-145); eGFR 31.05
[2024-07-07] MEDS: DESENEX/MITRAZOL/ZEASORB 1 APPLIC TOPICAL ×2 (09:39)
[2024-07-07] MEDS: KCL 40 MEQ PO (09:46)
[2024-07-07] MEDS: FOLVITE 1 MG PO (09:46)
[2024-07-07] MEDS: PROTONIX 40 MG PO (09:46)
[2024-07-07] MEDS: OSCAL CAL 500 500 MG PO ×2 (09:46→18:02)
[2024-07-07] MEDS: LOW STRENGTH ASPIRIN 81 MG PO (09:47)
[2024-07-07] MEDS: VITAMIN D3 (cholecalciferol) 50 MCG PO (09:47)
[2024-07-07] MEDS: PACERONE 100 MG PO (09:47)
[2024-07-07] MEDS: VITAMIN B1 100 MG PO (09:47)
[2024-07-07] MEDS: DUPHALAC/CHRONULAC PO (10:04)
[2024-07-07 10:24] LABS: CCP Antibody IgG/IgA 1 Units (0-19)
[2024-07-07 11:03] VITALS: BP 134/56; BP 143/58; PULSE 70; O2SAT 97
[2024-07-07 11:06] VITALS: BP 134/56; BP 143/58; PULSE 72
[2024-07-07] MEDS: FLUSH (NSS) 2 FLUSH IV ×2 (11:23→11:27)
[2024-07-07] MEDS: FERRLECIT 110 MG IV (11:26)
[2024-07-07 11:42] VITALS: BP 128/58
[2024-07-07] MEDS: KCL 270 MEQ IV (12:54)
[2024-07-07 13:37] LABS: Haptoglobin 176 mg/dL (30-200)
--- NOTE | 2024-07-07 14:56 | CM ---
Addendum entered by Kerline Pearl 07/07/24 16:13:
Update to my note: Mrs. Restrepo does NOT have the capacity to provide the care he needs.
Original Note:
Case discussed with Drs. Schulz and Jad earlier today. Pt is not medically cleared for discharge and they advised Everardo that if he insisted on discharge to home, it would be against medical advice.
CM spoke with Everardo's to make her aware that Everardo is adamant about going home and will not agree to go to any SNF at this time. Mrs. Restrepo does have the capacity to provide the care he needs.
TT to Drs. Schulz and Jad to request a call to Everardo's to discuss.
Additional SNF referrals sent to the following facilities:
[facility] [address] [place] [address]
[facility] [phone] [place] [address]
[facility] [phone] [place] [address]
[facility] [address] [place] [address]
[facility] [address] [place] [address]
[facility] [address] [place] [address]
[facility]: [id number]
CM will continue to follow.
[2024-07-07 15:02] VITALS: BP 143/65
--- NOTE | 2024-07-07 16:06 | CS.PSYCHR ---
Consult Summary - Psychiatry
-
Pt is 74 yo male, recently admitted after a fall and hip fracture, S/P ORIF approx 2 weeks ago. Pt was seen by psychiatry then due to refusing recommendation to go to SNF. Pt agreed to go to [facility], was re-admitted to 07/01 with fever,
diagnosed with LLL pneumonia. Pt having diarrhea on Ceftin, currently getting infusion for low Potassium. Pt seen sitting up in chair with headphones on. Pt alert, oriented, calm, cooperative with care, but insists on being discharged. Pt states
he has been away from home for over 2 weeks and would feel more comfortable there. Pt states he is aware of his medical status, states he is able to get around using a walker. Pt states he is willing to sign out AMA, does not want to stay another
night here.
Psych Hx: denied. Seen by psychiatry during last admission one week ago for similar situation; previous psych consult at May 2023
Substance use: hx of alcohol abuse, was able to stay sober for almost 2 years, does not drive which limits access, but noted to have started drinking again before previous admission approx 2 to 3 weeks ago
PMH: CHF, Iron deficiency anemia, CKD, alcoholic cirrhosis of liver, portal hypertension, A-fib, HLD
SH: lives with , past heavy alcohol use
MSE: alert, oriented, calm, cooperative. Speech coherent, thought goal-directed. No agitation. No signs of psychosis. Pt able to state his wishes clearly, gives his reason for wanting to return home, appears to understand the potential risks.
Insight appears fair to limited. Basic judgement appears intact. Pt able to recall the sequence of recent events; appears to understand his situation.
Imp/Rec: Capacity for medical/disposition decisions appears mostly intact. Pt appears to be primarily tired of being in facilities/away from home
Psychiatry will sign off; please reconsult for any further concerns
--- NOTE | 2024-07-07 17:29 | W.DCSUMMARY ---
Discharge Summary
Discharge Data
Date of Admission: 07/01/24
Date of Discharge: 07/07/24
-
Pending Results: Yes
Hospital Course
Discharging Physician : Hector Gilmore MD ; Lenin Schulz MD
Disposition : Home-AGAINST MEDICAL ADVICE
Primary care physician : Madhu Pham MD
Principal Discharge diagnosis : Sepsis- likely source left lower lobe pneumonia, DELILAH on CKD with hypokalemia, Diarrhea
Chronic Discharge diagnosis : Recent left hip ORIF, anemia of chronic disease, chronic thrombocytopenia, DELILAH on CKD stage IIIb, history of cirrhosis with history of heavy alcohol use in the past, fatty liver, paroxysmal A-fib, GERD, chronic HFpEF,
hyperlipidemia, short-term memory loss
Hospital Course : 74 y/o male with past medical history of A.fib, Ckd 3b, cirrhosis and hepatic encephalopathy, HTN, CAD, CHF presented to the ED with new onset fever found on routine vital check. He was at [facility] when he was found to have fever
of 103F. He is status post left hip ORIF with Dr. Parker on 06/20/2024 after a fall. He also reported occasional cough however denied any shortness of breath, chest pain, abdominal pain. In the ER, he was found to have Fever of 102.2, RR 20, wbc
of 12.3. Lactic acid was 2.8, He was given Tylenol which helped with the fever. Was given 1000ml of NS bolus. CXR showed Left Lower Lobe Pneumonia. Exam was positive for crackles on left lung. He was admitted to [facility] and was started on IV
cefepime and Vanco while waiting for blood and sputum culture results. Antibiotic was later switched to IV ceftriaxone and eventually to p.o. Ceftin 500 mg twice daily. His lactic acidosis resolved after normal saline bolus. Ortho was also
consulted given his recent hip surgery and he was found to be cleared from their standpoint and they recommended weightbearing as tolerated and plan was to remove nakul on 07/08/2024. During his hospital stay daily blood work showed rising
creatinine(2.7), worsening anemia(hb 7.1) and thrombocytopenia. Rectal exam was heme negative brown stools. His sed rate and CRP was elevated further blood work to evaluate for possible vasculitis was ordered. Nephrology was consulted and he was
given 1 unit of PRBC. He developed nausea and diarrhea during his hospital stay, nausea improved after 1 dose of IM Tigan, C. difficile was negative. His lactulose dose was decreased from 4 times daily to twice daily however his ammonia level
increased and he was slightly confused. Lactulose was increased back to 4 times daily however he continues to have large bowel movements and eventually lactulose was put on hold on 07/07/2024 and he was instructed to resume lactulose once his
diarrhea resolved. Patient received IV of 1/2 NS with bicarb per blood bank technician recommendation and also he was given p.o. and IV calcium and p.o. vitamin D in addition to IV fe. Patient had 3 large loose bowel movements on 07/07/2024 with potassium
of 2.7. Was given 40 mEq p.o. and 40meq IV potassium chloride. he was advised that he would benefit another day in the hospital to keep the potassium and follow the kidney function as well as his diarrhea output. He remained adamant on going home.
Mini-Mental status exam today 26. Patient understand low potassium can cause cardiac ill effects including ventral fibrillation and arrhythmias which can also result in neurological problems including stroke. We offered him to check his stool for
more testing including norovirus he refused. PT/OT evaluated him and recommended rehab however he refused to return to the rehab and insisted on going home AGAINST MEDICAL ADVICE and states ' I will sign an form to go home'. We spoke to
regarding ongoing situation and she seemed helpless and agreed to follow Mr. Restrepo's wishes. He was seen by psychiatrist who advised patient's capacity appears intact, patient remained willing to leave A. BMP prescription was provided.
Antibiotics sent to the pharmacy.
Important imaging findings : Chest x-ray 07/01 IMPRESSION: Left lower lobe pneumonia
US Periph Venous LOWER Ext LT 07/01: No sonographic evidence for left lower extremity deep venous thrombosis.
Hip x-ray 07/02:Orthopedic hardware related to left hip prosthesis is intact. No dislocation. Regional osseous structures are preserved. No osseous fracture. Postsurgical soft tissue swelling and superficial skin closure nakul are present.
Chest x-ray 07/03: Parenchymal airspace opacity within the left lower lobe, increasing from July 01 radiograph, and likely representing pneumonia.
US Renal With Bladder: Somewhat limited study, without findings to suggest renal collecting system dilatation bilaterally.
Urinary bladder virtually completely empty, cannot be evaluated.
Procedure findings :
Echo: CONCLUSIONS
Mildly LV dilation with mild concentric hypertrophy normal LVEF.
Normal RV size and function.
No significant valvular abnormalities.
Compared to the prior TTE of 06/14/2023, the LV is now mildly dilated and the
EF slightly lower.
Discharge Plan
-
Patient Disposition: Against Medical Advice
Discharge Diagnosis/Procedures: Sepsis- likely source left lower lobe pneumonia, DELILAH on CKD with hypokalemia, Diarrhea
Condition: Fair
Diet: Low Fat and 2 Gram Sodium
Activity: With assistance
Driving Restrictions: No driving
Bathing Restrictions: After dressing removed
Other Services: PT and OT
Referrals:
Madhu Pham MD [Family Provider] - in less than 1 week
Additional Discharge Medication Instructions: Take cefuroxime 500 mg 1 tablet by mouth twice daily for 4 more days
Stop docusate sodium and stop senna due to recent diarrhea can restart once routine bowel movement established.
BMP in 3 days, prescription provided.
Prescriptions:
New
cefuroxime axetil 500 mg Tablet
500 mg PO Q12H Qty: 8 0RF
Continued
folic acid 1 mg Tablet
1 mg PO DAILY Qty: 0 0RF
amiodarone [Pacerone] 200 mg Tablet
100 mg PO DAILY 30 Days Qty: 15 0RF
thiamine HCl (vitamin B1) 100 mg Tablet
100 mg PO DAILY 30 Days Qty: 30 0RF
pantoprazole 40 mg Tablet,Delayed Release (Dr/Ec)
40 mg PO BID 30 Days Qty: 60 0RF
potassium chloride [Klor-Con M20] 20 mEq Tablet,Er Particles/Crystals
20 meq PO BID
ferrous sulfate 325 mg (65 mg iron) tablet
325 mg PO Q48H
polyethylene glycol 3350 [HealthyLax] 17 gram Powder In Packet
17 g PO DAILYPRN PRN (Reason: constipation) 30 Days Qty: 30 0RF
furosemide 20 mg tablet
20 mg PO DAILY
aspirin 81 mg Tablet,Chewable
81 mg PO BID Qty: 46 0RF
oxycodone 5 mg Tablet
5 mg PO Q6HPRN PRN (Reason: severe pain) Qty: 10 0RF
acetaminophen 325 mg Tablet
650 mg PO Q4HPRN PRN (Reason: mild pain/fever)
magnesium hydroxide [Milk of Magnesia] 400 mg/5 mL Suspension
2,400 mg PO DAILYPRN PRN (Reason: if no BM for 4 days)
bisacodyl 10 mg Suppository
10 mg HI DAILYPRN PRN (Reason: if no bm on day 5 and after MOM)
Fleet Enema 19-7 gram/118 mL Enema
118 ml HI DAILYPRN PRN (Reason: if no bm after dulcolax or by day 6 no BM)
atorvastatin 40 mg tablet
40 mg PO HS
lactulose 10 gram/15 mL Solution
30 g PO QID 14 Days Qty: 3785 0RF
Rx Instructions:
Stop or reduce if more than 3 BM in 24 hrs
Discontinued
docusate sodium 100 mg Capsule
100 mg PO BID Qty: 60 0RF
sennosides [Senna Laxative] 8.6 mg Tablet
17.2 mg PO BID Qty: 60 0RF
Discharge Orders:
Discharge Patient (As Directed); Ordered 07/07/24
Ordered By: Hector Gilmore
Discharge Date and Time
Print Language: MALDIVIAN
[2024-07-07 17:49] LABS: ANA, IgG Reflex to HEp-2 None Detected (None Detected)
[2024-07-08 07:24] LABS: Myeloperoxidase Antibody 0 AU/mL (0-19); Serine Protease-3, IgG 0 AU/mL (0-19)
== END 2024-07-07 19:19 | disposition left against medical advice (07) | DRG 871 ==
LOC: 4 EAST ACU 17:12
PROVIDERS: Physician Assistant; Specialist; ADMITTING PHYSICIAN Hospitalist; ATTENDING PHYSICIAN Internal Medicine; CONSULT PHYSICIAN Internal Medicine; EMERGENCY PHYSICIAN Student in an Organized Health Care Education/Training Program; FAMILY PHYSICIAN Family Medicine; OTHER PHYSICIAN Psychiatry & Neurology Psychiatry
PROC: 30233N1 Transfusion of Nonautologous Red Blood Cells into Peripheral Vein, Percutaneous Approach (ICD-10-PCS; 2024-07-04)
DX: A41.9 Sepsis, unspecified organism (principal); J18.9 Pneumonia, unspecified organism; E87.1 Hypo-osmolality and hyponatremia; K76.6 Portal hypertension; N17.9 Acute kidney failure, unspecified; I13.0 Hypertensive heart and chronic kidney disease with heart failure and stage 1 through stage 4 chronic kidney disease, or unspecified chronic kidney disease; I50.32 Chronic diastolic (congestive) heart failure; E87.20 Acidosis, unspecified; Z53.29 Procedure and treatment not carried out because of patient's decision for other reasons; I25.10 Atherosclerotic heart disease of native coronary artery without angina pectoris; N18.32 Chronic kidney disease, stage 3b; K70.30 Alcoholic cirrhosis of liver without ascites; D63.1 Anemia in chronic kidney disease; D50.9 Iron deficiency anemia, unspecified; D69.6 Thrombocytopenia, unspecified; E55.9 Vitamin D deficiency, unspecified; F10.10 Alcohol abuse, uncomplicated; I48.0 Paroxysmal atrial fibrillation; F32.A Depression, unspecified; G25.0 Essential tremor; R19.7 Diarrhea, unspecified; R11.2 Nausea with vomiting, unspecified; E87.6 Hypokalemia; Z96.642 Presence of left artificial hip joint; Z79.82 Long term (current) use of aspirin; Z79.899 Other long term (current) drug therapy; Z87.891 Personal history of nicotine dependence; Z11.52 Encounter for screening for COVID-19
CPT/HCPCS: 71046; 73502; 76770; 80048; 80053; 80202; 81003; 81015; 81099; 82040; 82140; 82248; 82306; 82330; 82607; 82668; 82728; 83010; 83516; 83540; 83550; 83605; 83615; 84300; 85014; 85018; 85025; 85027; 85045; 85652; 86038; 86140; 86160; 86200; 86430; 86850; 86900; 86901; 86920; 86922; 87040; 87070; 87086; 87324; 87449; 87502; 87641; 87811; 92610; 93306; 93971; 96361; 96374; 96375; 97110; 97116; 97163; 97167; 97530; 97535; 99285; J2916; J7030; P9016

== ENCOUNTER 2024-07-18 12:09 | Emergency (ER) | payer MEDICARE, OTHER, SELFPAY ==
[2024-07-18 12:12] VITALS: BP 116/53
[2024-07-18 13:18] VITALS: BMI 31.2
[2024-07-18 13:22] VITALS: BP 134/51
--- NOTE | 2024-07-18 13:33 | ED.GENMED ---
History of Present Illness
General
Chief Complaint: Swelling
Source: patient
Exam Limitations: none
Time Seen by Provider: 07/18/24 13:22
History of Present Illness
History of Present Illness:
74-year-old male presents complaining of increased knee pain and swelling to the left knee. He was recently here and discharged on the of this month for sepsis secondary to pneumonia. He has a history of congestive heart failure and is on 20
mg of Lasix daily. Prior to the admission for pneumonia he fell and broke his left hip. He had ORIF. He was sent to rehab after surgery but developed pneumonia there and was sent here. Up until couple days ago he was doing well when he developed
left knee pain. No new injury. He denies orthopnea. He notes good urine output. No chest pain or shortness of breath
Past History
Past History
ED Past Medical History: CAD, HTN and Other (Alcohol abuse, cirrhosis, hepatic encephalopathy)
ED Past Surgical History: None
Social History
Tobacco: Non-smoker
Alcohol: Former
Drug: None
Personal:
Living: with family
Employment: Not employed
Phy Exam
Physical Exam
Physical Exam:
General: Well-appearing male no acute respiratory distress
HEENT: Normocephalic atraumatic
Heart: Regular rate and rhythm
Lungs: Clear no wheeze
Abdomen is soft nontender nondistended
Extremities: Significant pitting edema bilateral lower extremities no cyanosis the edema spreads to the left proximal thigh
Musculoskeletal exam: Left knee is without obvious effusion. He has full extension flexion is to about 40 degrees. There is no significant tenderness or excessive warmth about the knee.
Scores
Heart Failure Risk
Heart Failure Risk Score: Not Applicable
Course
Orders/Labs/Results
Orders:
Orders
07/18/24 13:32
CR Knee - Left 4 Or More View* Urgent
Comment:
Reason For Exam: pain
Venous Doppler Lwr Ext Left [US Periph Venous LOWER Ext LT] Urgent
Comment:
Reason For Exam: swelling
07/18/24 13:33
CR Chest - 2 Views Urgent
Comment:
Reason For Exam: swelling
07/18/24 13:38
CRP [C-Reactive Protein] Stat
NT-proBNP Urgent
07/18/24 13:44
Complete Blood Count/With Diff Urgent
Comprehensive Metabolic Panel Urgent
Sed Rate [Erythrocyte Sed Rate] Urgent
07/18/24 17:07
Case Management Consult ONCE
Case Management Consult: VN/Home Care
Abnormal Lab Results
07/18/24 07/18/24
13:38 13:44
RBC 2.46 L 10^6/uL
(4.70-6.10)
Hgb 7.2 L g/dL
(13.0-18.0)
Hct 23.2 L %
(39.0-52.0)
MCV 94.3 H fL
(80.0-94.0)
MCHC 31.0 L g/dL
(33.0-37.0)
RDW 17.2 H %
(11.5-14.5)
Plt Count 51 L 10^3/uL
(130-400)
MPV 12.1 H fL
(7.4-10.4)
Abs Immat Gran (auto) 0.1 H 10^3/uL
(0-0.05)
Absolute Lymphs (auto) 0.6 L 10^3/uL
(1.2-3.4)
Absolute Monos (auto) 0.8 H 10^3/uL
(0.1-0.6)
Immature Gran % 1.5 H %
(0-0.5)
Lymphocytes % 10.5 L %
(20.5-51.1)
Monocytes % 15.2 H %
(1.7-9.3)
Potassium 5.3 H mmol/L
(3.5-5.1)
Chloride 111 H mmol/L
(98-107)
Carbon Dioxide 19 L mmol/L
(22-30)
BUN 25 H mg/dl
(9-20)
Glucose 100 H mg/dl
(70-99)
Calcium 7.8 L mg/dl
(8.4-10.2)
Total Bilirubin 4.4 H mg/dl
(0.2-1.3)
ALT 62 H U/L
(0-50)
Alkaline Phosphatase 147 H U/L
(38-126)
C-Reactive Protein 41.20 H mg/L
(0.0-10.00)
Total Protein 4.1 L g/dl
(6.3-8.2)
Albumin 2.1 L g/dl
(3.5-5.0)
07/18/24 13:44
07/18/24 13:44
Vital Signs
Initial and Last Documented VS:
Initial Vital Signs
Temp Pulse Resp BP Pulse Ox
98.2 F 75 18 116/53 99
07/18/24 12:12 07/18/24 12:12 07/18/24 12:12 07/18/24 12:12 07/18/24 12:12
Last Documented Vital Signs
Temp Pulse Resp BP Pulse Ox
98.2 F 69 18 127/49 99
07/18/24 12:12 07/18/24 17:00 07/18/24 17:00 07/18/24 14:00 07/18/24 12:12
MDM/Problems Addressed
Differential Diagnosis Includes:
Patient complains of left knee pain and swelling. Consider effusion versus dependent edema versus CHF versus DVT. No fever here. Clinical exam not consistent with septic arthritis but will check inflammatory marker.
Venous ultrasound as well as x-ray left knee x-ray pending.
*Critical Care Note
Total Time (30-74mins, 75-104mins- exclusive of procedures): Not Applicable
Update Note
Update Note:
Reviewed labs. Hemoglobin 7.2. Patient has had low hemoglobin in the past but this is almost 2 g lower than 11 days ago. Expressed this concern to the patient and his . Ultrasound leg negative for DVT x-ray was negative for acute finding.
His inflammatory markers are elevated. Differential still could include inflammatory response versus less likely septic arthritis given lack of effusion and warmth. Offered for me to drain his knee to evaluate the fluid in his knee however he
declined. Recommended he get admitted to the hospital secondary to his ambulatory dysfunction knee pain anemia in the setting of chronic liver disease. At this point however he declined admission. urged him to stay however he did not want
to. I did involve counseling case manager to maximize home health at home. Return precautions were given. I did explain to him that his blood count is very low and he may need a transfusion he understood this.
ED Attending Note
-
Portions of this chart may have been created with voice recognition software.� Occasional wrong word or��sound alike� substitutions may have occurred due to the inherent limitations of voice recognition software.
Discharge Plan
Departure
Patient Disposition: Home (Routine Discharge)
Date of Disposition: 07/18/24
Time of Disposition: 17:52
Patient with high blood pressure during this ER visit?: No
Discharge Problem:
Anemia, Acute knee pain
Prescriptions:
No Action
folic acid 1 mg Tablet
1 mg PO DAILY Qty: 0 0RF
amiodarone [Pacerone] 200 mg Tablet
100 mg PO DAILY 30 Days Qty: 15 0RF
thiamine HCl (vitamin B1) 100 mg Tablet
100 mg PO DAILY 30 Days Qty: 30 0RF
pantoprazole 40 mg Tablet,Delayed Release (Dr/Ec)
40 mg PO BID 30 Days Qty: 60 0RF
potassium chloride [Klor-Con M20] 20 mEq Tablet,Er Particles/Crystals
20 meq PO BID
ferrous sulfate 325 mg (65 mg iron) tablet
325 mg PO Q48H
furosemide 20 mg tablet
20 mg PO DAILY
aspirin 81 mg Tablet,Chewable
81 mg PO BID Qty: 46 0RF
acetaminophen 325 mg Tablet
650 mg PO Q4HPRN PRN (Reason: mild pain/fever)
atorvastatin 40 mg tablet
40 mg PO HS
lactulose 10 gram/15 mL Solution
30 g PO QID 14 Days Qty: 3785 0RF
Rx Instructions:
Stop or reduce if more than 3 BM in 24 hrs
Referrals:
Darlene Quintero CRNP [Family Provider] -
Activity Restrictions/Additional Instructions:
As discussed, you are anemic. Your hemoglobin is 7.2. This is decreased from 10 days prior. It was recommended you stay in the hospital however you declined. Please follow-up with your family doctor closely for recheck of your blood count in the
next 2 to 3 days. Return here for any worsening symptoms otherwise
Interventions
Interventions:
*Risk Screen - Suicide Last Done: 07/18/24 12:12
*General Assessment Last Done: 07/18/24 12:12
*Neglect/Abuse Screening Last Done: 07/18/24 12:12
ED- Fall Risk Assessment Last Done: 07/18/24 13:26
*ED COVID-19 Vaccine History Last Done: 07/18/24 12:12
ED- Cardiac Assessment Last Done: 07/18/24 13:25
ED- Pulmonary Assessment Last Done: 07/18/24 13:25
ED-Skin Assessment Last Done: 07/18/24 12:59
Discharge Date and Time
Print Language: HUNGARIAN
[2024-07-18 14:00] VITALS: BP 127/49
[2024-07-18 14:00] LABS: % Basophils 0.6 % (0-2); % Eosinophils 2.1 % (0-6); % Immature Granulocytes 1.5 % (0-0.5); % Lymphocytes 10.5 % (20.5-51.1); % Monocytes 15.2 % (1.7-9.3); % Neutrophils 70.1 % (42.2-75.2); Absolute Eosinophils 0.1 10^3/uL (0-0.7); Absolute Immature Granulocytes 0.1 10^3/uL (0-0.05); Absolute Lymphocytes 0.6 10^3/uL (1.2-3.4); Absolute Monocytes 0.8 10^3/uL (0.1-0.6); Absolute Neutrophils 3.7 10^3/uL (1.4-6.5); Hematocrit 23.2 % (39.0-52.0); Hemoglobin 7.2 g/dL (13.0-18.0); Mean Corpuscular Hgb 29.3 pg (27.0-31.0); Mean Corpuscular Volume 94.3 fL (80.0-94.0); Nucleated Red Blood Cells % 0 % (-); Red Blood Cell Count 2.46 10^6/uL (4.70-6.10); Red Cell Dist. Width 17.2 % (11.5-14.5); White Blood Cell Count 5.3 10^3/uL (4.8-10.8)
[2024-07-18 14:09] LABS: ALT (SGPT) 62 U/L (0-50); AST (SGOT) 56 U/L (17-59); Albumin 2.1 g/dl (3.5-5.0); Alkaline Phosphatase 147 U/L (38-126); Blood Urea Nitrogen 25 mg/dl (9-20); Calcium 7.8 mg/dl (8.4-10.2); Carbon Dioxide 19 mmol/L (22-30); Chloride 111 mmol/L (98-107); Estimated Creatinine Clearance 82 ml/min; Glucose 100 mg/dl (70-99); Potassium 5.3 mmol/L (3.5-5.1); Sodium 136 mmol/L (135-145); Total Bilirubin 4.4 mg/dl (0.2-1.3); Total Protein 4.1 g/dl (6.3-8.2); eGFR > 60.00
[2024-07-18 14:15] LABS: NT-proBNP 1770 pg/ml
[2024-07-18 14:19] LABS: Mean Platelet Volume 12.1 fL (7.4-10.4); Platelet Count 51 10^3/uL (130-400)
[2024-07-18 15:26] LABS: Erythrocyte Sed Rate 12 mm/hour (0-20)
--- NOTE | 2024-07-18 17:43 | CM ---
Case management consult placed. Patient has not been able to stand or walk for the last 5 days. He has Randy PT/SN at home. Per , who is also at bedside, the nurse and PT had a conversation with patient and educated him on why he needed to come
to the hospital.
Patient is adamantly declining STR. He repeatedly stated that he would pay for transport, to go home. CM educated patient about the importance of moving and getting around. Patient repeatedly shrugged his shoulders and said he's giving up.
stated that there have been talks of hospice.
CM provided with a list of private duty caregivers in the area. shared that she has attempted to look into private duty caregivers but doesn't agree that they have a minimum required amount of hours that they must be in the home each week.
Above shared with attending physician.
== END 2024-07-18 20:53 | disposition home or self-care (01) ==
LOC: EMR 12:09
PROVIDERS: Physician Assistant; EMERGENCY PHYSICIAN Emergency Medicine; FAMILY PHYSICIAN Nurse Practitioner Adult Health
DX: D64.9 Anemia, unspecified (principal); M25.562 Pain in left knee; R60.0 Localized edema; I11.0 Hypertensive heart disease with heart failure; I50.9 Heart failure, unspecified; I25.10 Atherosclerotic heart disease of native coronary artery without angina pectoris; K76.82 Hepatic encephalopathy; K74.60 Unspecified cirrhosis of liver; Z98.890 Other specified postprocedural states; Z87.01 Personal history of pneumonia (recurrent); Z79.82 Long term (current) use of aspirin
CPT/HCPCS: 99285; 71046; 73564; 80053; 83880; 85025; 85652; 86140; 93971

== ENCOUNTER 2024-07-27 14:48 | Inpatient (IN) | payer MEDICARE, OTHER, SELFPAY ==
[2024-07-26] VITALS (8 sets, daily range): BP systolic 105–121; BP diastolic 44–52; BMI 30.7
--- NOTE | 2024-07-26 13:09 | ED.GENMED ---
History of Present Illness
General
Chief Complaint: Extremity Pain (non-traumatic)
Source: patient and family
Time Seen by Provider: 07/26/24 11:05
History of Present Illness
History of Present Illness:
74-year-old male with a history of liver disease and chronic alcoholism who presents with persistent left leg swelling and inability to get out of bed or his chair at home. Family states he was here after a hip fracture and had it repaired. He
subsequently went to rehab and then again was hospitalized for pneumonia. After the hospitalization he refused to go back to rehab. Since then he really has not gotten out of bed. He was here in the emergency department for workup and was advised
to stay in the hospital but declined. The patient states today that he thinks he needs to stay. Family is concerned about sores on his backside as well. No vomiting. No fevers. states he has sores on the backside. Daughter states that he
cognitively has not quite been himself and is making poor decisions.
Past History
Past History
ED Past Medical History: CAD, HTN and Other (Alcohol abuse, cirrhosis, hepatic encephalopathy)
ED Past Surgical History: None
Social History
Tobacco: Non-smoker
Alcohol: Former
Drug: None
Personal:
Living: with family
Employment: Not employed
Phy Exam
Physical Exam
Physical Exam:
CONSTITUTIONAL Patient alert and oriented to person, place and time. Well-appearing. Vital signs reviewed.
HEAD atraumatic, normocephalic.
EYES eyelids normal to inspection, Extraocular muscles intact, Conjunctiva normal, Sclera normal.
NECK normal range of motion, Trachea midline, no jugular venous distention.
RESPIRATORY CHEST No respiratory distress noted,
ABDOMEN abdomen nontender, Bowel sounds normal. No distention.
BACK skin excoriation noted throughout the buttocks, sacral area and low back. Small open wounds noted.
UPPER EXTREMITY range of motion normal, Motor strength normal, no cyanosis, no edema.
LOWER EXTREMITY , Motor strength normal, no cyanosis, marked edema to the left lower extremity from the toes to the hip. Is warm and well-perfused. No obvious redness. Left greater trochanteric wound is healed. Patient reports pain at the left
knee.
NEURO Speech normal, No focal motor deficits, Leola coma scale 15, Memory normal, Cranial Nerves intact to screening exam.
SKIN skin warm, dry, and normal in color.
Course
Orders/Labs/Results
Orders:
Orders
07/26/24 12:48
Case Management Consult ONCE
Case Management Consult: Discharge Planning
CR Chest - 2 Views Urgent
Comment:
Reason For Exam: cough, recent pneumonia
07/26/24 12:59
Ammonia Urgent
Complete Blood Count/With Diff Urgent
Comprehensive Metabolic Panel Urgent
07/26/24 14:32
Urinalysis Reflex To Culture Urgent
Date Specimen was Collected: 07/26/24
Time Specimen was Collected: 14:30
Urine Microscopic Reflex Cult Urgent
07/26/24 15:05
US Periph Venous LOWER Ext LT Urgent
Comment:
Reason For Exam: LLE swelling, recent hip surgery
Abnormal Lab Results
07/26/24 07/26/24
12:59 14:32
RBC 2.67 L 10^6/uL
(4.70-6.10)
Hgb 7.9 L g/dL
(13.0-18.0)
Hct 25.2 L %
(39.0-52.0)
MCV 94.4 H fL
(80.0-94.0)
MCHC 31.3 L g/dL
(33.0-37.0)
RDW 20.4 H %
(11.5-14.5)
Plt Count 80 L 10^3/uL
(130-400)
MPV 11.3 H fL
(7.4-10.4)
Abs Immat Gran (auto) 0.2 H 10^3/uL
(0-0.05)
Absolute Neuts (auto) 6.6 H 10^3/uL
(1.4-6.5)
Absolute Lymphs (auto) 0.9 L 10^3/uL
(1.2-3.4)
Absolute Monos (auto) 1.2 H 10^3/uL
(0.1-0.6)
Immature Gran % 1.8 H %
(0-0.5)
Lymphocytes % 9.7 L %
(20.5-51.1)
Monocytes % 13.9 H %
(1.7-9.3)
Sodium 133 L mmol/L
(135-145)
Glucose 116 H mg/dl
(70-99)
Calcium 7.7 L mg/dl
(8.4-10.2)
Total Bilirubin 5.8 H mg/dl
(0.2-1.3)
ALT 52 H U/L
(0-50)
Alkaline Phosphatase 181 H U/L
(38-126)
Ammonia < 9 L umol/L
(9-30)
Total Protein 4.3 L g/dl
(6.3-8.2)
Albumin 2.2 L g/dl
(3.5-5.0)
Urine Ketones Trace A
(Negative)
Urine Bilirubin 1+ A
(Negative)
Leukocyte Esterase Rfl Trace A
(Negative)
07/26/24 12:59
07/26/24 12:59
Vital Signs
Initial and Last Documented VS:
Initial Vital Signs
Temp Pulse Resp BP Pulse Ox
97.7 F 69 18 105/51 96
07/26/24 09:15 07/26/24 09:15 07/26/24 09:15 07/26/24 09:15 07/26/24 09:15
Last Documented Vital Signs
Temp Pulse Resp BP Pulse Ox
97.7 F 75 17 112/48 94
07/26/24 09:15 07/26/24 15:00 07/26/24 15:00 07/26/24 15:00 07/26/24 14:15
MDM/Problems Addressed
MDM/Problems Addressed:
Ambulatory dysfunction, chronic liver disease, lower extremity edema
*Pulse Oximetry
Patient hypoxic: no
*Critical Care Note
Total Time (30-74mins, 75-104mins- exclusive of procedures): Not Applicable
ED Attending Note
-
Portions of this chart may have been created with voice recognition software.� Occasional wrong word or��sound alike� substitutions may have occurred due to the inherent limitations of voice recognition software.
Discharge Plan
Departure
Patient Disposition: Admit
Date of Disposition: 07/26/24
Time of Disposition: 15:38
Admit to: Med/Surg
Presentation/result/management discussed w/ accepting MD/DO: Hospitalist
Discharge Problem:
Ambulatory dysfunction, Chronic liver disease, Left leg swelling, Sacral wound
Prescriptions:
No Action
folic acid 1 mg Tablet
1 mg PO DAILY Qty: 0 0RF
amiodarone [Pacerone] 200 mg Tablet
100 mg PO DAILY 30 Days Qty: 15 0RF
thiamine HCl (vitamin B1) 100 mg Tablet
100 mg PO DAILY 30 Days Qty: 30 0RF
pantoprazole 40 mg Tablet,Delayed Release (Dr/Ec)
40 mg PO BID 30 Days Qty: 60 0RF
potassium chloride [Klor-Con M20] 20 mEq Tablet,Er Particles/Crystals
20 meq PO BID
ferrous sulfate 325 mg (65 mg iron) tablet
325 mg PO Q48H
furosemide 20 mg tablet
20 mg PO DAILY
aspirin 81 mg Tablet,Chewable
81 mg PO BID Qty: 46 0RF
acetaminophen 325 mg Tablet
650 mg PO Q4HPRN PRN (Reason: mild pain/fever)
atorvastatin 40 mg tablet
40 mg PO HS
lactulose 10 gram/15 mL Solution
30 g PO QID 14 Days Qty: 3785 0RF
Rx Instructions:
Stop or reduce if more than 3 BM in 24 hrs
Referrals:
Darlene Quintero CRNP [Family Provider] -
Interventions
Interventions:
*Risk Screen - Suicide Last Done: 07/26/24 09:15
*General Assessment Last Done: 07/26/24 09:15
*Neglect/Abuse Screening Last Done: 07/26/24 09:15
ED- Fall Risk Assessment Last Done: 07/26/24 10:46
*ED COVID-19 Vaccine History Last Done: 07/26/24 09:15
ED-Skin Assessment Last Done: 07/26/24 11:06
ED-Musculoskeletal Assessment Last Done: 07/26/24 10:48
Discharge Date and Time
Print Language: TAIWANESE
--- NOTE | 2024-07-26 13:28 | CM ---
CM reviewed medical records. Patient was recently admitted on 07/01 (meets three midnight qualifying stay). Patient left AMA as he was refusing SNF.
CM met with patient, and daughter in room. stated that patient was irritated by his room mate when he left AMA and she believes that why he wanted to leave AMA. Patient was at [facility] and had conflicts with staff while he was there and
does not want to return. Patient's stated that she doesnt have another preference, but was told by home RN that [facility] is 'no good'. Patient's stated that she would be agreeable to [facility] and [facility].
Daughter stated that she feels that patient needs behavior health care as she feels he is depressed. Daughter reports a long history of alcoholism. Patient's daughter was given information on [employer] and guardianship.
CM will continue to follow. CM updated ED physician.
[2024-07-26 14:11] LABS: % Basophils 0.2 % (0-2); % Eosinophils 0.8 % (0-6); % Immature Granulocytes 1.8 % (0-0.5); % Lymphocytes 9.7 % (20.5-51.1); % Monocytes 13.9 % (1.7-9.3); % Neutrophils 73.6 % (42.2-75.2); Absolute Eosinophils 0.1 10^3/uL (0-0.7); Absolute Immature Granulocytes 0.2 10^3/uL (0-0.05); Absolute Lymphocytes 0.9 10^3/uL (1.2-3.4); Absolute Monocytes 1.2 10^3/uL (0.1-0.6); Absolute Neutrophils 6.6 10^3/uL (1.4-6.5); Hematocrit 25.2 % (39.0-52.0); Hemoglobin 7.9 g/dL (13.0-18.0); Mean Corp Hgb Conc. 31.3 g/dL (33.0-37.0); Mean Corpuscular Hgb 29.6 pg (27.0-31.0); Mean Corpuscular Volume 94.4 fL (80.0-94.0); Mean Platelet Volume 11.3 fL (7.4-10.4); Nucleated Red Blood Cells % 0 % (-); Platelet Count 80 10^3/uL (130-400); Red Blood Cell Count 2.67 10^6/uL (4.70-6.10); Red Cell Dist. Width 20.4 % (11.5-14.5); White Blood Cell Count 8.9 10^3/uL (4.8-10.8)
[2024-07-26 14:17] LABS: Ammonia < 9 umol/L (9-30)
[2024-07-26 14:18] LABS: ALT (SGPT) 52 U/L (0-50); AST (SGOT) 59 U/L (17-59); Albumin 2.2 g/dl (3.5-5.0); Alkaline Phosphatase 181 U/L (38-126); Blood Urea Nitrogen 19 mg/dl (9-20); Calcium 7.7 mg/dl (8.4-10.2); Carbon Dioxide 22 mmol/L (22-30); Chloride 105 mmol/L (98-107); Estimated Creatinine Clearance 75 ml/min; Glucose 116 mg/dl (70-99); Potassium 4.2 mmol/L (3.5-5.1); Sodium 133 mmol/L (135-145); Total Bilirubin 5.8 mg/dl (0.2-1.3); Total Protein 4.3 g/dl (6.3-8.2); eGFR > 60.00
[2024-07-26 15:16] LABS: Urine Albumin Trace (Neg - Trace); Urine Bilirubin 1+ (Negative); Urine Character Clear (Clear); Urine Color Amber; Urine Glucose Negative (Negative); Urine Ketone Trace (Negative); Urine Leukocyte Trace (Negative); Urine Nitrite Negative (Negative); Urine Occult Blood Negative (Negative); Urine Urobilinogen Negative (Neg - 1+)
[2024-07-26 15:39] LABS: Urine Red Blood Cell 0-2 /HPF (0-2); Urine Squamous Cell 0-2 /LPF (Few)
--- NOTE | 2024-07-26 15:48 | HPS.HSE ---
Family Physician
-
Family Physician: AISHWARYA Vivas
Chief Complaint
-
weakness/bedsore
History of Present Illness
Patient is a 74-fermin-old male with past medical history significant for atrial fibrillation, CKD 3, cirrhosis, HTN, CAD, HFpEF, alcohol dependency and hepatic encephalopathy who presented to [place] ED for evaluation of ongoing weakness and new
bedsore to left lower back. Patient states that follow hospitalization for pneumonia (discharged 07/07/2024) he has been unable to get out of recliner at home. Patient was recommended to return to rehab post pneumonia but he refused and wanted to go
home. After arriving home patient sat in recliner and did not really get up. Home health PT had a difficult time even getting him to stand up from chair on her two visits. Patient also with c/o LLE edema, could be post surgical (L hip ORIF) edema or
DVT. Patient reports productive cough at night described as clear phlegm. Patient denies any fever, chills, chest pain, constipation, diarrhea, or urinary symptoms.
Medical History
Past Medical History
Past Medical History: Reports Other
Additional Past Medical History:
atrial fibrillation
CKD 3
cirrhosis
HTN
CAD
HFpEF
alcohol dependency
hepatic encephalopathy
Past Surgical History: Reports Other
Additional Past Surgical History:
Left hip ORIF (06/20/2024)
Social History
Tobacco: Non-smoker
Alcohol: Former (last drink reported as 2023)
Drug: None
Personal:
Living: With Family
Employment: Retired
Family History
Family History: Not pertinent
Allergies / Home Medications
Allergies reflects when Allergies were last updated in [facility].
Home Medications with original date entered in [facility]
Allergy/Medication List:
Allergies
Allergy/AdvReac Type Severity Reaction Status Date / Time
No Known Allergies Allergy Verified 07/26/24 09:20
Home Medications
folic acid 1 mg tablet 1 mg PO DAILY Supplement #0 tabs 08/28/22
amiodarone 200 mg tablet (Pacerone) 100 mg (1/2 x 200 mg) PO DAILY 30 days #15 tabs 12/20/22
pantoprazole 40 mg tablet,delayed release 40 mg PO BID 30 days #60 tabs 12/20/22
thiamine HCl (vitamin B1) 100 mg tablet 100 mg PO DAILY 30 days #30 tabs 12/20/22
ferrous sulfate 325 mg (65 mg iron) tablet 325 mg PO Q48H Supplement 06/29/23
potassium chloride 20 mEq tablet,extended release(part/cryst) (Klor-Con M) 20 meq PO BID Electrolyte Repletion 06/29/23
furosemide 20 mg tablet 20 mg PO DAILY Fluid Retention/Swelling 06/20/24
aspirin 81 mg chewable tablet 81 mg PO BID #46 tabs 06/26/24
acetaminophen 325 mg tablet 650 mg PO Q4HPRN PRN mild pain/fever 07/01/24
atorvastatin 40 mg tablet 40 mg PO HS High cholesterol 07/01/24
guaifenesin 100 mg/5 mL oral liquid 200 mg PO Q4HPRN PRN COUGH 07/26/24
lactulose 10 gram/15 mL oral solution 30 g PO TID 07/26/24
Review of Systems
-
History Source: Patient
Constitutional: Reports No Symptoms
EENT: Reports No Symptoms
Respiratory: Reports No Symptoms
Cardiac: Reports No Symptoms
Abdomen/GI: Reports No Symptoms
: Reports No Symptoms
Musculoskeletal: Reports Joint Pain (left knee with movement) and Edema (Left lower leg hip to toes +3-+4 pitting edema)
Skin: Reports No Symptoms
Neurological: Reports Weakness
Endocrine: Reports No Symptoms
Hematologic/Lymphatic: Reports No Symptoms
Psych: Reports No Symptoms
Physical Exam
Vital Signs
Vital Signs
Temp Pulse Resp BP Pulse Ox
97.7 F 75 17 112/48 94
07/26/24 09:15 07/26/24 15:00 07/26/24 15:00 07/26/24 15:00 07/26/24 14:15
Physical Exam
General: Well Developed, Well Nourished, No Apparent Distress, Comfortable and Conversant
HEENT: NormoCephalic, Moist mucous membranes, Atraumatic, PERRLA, [place] Conjunctivae, Nose Appears Normal and Ears Appear Normal
Respiratory: Clear and Rhonchi
Cardiac: S1/S2 and Regular Rhythm; No Murmur, Rub or Gallop
Breast: Deferred by me
GI: Soft, Non Tender, Non Distended and Normal Bowel Sounds; No Organomegaly
Rectal: Deferred by Provider
Genito-urinary: Deferred by me
Musculoskeletal: No Clubbing, No Cyanosis and Edema, Left Lower Extremity (+3 - +4 pitting edema from hip to toes)
Skin: Warm and Other (Left lower back excoriation present, non-blanchable); No Rash
Neuro: Awake, Alert and Nonfocal/grossly intact
Hematologic/Lymphatic: No Lymphadenopathy
Psych: Calm and Intact Judgment/Insight
Laboratory Results
-
07/26/24 12:59
07/26/24 12:59
Laboratory Results
Total Bilirubin 5.8 mg/dl (0.2-1.3) H 07/26/24 12:59
AST 59 U/L (17-59) 07/26/24 12:59
ALT 52 U/L (0-50) H 07/26/24 12:59
Alkaline Phosphatase 181 U/L (38-126) H 07/26/24 12:59
Data Reviewed
-
Diagnostic Radiology: Report Reviewed by me (CXR: Persistent left basilar opacity which may represent ongoing pneumonia or chronic atelectasis/scarring.)
Lab Data: Labs Reviewed by me (Plt 80, Alk Phos 181, Ammonia <9)
Impression/Plan
-
IMPRESSION/PLAN:
#ambulatory dysfunction
#Left lower extremity edema
#excortiation to left lower back
s/p Left Hip ORIF 06/21/2024
edema post surgical with immobility verse LLE DVT
- Admit to M/S for observation
- LLE US pending
- PT/OT
- wound care
#paroxysmal atrial fibrillation
- continue amiodarone, aspirin
#CKD 3
BUN 19, Creat 1.2
#benign hypertension
- continue furosemide
#HFpEF
ECHO (07/06/2023): Mildly LV dilation with mild concentric hypertrophy normal LVEF.
Normal RV size and function.
No significant valvular abnormalities.
Compared to the prior TTE of 06/14/2023, the LV is now mildly dilated and the EF slightly lower.
- continue furosemide, aspirin, potassium chloride
- daily weights
- continue monitor I&Os
#CAD
- continue atorvastatin
#alcohol dependency
last drink reported 06/20-
#cirrhosis
#hepatic encephalopathy
- continue lactulose
- monitor mental status
Code Status: Full Code
DVT Prophylaxis: Contradicted
--- NOTE | 2024-07-26 17:07 | W.PN.UPDATE ---
Update Note
Progress Note Update
This is an addendum to the H&P written by Millie Cota on 07/26/2024.� Patient seen and examined independently with WATER AND SEWER SYSTEMS SUPERVISOR.
74-year-old male past medical history of paroxysmal atrial fibrillation, alcoholic cirrhosis, hepatic encephalopathy, CKD 3B, hypertension, CAD, HFpEF, anemia of chronic disease, chronic thrombocytopenia, former alcohol use disorder, hyperlipidemia,
left hip ORIF, anxiety/depression, presenting with persistent left leg swelling and inability to get out of the bed.
He recently had hip fracture status post repair and went to rehab and was again hospitalized for pneumonia.� Refused to go back to rehab after hospitalization.� Since then not getting out of bed.
Patient with sores on the backside.�
Etiology of the left lower extremity swelling could be related to recent hip fracture status post ORIF the setting of immobility since the swelling is extending up to the hip.� Check venous ultrasound to rule out DVT, although this would be
potentially problematic if he were to have it to manage given thrombocytopenia.� He might require IVC filter for this.
Bedsore does not appear infected.� Wound care consulted.
Infectious workup unremarkable.� Urinalysis unremarkable.� Chest x-ray shows persistent left basilar opacity which is likely chronic atelectasis/scarring given that it is in the same location as prior pneumonia that was treated.� Patient not hypoxic
or demonstrating signs of pneumonia.� Ammonia level unremarkable.
Anemia and thrombocytopenia relatively stable.
Patient needs to go to rehab.� PT/OT/case management.
--- NOTE | 2024-07-26 18:30 | PTCARENOTE ---
Received patient from ED via stretcher. Pt AAX3. Pox: 93-94% RA. Call calero within reach. Family at bedside. Plan of care ongoing.
[2024-07-26] MEDS: KCL 20 MEQ PO (21:42)
[2024-07-26] MEDS: PROTONIX 40 MG PO (21:42)
[2024-07-26] MEDS: LOW STRENGTH ASPIRIN 81 MG PO (21:42)
[2024-07-26] MEDS: DUPHALAC/CHRONULAC 30 GRAMS PO (21:44)
[2024-07-26] MEDS: LIPITOR 40 MG PO (21:44)
[2024-07-27 05:29] VITALS: BMI 31.2
[2024-07-27 07:00] VITALS: BP 102/39
[2024-07-27] MEDS: VITAMIN B1 100 MG PO (08:53)
[2024-07-27] MEDS: FEOSOL 325 MG PO (08:54)
[2024-07-27] MEDS: PACERONE 100 MG PO (08:54)
[2024-07-27] MEDS: LOW STRENGTH ASPIRIN 81 MG PO (08:54)
[2024-07-27] MEDS: DUPHALAC/CHRONULAC 30 GRAMS PO ×3 (08:54→21:21)
[2024-07-27] MEDS: PROTONIX 40 MG PO ×2 (08:54→21:21)
[2024-07-27] MEDS: FOLVITE 1 MG PO (08:54)
[2024-07-27 09:03] LABS: Hematocrit 20.2 % (39.0-52.0); Hemoglobin 6.6 g/dL (13.0-18.0); Mean Corp Hgb Conc. 32.7 g/dL (33.0-37.0); Mean Corpuscular Hgb 29.6 pg (27.0-31.0); Mean Corpuscular Volume 90.6 fL (80.0-94.0); Red Blood Cell Count 2.23 10^6/uL (4.70-6.10); Red Cell Dist. Width 20.2 % (11.5-14.5)
[2024-07-27 09:26] LABS: Blood Urea Nitrogen 23 mg/dl (9-20); Calcium 7.3 mg/dl (8.4-10.2); Carbon Dioxide 19 mmol/L (22-30); Chloride 105 mmol/L (98-107); Estimated Creatinine Clearance 70 ml/min; Glucose 114 mg/dl (70-99); Potassium 4.1 mmol/L (3.5-5.1); Sodium 132 mmol/L (135-145); eGFR 58.37
[2024-07-27 09:45] LABS: Platelet Count 46 10^3/uL (130-400)
[2024-07-27] MEDS: KCL 20 MEQ PO ×2 (09:59→17:32)
[2024-07-27] MEDS: LASIX 20 MG PO (09:59)
[2024-07-27 10:46] LABS: Iron < 20 ug/dl (49-181); Total Iron Binding Capacity 176 ug/dl (261-462)
[2024-07-27 12:16] LABS: Folate 12.3 ng/ml (2.76-20); Vitamin B12 806 pg/ml (239-931)
--- NOTE | 2024-07-27 12:50 | CM ---
Chart reviewed and per previous catalytic case operator notes patient has a 3 night qualifying stay for skilled placement, catalytic case operator met with patient this am. Patient with depression per chart, psychiatry consult pending. PT/OT unable to work with patient
today due to Hgb. Patient and family have selected [facility]. manager meeting will send referrals as soon as patient has been assessed by PT/OT.
Plan; Skilled placement if patient qualifies.
--- NOTE | 2024-07-27 13:10 | WOUNDNOTE ---
WO RN note: Patient admitted with ambulation dysfunction. Patient sleeps in a recliner chair. He lives with family.
See H&P for complete history.
PMH: a fib, CKD3, cirrhosis, HTN, CAD, HF, ETOH dependence, hepatic encephalopathy, recent stay earlier in June for pneumonia, L ORIF.
Wound Location and type/assessment: Patient admitted with: Scattered stage 2 along with MASD sacral/buttocks. MASD mild to lower back. Bruises on abdomen and arms/hands (and L hip as per GAGAN Ramirez). L lateral upper calf small scabbed abrasion.
Appetite: good.
Pressure redistribution devices in place: [employer] Accumax. Patient assists with turning. GAGAN Ramirez and PCT Felicia to apply a waffle air overlay.
Plan: Silicone border foam dressings applied to sacral/buttocks. Calazime applied to yefri/back MASD. Heels off bed with pillow and air chair cushion. Patient turned to L semi side lying position. t/c SPD and ordered TruVue lite boots.
Will confirm orders with Dr. Diaz and discussed with GAGAN Ramirez.
Care plan to be updated and will follow as needed.
Note to case management of equipment requested for discharge: Air mattress.
Recommend follow up at wound care center upon discharge.
--- NOTE | 2024-07-27 13:12 | WOUNDNOTE ---
SACRAL/BUTTOCKS/LOWER BACK
--- NOTE | 2024-07-27 13:12 | WOUNDNOTE ---
L CALF (ANTERIOR LATERAL)
--- NOTE | 2024-07-27 13:54 | W.PN.HOSP.TC ---
Today's Communication/Plan
-
1 unit PRBC and f/u Hb
ortho consult for hematoma
if Hb drops or further concern of bleeding; CT angio would be next study
Assessment / Plan
Assessment / Plan
Assessment:
LLE swelling with ambulatory dysfunction
Acute blood loss anemia from acute L thigh hematoma
Hx if left hip hemiarthroplasty 06/21
- DVT study negative
- CT: Asymmetric enlargement of soft tissue density in the region of the left lateral thigh musculature with compared to the right. This appears to be mainly at the lateral margin of the vastus lateralis muscle, and would be most compatible with a
left lateral thigh hematoma. Possible contrast density within the inferior aspect of the hematoma, which suggests the possibility of a component of active bleeding. Consider correlation with serial hemoglobin values. Moderate to severe diffuse
subcutaneous edema, greater on the left when compared to the right.
- Orthopedic consulted to evaluate
- if further bleeding or drop in Hb; perform CT angio study per IR.
- 1 unit PRBC
- f/u anemia workup
- serial exams to monitor for CS
Chronic wounds POA
Hyponatremia
- monitor BMP
Parox A. fib
- continue Amiodarone
- holding Aspirin with hematoma
CKD stage 3b
- monitor BMP
Essential HTN
Chronic HFpEF
- continue Lasix
- monitor I/Os, weights, lytes
CAD
- holding ASA
- continue statin
ETOH dependancy
HX of Cirrhosis and HE
- continue Lactulose
- CT with moderate ascites; will consider para this admission
DVT ppx: SCDs
Code: Full
Anticipated Discharge: > 48 hours
Subjective/Interval History
-
Date of Service: July 27, 2024
reports LLE swelling, pain with bending knee
denies bruising
denies any new complaints
Objective Data
-
Labs:
Laboratory Results
07/27/24
08:06
WBC 6.0
Hgb 6.6 L*
Hct 20.2 L*
Plt Count 46 L D
Sodium 132 L
Potassium 4.1
Chloride 105
Carbon Dioxide 19 L
BUN 23 H
Creatinine 1.3
Glucose 114 H
Calcium 7.3 L
Vital Signs:
Vital Signs
Temp Pulse Resp BP Pulse Ox
98.3 F 72 17 116/48 95
07/27/24 07:00 07/27/24 09:59 07/27/24 07:00 07/27/24 09:59 07/27/24 10:55
I&O
07/26/24 07/27/24 07/28/24
06:59 06:59 06:59
Intake Total 120 / 120 480 / 480
Output Total 250 / 250
Balance -130 / -130 480 / 480
Physical Exam
-
General: No Apparent Distress
HEENT: Normocephalic and Atraumatic
Respiratory: Clear to Auscultation; Negative Wheezes or Rales
Cardiac: Regular Rhythm and S1/S2
GI: Soft and Nontender
Musculoskeletal: Other (LLE edema from thigh to ankles, L thigh firmness likely hematoma)
Neuro: AO x 3
Hematologic / Lymphatic: No Lymphadenopathy
Data Reviewed
-
Total Time Spent with Patient (in minutes): 51
Diagnostic Radiology: Discussed with Physician (Orthopedics)
Labs: Labs Reviewed by me, Discussed with Patient and Discussed with Family
--- NOTE | 2024-07-27 15:02 | W.PN.UPDATE ---
Update Note
Progress Note Update
Orthopedic follow-up: ( Dacia in room)
Patient underwent left hip hemiarthroplasty under the direction of Dr. Parker June 20, 2024. He does have history of chronic anemia and postoperatively underwent transfusion 2 units packed red blood cells postop. He was medically stable so was
discharged to long-term facility and he really has not been able to make progress with physical therapy. Past medical history significant for chronic liver disease, thrombocytopenia, chronic kidney disease and paroxysmal atrial fibrillation.
Per patient and his who is present in room today states that he is always had a lot of swelling in his left thigh. He has had continued swelling and pain in the thigh which precipitated admission to the hospital. He has been afebrile and
vital signs were stable. Left hip incision well-healed. No warmth or erythema noted. Moderate edema noted about the left thigh and down into the leg. Range of motion reveals flexion 90 degrees, internal rotation 10 degrees and external rotation
20 degrees without significant pain. Distal neurovascular was intact. WBC have been normal but hemoglobin was 7.9 (07/26) and 6.6 (07/27). Ultrasound of the left lower extremity was negative for DVT. He did undergo CT of the abdomen pelvis and
left lower extremity without IV contrast. No evidence of retroperitoneal bleed or rectus hematoma. No evidence of fracture or dislocation. There was asymmetric enlargement in the soft tissue of the left lateral thigh. This was felt likely to be
hematoma and radiologist question possibility for active bleeding. Chris Maciel had reviewed Ct scan with interventional radiologist, Poncho Blanco. He had low suspicion for active bleeding. Current plan is to receive 1 unit packed red blood cells
and observe hemoglobin. If hemoglobin should drop again he will undergo CT angiogram to better evaluate for active bleeding. If active bleeding noted interventional radiologist felt that they could address. Patient to undergo x-rays of left hip
today and hopefully resume formal physical therapy soon. Discussed with Dr. Joe Augustine as well.
Addendum to note: 07/27/24 22:40
X-ray left hip July 27, 2024 reviewed these were negative for fracture, dislocation or any postoperative change from prior x-ray.
[2024-07-27 15:54] VITALS: BP 126/55
[2024-07-27 16:20] VITALS: BP 106/41
[2024-07-27 18:44] VITALS: BP 101/42
--- NOTE | 2024-07-27 18:44 | PTCARENOTE ---
Patient received 1unit PRBCs. No s/s of transfusion reaction noted. Plan of care ongoing.
[2024-07-27] MEDS: LIPITOR 40 MG PO (21:21)
[2024-07-27 21:40] LABS: Hematocrit 22.5 % (39.0-52.0); Hemoglobin 7.3 g/dL (13.0-18.0)
[2024-07-27 23:13] VITALS: BP 117/48
[2024-07-28 06:00] VITALS: BMI 31.5
[2024-07-28 07:42] VITALS: BP 102/39
[2024-07-28] MEDS: DUPHALAC/CHRONULAC 30 GRAMS PO ×3 (09:26→21:29)
[2024-07-28] MEDS: VITAMIN B1 100 MG PO (09:30)
[2024-07-28] MEDS: LASIX 20 MG PO (09:30)
[2024-07-28] MEDS: PACERONE 100 MG PO (09:32)
[2024-07-28] MEDS: KCL 20 MEQ PO ×2 (09:32→18:22)
[2024-07-28] MEDS: PROTONIX 40 MG PO ×2 (09:33→21:29)
[2024-07-28] MEDS: FOLVITE 1 MG PO (09:35)
[2024-07-28 10:41] LABS: Hematocrit 23.4 % (39.0-52.0); Hemoglobin 7.4 g/dL (13.0-18.0); Mean Corp Hgb Conc. 31.6 g/dL (33.0-37.0); Mean Corpuscular Hgb 29.6 pg (27.0-31.0); Mean Corpuscular Volume 93.6 fL (80.0-94.0); Mean Platelet Volume 11.1 fL (7.4-10.4); Platelet Count 62 10^3/uL (130-400); Red Cell Dist. Width 19.9 % (11.5-14.5); White Blood Cell Count 6.4 10^3/uL (4.8-10.8)
[2024-07-28 10:54] LABS: Blood Urea Nitrogen 23 mg/dl (9-20); Calcium 7.2 mg/dl (8.4-10.2); Carbon Dioxide 19 mmol/L (22-30); Chloride 106 mmol/L (98-107); Estimated Creatinine Clearance 70 ml/min; Glucose 136 mg/dl (70-99); Sodium 132 mmol/L (135-145); eGFR 58.37
[2024-07-28 12:36] VITALS: BP 127/49; PULSE 76; O2SAT 93
[2024-07-28 12:39] VITALS: BP 127/49; PULSE 76; O2SAT 93
--- NOTE | 2024-07-28 13:31 | CS.PSYCHR ---
Consult Summary - Psychiatry
-
Pt is 74 yo male, recently admitted after a fall and hip fracture, S/P ORIF approx 5 weeks ago. Pt was seen by psychiatry then due to refusing recommendation to go to SNF. Pt agreed to go to [facility], was re-admitted to 07/01 with fever,
diagnosed with LLL pneumonia. Pt was seen at that time for capacity eval, insisted on leaving AMA. Patient stated that since return home on 07/07/2024 he has been unable to get out of the recliner at home. Reportedly the home-health PT had a
difficult time even getting him to stand up from chair on her two visits. Patient also with c/o LLE edema, knee pain. Psychiatry asked to assess pt for depression. He acknowledges feeing discouraged, with decreased sleep. He denies any SI, states
appetite is okay. Sodium slightly low- 132.
Psych Hx: denies recent tx. Had previous psych consult at May 2023. Pt reports he was prescribed Triavil for anxiety many years ago- made him tired/sluggish, no recent psych meds
Substance use: hx of alcohol abuse, was able to stay sober for almost 2 years, does not drive which limits access, but noted to have started drinking again before previous admission
PMH: CHF, Iron deficiency anemia, CKD, alcoholic cirrhosis of liver, portal hypertension, A-fib, HLD
SH: lives with , past heavy alcohol use
MSE: alert, oriented, calm, cooperative. Speech coherent, thought goal-directed. No agitation. No signs of psychosis. Mood/Affect dysphoric/appropriate. Denies SI. Insight appears fair.
Imp/Rec: Unspecified depression, situational
Will start Remeron 7.5 mg HS. Outpatient treatment when medically stabilized.
Will follow
--- NOTE | 2024-07-28 13:40 | CM ---
Chart reviewed and pillowcase maker spoke with patient and spouse and referrals have been set to [facility] [place], [facility] and [facility]. Patient to return to home with spouse after rehab.
Plan; Skilled placement whgen medically stable.
--- NOTE | 2024-07-28 14:07 | W.PN.HOSP.TC ---
Today's Communication/Plan
-
Knee Xrays
Abd US
continue PT/OT
Assessment / Plan
Assessment / Plan
Assessment:
LLE swelling with ambulatory dysfunction
Acute blood loss anemia from acute L thigh hematoma
Hx of left hip hemiarthroplasty 06/21
- DVT study negative 07/26
- CT: Asymmetric enlargement of soft tissue density in the region of the left lateral thigh musculature with compared to the right. This appears to be mainly at the lateral margin of the vastus lateralis muscle, and would be most compatible with a
left lateral thigh hematoma. Possible contrast density within the inferior aspect of the hematoma, which suggests the possibility of a component of active bleeding. Consider correlation with serial hemoglobin values. Moderate to severe diffuse
subcutaneous edema, greater on the left when compared to the right.
- Orthopedic following; clinically they were more concerned for DVT more so than hematoma. d/w Radiology who reviewed CT images with myself and more consistent with hematoma. all easily compressible veins in LLE on DVT US.
- s/p 1 unit PRBC; Hb 7.4. start IV iron for iron deficiency
- serial exams to monitor for CS
L knee effusion
- likely from immobility, hematoma and underlying OA
- Knee X-rays pending
- apply ICE
Moderate ascites on Ct
- check Abd US with Doppler to evaluate for clot and degree of ascites
Scattered stage 2 along with MASD sacral/buttocks. MASD mild to lower back. Bruises on abdomen and arms/hands (and L hip as per GAGAN Ramirez). L lateral upper calf small scabbed abrasion.
- all present on arrival
- wound care following
Hyponatremia
- monitor BMP
Parox A. fib
- continue Amiodarone
- holding Aspirin with hematoma
CKD stage 3b
- monitor BMP
Essential HTN
Chronic HFpEF
- continue Lasix
- monitor I/Os, weights, lytes
CAD
- holding ASA
- continue statin
ETOH dependancy
HX of Cirrhosis and HE
- continue Lactulose
- CT with moderate ascites; will consider para this admission if US shows similar amount
DVT ppx: SCDs with hematoma
Code: Full
Anticipated Discharge: > 48 hours
Subjective/Interval History
-
Date of Service: July 28, 2024
no new complaints
Hb 7.4 after 1 unit PRBC yesterday
IV Iron
Objective Data
-
Labs:
Laboratory Results
07/28/24
09:39
WBC 6.4
Hgb 7.4 L
Hct 23.4 L
Plt Count 62 L D
Sodium 132 L
Potassium 4.0
Chloride 106
Carbon Dioxide 19 L
BUN 23 H
Creatinine 1.3
Glucose 136 H
Calcium 7.2 L
Vital Signs:
Vital Signs
Temp Pulse Resp BP Pulse Ox
98.6 F 72 18 102/39 92
07/28/24 07:42 07/28/24 07:42 07/28/24 07:42 07/28/24 07:42 07/28/24 07:42
I&O
07/27/24 07/28/24 07/29/24
06:59 06:59 06:59
Intake Total 120 / 120 1690 / 1690
Output Total 250 / 250 50 / 50
Balance -130 / -130 1640 / 1640
Physical Exam
-
General: No Apparent Distress
HEENT: Normocephalic and Atraumatic
Cardiac: Regular Rhythm and S1/S2
GI: Soft and Nontender
Genito-urinary: No Costovertebral Tender
Musculoskeletal: Other (LLE edema)
Neuro: AO x 3
Hematologic / Lymphatic: No Lymphadenopathy
Psych: Calm
Data Reviewed
-
Total Time Spent with Patient (in minutes): 44
Labs: Labs Reviewed by me
[2024-07-28] MEDS: FERRLECIT 110 MG IV (15:13)
[2024-07-28 15:29] VITALS: BP 113/43
[2024-07-28] MEDS: REMERON 7.5 MG PO (21:29)
[2024-07-28] MEDS: LIPITOR 40 MG PO (21:29)
[2024-07-28 23:18] VITALS: BP 108/55
[2024-07-29 05:32] LABS: Hemoglobin 8.5 g/dL (13.0-18.0); Mean Corp Hgb Conc. 32.7 g/dL (33.0-37.0); Mean Corpuscular Hgb 30.2 pg (27.0-31.0); Mean Corpuscular Volume 92.5 fL (80.0-94.0); Mean Platelet Volume 11.5 fL (7.4-10.4); Platelet Count 74 10^3/uL (130-400); Red Blood Cell Count 2.81 10^6/uL (4.70-6.10); Red Cell Dist. Width 19.9 % (11.5-14.5); White Blood Cell Count 9.4 10^3/uL (4.8-10.8)
[2024-07-29 05:46] LABS: Blood Urea Nitrogen 24 mg/dl (9-20); Calcium 7.3 mg/dl (8.4-10.2); Carbon Dioxide 20 mmol/L (22-30); Chloride 106 mmol/L (98-107); Estimated Creatinine Clearance 70 ml/min; Glucose 91 mg/dl (70-99); Potassium 4.2 mmol/L (3.5-5.1); Sodium 131 mmol/L (135-145); eGFR 58.37
[2024-07-29 06:00] VITALS: BMI 30.9
[2024-07-29 07:00] VITALS: BP 112/44
[2024-07-29] MEDS: PACERONE 100 MG PO (08:48)
[2024-07-29] MEDS: VITAMIN B1 100 MG PO (08:48)
[2024-07-29] MEDS: PROTONIX 40 MG PO ×2 (08:48→21:01)
[2024-07-29] MEDS: FEOSOL 325 MG PO (08:49)
[2024-07-29] MEDS: KCL 20 MEQ PO ×2 (08:49→18:20)
[2024-07-29] MEDS: FOLVITE 1 MG PO (08:50)
[2024-07-29] MEDS: LASIX 20 MG PO (08:51)
[2024-07-29] MEDS: DUPHALAC/CHRONULAC 30 GRAMS PO ×2 (08:52→15:03)
--- NOTE | 2024-07-29 09:26 | W.PN.UPDATE ---
Update Note
Progress Note Update
Patient seen and evaluated this morning by Orthopedic surgery. Patient underwent left hip hemiarthroplasty 06/20/[address] Parker. PMH significant for chronic liver disease, thrombocytopenia, chronic kidney disease and paroxysmal atrial
fibrillation. Readmitted on 07/26/2024 due to continued left lower extremity edema and ambulatory dysfunction. Ultrasound of the left lower extremity was negative for DVT. He did undergo CT of the left thigh with intravenous contrast on 07/27.
Impression: Asymmetric enlargement of soft tissue density in the region of the left lateral thigh musculature with compared to the right. This appears to be mainly at the lateral margin of the vastus lateralis muscle, and would be most compatible
with a left lateral thigh hematoma. Possible contrast density within the inferior aspect of the hematoma, which suggests the possibility of a component of active bleeding. Consider correlation with serial hemoglobin values. Moderate to severe
diffuse subcutaneous edema, greater on the left when compared to the right. Hemoglobin this AM 8.5 from 7.4 yesterday. WBC WNL. VSS. Afebrile. X-rays of the left knee were ordered yesterday. Patient reports developing left knee pain starting mid
June. Denies any injuries or traumatic events. Denies any constitutional symptoms. He reports that symptoms have not worsened since onset. He endorses increased pain with ROM.
CR Knee - LEFT 4 or More Vew* was obtained at [facility] on 07/28/2024 and was made available for my review today. Findings: The bones appear diffusely demineralized. There is no CR evidence for acute fracture. There is mild lateral
subluxation of patella. There is mild lateral compartment joint space loss. There is no medial compartment joint space loss. There are tiny patellofemoral compartment osteophytes. There is no radiographic evidence for osseous erosion. There is
a small superior patellar enthesophyte. There are tiny ossifications anterior to the patella. There is a small joint effusion. There is mild calcific atherosclerotic plaque in the popliteal artery. There is several calcific arthrosclerotic
plaques in the infrapopliteal arteries. There is severe diffuse soft tissue swelling and subcutaneous edema in the left knee. Impression: 1) Minimal arthritis in the patellofemoral and lateral compartments of the left knee. 2) Diffuse bone
demineralization. 3) Small joint effusion. 4) Severe diffuse soft tissue swelling and subcutaneous edema.
Physical Exam:
PE reveals extensive subcutaneous edema from proximal thigh to toes. Left hip incision well-healed. Left knee skin intact. No erythema. Clinically, no significant effusion appreciated about left knee today. No reproducible tenderness to palpation
about left knee. No excessive or increased warmth about left knee in comparison to contralateral side. ROM 0-30 degrees with pain. Able to plantarflex and dorsiflex left ankle. NVI distally.
Discussed with Dr. Joe Augustine. Plain radiographs of left knee are nonweightbearing films. Likely more OA than appreciated on plain radiographs. This coupled with extensive LLE subcutaneous edema, hematoma, and immobility contributing to symptoms.
At this time, we discussed close observation. Will re-evaluate in the AM on rounds. Recommended compression stocking from thigh to toes. Ice therapy and elevation. Deferred aspiration for the time being due to no significant effusion appreciated
today. Orthopedic surgery will continue to follow.
--- NOTE | 2024-07-29 11:56 | W.PN.UPDATE ---
Addendum entered and electronically signed by Wendy Robin MD 07/29/24 12:30:
returned to see patient. spoke with who gave me hx from her perspective. he did not come her from [facility] [facility] was an earlier stop on his journey but rather from home after signing self out ama. she has had a very hard time getting him
to accept treatment recommended for him. one of his three d's was of the opinion that he was depressed. explained to and patient whom i did see after his return from ultrasound that need to follow serum sodium as it is down a tiny bit more
today at 131 and while remeron is a little less likely to cause hyponatremia it can still cause it. patient was pleasant. he had just ordered lunch after being npo throughout the morning. will see him in am and recheck sodium
Original Note:
Update Note
Progress Note Update
attempted to see mr solis but he was at ultrasound to assess abdomen. i reviewed chart and spoke with nsg. from nsg perspective he is cooperate and no major psych issues. he comes here from [facility] where he was in snf given a fall and hip fx
over a month ago. he was admitted with weakness and found to have fever and pneumonia. etoh hx is a complicating factor . he also suffers from other underlying medical issues including ckd a fib htn cirrhosis cad. he was started on remeron after
discussing that he felt depressed w dr renteria. noted sodium on the low side today 131. would need to monitor serum sodium closely although remeron may be s/w less likely to cause hyponatremia. will try to see him later today or tomorrow am.
--- NOTE | 2024-07-29 14:19 | W.PN.HOSP.TC ---
Today's Communication/Plan
-
paracentesis 07/30/24
serial exams per ortho
ongoing PT/OT - SNF planned
Assessment / Plan
Assessment / Plan
Assessment:
LLE swelling with ambulatory dysfunction
Acute blood loss anemia from acute L thigh hematoma
Hx of left hip hemiarthroplasty 06/21
- DVT study negative 07/26
- CT: Asymmetric enlargement of soft tissue density in the region of the left lateral thigh musculature with compared to the right. This appears to be mainly at the lateral margin of the vastus lateralis muscle, and would be most compatible with a
left lateral thigh hematoma. Possible contrast density within the inferior aspect of the hematoma, which suggests the possibility of a component of active bleeding. Consider correlation with serial hemoglobin values. Moderate to severe diffuse
subcutaneous edema, greater on the left when compared to the right.
- Orthopedic following; clinically they were more concerned for DVT more so than hematoma. d/w Radiology who reviewed CT images with myself and more consistent with hematoma. all easily compressible veins in LLE on DVT US.
- s/p 1 unit PRBC; Hb 8.5. continue IV iron for iron deficiency
- serial exams to monitor for CS
L knee effusion
- likely from immobility, hematoma and underlying OA
- Knee X-rays with minimal OA
- apply ICE and compression
- serial exams per Orthopedics
Moderate ascites on Ct
- moderate on US
- paracentesis 07/30/24; labs ordered
Scattered stage 2 along with MASD sacral/buttocks. MASD mild to lower back. Bruises on abdomen and arms/hands (and L hip as per RN James). L lateral upper calf small scabbed abrasion.
- all present on arrival
- wound care following
Hyponatremia
- monitor BMP
Parox A. fib
- continue Amiodarone
- holding Aspirin with hematoma
CKD stage 3b
- monitor BMP
Essential HTN
Chronic HFpEF
- continue Lasix
- monitor I/Os, weights, lytes
CAD
- holding ASA
- continue statin
ETOH dependancy
HX of Cirrhosis and HE
- continue Lactulose
DVT ppx: SCDs with hematoma
Code: Full
Anticipated Discharge: > 48 hours
Subjective/Interval History
-
Date of Service: July 29, 2024
no new complaints
Objective Data
-
Labs:
Laboratory Results
07/29/24
04:24
WBC 9.4
Hgb 8.5 L
Hct 26.0 L
Plt Count 74 L
Sodium 131 L
Potassium 4.2
Chloride 106
Carbon Dioxide 20 L
BUN 24 H
Creatinine 1.3
Glucose 91
Calcium 7.3 L
Vital Signs:
Vital Signs
Temp Pulse Resp BP Pulse Ox
98.9 F 74 18 112/44 93
07/29/24 07:00 07/29/24 07:00 07/29/24 07:00 07/29/24 07:00 07/29/24 07:00
I&O
07/28/24 07/29/24 07/30/24
06:59 06:59 06:59
Intake Total 1690 / 1690 1680 / 1680
Output Total 50 / 50 220 / 220
Balance 1640 / 1640 1460 / 1460
Physical Exam
-
General: No Apparent Distress
HEENT: Normocephalic and Atraumatic
Respiratory: Negative Wheezes
Cardiac: Regular Rhythm and S1/S2
GI: Soft and Nontender
Neuro: AO x 3
Hematologic / Lymphatic: No Lymphadenopathy
Psych: Calm
Data Reviewed
-
Total Time Spent with Patient (in minutes): 45
Labs: Labs Reviewed by me
[2024-07-29] MEDS: FERRLECIT 110 MG IV (14:56)
[2024-07-29 15:00] VITALS: BP 123/48
[2024-07-29] MEDS: DUPHALAC/CHRONULAC PO (20:56)
[2024-07-29] MEDS: LIPITOR 40 MG PO (21:01)
[2024-07-29] MEDS: REMERON 7.5 MG PO (21:01)
[2024-07-29 22:46] VITALS: BP 115/43
[2024-07-30] VITALS (7 sets, daily range): BP systolic 75–139; BP diastolic 45–65; PULSE 77; O2SAT 93; BMI 31.4
--- NOTE | 2024-07-30 07:56 | W.PN.UPDATE ---
Update Note
Progress Note Update
Status post left hip hemiarthroplasty June 20, [address] Parker. Postoperatively he has been dealing with a lot of swelling in his thigh and leg. He has been afebrile and no white count. Prior CT scan left lower extremity showed hematoma
along the lateral thigh. Left hip today revealed incision well-healed. No warmth, erythema or pain about the hip. Passive motion reveals flexion 90 degrees, internal rotation 5 degrees, external rotation 20 degrees without pain. Left thigh has
moderate to severe swelling. No warmth or erythema. Compartments throughout the thigh/lower leg are compressible without significant pain. Most of his discomfort is over the anterior quadriceps and lateral quadriceps. Left knee has no effusion.
No pain medial or lateral joint line. No evidence of instability. Range of motion 0 to 30 degrees. At the extreme of flexion there is pain in the quadriceps and quad muscle. He is able to straight leg raise but it is uncomfortable. Calf soft
and nontender. Distal neurovascular was intact. It appears as though his pain is emanating from quadriceps region. This is secondary to hematoma/edema. I recommend elevation and compressive stockings to help reabsorb this fluid. Continue with
formal physical therapy and ambulate as tolerated with walker. Orthopedics will continue to observe.
[2024-07-30] MEDS: VITAMIN B1 100 MG PO (08:38)
[2024-07-30] MEDS: PROTONIX 40 MG PO ×2 (08:38→21:13)
[2024-07-30] MEDS: FOLVITE 1 MG PO (08:38)
[2024-07-30] MEDS: PACERONE 100 MG PO (08:39)
[2024-07-30 09:47] LABS: Hematocrit 24.3 % (39.0-52.0); Hemoglobin 7.7 g/dL (13.0-18.0); Mean Corp Hgb Conc. 31.7 g/dL (33.0-37.0); Mean Corpuscular Hgb 29.8 pg (27.0-31.0); Mean Corpuscular Volume 94.2 fL (80.0-94.0); Mean Platelet Volume 11.6 fL (7.4-10.4); Platelet Count 83 10^3/uL (130-400); Red Blood Cell Count 2.58 10^6/uL (4.70-6.10); Red Cell Dist. Width 20.1 % (11.5-14.5); White Blood Cell Count 8.1 10^3/uL (4.8-10.8)
[2024-07-30 10:08] LABS: Blood Urea Nitrogen 24 mg/dl (9-20); Calcium 7.3 mg/dl (8.4-10.2); Carbon Dioxide 20 mmol/L (22-30); Chloride 107 mmol/L (98-107); Estimated Creatinine Clearance 70 ml/min; Glucose 138 mg/dl (70-99); Sodium 132 mmol/L (135-145); eGFR 58.37
--- NOTE | 2024-07-30 10:33 | CM ---
Patient has been denied at [facility]and [facility] and [facility], case finisher reviewed options with patient's spouse today and referrals sent to [facility] and [facility].
Plan; Skilled placement for rehab.
[2024-07-30 10:45] LABS: Body Fluid Mononuclear 39.1 %; Body Fluid Polymorphonuclear 60.9 %; Body Fluid WBC 230 /CUMM
[2024-07-30 11:01] LABS: Body Fluid Albumin < 1.0 g/dl; Body Fluid Amylase < 30 U/L; Body Fluid LDH < 90 U/L; Body Fluid Protein < 2.0 g/dl
[2024-07-30 11:42] LABS: Body Fluid Second Tech AMA
[2024-07-30] MEDS: KCL 20 MEQ PO ×2 (11:45→19:36)
[2024-07-30] MEDS: LASIX 20 MG PO (11:45)
[2024-07-30] MEDS: DUPHALAC/CHRONULAC 30 GRAMS PO ×2 (11:45→21:12)
--- NOTE | 2024-07-30 13:30 | W.PN.HOSP.TC ---
Today's Communication/Plan
-
dc planning to SNF
Assessment / Plan
Assessment / Plan
Assessment:
LLE swelling with ambulatory dysfunction
Acute blood loss anemia from acute L thigh hematoma
Hx of left hip hemiarthroplasty 06/21
- DVT study negative 07/26
- CT: Asymmetric enlargement of soft tissue density in the region of the left lateral thigh musculature with compared to the right. This appears to be mainly at the lateral margin of the vastus lateralis muscle, and would be most compatible with a
left lateral thigh hematoma. Possible contrast density within the inferior aspect of the hematoma, which suggests the possibility of a component of active bleeding. Consider correlation with serial hemoglobin values. Moderate to severe diffuse
subcutaneous edema, greater on the left when compared to the right.
- Orthopedic following; clinically they were more concerned for DVT more so than hematoma. d/w Radiology who reviewed CT images with myself and more consistent with hematoma. all easily compressible veins in LLE on DVT US.
- s/p 1 unit PRBC; Hb 7.7 most recently. continue IV iron for iron deficiency
- serial exams to monitor for CS
L knee effusion
- likely from immobility, hematoma and underlying OA
- Knee X-rays with minimal OA
- apply ICE and compression
- serial exams per Orthopedics
Moderate ascites on Ct
- moderate on US
- s/p paracentesis 07/30/24; 450 cc removed. no SBP.
Scattered stage 2 along with MASD sacral/buttocks. MASD mild to lower back. Bruises on abdomen and arms/hands (and L hip as per RN James). L lateral upper calf small scabbed abrasion.
- all present on arrival
- wound care following
Hyponatremia
- monitor BMP
Parox A. fib
- continue Amiodarone
- holding Aspirin with hematoma
CKD stage 3b
- monitor BMP
Essential HTN
Chronic HFpEF
- continue Lasix
- monitor I/Os, weights, lytes
CAD
- holding ASA
- continue statin
ETOH dependancy
HX of Cirrhosis and HE
- continue Lactulose
DVT ppx: SCDs with hematoma
Code: Full
Anticipated Discharge: 24 - 48 hours
Subjective/Interval History
-
Date of Service: July 30, 2024
no new complaints
s/p paracentesis 450 cc removed
Objective Data
-
Labs:
Laboratory Results
07/30/24
08:32
WBC 8.1
Hgb 7.7 L
Hct 24.3 L
Plt Count 83 L
Sodium 132 L
Potassium 4.0
Chloride 107
Carbon Dioxide 20 L
BUN 24 H
Creatinine 1.3
Glucose 138 H
Calcium 7.3 L
Vital Signs:
Vital Signs
Temp Pulse Resp BP Pulse Ox
98.6 F 78 18 139/57 95
07/30/24 11:21 07/30/24 11:21 07/30/24 11:21 07/30/24 11:21 07/30/24 11:21
I&O
07/29/24 07/30/24 07/31/24
06:59 06:59 06:59
Intake Total 1680 / 1680 960 / 960
Output Total 220 / 220 400 / 400
Balance 1460 / 1460 560 / 560
Physical Exam
-
General: No Apparent Distress
HEENT: Normocephalic and Atraumatic
Respiratory: Negative Wheezes
Cardiac: Regular Rhythm and S1/S2
GI: Soft and Nontender
Musculoskeletal: Edema, Right Lower Extrem and Edema, Left Lower Extrem
Neuro: AO x 3
Psych: Calm
Data Reviewed
-
Total Time Spent with Patient (in minutes): 41
Labs: Labs Reviewed by me
--- NOTE | 2024-07-30 13:45 | W.PN.UPDATE ---
Update Note
Progress Note Update
patient seen chart reviewed. spoke with nursing. at bedside. mr paige offered no c/o re psychiatry. he is taking remeron at hs. he does admit he continue to have pain in Lower extremity. ortho note apreciated re hematoma and the patient
seems to understand that this is in part the cause of his pain. he did sleep with remeron. he notes 'but they wake you up for vital signs'. for now continue as currently. hopefully patient will cooperative with plans for snf or whatever is
recommended for his future care. a big part of his treatment has been not cooperating with recommendations for care which have frustrated and upset his who seems very supportive. will follow
[2024-07-30] MEDS: FERRLECIT 110 MG IV (14:58)
[2024-07-30] MEDS: REMERON 7.5 MG PO (21:13)
[2024-07-30] MEDS: LIPITOR 40 MG PO (21:13)
[2024-07-31 06:00] VITALS: BMI 30.9
[2024-07-31 07:47] VITALS: BP 115/40
--- NOTE | 2024-07-31 08:42 | W.PN.UPDATE ---
Addendum entered and electronically signed by Caden Parker MD 07/31/24 12:24:
Agree with below. Patient seen and examined. Pitting edema about the left lower extremity including the thigh. Compartments soft. Possible hematoma about the left thigh as patient's platelets low secondary to chronic disease. Not a good
candidate for surgical evacuation of the thigh to remove potential hematoma. Agree with possible lymphedema consult. Could consider IR aspiration but this may not yield hematoma if clotted and won't account for the pitting edema. May be WBAT with
PT. Hip prosthesis in good position without evidence of prosthetic issues.
Original Note:
Update Note
Progress Note Update
Orthopedic surgery:
Patient seen with Dr. Parker
Mr. Restrepo relays that he still has discomfort left thigh/left knee. He remains afebrile and white count is normal. Hemoglobin has been stable since his transfusion earlier this week. Labs still pending this morning. X-rays left hip/left knee,
CT scan left lower extremity and ultrasound reviewed. Left hip surgical incision well-healed. No palpable pain around the incision. Left hip range of motion reveals flexion 90 degrees, internal rotation 10 degrees, external rotation 25 degrees
all without pain. Left thigh has moderate to severe swelling. Compartments are compressible without pain. Left knee trace to small effusion noted. No palpable pain about the knee. No evidence of instability and negative Zaki's. During
range of motion testing there is pain primarily over the anterior aspect of the knee with range of motion 0 to 40 degrees. Edema noted throughout the lower extremity. There is pitting noted throughout the leg. Calf compartments are soft and
palpable. No pain to palpation about the calf. Distal neurovascular was intact. Unfortunately due to patient's liver disease and left hip hemiarthroplasty from approximately 6 weeks ago he does have hematoma/edema in his lower extremity. This is
likely causing a lot of his pain and ambulatory dysfunction. Suggest continue with compression and ice with elevation. Hopefully premedicate and work with physical therapy. Weightbearing as tolerated with walker. Consider consultation of
lymphedema nurse to see what else can be done to help evacuate fluid from the lower extremity. Since it has been 6 weeks since surgery it is unlikely that the hematoma could be aspirated and surgical evacuation is not a good option. There is no
significant fluid in the knee so low suspicion for infection. Orthopedics to continue to observe.
[2024-07-31 08:56] LABS: Hematocrit 24.3 % (39.0-52.0); Mean Corp Hgb Conc. 32.9 g/dL (33.0-37.0); Mean Corpuscular Hgb 30.8 pg (27.0-31.0); Mean Corpuscular Volume 93.5 fL (80.0-94.0); Mean Platelet Volume 11.2 fL (7.4-10.4); Platelet Count 78 10^3/uL (130-400); White Blood Cell Count 11.1 10^3/uL (4.8-10.8)
--- NOTE | 2024-07-31 09:29 | PN.CDI ---
CDI
- -
CDI:
Physician Documentation Request
Admit Date: 07/27/24 14:48
Dear Doctor Joe,
Please review the following and provide your response in the progress notes.
Clinical Indicators:
The diagnosis of left knee effusion was documented on 1/2 PN.
- 1/2 PN 'L knee effusion'
- /2 Ortho 'Left knee has no effusion'
- 12.31 Knee xray 'Small joint effusion'
In an attempt to clarify potentially conflicting documentation, please clarify the left knee effusion:
____ - Left knee effusion was present on admission and is still being monitored, evaluated or treated
____ - Left knee effusion was ruled out
____ - Other
Use of terms such as suspected, likely, concern for, or probable (associated with a specific diagnosis that is being evaluated, monitored, or treated as if it exists) are acceptable and can be coded in the inpatient setting, when documented at the
time of discharge.
Thank you,
Andrea Maharaj RN
CDI Specialist
Please use your independent medical judgment in providing your response.
--- NOTE | 2024-07-31 09:46 | W.PN.HOSP.TC ---
Today's Communication/Plan
-
dc to SNF today
Assessment / Plan
Assessment / Plan
Assessment:
LLE swelling with ambulatory dysfunction
Acute blood loss anemia from acute L thigh hematoma
Hx of left hip hemiarthroplasty 06/21
- DVT study negative 07/26
- CT: Asymmetric enlargement of soft tissue density in the region of the left lateral thigh musculature with compared to the right. This appears to be mainly at the lateral margin of the vastus lateralis muscle, and would be most compatible with a
left lateral thigh hematoma. Possible contrast density within the inferior aspect of the hematoma, which suggests the possibility of a component of active bleeding. Consider correlation with serial hemoglobin values. Moderate to severe diffuse
subcutaneous edema, greater on the left when compared to the right.
- Orthopedic following; clinically they were more concerned for DVT more so than hematoma. d/w Radiology who reviewed CT images with myself and more consistent with hematoma. all easily compressible veins in LLE on DVT US.
- s/p 1 unit PRBC; Hb 8.0 most recently. continue IV iron for iron deficiency
- serial exams to monitor for CS
L knee effusion, minimal on admission
- likely from immobility, hematoma and underlying OA
- Knee X-rays with minimal OA
- apply ICE and compression
- serial exams per Orthopedics
Moderate ascites on Ct
- moderate on US
- s/p paracentesis 07/30/24; 450 cc removed. no SBP.
Scattered stage 2 along with MASD sacral/buttocks. MASD mild to lower back. Bruises on abdomen and arms/hands (and L hip as per RN James). L lateral upper calf small scabbed abrasion.
- all present on arrival
- wound care following
Hyponatremia
- monitor BMP
Parox A. fib
- continue Amiodarone
- holding Aspirin with hematoma
CKD stage 3b
- monitor BMP
Essential HTN
Chronic HFpEF
- continue Lasix
- monitor I/Os, weights, lytes
CAD
- holding ASA
- continue statin
ETOH dependancy
HX of Cirrhosis and HE
- continue Lactulose
DVT ppx: SCDs with hematoma
Code: Full
More than 30 minutes spent in discharge including
Final examination of the patient
Summarizing hospital stay
Instructions for continuing care to all relevant caregivers
Preparation of discharge records, prescriptions, and referral forms
Total time spent (in minutes):41
Anticipated Discharge: Today
Subjective/Interval History
-
Date of Service: July 31, 2024
no new complaints
for SNF today
Objective Data
-
Labs:
Laboratory Results
07/31/24
07:58
WBC 11.1 H
Hgb 8.0 L
Hct 24.3 L
Plt Count 78 L
Sodium Pending
Potassium Pending
Chloride Pending
Carbon Dioxide Pending
BUN Pending
Creatinine Pending
Glucose Pending
Calcium Pending
Vital Signs:
Vital Signs
Temp Pulse Resp BP Pulse Ox
98.5 F 82 18 115/40 93
07/31/24 07:47 07/31/24 07:47 07/31/24 07:47 07/31/24 07:47 07/31/24 07:47
I&O
07/30/24 07/31/24 08/01/24
06:59 06:59 06:59
Intake Total 960 / 960 720 / 720
Output Total 400 / 400 300 / 300
Balance 560 / 560 420 / 420
Physical Exam
-
General: No Apparent Distress
HEENT: Normocephalic and Atraumatic
Respiratory: Negative Wheezes
Cardiac: Regular Rhythm and S1/S2
GI: Soft and Nontender
Genito-urinary: No Costovertebral Tender
Musculoskeletal: Edema, Left Lower Extrem
Neuro: AO x 3
Hematologic / Lymphatic: No Lymphadenopathy
Psych: Calm
Data Reviewed
-
Total Time Spent with Patient (in minutes): 43
Labs: Labs Reviewed by me
[2024-07-31 09:50] LABS: Blood Urea Nitrogen 24 mg/dl (9-20); Calcium 7.2 mg/dl (8.4-10.2); Carbon Dioxide 20 mmol/L (22-30); Chloride 108 mmol/L (98-107); Estimated Creatinine Clearance 69 ml/min; Glucose 111 mg/dl (70-99); Potassium 4.1 mmol/L (3.5-5.1); Sodium 135 mmol/L (135-145); eGFR 58.37
[2024-07-31] MEDS: ROBITUSSIN 200 MG PO (10:59)
[2024-07-31] MEDS: DUPHALAC/CHRONULAC 30 GRAMS PO (10:59)
[2024-07-31] MEDS: PROTONIX 40 MG PO (11:01)
[2024-07-31] MEDS: PACERONE 100 MG PO (11:02)
[2024-07-31] MEDS: VITAMIN B1 100 MG PO (11:02)
[2024-07-31] MEDS: FEOSOL 325 MG PO (11:03)
[2024-07-31] MEDS: KCL 20 MEQ PO ×2 (11:03→16:12)
[2024-07-31] MEDS: LASIX 20 MG PO (11:03)
[2024-07-31] MEDS: FOLVITE 1 MG PO (11:03)
--- NOTE | 2024-07-31 11:11 | W.PN.UPDATE ---
Update Note
Progress Note Update
reviewed chart and spoke with nursing. mr solis is leaving for [place] today. suggested to him and his that the remeron could be increased depending on response. explained to patient that if he noted no improvement in mood or indeed
if he noted himself to be more depressed or less motivated...any of the sx which might suggest depression it could be increased to 15 mg. i would not increase it yet as it was just begun. he is a difficult person to gauge re mood as he does not seem
very emotive and it might therefore be prudent to check with his family is very attentive.
--- NOTE | 2024-07-31 11:13 | VATNOTE ---
at rounds: Noticed left arm infitrate from an old iv or phleb draw site. Warm to touch no pain at this time. Ice packs applied for comfort. Will monitor closely.
--- NOTE | 2024-07-31 11:47 | CM ---
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
[facility]
Report [phone]
[2024-07-31] MEDS: FERRLECIT 110 MG IV (14:38)
--- NOTE | 2024-07-31 15:10 | W.DS.TRANS ---
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
-
Discharge Instructions:
Discharge Diagnosis/Procedures LLE hematoma with leg swelling, ambulatory
dysfunction
Diet 2 Gram Sodium,Low Cholesterol
Activity As tolerated
Bathing Restrictions None
Other Services PT,OT
Instructions:
Stand-Alone Forms:
Changes to Home Medications: No
Discharge Medications:
DC Medications w/original date entered in [employer]
folic acid 1 mg tablet 1 mg PO DAILY Supplement #0 tabs 08/28/22
amiodarone 200 mg tablet (Pacerone) 100 mg (1/2 x 200 mg) PO DAILY 30 days #15 tabs 12/20/22
pantoprazole 40 mg tablet,delayed release 40 mg PO BID 30 days #60 tabs 12/20/22
thiamine HCl (vitamin B1) 100 mg tablet 100 mg PO DAILY 30 days #30 tabs 12/20/22
ferrous sulfate 325 mg (65 mg iron) tablet 325 mg PO Q48H Supplement 06/29/23
potassium chloride 20 mEq tablet,extended release(part/cryst) (Klor-Con M) 20 meq PO BID Electrolyte Repletion 06/29/23
furosemide 20 mg tablet 20 mg PO DAILY Fluid Retention/Swelling 06/20/24
aspirin 81 mg chewable tablet 81 mg PO BID #46 tabs 06/26/24
acetaminophen 325 mg tablet 650 mg PO Q4HPRN PRN mild pain/fever 07/01/24
atorvastatin 40 mg tablet 40 mg PO HS High cholesterol 07/01/24
guaifenesin 100 mg/5 mL oral liquid 200 mg PO Q4HPRN PRN COUGH 07/26/24
acetaminophen 325 mg tablet 650 mg (2 x 325 mg) PO Q6HPRN PRN mild pain/ fever>100.5F #100 tabs 07/31/24
lactulose 10 gram/15 mL oral solution 30 g (45 mL) PO BID Liver Issues #0 mL 07/31/24
mirtazapine 7.5 mg tablet 7.5 mg PO HS #30 tabs 07/31/24
Home Medication Changes
Pending Results: No
Total time spent discharging patient (in min): 41
[2024-07-31 15:38] VITALS: BP 135/54
[2024-07-31] MEDS: ULTRAM 25 MG PO (16:12)
--- NOTE | 2024-07-31 16:24 | WOUNDNOTE ---
WOC RN note: t/c Albina Gil, spoke with Natty who will let nurse know an air mattress is recommended.
== END 2024-07-31 17:55 | DRG 920 ==
LOC: 4 WEST ACU 14:48
PROVIDERS: Nurse Practitioner Family; Radiology Vascular & Interventional Radiology; ADMITTING PHYSICIAN Hospitalist; ATTENDING PHYSICIAN Internal Medicine; CONSULT PHYSICIAN Psychiatry & Neurology Psychiatry; EMERGENCY PHYSICIAN Emergency Medicine; FAMILY PHYSICIAN Nurse Practitioner Adult Health
PROC: 0W9G3ZZ Drainage of Peritoneal Cavity, Percutaneous Approach (ICD-10-PCS; 2024-07-27)
DX: M96.840 Postprocedural hematoma of a musculoskeletal structure following a musculoskeletal system procedure (principal); D62 Acute posthemorrhagic anemia; I13.0 Hypertensive heart and chronic kidney disease with heart failure and stage 1 through stage 4 chronic kidney disease, or unspecified chronic kidney disease; E87.1 Hypo-osmolality and hyponatremia; I50.32 Chronic diastolic (congestive) heart failure; F10.20 Alcohol dependence, uncomplicated; N18.32 Chronic kidney disease, stage 3b; K70.31 Alcoholic cirrhosis of liver with ascites; Z87.01 Personal history of pneumonia (recurrent)
CPT/HCPCS: 88305; 49083; 71046; 73502; 73564; 73701; 74176; 76700; 80048; 80053; 81003; 81015; 82042; 82140; 82150; 82607; 82728; 82746; 83540; 83550; 83615; 84157; 85014; 85018; 85025; 85027; 86850; 86900; 86901; 86920; 87015; 87070; 87205; 88112; 89051; 93971; 93975; 97163; 97167; 97530; 99285; J2916; P9016; Q9967

== ENCOUNTER 2024-08-22 15:01 | Inpatient (IN) | payer MEDICARE, OTHER, SELFPAY ==
[2024-08-22] VITALS (59 sets, daily range): BP systolic 50–168; BP diastolic 34–97; BMI 34.0; BMI 33.6
--- NOTE | 2024-08-22 12:54 | ED.GENMED ---
History of Present Illness
General
Chief Complaint: CODE
Time Seen by Provider: 08/22/24 12:53
History of Present Illness
History of Present Illness:
TIME OF INITIAL ENCOUNTER: 12:30 PM
HPI: I spoke to EMS for history. I also spoke to family for history. The patient had a telehealth visit over the phone discussing his recent use of mirtazapine which family concerned was causing nightmares. After the visit, at around 11:15 AM,
the patient became unresponsive. EMS was called and found him pulseless. He was coded for approximately 5 minutes. He was given epinephrine twice as well as half of a milligram of atropine. He was intubated without anesthesia. He had ROSC prior
to arrival. The patient has multiple comorbidities including A-fib, CHF, cirrhosis, CKD, history of alcohol abuse but none for 2 years.
EXAM:
GENERAL: The patient is critically ill in appearance
HEENT: Dry oral mucosa
CARDIOVASCULAR: Poor perfusion, normal rate,
PULMONARY: Decreased breath sounds equally slightly coarse
ABDOMEN: Soft with no peritoneal signs, no tenderness
NEUROLOGIC: The patient's pupils are approximately 2-3 mm, no spontaneous movement however the patient does appear to be bucking the vent at times, he does not respond to painful stimuli
PSYCHIATRIC: Nonverbal
EXTREMITIES: No obvious deformity
SKIN: There is a large area of ecchymosis noted in the left flank/left lower quadrant/left groin
NUMBER AND COMPLEXITY OF PROBLEMS ADDRESSED AT THE ENCOUNTER
� Chronic conditions affecting care: A-fib, CHF, CAD, high blood pressure, hyperlipidemia, cirrhosis CKD
� Acute Exacerbation and/or Progression of Chronic Illness:
� Differential Diagnosis includes: Cardiac arrest, anemia, dysrhythmia, sepsis, hypercapnic respiratory failure,
AMOUNT AND/OR COMPLEXITY OF DATA TO BE REVIEWED AND ANALYZED
� I performed an independent evaluation of and my interpretation is:
EKG: Sinus 79 left axis deviation, nonspecific ST abnormality
CT:
X-rays: After intubation by EMS and placement of central line, the central line appears to be appropriately positioned and the tube is appropriately above the brianne
Laboratory Studies: White count 8.8, hemoglobin 8.0 similar to prior, INR 4.8, 7.04/36/234, lactic 10.8, glucose 50, total bili 4.9, bicarb 9, creatinine 2.7
Other:
� Review of other/old records: The patient was admitted here earlier this month with a left lower extremity hematoma and ambulatory dysfunction
� Clinical information was obtained by an independent historian: I spoke to family at bedside and I also spoke to EMS
� Prescriptions/Medications Considered but not given:
� Further testing considered but not performed:
RISK OF COMPLICATIONS AND/OR MORBIDITY OR MORTALITY OF PATIENT MANAGEMENT
� Social determinants of health affecting care: Lives at home
� Discussion with other providers: Hospitalist and ICU attending
� Escalation of care including admission/observation vs risk of discharge considered: See below
ANY OTHER UPDATES:
The patient was intubated by EMS. He had poor peripheral access and arrived with an IO. I placed a right IJ with some difficulty despite using ultrasound. Initial postprocedural chest x-ray relatively unremarkable with normal positioning of
central line and endotracheal tube. However visualization of a pneumothorax is noted on CT imaging of the chest. I notified critical care and PEEP has been changed to 0. Considered chest tube placement on the right side however the patient is
still satting well and has an INR that is concerning. Continuing FiO2 of 100% with low tidal volumes. I discussed case with family however family could not clearly tell me about CODE STATUS. He is found to be hypoglycemic and was given D50.
Bicarb was also given at the recommendation of critical care. He at times was bucking the vent and I did order propofol and fentanyl. On nurse did get a chance, rectal temp was obtained and is markedly low at 31.1 Celsius. Low-dose Levophed
started.
Past History
Past History
ED Past Medical History: CAD, HTN and Other (Alcohol abuse, cirrhosis, hepatic encephalopathy)
ED Past Surgical History: None
Social History
Tobacco: Non-smoker
Alcohol: Former
Drug: None
Personal:
Living: with family
Employment: Not employed
Phy Exam
Physical Exam
Physical Exam:
See HPI
Course
Orders/Labs/Results
Orders:
Orders
08/22/24 12:26
CT Head W/o Iv Contrast Urgent
Comment:
Reason For Exam: unresponsive/AMS
CT Pe/abd/pel W Urgent
Comment: left flank/abd ecchymosis, eval for retroperitoneal bleeding
Reason For Exam: respiratory arrest ROSC obtained
08/22/24 12:30
Urinalysis Reflex To Culture Urgent
Date Specimen was Collected: 08/22/24
Time Specimen was Collected: 14:36
08/22/24 12:31
IV Insert/Care/Rem.- Treatment PRN
08/22/24 12:44
Blood Culture Q30M
MISHEL Source: Blood/Venous
Specimen Description:
Blood Culture Q30M
MISHEL Source: Blood/Venous
Specimen Description:
08/22/24 12:45
Type And Crossmatch [Type+Screen] Urgent
Complete Blood Count/With Diff Urgent
Comprehensive Metabolic Panel Urgent
Lactic Acid Urgent
Lipase Urgent
NT-proBNP Urgent
PTT Urgent
Prothrombin Time Urgent
Triglycerides Urgent
Comment: ADDON
Troponin I Urgent
Venous Blood Gas Urgent
%Oxygen/Room Air: intubated
08/22/24 12:53
ABG [Arterial Blood Gas] Urgent
%Oxygen/Room Air: vent
0.9% Sodium Chloride 1000 ml [Nss] 1,000 ml IV BOLUS
08/22/24 13:35
Dextrose 50%-Water [Dextrose 50% Syringe] 25 grams IV NOW STA
08/22/24 13:54
Sodium Bicarbonate 50 meq IV NOW STA
08/22/24 13:55
Sodium Bicarbonate 50 meq IV NOW STA
08/22/24 13:58
Fentanyl Citrate/Pf [Sublimaze] 50 mcg IV NOW STA
Fentanyl Citrate/Pf [Sublimaze] 50 mcg IV [id number] PRN
08/22/24 14:00
0.45% Sodium Chloride 1000 ml [0.45%NaCl] 1,000 ml Sodium Bicarbonate 75 meq IV 250 mls/hr
Dextrose 10%/Water 500 ml [D10w] 500 ml IV 500 mls/hr
FentaNYL 1,000 MCG/100 ML [Sublimaze] 1,000 mcg in 100 ml IV PER PROTOCOL
Indication:: Deep Sedation
Begin Infusion:: Now
Goal:: RASS </= -3, BIS 40-60, ventilator synchrony
Maximum dose in mcg/hr:: 300
Continue currently infusing dose and titrate:: Yes
Titration Instructions:: Titrate Q30 min until ventilator synchrony, RASS or BIS goal is met.
Titration Instructions:: If RASS >/= -2 or BIS > 60 or ventilator dyssynchrony:
Titration Instructions:: administer bolus dose and increase infusion by 25 mcg/hr.
Titration Instructions:: Administer analgesia bolus dose(s) & titrate analgesia prior to
Titration Instructions:: adjusting sedation.
Over-sedation Instructions:: if BIS < 40 and pt is synchronous with ventilator, decrease infusion by
Over-sedation Instructions:: 25 mcg/hr every 2 hours until BIS = 40-60.
Over-sedation Instructions:: Do not wean infusion to off if patient is receiving a continuous NMBA or
Over-sedation Instructions:: has received a bolus dose of NMBA within the past 3 hours.
Notify provider:: immediately if pt exhibits signs/symptoms of chest wall rigidity,
Notify provider:: hemodynamic instability, or agitation/pain despite maximum dosing.
Additional Instructions:: Patient MUST be mechanically ventilated.
Propofol 1,000,000 Mcg/100 ml [Diprivan] 1,000,000 mcg in 100 ml IV PER PROTOCOL
Indication:: Deep Sedation
Begin Infusion:: Now
Goal:: RASS -3 to -5 or BIS < 60 or ventilator synchrony
Maximum dose in mcg/kg/min:: 50
Continue currently infusion dose and titrate:: Yes
Titration Instructions:: Titrate by 5-10 mcg/kg/min every 5 minutes until RASS -3 to -5 or
Titration Instructions:: BIS < 60 or ventilator synchrony is met.
Titration Instructions:: Administer analgesia bolus dose(s) & titrate analgesia prior to
Titration Instructions:: adjusting sedation.
Taper Instructions:: If RASS is at or below goal for 4 consecutive hours decrease infusion by
Taper Instructions:: 5-10 mcg/kg/min every 2 hours. Do not wean infusion to off if patient is
Taper Instructions:: receiving a continuous NMBA or has received bolus NMBA with the past 3 hrs
Over-sedation Instructions:: If BIS < 40 and synchronous with ventilator decrease infusion by
Over-sedation Instructions:: 5-10 mcg/kg/min every 2 hour until BIS = 40-60.
Notify provider:: immediately if patient exhibits signs/symptoms of propofol-related
Notify provider:: infusion syndrome.
Additional Instructions:: Patient MUST be mechanically ventilated and MUST receive analgesia.
08/22/24 14:27
NORepinephrine 4 MG/250 ML [Levophed] 4 mg in 250 ml .ROUTE .STK-MED
08/22/24 14:45
NORepinephrine 4 MG/250 ML [Levophed] 4 mg in 250 ml IV PER PROTOCOL
Initial dose in mcg/min, then titrate:: 2
Titrate to keep:: MAP > 65 mmHg
Titrate by mcg/min:: 1-2 mcg/min
Frequency of titrations (minutes):: 5
Maximum dose in ICU in mcg/min:: 30
Maximum dose in IMU in mcg/min:: 8
Maximum dose in IVU in mcg/min:: 4
Begin to taper infusion when:: Remained at goal for 4hrs
Taper by mcg/min:: 1-2 mcg/min
Frequency of taper (minutes) if patient maintains goal:: 30
Taper to off?: Yes
If infusion off & no longer maintaining goal:: Contact Provider
08/22/24 14:47
Admit/Transfer Patient As Directed
Co-Sign Provider:
Level of Care: Inpatient admission
Assign to:: ICU
Physician / Group: felisha
Diagnosis: cardiac arrest/septic shock
Reason for Hospitalization: cardiac arrest/septic shock
Expected length of stay greater than two midnights?: Yes
ELOS- Estimated Length of Stay in days: 2
I certify the patient meets the requirements for IP care: Yes
PRN Pain Medication Management As Directed
May give lesser potent ordered pain med per pt: Yes
preference::
Protocol:: Medication orders for pain may be administered in a
manner that supports deferring to patient preference
when the pt is:
- Requesting an ordered lesser potent pain medication.
Least to most potent pain medications are defined
as: acetaminophen < NSAID < tramadol < opioids
(morphine, oxycodone, hydromorphone).
- Requesting a lesser dose of the same medication IF
ORDERED.
- Requesting a less intrusive route of administration
if both routes are prescribed by the provider (PO <
IV).
08/22/24 14:48
Code Status As Directed
Resuscitation Status: Do not resuscitate
Reached after discussion with pt or family/Healthcare POA: Yes
DNR Bracelet Application ONCE
08/22/24 14:51
D-Dimer Urgent
Fibrinogen Urgent
08/22/24 14:55
EKG [Electrocardiogram (*1)] Urgent
Reason for Study: Other
Other Reason for Exam: cardiac arrest
VANCOMYCIN Pharmacy to Dose [VANCOCIN Pharmacy to Dose] 1 each Pharmacy To Prepare [Call Pharmacy To Prepare] 0 ml IV PER PROTOCOL
08/22/24 14:58
Vancomycin [Vancocin] 2,000 mg 0.9% Sodium Chloride 500 ml [Nss] 500 ml IV NOW
08/22/24 14:59
Calcium Gluconate 1 gram/100mL [Calcium Gluconate] 1 gram in 100 ml IV ONCE
08/22/24 15:00
Flush (0.9% Sodium Chloride) [Flush (Nss)] See Dose Instructions IV PER PROTOCOL
08/22/24 16:00
Piperacillin/Tazo 2.25 Gram [Zosyn] 2.25 grams in 50 ml IV Q6H
Piperacillin/Tazo 3.375 Gram [Zosyn] 3.375 gram in 50 ml IV Q6H
08/23/24 06:00
Vancomycin Random IN AM
08/23/24 08:00
Polyethylene Glycol Powder [Miralax] 17 grams TUBE DAILY
08/25/24 06:00
Triglycerides Q3D
Comment: every 72 hours while patient is on propofol
08/28/24 06:00
Triglycerides Q3D
Comment: every 72 hours while patient is on propofol
08/31/24 06:00
Triglycerides Q3D
Comment: every 72 hours while patient is on propofol
Abnormal Lab Results
08/22/24
12:45
RBC 2.74 L 10^6/uL
(4.70-6.10)
Hgb 8.0 L g/dL
(13.0-18.0)
Hct 26.2 L %
(39.0-52.0)
MCV 95.6 H fL
(80.0-94.0)
MCHC 30.5 L g/dL
(33.0-37.0)
RDW 18.6 H %
(11.5-14.5)
Plt Count 69 L 10^3/uL
(130-400)
MPV 12.6 H fL
(7.4-10.4)
PT 44.1 H Sec
(11.4-14.6)
APTT 84.7 H Sec
(23.4-35.0)
VBG pH 7.04 L*
(7.32-7.43)
VBG pO2 234 H mmHg
(30-50)
VBG HCO3 9.7 L mmol/L
(22-27)
Sodium 133 L mmol/L
(135-145)
Carbon Dioxide 9 L* mmol/L
(22-30)
BUN 33 H mg/dl
(9-20)
Creatinine 2.7 H mg/dL
(0.7-1.3)
Glucose 50 L* mg/dl
(70-99)
Lactic Acid 10.8 H* mmol/L
(0.7-2.0)
Calcium 6.6 L* mg/dl
(8.4-10.2)
Total Bilirubin 4.9 H mg/dl
(0.2-1.3)
AST 69 H U/L
(17-59)
ALT 57 H U/L
(0-50)
Alkaline Phosphatase 175 H U/L
(38-126)
Total Protein 4.0 L g/dl
(6.3-8.2)
Albumin 1.5 L g/dl
(3.5-5.0)
08/22/24 12:45
08/22/24 12:45
Vital Signs
Initial and Last Documented VS:
Initial Vital Signs
Pulse Resp BP
79 19 168/97
08/22/24 12:23 08/22/24 12:23 08/22/24 12:23
Last Documented Vital Signs
Temp Pulse Resp BP Pulse Ox
31.1 C L 72 14 77/36 98
08/22/24 15:15 08/22/24 15:15 08/22/24 15:15 08/22/24 15:10 08/22/24 14:45
Procedures
Central Line
Right Internal jugular:
Indication for procedure:: Poor IV access, cardiac arrest
Procedure completed by: [place], Dr. Finch
Consent form signed: No
If no, reason: Emergency procedure
Anesthesia: 1% Lidocaine
Central line lumen: triple
Number of attempts: 4
Sterile dressing applied?: Yes
Additional information:
Chest x-ray postprocedure relatively unremarkable with good line placement however CT chest does show signs of a pneumothorax on the right side
*Critical Care Note
Total Time (30-74mins, 75-104mins- exclusive of procedures): 60min
comment:
The patient arrived critically ill with ROSC. Transiently marked lab abnormalities. Hypotensive. CT imaging reviewed.
ED Attending Note
-
Portions of this chart may have been created with voice recognition software.� Occasional wrong word or��sound alike� substitutions may have occurred due to the inherent limitations of voice recognition software.
Discharge Plan
Departure
Patient Disposition: Admit
Date of Disposition: 08/22/24
Time of Disposition: 13:58
Presentation/result/management discussed w/ accepting MD/DO: Hospitalist
Discharge Problem:
Cardiac arrest
Interventions
Interventions:
*General Assessment Last Done: 08/22/24 12:18
*Neglect/Abuse Screening Last Done: 08/22/24 12:18
ED- Fall Risk Assessment Last Done: 08/22/24 14:45
ED- Cardiac Assessment Last Done: 08/22/24 14:45
ED- Pulmonary Assessment Last Done: 08/22/24 14:45
[2024-08-22 13:15] LABS: Venous Blood Gas B.E. -19.6 mmol/L (-4 to +4); Venous Blood Gas HCO3 9.7 mmol/L (22-27); Venous Blood Gas O2 Sat % 99.9 %; Venous Blood Gas pCO2 36 mmHg (35-48); Venous Blood Gas pO2 234 mmHg (30-50)
[2024-08-22 13:18] LABS: Venous Blood Gas pH 7.04 (7.32-7.43)
[2024-08-22 13:27] LABS: INR 4.76; PT 44.1 Sec (11.4-14.6)
[2024-08-22 13:28] LABS: APTT 84.7 Sec (23.4-35.0)
[2024-08-22 13:31] LABS: Lactic Acid 10.8 mmol/L (0.7-2.0)
[2024-08-22 13:34] LABS: Hematocrit 26.2 % (39.0-52.0); Mean Corp Hgb Conc. 30.5 g/dL (33.0-37.0); Mean Corpuscular Hgb 29.2 pg (27.0-31.0); Mean Corpuscular Volume 95.6 fL (80.0-94.0); Mean Platelet Volume 12.6 fL (7.4-10.4); Platelet Count 69 10^3/uL (130-400); Red Blood Cell Count 2.74 10^6/uL (4.70-6.10); Red Cell Dist. Width 18.6 % (11.5-14.5); White Blood Cell Count 8.8 10^3/uL (4.8-10.8)
[2024-08-22 13:36] LABS: AST (SGOT) 69 U/L (17-59); Albumin 1.5 g/dl (3.5-5.0); Alkaline Phosphatase 175 U/L (38-126); Blood Urea Nitrogen 33 mg/dl (9-20); Calcium 6.6 mg/dl (8.4-10.2); Carbon Dioxide 9 mmol/L (22-30); Chloride 106 mmol/L (98-107); Glucose 50 mg/dl (70-99); Lipase 35 U/L (23-300); Potassium 4.6 mmol/L (3.5-5.1); Sodium 133 mmol/L (135-145); Total Bilirubin 4.9 mg/dl (0.2-1.3); eGFR 24.28
[2024-08-22 13:39] LABS: NT-proBNP 8890 pg/ml; Troponin I 0.032 ng/ml
[2024-08-22] MEDS: NSS 1000 IV (13:42)
[2024-08-22] MEDS: DEXTROSE 50% SYRINGE 25 GRAMS IV (13:44)
[2024-08-22 13:47] LABS: ALT (SGPT) 57 U/L (0-50)
[2024-08-22] MEDS: SODIUM BICARBONATE 50 MEQ IV ×2 (13:59)
[2024-08-22] MEDS: DIPRIVAN 100 IV (14:08)
[2024-08-22] MEDS: SUBLIMAZE 100 IV (14:17)
[2024-08-22] MEDS: SODIUM BICARBONATE 1075 MEQ IV (14:25)
[2024-08-22 14:38] LABS: Glucose - Point of Care 87 mg/dl (70-99)
[2024-08-22] MEDS: LEVOPHED 250 IV ×4 (14:39→22:14)
--- NOTE | 2024-08-22 14:58 | HPS.HSE ---
Family Physician
-
Family Physician: NOT KNOW UNKNOWN - PT DOES
Chief Complaint
-
unresponsiveness
History of Present Illness
74-year-old male past medical history of paroxysmal atrial fibrillation, CKD 3B, hypertension, chronic HFpEF, CAD, alcohol use disorder, cirrhosis, presenting for unresponsiveness.
History is obtained from patient's .
He was noted to be unresponsive after telehealth visit at home. EMS found him pulseless, 2 rounds of epinephrine, 0.5 mg atropine, and CPR were performed. Patient was intubated in the field.
He was admitted 3 weeks ago for lower extremity swelling and hematoma around the left hip after hip surgery around [facility]. He was given 1 unit of blood for anemia and IV iron infusion.
He was discharged to rehab afterwards for a week. He has been having worsening swelling and hallucinations over the past few days with agitation. The red bruising over his body has progressed over the past few days.
He has been having worsening diarrhea. As well as cough since yesterday. No fevers.
He has not been drinking alcohol over the past several months. He does not smoke or use any drugs.
Medical History
Past Medical History
Past Medical History: Reports Other (paroxysmal atrial fibrillation, CKD 3B, hypertension, chronic HFpEF, CAD, alcohol use disorder, cirrhosis)
Past Surgical History: Reports Orthopedic
Social History
Tobacco: Non-smoker
Alcohol: Former
Drug: None
Family History
Family History: Not pertinent
Allergies / Home Medications
Allergies reflects when Allergies were last updated in [employer].
Home Medications with original date entered in [employer]
Allergy/Medication List:
Allergies
Allergy/AdvReac Type Severity Reaction Status Date / Time
No Known Allergies Allergy Verified 08/22/24 12:42
Home Medications
folic acid 1 mg tablet 1 mg PO DAILY Supplement #0 tabs 08/28/22
amiodarone 200 mg tablet (Pacerone) 100 mg (1/2 x 200 mg) PO DAILY 30 days #15 tabs 12/20/22
pantoprazole 40 mg tablet,delayed release 40 mg PO BID 30 days #60 tabs 12/20/22
thiamine HCl (vitamin B1) 100 mg tablet 100 mg PO DAILY 30 days #30 tabs 12/20/22
ferrous sulfate 325 mg (65 mg iron) tablet 325 mg PO Q48H Supplement 06/29/23
potassium chloride 20 mEq tablet,extended release(part/cryst) (Klor-Con M) 20 meq PO BID Electrolyte Repletion 06/29/23
furosemide 20 mg tablet 20 mg PO SUTUTHSA Fluid Retention/Swelling 06/20/24
atorvastatin 40 mg tablet 40 mg PO HS High cholesterol 07/01/24
lactulose 10 gram/15 mL oral solution 30 g (45 mL) PO BID Liver Issues #0 mL 07/31/24
mirtazapine 7.5 mg tablet 7.5 mg PO HS #30 tabs 07/31/24
acetaminophen 500 mg tablet 500 mg PO DAILYPRN PRN mild pain 08/22/24
aspirin 81 mg tablet,delayed release 81 mg PO BID 08/22/24
furosemide 20 mg tablet 40 mg PO MOWEFR 08/22/24
Review of Systems
-
History Source: Patient
A 12 point ROS was completed and negative except as noted: Yes
Constitutional: Reports No Symptoms
EENT: Reports No Symptoms
Respiratory: Reports No Symptoms
Cardiac: Reports No Symptoms
Abdomen/GI: Reports No Symptoms
: Reports No Symptoms
Musculoskeletal: Reports No Symptoms
Skin: Reports No Symptoms
Neurological: Reports No Symptoms
Endocrine: Reports No Symptoms
Hematologic/Lymphatic: Reports No Symptoms
Psych: Reports No Symptoms
Physical Exam
Vital Signs
Vital Signs
Pulse Resp BP Pulse Ox
73 13 67/35 95
08/22/24 14:28 08/22/24 14:25 08/22/24 14:25 08/22/24 12:32
Physical Exam
General: Well Developed, Well Nourished and No Apparent Distress
HEENT: NormoCephalic, Moist mucous membranes and Atraumatic
Respiratory: Clear
Cardiac: S1/S2 and Regular Rhythm; No Murmur or Rub
GI: Soft, Non Tender, Non Distended and Normal Bowel Sounds; No Organomegaly
Rectal: Deferred by Provider
Musculoskeletal: No Clubbing, No Cyanosis and No Edema
Skin: Other (echymosis of body, ); No Rash
Neuro: Nonfocal/grossly intact
Laboratory Results
-
08/22/24 12:45
08/22/24 12:45
Laboratory Results
PT 44.1 Sec (11.4-14.6) H 08/22/24 12:45
INR 4.76 08/22/24 12:45
APTT 84.7 Sec (23.4-35.0) H 08/22/24 12:45
Lactic Acid 10.8 mmol/L (0.7-2.0) H* 08/22/24 12:45
Total Bilirubin 4.9 mg/dl (0.2-1.3) H 08/22/24 12:45
AST 69 U/L (17-59) H 08/22/24 12:45
ALT 57 U/L (0-50) H 08/22/24 12:45
Alkaline Phosphatase 175 U/L (38-126) H 08/22/24 12:45
Troponin I 0.032 ng/ml 08/22/24 12:45
Lipase 35 U/L (23-300) 08/22/24 12:45
Data Reviewed
-
Lab Data: Labs Reviewed by me
Old Records: Reviewed
Impression/Plan
-
IMPRESSION:
PLAN:
# Cardiac arrest secondary to underlying sepsis/metabolic acidosis
-Patient intubated
-CT head shows no acute abnormality
-Right IJ placed, Silverio placed
-Patient on fentanyl, propofol
-Spouse and patient's family realistic about his poor prognosis and would like him to be DNR moving forward
-Check EKG
-Occ Med Physician considering cooling protocol
# Septic shock possibly secondary to bilateral lower lobe pneumonia vs SBP/
# Likely DIC
# Ecchymoses
-CT chest shows bilateral lower lobe consolidations, moderate to large large volume ascites
-INR 4.76, elevated PTT, PT
-Check fibrinogen, D-dimer
-Blood cultures pending
-Urinalysis pending
-Lactate of 10
-IV fluids
-Empiric vancomycin/Zosyn
-Levophed being started
# Small to moderate right-sided pneumothorax
-Patient intubated
# Acute kidney injury on CKD 3B
# Anion gap metabolic acidosis
-Bicarb drip
# Hypocalcemia secondary to sepsis
-Calcium repletion
# Hypoglycemia secondary to sepsis
-Given D50
L3 vertebral compression fracture
-On imaging
Paroxysmal atrial fibrillation
-Continue amiodarone
CAD
-Continue aspirin, statin
Chronic HFpEF
-Hold Lasix
Chronic macrocytic anemia
-Hemoglobin of 8
-Hemoglobin stable
Essential hypertension
Alcoholic cirrhosis
-Hold lactulose
Alcohol use disorder
Chronic thrombocytopenia secondary to cirrhosis
-Stable
Stage II sacral decubitus ulcer
Anxiety/depression
-Hold mirtazapine
DNR
DVT prophylaxis�SCDs
N.p.o.
--- NOTE | 2024-08-22 14:59 | PHA.VAN.IN ---
Assessment
- Assessment
Renal Function: Appears elevated from baseline
Renal Function may be Overestimated due to: BMI=34
Concomitant Antimicrobials: ZOSYN
- Previous Dosing Experience
Previous Regimen: PRN BY LEVELS 06/2024
Patient's SCR is: Elevated compared to previous dosing experience
Patient's weight is: Similar to previous dosing experience
Plan
- Plan
Initial / Loading Dose: 2000MG
Maintenance Regimen: PRN BY LEVEL
Monitoring: RANDOM 08/23 IN AM
MRSA Screen: Ordered per protocol
Pharmacokinetics Vancomycin I
- -
Patient Age: 74
Patient Sex: Male
Vancomycin Day #: 1
Indication: Pulmonary/Respiratory
Requesting Provider: CHAPIS
Pertinent Antimicrobial Allergies:
NKDA
Height / Weight:
Height 6 ft 2 in
Actual Weight 120 kg
IBW in k.2
- Vital Signs / Lab Results
Pulse Resp BP Pulse Ox
73 13 67/35 95
08/22/24 14:28 08/22/24 14:25 08/22/24 14:25 08/22/24 12:32
Lab Results - Hematology
08/22/24
12:45
WBC 8.8
Lab Results - Chemistry
08/22/24
12:45
BUN 33 H
Creatinine 2.7 H
Albumin 1.5 L
08/22/24
12:45
Lactic Acid 10.8 H*
--- NOTE | 2024-08-22 15:24 | CON.NEURO ---
Neuro Assessment/Plan
Assessment
Unresponsiveness following cardiac arrest
Prognosis regarding this patient's anoxic encephalopathy is fair to poor based on underlying medical issues including hepatic encephalopathy previously. The patient's downtime of only 5 minutes suggests toward a better likely outcome. Best
prognosis will be offered at 3 days after onset of cerebral injury
CT of head at onset of injury not showing loss of corrales-white differentiation is a positive factor toward eventual neurological recovery
Plan
Check greater than 1 hour EEG with consideration for continuous EEG monitoring if EEG demonstrates seizure activity
Check ammonia level
Would continue thiamine replacement
Would continue routine antiplatelet agents
Goal of normotension
Attempt to limit sedation if at all possible
Will follow
Consultation
Order
Date of Consultation: 08/22/24
Requesting Provider: Hospitalist
Reason for Consult: Anoxic encephalopathy
Subjective/Objective
Subjective Data
Date of Service: August 22, 2024
Adapted from my former esteemed colleagues consultation note:
'DATE/TIME OF CONSULTATION: 06/14/23
Reason for Consultation: s/p TNK for suspected ischemic stroke
Patient is a 73-year-old male with a past medical history of anemia with suspected GI source, former alcohol abuse, hypertension, atrial fibrillation on anticoagulation, CKD, heart failure presented to hospital as a stroke alert he had last known to
be normal at approximately 2:30 PM yesterday and was seen by his at 630 with significant bleeding change mental status with speech difficulty and confusion. His had discovered him having fallen. He had a hospitalization in the hospital
in November 2022 due to generalized weakness and anemia, there was concern for GI bleed and he underwent EGD and colonoscopy was started on aspirin but was recommended to hold off of apixaban.
Patient underwent CTA of the head and neck as well as CT perfusion. Based on CT perfusion showing significant area of penumbra without core ischemic infarct patient received TNK and extended time window due to the findings on CT brain perfusion.
Overall I think the event is less likely to be a TIA given his appearance of asterixis on the first day of my evaluation of the patient 06/14, elevated ammonia level, abnormal kidney function tests, and negative brain MRI. Not able to completely
exclude the possibility of a TIA given the patient does have atrial fibrillation and is not on full anticoagulation but I think the clinical context and the above makes it less likely than a metabolic induced encephalopathy.
As has evidence of asterixis and tremor which is most likely due to elevated ammonia levels, DELILAH versus CKD, previous alcoholism could also cause cerebellar issues and tremor . Not seeming like a parkinsonian type tremor with no significant resting
tremor no significant cogwheel rigidity no significant resting tremor no significant rigidity.'
Patient returned to this hospital's emergency department after sudden onset of unresponsiveness at 1115 hrs. today. EMS found him pulseless and chest compressions were performed for 5 minutes with epinephrine provided twice with the addition of
atropine. He had return of spontaneous circulation prior to arrival. Information is obtained after review of the patient's medical records and discussion with the patient's family at bedside as the patient himself is unable to provide his own
medical history.
Objective Data
Vital Signs
Temp Pulse Resp BP Pulse Ox
31.1 C L 72 14 77/36 98
08/22/24 15:15 08/22/24 15:15 08/22/24 15:15 08/22/24 15:10 08/22/24 14:45
Lab Results
08/22/24 12:45
08/22/24 12:45
PT 44.1 Sec (11.4-14.6) H 08/22/24 12:45
INR 4.76 08/22/24 12:45
APTT 84.7 Sec (23.4-35.0) H 08/22/24 12:45
Sodium 133 mmol/L (135-145) L 08/22/24 12:45
Potassium 4.6 mmol/L (3.5-5.1) 08/22/24 12:45
BUN 33 mg/dl (9-20) H 08/22/24 12:45
Glucose 50 mg/dl (70-99) L* 08/22/24 12:45
Calcium 6.6 mg/dl (8.4-10.2) L* 08/22/24 12:45
Dov-B-Jlgejzjenbk Pept 8890 pg/ml 08/22/24 12:45
Patient Allergies
No Known Allergies Allergy (Verified 08/22/24 12:42)
Review of Systems
-
Unable to obtain full review of systems at this time due to: Patient Intubation and Lethargy
History Source: Patient
All other systems: Reviewed and negative
Physical Exam
-
General: No Apparent Distress, Intubated and Appears Stated Age
Eyes: OU Absent Papilledema, Round OU and Luna Conjunctivae; Negative Able to visualize OU
HEENT: Anicteric and Moist Mucous Membranes
Neck: Full Range of Motion
Respiratory: No Dyspnea
Cardiac: No JVD
GI: Non-distended
Skin: Unremarkable
Extremities: No Clubbing, No Cyanosis and No Edema
Psych: Unable to Assess
Extended Neurological Exam
Mood & Affect: Unable to Assess
Attention Span & Concentration: Unresponsive to Verbal Stimuli and Unresponsive to Physical Stimuli; Negative Awake, Alert or Interactive
Memory: Unable to Assess
Involuntary Movement: None
Speech: Unable to Assess
Cranial Nerve II: Left Eye: Pupillary Reactivity Unremarkable, Pupillary Size Unremarkable and Unable to Assess Visual Muir
Cranial Nerve II: Right Eye: Pupillary Reactivity Unremarkable, Pupillary Size Unremarkable and Unable to Assess Visual Muir
Cranial Nerves III, IV, : Extraocular Movement: Absent Doll's Eyes and Unable to Assess (Ptosis)
Cranial Nerve V: Facial Sensation: Unable to Assess
Cranial Nerve VII: Facial Symmetry: Normal Facial Symmetry
Cranial Nerves IX, X: Palate Movement: Unable to Assess
Cranial Nerve XI: Shoulder Shrug: Unable to Assess
Cranial Nerve XII: Tongue Protusion: Unable to Assess
Muscle Strength, Overall: Negative Spontaneously Moves
Muscle Bulk & Tone: Bulk Unremarkable and Tone Unremarkable
Pronator Drift: Unable to Assess
Deep Tendon Reflexes: Absent Throughout
Cold Sensation: Unable to Assess
Vibration Sensation: Unable to Assess
Touch Sensation: Negative Withdrawal to Pain
Coordination: Unable to Assess
Babinski Sign: Absent Bilaterally
Gait & Station: Unable to Assess
Data Reviewed
-
CT Head: Report Reviewed
Labs: Report Reviewed
Reviewed with: Physician, Patient and Family
Old Records: Summarized
Medications
-
Active Medications
Generic Name Dose Route Start Last Admin
Trade Name Freq PRN Reason Stop Dose Admin
Fentanyl Citrate 50 mcg 08/22/24 13:58
Fentanyl (50 Mcg/Ml) 100 Mcg/2 Ml Ampul IV 09/05/24 13:57
[id number] PRN
see protocol
Protocol
Sodium Bicarbonate 75 meq/ 1,075 mls @ 250 mls/hr 08/22/24 14:00 08/22/24 14:25
Sodium Chloride IV 08/23/24 13:56 1,075 mls
.[id number] IMAN Administration
Propofol 1,000,000 mcg in 100 mls @ 0 mls/hr 08/22/24 14:00 08/22/24 14:08
Diprivan IV 100 mls
PER PROTOCOL IMAN Administration
Protocol
Per Protocol
Fentanyl Citrate 1,000 mcg in 100 mls @ 0 mls/hr 08/22/24 14:00 08/22/24 14:17
Sublimaze IV 100 mls
PER PROTOCOL IMAN Administration
Protocol
Per Protocol
Norepinephrine Bitartrate 4 mg in 250 mls @ 0 mls/hr 08/22/24 14:45 08/22/24 14:39
Levophed IV 250 mls
PER PROTOCOL IMAN Administration
Protocol
Per Protocol
Vancomycin HCl 1 each/ Device 0 mls @ 0 mls/hr 08/22/24 14:55
IV
PER PROTOCOL IMAN
As Directed
Piperacillin Sod/Tazobactam Sod 2.25 grams in 50 mls @ 100 mls/hr 08/22/24 16:00
Zosyn IV
Q6H IMAN
Vancomycin HCl 2,000 mg/ 540 mls @ 270 mls/hr 08/22/24 14:58
Sodium Chloride IV 08/22/24 16:57
NOW STA
Calcium Gluconate 1 gram in 100 mls @ 200 mls/hr 08/22/24 14:59
Calcium Gluconate IV 08/22/24 15:28
ONCE ONE
Acetaminophen 1,000 mg in 100 mls @ 400 mls/hr 08/22/24 15:30
Ofirmev IV 08/23/24 15:29
Q6H IMAN
Protocol
Polyethylene Glycol 17 grams 08/23/24 08:00
Polyethylene Glycol Powder 17 Grams Packet TUBE 09/20/24 07:59
DAILY IMAN
Sodium Chloride 0 flush 08/22/24 15:00
Sodium Chloride 0.9% (Flush) Syringe IV 09/19/24 14:59
PER PROTOCOL IMAN
Home Medications
�Medication �Instructions �Recorded
folic acid 1 mg tablet 1 mg PO DAILY Supplement #0 tabs 08/28/22
amiodarone 200 mg tablet (Pacerone) 100 mg (1/2 x 200 mg) PO DAILY 30 12/20/22
days #15 tabs
pantoprazole 40 mg tablet,delayed 40 mg PO BID 30 days #60 tabs 12/20/22
release
thiamine HCl (vitamin B1) 100 mg 100 mg PO DAILY 30 days #30 tabs 12/20/22
tablet
ferrous sulfate 325 mg (65 mg 325 mg PO Q48H Supplement 06/29/23
iron) tablet
potassium chloride 20 mEq 20 meq PO BID Electrolyte Repletion 06/29/23
tablet,extended
release(part/cryst) (Klor-Con M)
furosemide 20 mg tablet 20 mg PO SUTUTHSA Fluid 06/20/24
Retention/Swelling
atorvastatin 40 mg tablet 40 mg PO HS High cholesterol 07/01/24
lactulose 10 gram/15 mL oral 30 g (45 mL) PO BID Liver Issues 07/31/24
solution #0 mL
mirtazapine 7.5 mg tablet 7.5 mg PO HS #30 tabs 07/31/24
acetaminophen 500 mg tablet 500 mg PO DAILYPRN PRN mild pain 08/22/24
aspirin 81 mg tablet,delayed 81 mg PO BID 08/22/24
release
furosemide 20 mg tablet 40 mg PO MOWEFR 08/22/24
Past History
Past History
ED Past Medical History: Arrthythmia (Atrial fibrillation), CAD, CHF, CVA (2022), HTN, Hypercholesterolemia, Other (Alcohol abuse, cirrhosis, hepatic encephalopathy, COVID 2021, anemia, cellulitis, mom says child, pneumonia) and Other (Sacral
ulcer); Negative Renal failure (CKD)
ED Past Surgical History: None
Social History
Tobacco: Non-smoker
Alcohol: Former
Drug: None
Personal:
Living: with family
Employment: Not employed
Family History
Family History: Other (Reviewed and noncontributory)
--- NOTE | 2024-08-22 15:30 | CON.INTV ---
Consultation
Consultation Request
Date/Time Consultation Requested: 08/22/2024
Date/Time Consultation Performed: 08/22/2024 - 5
Requesting Provider: Dr. Washburn
Performing Provider: Dr. Gupta
Reason for Consultation: Cardiac Arrest
Medical History
-
Chief Complaint: Unresponsiveness
History of Present Illness:
74-year-old male with a past medical history of chronic HFpEF, CAD, A-fib not on AC due to history of GI bleed, history of alcohol abuse, history of TIA (May 2023), CKD and history of COVID-19 (July 2022) who presents with unresponsiveness.
He was noted to be unresponsive after a telehealth visit at home. 911 called and EMS found him pulseless, with ACLS/CPR starting immediately with 2 rounds of epinephrine given as well as 0.5 mg atropine. Patient was intubated in the field and ROSC
obtained, with downtime of approximately 5-10 minutes. He was recently hospitalized here from 07/26/2024 - 07/31/2024 due to left lower extremity hematoma with leg swelling after a prior hemiarthroplasty around Thanksgiving time. He was discharged
to rehab for a week and has been having worsening swelling and hallucinations for the past few days with agitation. Also the bruising over his body has progressed over the last few days. He had a cough for 1 day prior to arrival as well as
diarrhea. Initially in the ER his pulse rate was 79, breathing at 19 breaths/min, BP 168/97 and saturating 95%. Initial temperature recorded was 88 �F. Initial labs showed WBC 8.8, Hb 8, platelet count 69, INR 4.76, fibrinogen 158, initial blood
gas with pH 7.04, pCO2 36, sodium 133, serum bicarbonate level 9, creatinine 2.7, initial glucose 50, lactate 10.8, calcium 6.6 and albumin level 1.5. Blood cultures were collected. CTA chest and CT abdomen/pelvis with IV contrast showed a
small�moderate-sized right pneumothorax with no gross findings to suggest a central PE, with bilateral lower lobe consolidations likely due to pneumonia, with moderate volume ascites and marked L3 vertebral compression fracture. CT head showed no
acute intracranial abnormalities. He was given 1 L NS 0.9% bolus, started on bicarb drip s/p 1 amp of bicarb, started on Levophed, and started on fentanyl and propofol drip and admitted to the ICU. Gang Saw Operator services consulted for additional
management/recommendations.
When I saw the patient, he was intubated on AC/CMV at 26/450/0/100 with peak pressure 25 cmH2O, VTe 650 cc and breathing at 31 breaths/min. His , Dacia, and daughter, Marlin, were both at bedside and I answered all their questions. According to
the , after the telehealth visit today he became less responsive and then slumped over. He was breathing slightly but there was about 10-15 minutes before EMS arrived. She says that there was no seizure activity, tongue biting or urinary
incontinence during this time. His fingers were blue during this time as well. She did confirm that he is now DNR/DNI.
PMHx: History of COVID-19 (July 2022), chronic HFpEF, CAD, A-fib not on AC due to GIB, history of history of EtOH use, history of TIA (May 2023), CKD
PSHx: Orthopedic
Past Medical History
Past Medical History: Other (Above as per HPI)
Past Surgical History: Other (Above as per HPI)
Social History
Tobacco: Non-smoker
Alcohol: Former
Drug: None
Personal:
Living: With Family
Family History
Family History: Reviewed & Not Pertinent
Allergies / Home Medications
Allergies
Allergy/AdvReac Type Severity Reaction Status Date / Time
No Known Allergies Allergy Verified 08/22/24 12:42
Home Medications
�Medication �Instructions �Recorded �Confirmed �Last Taken �Type
folic acid 1 mg tablet 1 mg PO DAILY Supplement #0 tabs 08/28/22 08/22/24 08/22/24 Rx
amiodarone 200 mg tablet (Pacerone) 100 mg (1/2 x 200 mg) PO DAILY 30 0508/22/24 08/22/24 Rx
days #15 tabs
pantoprazole 40 mg tablet,delayed 40 mg PO BID 30 days #60 tabs 12/20/22 08/22/24 08/22/24 Rx
release
thiamine HCl (vitamin B1) 100 mg 100 mg PO DAILY 30 days #30 tabs 12/20/22 08/22/24 08/22/24 Rx
tablet
ferrous sulfate 325 mg (65 mg 325 mg PO Q48H Supplement 06/29/23 08/22/24 08/21/24 History
iron) tablet
potassium chloride 20 mEq 20 meq PO BID Electrolyte Repletion 06/29/23 08/22/24 08/22/24 History
tablet,extended
release(part/cryst) (Klor-Con M)
furosemide 20 mg tablet 20 mg PO SUTUTHSA Fluid 06/20/24 08/22/24 08/22/24 History
Retention/Swelling
atorvastatin 40 mg tablet 40 mg PO HS High cholesterol 07/01/24 08/22/24 08/21/24 History
lactulose 10 gram/15 mL oral 30 g (45 mL) PO BID Liver Issues 07/31/24 08/22/24 08/22/24 Rx
solution #0 mL
mirtazapine 7.5 mg tablet 7.5 mg PO HS #30 tabs 07/31/24 08/22/24 08/21/24 Rx
acetaminophen 500 mg tablet 500 mg PO DAILYPRN PRN mild pain 08/22/24 08/22/24 08/21/24 History
aspirin 81 mg tablet,delayed 81 mg PO BID 08/22/24 08/22/24 08/22/24 History
release
furosemide 20 mg tablet 40 mg PO MOWEFR 08/22/24 08/22/24 08/21/24 History
Review of Systems
-
Unable to Obtain full review of systems at this time due to: Patient Intubation
Vitals / Labs / Diagnostic Testing
Vital Signs
Temp Pulse Resp BP Pulse Ox
87.8 F L 74 11 95/47 100
08/22/24 16:43 08/22/24 16:30 08/22/24 16:30 08/22/24 16:30 08/22/24 16:40
Lab Data
08/22/24 12:45
08/22/24 12:45
Laboratory Results
08/22/24 08/22/24
12:45 12:53
PT 44.1 H
INR 4.76
APTT 84.7 H
pH Cancelled
pCO2 Cancelled
pO2 Cancelled
HCO3 Cancelled
O2 Delivery Level Cancelled
Diagnostic Testing:
Physical Exam
-
HEENT: Normocephalic, Anicteric and Other (ETT in place)
Cardiovascular: S1/S2 and Peripheral Edema (negative)
Respiratory: Wheeze (negative), Rhonchi (negative), Non-Labored Respirations, Other (Coarse breath sounds heard bilaterally) and Other (Mechanical breath sounds heard bilaterally)
GI: Soft, Distended (Abdominal obesity), Tender and Non Tender
Neurology: Tremors (negative), Other (Sedated) and Other (Positive gag reflex, pupils +1 mm bilaterally and sluggish, weak corneal reflexes bilaterally (stronger on the right eye than the left))
Skin: Warm and Dry
General: Respiratory Distress (negative), Comfortable, Chills (negative) and Sweats (negative)
Assessment
-
Assessment: 74-year-old male with a past medical history of chronic HFpEF, CAD, A-fib not on AC due to history of GI bleed, history of alcohol abuse, history of TIA (May 2023), CKD and history of COVID-19 (July 2022) who presents with
unresponsiveness. He was noted to be unresponsive after a telehealth visit at home. 911 called and EMS found him pulseless, with ACLS/CPR starting immediately with 2 rounds of epinephrine given as well as 0.5 mg atropine. Patient was intubated in
the field and ROSC obtained, with downtime of approximately 5-10 minutes. He was recently hospitalized here from 07/26/2024 - 07/31/2024 due to left lower extremity hematoma with leg swelling after a prior hemiarthroplasty around Thanksgiving time.
He was discharged to rehab for a week and has been having worsening swelling and hallucinations for the past few days with agitation. Also the bruising over his body has progressed over the last few days. He had a cough for 1 day prior to arrival
as well as diarrhea. Initially in the ER his pulse rate was 79, breathing at 19 breaths/min, BP 168/97 and saturating 95%. Initial temperature recorded was 88 �F. Initial labs showed WBC 8.8, Hb 8, platelet count 69, INR 4.76, fibrinogen 158,
initial blood gas with pH 7.04, pCO2 36, sodium 133, serum bicarbonate level 9, creatinine 2.7, initial glucose 50, lactate 10.8, calcium 6.6 and albumin level 1.5. Blood cultures were collected. CTA chest and CT abdomen/pelvis with IV contrast
showed a small�moderate-sized right pneumothorax with no gross findings to suggest a central PE, with bilateral lower lobe consolidations likely due to pneumonia, with moderate volume ascites and marked L3 vertebral compression fracture. CT head
showed no acute intracranial abnormalities. He was given 1 L NS 0.9% bolus, started on bicarb drip s/p 1 amp of bicarb, started on Levophed, and started on fentanyl and propofol drip and admitted to the ICU. Gang Saw Operator services consulted for
additional management/recommendations.
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
Impression:
#Srr-rl-[id number] cardiac arrest with downtime of approximately 01-76-mbzumg per
#Hypothermia (88 �F in the ER)
#Acute respiratory failure now on mechanical ventilation (intubated in the field on 08/22/2024)
#Right sided small�moderate pneumothorax due to CPR
#Shock likely due to sepsis as well as vasoplegia in the setting of severe metabolic acidemia
#Bibasilar consolidations concerning for multifocal pneumonia
#Diarrhea noted prior to arrival
#Acute encephalopathy with hallucinations reported prior to arrival
#Volume overload with ascites seen on imaging likely due to suspected cirrhosis (fibrotic changes on abd US from 12/2023, and there was a nodular external contour suggestive of cirrhosis on CT A/P on 07/27/2024)
#Chronic anemia
#Chronic thrombocytopenia
#Chronic hyponatremia
#Lactic acidosis
#DELILAH (baseline creatinine approximately 1.2)
#Metabolic acidosis with increased anion gap due to DELILAH and lactic acidosis
#Hypoglycemia (last HbA1c: 4.3 on 06/22/2024)
#Transaminitis with hyperbilirubinemia
#Hypoalbuminemia
Plan:
- Given his DNR/DNI status, he is not appropriate to start hypothermia protocol on, and instead we will avoid fever for 48 to 72 hours
- Admission CT head shows no acute intracranial abnormalities with diffuse cortical atrophy with nonspecific white matter changes
- Maintaining core temperature-sensing thermometer in place until 72 hours s/p admission to assure that fever is avoided
- Start Ofirmev 1 g q6hr x 24-hours
- Consult neuro for EEG
- Avoid sedation if possible for prognostication purposes
- Goal RASS 0 to -2
- Check TSH with reflex to free T4 given his hypothermia, need to rule out myxedema coma
- Check ammonia level
- Continue with broad-spectrum antibiotics
- Check respiratory culture from ETT; follow-up blood cultures x 2 collected today
- Check urinalysis with reflex to urine culture
- Check urine antigens for legionella and Strep PNA
- Continue with mechanical ventilation but given his right-sided pneumothorax, keep PEEP at 0 and keep FiO2 at 100% for nitrogen washout
- Maintain SpO2 >90-94%
- Obtain serial blood gases to continue trending pH + pCO2
- Continue with bicarb drip given the lactic acidosis with severe metabolic acidemia
- prn nebulized bronchodilators - not currently bronchospastic
- Re-check CXR 6-8 hours after last one to assure PTX is stable, otherwise he will need a chest tube - repeat CXR shows stable PTX, hence no need for chest tube at this time; continue to monitor
- Would continue checking BG q4hr given his glucose was 50 on chemistry
- Avoid insulin for now
- Continue with vasopressors, currently on Levophed; add vasopressin as he continues to remain hypotensive
- May need A-line
- Start hydrocortisone with 50 mg IV q6hr
- Maintain MAP>65
- Trend lactate until <2mmol/L
- Monitor for diarrhea and if occurs then can consider checking stool studies/Cx/C diff
- Replete electrolytes with K>4, Mg>2
- Maintain euglycemia with goal BG 140-180
- Trend H/H and transfuse if needed to keep Hb>7g/dL; keep plt>20k, unless there is concern for bleeding then keep plt>50k
- DVT ppx: start HSQ
Guarded prognosis; he is DNR/DNI but with full medical management
I answered the 's and daughter's questions today and they verbalized understanding of the plan above which was explained in layman's terms.
Critical care statement: A total of 46 minutes of critical care time was provided for this patient today. This includes management of unstable vital signs, evaluation of the patient at bedside, reviewing the patient's pertinent medical records
including radiographs, microbiology, laboratory evaluations, and discussion with primary team, consultants, pharmacy, nutrition, physical therapy, case management, charge nurse, critical care nursing, and respiratory therapy.
Data:
CTA/CT abdomen/pelvis with IV contrast 08/22/2024:
Markedly limited evaluation due to several factors.
Small to moderate size right pneumothorax.
No gross findings to suggest central pulmonary embolism.
Bilateral lower lobe 'consolidation s', left greater than right, pneumonia versus atelectasis.
Moderate volume abdominal and moderate to large large volume pelvic ascites.
Marked L3 vertebral compression fracture without significant retropulsion of bony elements.
[2024-08-22 15:36] LABS: % Basophils 0.5 % (0-2); % Eosinophils 0.3 % (0-6); % Immature Granulocytes 1.3 % (0-0.5); % Lymphocytes 8.6 % (20.5-51.1); % Monocytes 7.4 % (1.7-9.3); % Neutrophils 81.9 % (42.2-75.2); Absolute Immature Granulocytes 0.1 10^3/uL (0-0.05); Absolute Lymphocytes 0.8 10^3/uL (1.2-3.4); Absolute Monocytes 0.7 10^3/uL (0.1-0.6); Absolute Neutrophils 7.2 10^3/uL (1.4-6.5); Nucleated Red Blood Cells % 0.6 % (-)
[2024-08-22 15:44] LABS: Triglycerides 57 mg/dl (10-149)
[2024-08-22 15:52] LABS: D-Dimer 14.21 ug/mlFEU (0.00-0.50)
[2024-08-22 16:10] LABS: Fibrinogen 158 MG/DL (199-459)
[2024-08-22] MEDS: ZOSYN 50 IV ×2 (16:59→21:43)
[2024-08-22 17:48] LABS: B.E. -13.4 mmol/L; PCO2 31 mmHg (35-48); PO2 370 mmHg (83-108); pH 7.23 (7.35-7.45)
[2024-08-22] MEDS: PITRESSIN 100 IV (18:01)
[2024-08-22] MEDS: OFIRMEV 100 IV ×2 (18:01→21:30)
[2024-08-22] MEDS: SOLU-CORTEF 50 MG IV ×2 (18:06→23:14)
[2024-08-22 18:37] LABS: Ammonia 10 umol/L (9-30)
[2024-08-22] MEDS: SODIUM BICARBONATE 1150 MEQ IV (18:38)
[2024-08-22] MEDS: CALCIUM GLUCONATE 100 IV (18:44)
--- NOTE | 2024-08-22 19:00 | PTCARENOTE ---
received pt from ED at 1635 , pt unresponsive to deep stimulation , no corneal , no gag , NSR on monitor , BP 95/47 on arrival , sat 97% on vent at 100% fio2 , temp 88.7 on arrival , he was placed on gardenia hugger , his goal temp as per drawing kiln operator
96.8 , he was on Levophed at 20mcg then pts map decreased to 40s , he was increased to 30mcg without improvement , he then had vasopressin added at 1800 , solucortef given as ordered , and calicum gluconate 1gram , his map is now up to 63, pt
bicarb gtt infusing as ordered , no urine output for shift , pt and daughter and bedside , updated on current condtion and plan of care, all labs noted and given to Dr Phan .
[2024-08-22 19:09] LABS: TSH Reflex To Free T4 3.95 uIU/ml (0.47-4.68)
[2024-08-22 19:58] LABS: Urine Albumin 2+ (Neg - Trace); Urine Bilirubin 1+ (Negative); Urine Character Very Cloudy (Clear); Urine Glucose Negative (Negative); Urine Ketone Trace (Negative); Urine Leukocyte 2+ (Negative); Urine Nitrite Positive (Negative); Urine Occult Blood 4+ (Negative); Urine Urobilinogen 1+ (Neg - 1+)
[2024-08-22 19:59] LABS: Urine Color Orange
[2024-08-22 20:00] LABS: Hematocrit 23.3 % (39.0-52.0); Hemoglobin 7.6 g/dL (13.0-18.0); Mean Corp Hgb Conc. 32.6 g/dL (33.0-37.0); Mean Corpuscular Volume 92.1 fL (80.0-94.0); Mean Platelet Volume 12.1 fL (7.4-10.4); Platelet Count 45 10^3/uL (130-400); Red Blood Cell Count 2.53 10^6/uL (4.70-6.10); Red Cell Dist. Width 18.4 % (11.5-14.5); White Blood Cell Count 4.6 10^3/uL (4.8-10.8)
[2024-08-22 20:04] LABS: Urine Squamous Cell 0-2 /LPF (Few)
[2024-08-22 20:05] LABS: Urine Bacteria Many (Negative)
[2024-08-22 20:08] LABS: Urine Red Blood Cell 16-20 /HPF (0-2); Urine White Cell 50-60 /HPF (0-5)
[2024-08-22 20:15] LABS: Lactic Acid 7.8 mmol/L (0.7-2.0)
[2024-08-22 20:18] LABS: Blood Urea Nitrogen 35 mg/dl (9-20); Calcium 6.3 mg/dl (8.4-10.2); Carbon Dioxide 13 mmol/L (22-30); Chloride 105 mmol/L (98-107); Estimated Creatinine Clearance 37 ml/min; Glucose 104 mg/dl (70-99); Magnesium 1.8 mg/dl (1.6-2.3); Phosphorus 4.5 mg/dl (2.5-4.5); Potassium 4.3 mmol/L (3.5-5.1); Sodium 131 mmol/L (135-145); Triglycerides 61 mg/dl (10-149); eGFR 26.63
--- NOTE | 2024-08-22 20:30 | PTCARENOTE ---
assumed care, pt unresponsive intubated and sedated, weak corneal and gag, + cough, pupils pinpoint, slight withdraw to pain, sinus on the monitor, +2 lower extremities, B/L scds, weak pulses, 7.5 ETT 24 @ lip, AC 26/450/0/100, diminished and coarse
throughout, BSx4 hypoactive, roud obese, ascites, thermistor gonzalez frederick output, pt oliguric, gardenia hugger pt temp 88.5, L FA skin tear dressing dry and intact, L lower abd ecchymotic, R TL IJ, gtts titrated per worklist, labs sent, family @ bedsided
updated and emotional support provided, otherwise refer to documentation.
[2024-08-22 20:55] LABS: B.E. -14.3 mmol/L; PCO2 32 mmHg (35-48); PO2 314 mmHg (83-108)
[2024-08-22 20:57] LABS: O2 Therapy RA
[2024-08-22 20:58] LABS: HCO3 12.5 mmol/L (21-28)
[2024-08-22] MEDS: MAGNESIUM SULFATE 100 IV (21:43)
[2024-08-22 23:00] LABS: Glucose - Point of Care 159 mg/dl (70-99)
[2024-08-22] MEDS: NEO-SYNEPHRINE 1% 260 MG IV (23:14)
[2024-08-23] VITALS (34 sets, daily range): BP systolic 72–99; BP diastolic 46–59; BMI 34.5
[2024-08-23 00:08] LABS: Glucose - Point of Care 151 mg/dl (70-99)
[2024-08-23] MEDS: LEVOPHED 258 MG IV ×4 (00:25→14:27)
--- NOTE | 2024-08-23 00:30 | PTCARENOTE ---
systems reviewed, blood sugar changed to Q6, gtts titrated per worklist, BIBI added, sedation weaned down, pt remains unresponsive, urine output 5ml/hr WATCH TRAIN INSPECTOR notified, otherwise refer to documentation
[2024-08-23 01:01] LABS: Lactic Acid 7.5 mmol/L (0.7-2.0)
[2024-08-23] MEDS: PITRESSIN 100 IV ×2 (02:37→14:26)
[2024-08-23] MEDS: OFIRMEV 100 IV ×2 (03:21→09:54)
[2024-08-23] MEDS: ZOSYN 50 IV ×2 (03:22→10:18)
[2024-08-23 03:45] LABS: Hemoglobin 8.6 g/dL (13.0-18.0); Mean Corp Hgb Conc. 30.7 g/dL (33.0-37.0); Mean Corpuscular Hgb 28.9 pg (27.0-31.0); Mean Platelet Volume 11.7 fL (7.4-10.4); Platelet Count 48 10^3/uL (130-400); Red Blood Cell Count 2.98 10^6/uL (4.70-6.10); Red Cell Dist. Width 18.8 % (11.5-14.5); White Blood Cell Count 3.6 10^3/uL (4.8-10.8)
--- NOTE | 2024-08-23 03:50 | PTCARENOTE ---
systems reviewed, labs sent, gtts titrated per worklist, CHG bath, new IV line, otherwise refer to documentation.
[2024-08-23 03:52] LABS: Lactic Acid 7.5 mmol/L (0.7-2.0)
[2024-08-23 04:01] LABS: ALT (SGPT) 45 U/L (0-50); AST (SGOT) 81 U/L (17-59); Albumin 1.3 g/dl (3.5-5.0); Alkaline Phosphatase 156 U/L (38-126); Blood Urea Nitrogen 36 mg/dl (9-20); Calcium 6.4 mg/dl (8.4-10.2); Carbon Dioxide 13 mmol/L (22-30); Chloride 105 mmol/L (98-107); Estimated Creatinine Clearance 37 ml/min; Glucose 119 mg/dl (70-99); Magnesium 1.9 mg/dl (1.6-2.3); Phosphorus 5.4 mg/dl (2.5-4.5); Potassium 4.6 mmol/L (3.5-5.1); Sodium 132 mmol/L (135-145); Total Bilirubin 4.9 mg/dl (0.2-1.3); Total Protein 3.7 g/dl (6.3-8.2); eGFR 26.63
[2024-08-23 04:20] LABS: Vancomycin Random < 5.0 ug/ml
[2024-08-23] MEDS: SODIUM BICARBONATE 50 MEQ IV ×4 (04:25→13:18)
[2024-08-23 04:41] LABS: B.E. -15.8 mmol/L; PCO2 34 mmHg (35-48); PO2 152 mmHg (83-108)
[2024-08-23 04:47] LABS: HCO3 11.8 mmol/L (21-28); pH 7.15 (7.35-7.45)
[2024-08-23] MEDS: SOLU-CORTEF 50 MG IV ×2 (05:32→11:19)
--- NOTE | 2024-08-23 05:34 | W.PN.UPDATE ---
Update Note
Progress Note Update
Operation/Procedure: left radial arterial line placement
Consent for operation or procedure: Emergent need due to patient condition - need for invasive monitoring per protocol
Indications: Hemodynamic monitoring
After properly positioning the patient's wrist in the standard fashion, the site was prepped and draped in a sterile fashion. The radial artery was entered, noting bright red, pulsatile flow. A guidewire was easily inserted, the needle removed, and
the catheter was then placed using the Seldinger technique. The guidewire was removed, with good flow present. The catheter was then connected to the transducer with a good waveform noted. The catheter was secured with an occlusive dressing was
placed after properly cleaning and prepping the site.
Complications: The patient tolerated the procedure well and no complications were noted.
Estimated Blood Loss: minimal
Plan: Arterial line to remain in place for hemodynamic monitoring.
[2024-08-23] MEDS: SUBLIMAZE 50 MCG IV (05:40)
[2024-08-23] MEDS: SUBLIMAZE 100 IV (05:52)
[2024-08-23] MEDS: ADRENALIN 250 IV (06:25)
--- NOTE | 2024-08-23 07:49 | PHA.VAN.FU ---
Vancomycin Assessment / Plan
- Assessment
Renal Function: Stable
WBC's are: Trending Down
In the past 24 hrs, patient has been: Afebrile
Concomitant Antimicrobials: ZOSYN
- Assessment - Therapeutic Drug Monitoring
Random Level: <5
NO DOCUMENTATION OF 2GM EVER BEING GIVEN IN ED OR ICU, IN FACT DOCUMENTED NOT GIVEN, WILL REPORT MED EVENT.
- Dosing Plan
Dosing by Level: Re-dose today (2GM, FIRST 2GM NEVER GIVEN YESTERDAY)
- Monitoring Plan
Random Level: 08/24 IN AM
- Follow Up
Pharmacy will continue to follow.
Vancomycin Follow UP
- -
Patient Age: 74
Patient Sex: Male
Vancomycin Day #: 2
Indication: Pulmonary/Respiratory
Requesting Provider: CHAPIS
Pertinent Antimicrobial Allergies:
NKDA
Height / Weight:
Height 6 ft 2 in
Actual Weight 121.8 kg
IBW in k.2
- Vital Signs / Lab Results
Temp Pulse Resp BP Pulse Ox
93.8 F L 71 24 90/50 99
08/23/24 07:00 08/23/24 06:15 08/23/24 06:15 08/23/24 05:15 08/23/24 05:00
Lab Results - Hematology
08/22/24 08/22/24 08/23/24
12:45 19:46 03:27
WBC 8.8 4.6 L 3.6 L
Lab Results - Chemistry
08/22/24 08/22/24 08/23/24
12:45 19:46 03:27
BUN 33 H 35 H 36 H
Creatinine 2.7 H 2.5 H 2.5 H
Estimated Creat Clear 37 37
Albumin 1.5 L 1.3 L
08/22/24 08/22/24 08/22/24
12:45 18:14 19:46
Lactic Acid 10.8 H* 8.0 H* 7.8 H*
08/23/24 08/23/24
00:16 03:27
Lactic Acid 7.5 H* 7.5 H*
Lab Results - Urine
08/22/24
19:46
Urine Nitrite (Reflex) Positive A
Leukocyte Esterase Rfl 2+ A
Ur Squamous Epith Cells 0-2
Therapeutic Drug Monitoring
Random Vancomycin < 5.0 ug/ml 08/23/24 03:27
[2024-08-23] MEDS: PROTONIX IV 40 MG IV (07:52)
[2024-08-23 07:53] LABS: % Basophils 0.8 % (0-2); % Eosinophils 0.3 % (0-6); % Immature Granulocytes 0.3 % (0-0.5); % Monocytes 2.2 % (1.7-9.3); % Neutrophils 90.4 % (42.2-75.2); Absolute Lymphocytes 0.2 10^3/uL (1.2-3.4); Absolute Monocytes 0.1 10^3/uL (0.1-0.6); Absolute Neutrophils 3.3 10^3/uL (1.4-6.5); Nucleated Red Blood Cells % 1.1 % (-)
[2024-08-23] MEDS: NSS (PRESERVATIVE FREE) 10 ML IV (07:53)
--- NOTE | 2024-08-23 08:07 | W.PN.INTV ---
Today's Communication / Plan
Recommendations
Continue with ZEEP and high FiO2 to assure right apical pneumothorax remains stable and hopefully continues to resorb
Awaiting EEG
Defer starting AEDs to neurology
Mechanical ventilation
Patient has loss of cranial nerves today on exam
Antibiotics with ID consult due to Pseudomonas aeruginosa bacteremia seen today
Pressors with Solu-Cortef
Unable to start tube feeds given the very high vasopressor requirements
Poor prognosis � family aware. They would like to continue full medical management for now although he is DNR/DNI
Assessment
-
Assessment: 74-year-old male with a past medical history of chronic HFpEF, CAD, A-fib not on AC due to history of GI bleed, history of alcohol abuse, history of TIA (May 2023), CKD and history of COVID-19 (July 2022) who presents with
unresponsiveness. He was noted to be unresponsive after a telehealth visit at home. 911 called and EMS found him pulseless, with ACLS/CPR starting immediately with 2 rounds of epinephrine given as well as 0.5 mg atropine. Patient was intubated in
the field and ROSC obtained, with downtime of approximately 5-10 minutes. He was recently hospitalized here from 07/26/2024 - 07/31/2024 due to left lower extremity hematoma with leg swelling after a prior hemiarthroplasty around Thanksgiving time.
He was discharged to rehab for a week and has been having worsening swelling and hallucinations for the past few days with agitation. Also the bruising over his body has progressed over the last few days. He had a cough for 1 day prior to arrival
as well as diarrhea. Initially in the ER his pulse rate was 79, breathing at 19 breaths/min, BP 168/97 and saturating 95%. Initial temperature recorded was 88 �F. Initial labs showed WBC 8.8, Hb 8, platelet count 69, INR 4.76, fibrinogen 158,
initial blood gas with pH 7.04, pCO2 36, sodium 133, serum bicarbonate level 9, creatinine 2.7, initial glucose 50, lactate 10.8, calcium 6.6 and albumin level 1.5. Blood cultures were collected. CTA chest and CT abdomen/pelvis with IV contrast
showed a small�moderate-sized right pneumothorax with no gross findings to suggest a central PE, with bilateral lower lobe consolidations likely due to pneumonia, with moderate volume ascites and marked L3 vertebral compression fracture. CT head
showed no acute intracranial abnormalities. He was given 1 L NS 0.9% bolus, started on bicarb drip s/p 1 amp of bicarb, started on Levophed, and started on fentanyl and propofol drip and admitted to the ICU. Commercial Construction Project Manager services consulted for
additional management/recommendations.
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
Impression:
#[id number] cardiac arrest with downtime of approximately 85-88-ricgtj per
#Hypothermia (88 �F in the ER)
#Acute respiratory failure now on mechanical ventilation (intubated in the field on 08/22/2024)
#Right sided small�moderate pneumothorax due to CPR
#Septic shock in the setting of severe metabolic acidemia with vasoplegia
#Pseudomonas aeruginosa bacteremia
#Bibasilar consolidations due to multifocal pneumonia
#Complicated UTI
#Diarrhea noted prior to arrival
#Acute encephalopathy with hallucinations reported prior to arrival
#Volume overload with ascites seen on imaging likely due to suspected cirrhosis (fibrotic changes on abd US from 12/2023, and there was a nodular external contour suggestive of cirrhosis on CT A/P on 07/27/2024)
#Chronic anemia
#Chronic thrombocytopenia
#Chronic hyponatremia
#Lactic acidosis
#DELILAH (baseline creatinine approximately 1.2)
#Metabolic acidosis with increased anion gap due to DELILAH and lactic acidosis
#Hypoglycemia (last HbA1c: 4.3 on 06/22/2024)
#Transaminitis with hyperbilirubinemia
#Hypoalbuminemia
Plan:
- Given his DNR/DNI status, he is not appropriate to start hypothermia protocol on, and instead we will avoid fever for 48 to 72 hours
- Admission CT head shows no acute intracranial abnormalities with diffuse cortical atrophy with nonspecific white matter changes
- Maintaining core temperature-sensing thermometer in place until 72 hours s/p admission to assure that fever is avoided
- Continue Ofirmev 1 g q6hr x 24-48-hours
- Neuro consulted; EEG pending
- Stop all sedation, if possible, for prognostication purposes
- TSH WNL at 3.95
- Trend ammonia level
- Continue with broad-spectrum antibiotics, currently on vanc/Zosyn
- Follow up respiratory culture from ETT; blood culture from 08/22/2024 is growing Pseudomonas aeruginosa from aerobic bottle; other BCx from 08/22/2024 also growing GNR (f/u species)
- Urinalysis shows evidence of UTI - follow up urine culture
- Urine antigens for legionella and Strep PNA both negative
- Consult ID
- Continue with mechanical ventilation but given his right-sided pneumothorax, keep PEEP at 0 and keep FiO2 at 100% for nitrogen washout
- Maintain SpO2 >90-94%
- Obtain serial blood gases to continue trending pH + pCO2
- Continue with bicarb drip given the lactic acidosis with severe metabolic acidemia
- prn nebulized bronchodilators - not currently bronchospastic
- Serial CXR to assure PTX is stable otherwise he will need a chest tube - repeat CXR shows stable R-apical PTX, hence no need for chest tube at this time; continue to monitor
- Would continue checking BG q4hr given his glucose was 50 on chemistry
- Use low dose ISS
- Continue with vasopressors, currently on Levophed, Yoandy, Epi and vasopressin as he continues to remain hypotensive
- A line in place
- Continue hydrocortisone with 50 mg IV q6hr and start weaning after 72 hrs
- Maintain MAP>65
- Trend lactate until <2mmol/L
- Monitor for diarrhea and if occurs then can consider checking stool studies/Cx/C diff
- Replete electrolytes with K>4, Mg>2
- Maintain euglycemia with goal BG 140-180
- Trend H/H and transfuse if needed to keep Hb>7g/dL; keep plt>100k given suspected INFORMATION SYSTEMS CONSULTANT hypoxic/ischemic encephalopathy
- DVT ppx: start HSQ
Guarded prognosis; he is DNR/DNI but with full medical management
I answered the 's and daughter's questions today and they verbalized understanding of the plan above which was explained in layman's terms. They understand that he has a very poor prognosis.
Critical care statement: A total of 41 minutes of critical care time was provided for this patient today. This includes management of unstable vital signs, evaluation of the patient at bedside, reviewing the patient's pertinent medical records
including radiographs, microbiology, laboratory evaluations, and discussion with primary team, consultants, pharmacy, nutrition, physical therapy, case management, charge nurse, critical care nursing, and respiratory therapy.
Data:
CTA/CT abdomen/pelvis with IV contrast 08/22/2024:
Markedly limited evaluation due to several factors.
Small to moderate size right pneumothorax.
No gross findings to suggest central pulmonary embolism.
Bilateral lower lobe 'consolidation s', left greater than right, pneumonia versus atelectasis.
Moderate volume abdominal and moderate to large large volume pelvic ascites.
Marked L3 vertebral compression fracture without significant retropulsion of bony elements.
CXR 08/23/2024:
1. Small right apical pneumothorax, estimated at less than 5% of overall lung volume. No significant change, or slightly decreased in size compared to prior chest x-ray.
2. Bibasilar airspace consolidation, slightly progressed, which may represent subsegmental atelectasis, aspiration, or pneumonia.
3. Small left pleural effusion may also be present. Consider PA and lateral views when possible.
Subjective Dataa
Subjective Data
Date of Service:
Date of Service: August 23, 2024
Chief Complaint: Commercial Construction Project Manager Follow Up
Subjective:
Patient seen and evaluated today at bedside. He remains unresponsive. Intubated on AC/CMV at 26/450/100%/PEEP of 0. PIP: 21 cmH2O with VTe 460 cc and breathing at 26 breaths/min. Lactate worsening this morning. Remains on bicarb drip,
Yoandy-Synephrine at 200mcg/min, Levophed at 30mcg/min, epinephrine at 2mcg/min and vasopressin at 0.03 units/min. Current BP 89/30 via A-line, heart rate 52. End-tidal CO2: 16. Family members at bedside and I answered all her questions.
Review of Systems
General: Unobtainable - Pat Unresp
Objective Data
Data Reviewed
Vital Signs / I&O / Oxygen:
Vital Signs
Temp Pulse Resp BP Pulse Ox
93.8 F L 71 24 90/50 100
08/23/24 07:00 08/23/24 06:15 08/23/24 06:15 08/23/24 05:15 08/23/24 08:08
Intake and Output
08/22/24 08/23/24 08/24/24
06:59 06:59 06:59
Intake Total 2955.7 / 2955.7
Output Total 94 / 94
Balance 2861.7 / 2861.7
SaO2 [A/C] 100
SaO2 100
Physical Exam
General: Respiratory Distress (negative), Comfortable, Chills (negative) and Sweats (negative)
HEENT: Normocephalic, Anicteric and Other (ETT in place)
Cardiovascular: Peripheral Edema (+2 lower extremity pitting edema) and Other (Bradycardia)
Respiratory: Wheeze (negative), Crackles (Bilateral), Rhonchi (negative) and ET Tube (Mechanical breath sounds heard bilaterally)
GI: Soft, Distended (Ascites present), Non Tender and Normal Bowel Sounds
Neurology: Tremors (negative), Unresponsive and Other (Absent corneal reflexes bilaterally, pupils 2 mm and unreactive, absent gag/cough reflex, not withdrawing to noxious stimuli, not following commands)
Skin: Warm, Dry, Cyanosis (Seen over thorax), Jaundice, Bruising (Seen on left lower extremity/left side of ribs) and Other (+2 sacral edema)
Labs/Micro/Reports
Lab Data
08/23/24 03:27
08/23/24 03:27
Laboratory Results
08/22/24 08/22/24 08/22/24
12:45 12:53 17:38
PT 44.1 H
INR 4.76
APTT 84.7 H
pH Cancelled 7.23 L
pCO2 Cancelled 31 L
pO2 Cancelled 370 H
HCO3 Cancelled 13.0 L*
O2 Delivery Level Cancelled
08/22/24 08/23/24
20:47 04:17
PT
INR
APTT
pH 7.20 L 7.15 L*
pCO2 32 L 34 L
pO2 314 H 152 H
HCO3 12.5 L* 11.8 L*
O2 Delivery Level Ra
Microbiology
08/22/24 19:46 Nose Nasal Screen MRSA (PCR) - Final
Staph aureus MRSA
08/22/24 12:44 Blood/Venous Blood Culture - Preliminary
Positive culture in progress
08/22/24 12:44 Blood/Venous Gram Stain - Preliminary
08/22/24 12:44 Blood/Venous Blood Culture - Preliminary
Positive culture in progress
08/22/24 12:44 Blood/Venous Gram Stain - Preliminary
08/22/24 19:46 Urine Legionella Urinary Antigen - Final
Negative for Legionella pneumophila Serogroup 1 antigen.
A negative result does not rule out the possiblity of
Legionella infection due to other serogroups or species of
Legionella. Clinical correlation is recommended.
08/22/24 19:46 Urine Streptococcus pneumoniae Antigen (M - Final
Negative for Streptococcus pneumoniae antigen.
A negative result does not exclude infection with
Streptococcus pneumoniae. Clinical correlation is
recommended.
[2024-08-23] MEDS: VANCOCIN 540 MG IV (08:20)
--- NOTE | 2024-08-23 08:47 | W.PN.NEURO.1 ---
Today's Communication / Plan
-
Check greater than 1 hour EEG with consideration for continuous EEG monitoring if EEG demonstrates seizure activity
Intermittent follow of ammonia level
Would continue thiamine replacement
Would continue routine antiplatelet agents
Goal of normotension
Attempt to limit sedation if at all possible
Neuro Assessment/Plan
Assessment
Unresponsiveness following cardiac arrest
Prognosis regarding this patient's anoxic encephalopathy is fair to poor based on underlying medical issues including hepatic encephalopathy previously. The patient's downtime of only 5 minutes suggests toward a better likely outcome. Best
prognosis will be offered at 3 days after onset of cerebral injury starting from August 22, 2024
CT of head at onset of injury not showing loss of corrales-white differentiation is a positive factor toward eventual neurological recovery
Plan
Check greater than 1 hour EEG with consideration for continuous EEG monitoring if EEG demonstrates seizure activity
Intermittent follow of ammonia level
Would continue thiamine replacement
Would continue routine antiplatelet agents
Goal of normotension
Attempt to limit sedation if at all possible
Will follow
Subjective/Objective
Subjective Data
Date of Service: August 23, 2024
Patient unable to provide his own medical history
Objective Data
Vital Signs
Temp Pulse Resp BP Pulse Ox
34.3 C L 71 24 90/50 100
08/23/24 07:00 08/23/24 06:15 08/23/24 06:15 08/23/24 05:15 08/23/24 08:08
Lab Results
08/23/24 03:27
08/23/24 03:27
PT 44.1 Sec (11.4-14.6) H 08/22/24 12:45
INR 4.76 08/22/24 12:45
APTT 84.7 Sec (23.4-35.0) H 08/22/24 12:45
Sodium 132 mmol/L (135-145) L 08/23/24 03:27
Potassium 4.6 mmol/L (3.5-5.1) 08/23/24 03:27
BUN 36 mg/dl (9-20) H 08/23/24 03:27
Glucose 119 mg/dl (70-99) H 08/23/24 03:27
Calcium 6.4 mg/dl (8.4-10.2) L* 08/23/24 03:27
Phosphorus 5.4 mg/dl (2.5-4.5) H 08/23/24 03:27
Pzb-[id number]-Sbddcdpsvqk Pept 8890 pg/ml 08/22/24 12:45
Patient Allergies
No Known Allergies Allergy (Verified 08/22/24 12:42)
Review of Systems
-
Unable to obtain full review of systems at this time due to: Patient Intubation and Other (Unresponsiveness)
History Source: Patient
All other systems: Reviewed and negative
Physical Exam
-
General: No Apparent Distress, Intubated and Appears Stated Age
Eyes: Round OU and [place] Conjunctivae
HEENT: Anicteric and Moist Mucous Membranes
Neck: Full Range of Motion
Respiratory: No Dyspnea
Cardiac: No JVD
GI: Non-distended
Skin: Unremarkable
Extremities: No Clubbing, No Cyanosis and No Edema
Psych: Unable to Assess
Extended Neurological Exam
Mood & Affect: Unable to Assess
Attention Span & Concentration: Unresponsive to Verbal Stimuli and Unresponsive to Physical Stimuli; Negative Awake, Alert or Interactive
Memory: Unable to Assess
Involuntary Movement: None
Speech: Unable to Assess
Cranial Nerve II: Left Eye: Pupillary Reactivity Unremarkable, Pupillary Size Unremarkable and Unable to Assess Visual Muir
Cranial Nerve II: Right Eye: Pupillary Reactivity Unremarkable, Pupillary Size Unremarkable and Unable to Assess Visual Muir
Cranial Nerves III, IV, : Extraocular Movement: Absent Doll's Eyes and Unable to Assess (Ptosis)
Cranial Nerve V: Facial Sensation: Unable to Assess
Cranial Nerve VII: Facial Symmetry: Normal Facial Symmetry
Cranial Nerves IX, X: Palate Movement: Unable to Assess
Cranial Nerve XI: Shoulder Shrug: Unable to Assess
Cranial Nerve XII: Tongue Protusion: Unable to Assess
Muscle Strength, Overall: Negative Spontaneously Moves
Muscle Bulk & Tone: Bulk Unremarkable and Tone Unremarkable
Pronator Drift: Unable to Assess
Cold Sensation: Unable to Assess
Vibration Sensation: Unable to Assess
Touch Sensation: Negative Withdrawal to Pain
Coordination: Unable to Assess
Gait & Station: Unable to Assess
Data Reviewed
-
CT Head: Report Reviewed and Image Reviewed
Labs: Report Reviewed
Reviewed with: Nurse
Old Records: Summarized
Past History
Past History
ED Past Medical History: Arrthythmia (Atrial fibrillation), CAD, CHF, CVA (2022), HTN, Hypercholesterolemia, Other (Alcohol abuse, cirrhosis, hepatic encephalopathy, COVID 2021, anemia, cellulitis, mom says child, pneumonia) and Other (Sacral
ulcer); Negative Renal failure (CKD)
ED Past Surgical History: None
Social History
Tobacco: Non-smoker
Alcohol: Former
Drug: None
Personal:
Living: with family
Employment: Not employed
Family History
Family History: Other (Reviewed and noncontributory)
Medications
-
Medications:
Generic Name Dose Route Start Last Admin
Trade Name Freq PRN Reason Stop Dose Admin
Amiodarone HCl 100 mg 08/23/24 08:00 08/23/24 07:39
Amiodarone 200 Mg Tablet PO 09/20/24 07:59 Not Given
DAILY IMAN
Aspirin 81 mg 08/22/24 20:00 08/23/24 07:38
Aspirin 81 Mg (Enteric Coated) Tablet PO 09/19/24 19:59 Not Given
BID IMAN
Atorvastatin Calcium 40 mg 08/22/24 22:00 08/22/24 22:16
Atorvastatin (Lipitor) 40 Mg Tablet PO 09/19/24 21:59 Not Given
HS IMAN
Fentanyl Citrate 50 mcg 08/22/24 19:20 08/23/24 05:40
Fentanyl (50 Mcg/Ml) 100 Mcg/2 Ml Ampul IV 09/05/24 19:19 50 mcg
[id number] PRN Administration
see protocol
Protocol
Hydrocortisone Sodium Succinate 50 mg 08/22/24 18:00 08/23/24 05:32
Hydrocortisone Sodium Succinate 100 Mg/2 Ml Vial IV 09/19/24 17:59 50 mg
Q6 IMAN Administration
Vancomycin HCl 1 each/ Device 0 mls @ 0 mls/hr 08/22/24 14:55
IV
PER PROTOCOL IMAN
As Directed
Piperacillin Sod/Tazobactam Sod 2.25 grams in 50 mls @ 100 mls/hr 08/22/24 16:00 08/23/24 03:22
Zosyn IV 50 mls
Q6H IMAN Administration
Acetaminophen 1,000 mg in 100 mls @ 400 mls/hr 08/22/24 15:30 08/23/24 03:21
Ofirmev IV 08/23/24 15:29 100 mls
Q6H IMAN Administration
Protocol
Vasopressin 20 units in 100 mls @ 0 mls/hr 08/22/24 18:00 08/23/24 02:37
Pitressin IV 100 mls
PER PROTOCOL IMAN Administration
Protocol
Per Protocol
Sodium Bicarbonate 150 meq/ 1,150 mls @ 75 mls/hr 08/22/24 18:00 08/22/24 18:38
Dextrose IV 08/23/24 09:00 1,150 mls
.[id number] IMAN Administration
Fentanyl Citrate 1,000 mcg in 100 mls @ 0 mls/hr 08/22/24 19:30 08/23/24 05:52
Sublimaze IV 100 mls
PER PROTOCOL IMAN Administration
Protocol
Per Protocol
Propofol 1,000,000 mcg in 100 mls @ 0 mls/hr 08/22/24 19:30
Diprivan IV
PER PROTOCOL IMAN
Protocol
Per Protocol
Sodium Bicarbonate 150 meq/ 1,150 mls @ 75 mls/hr 08/23/24 09:00
Sterile Water IV 08/24/24 08:59
.[id number] IMAN
Phenylephrine HCl 100 mg/ 260 mls @ 0 mls/hr 08/22/24 22:15 08/22/24 23:14
Sodium Chloride IV 260 mls
PER PROTOCOL IMAN Administration
Protocol
Per Protocol
Norepinephrine Bitartrate 8 mg 258 mls @ 0 mls/hr 08/22/24 22:15 08/23/24 05:33
/ Sodium Chloride IV 258 mls
PER PROTOCOL IMAN Administration
Protocol
Per Protocol
Epinephrine HCl 4 mg in 250 mls @ 0 mls/hr 08/23/24 06:15 08/23/24 06:25
Adrenalin IV 250 mls
PER PROTOCOL IMAN Administration
Protocol
Per Protocol
Vancomycin HCl 2,000 mg/ 540 mls @ 270 mls/hr 08/23/24 07:49 08/23/24 08:20
Sodium Chloride IV 08/23/24 09:48 540 mls
NOW STA Administration
Lorazepam 2 mg 08/22/24 19:21
Lorazepam 2 Mg/Ml Vial IV 09/19/24 19:20
Q4HPRN PRN
sedation/anxiety/seizure
Pantoprazole Sodium 40 mg 08/23/24 08:00 08/23/24 07:52
Pantoprazole Sodium 40 Mg/10 Ml Vial IV 09/20/24 07:59 40 mg
DAILY IMAN Administration
Polyethylene Glycol 17 grams 08/23/24 08:00 08/23/24 07:39
Polyethylene Glycol Powder 17 Grams Packet TUBE 09/20/24 07:59 Not Given
DAILY IMAN
Sodium Chloride 0 flush 08/22/24 15:00
Sodium Chloride 0.9% (Flush) Syringe IV 09/19/24 14:59
PER PROTOCOL IMAN
Sodium Chloride 1 ml 08/22/24 19:33
Nss (Pf) 10 Ml Vial For Ativan 2 Mg Dose IV 09/19/24 19:31
Q4HPRN PRN
IV LORAZEPAM DILUTION
Sodium Chloride 10 ml 08/23/24 08:00 08/23/24 07:53
Sodium Chloride 0.9% (Preservative Free) 10 Ml Vial IV 09/20/24 07:59 10 ml
DAILY IMAN Administration
--- NOTE | 2024-08-23 09:00 | PTCARENOTE ---
pt unresponsive to painful stimuli , slight corneal reflex , slight gag with suctioning , temp 93.9 at 0800 , bp 96/63 at 0800 , junctional rhythm on monitor , labs noted, Dr Pulliam and Alonso aware, increasing dose of epinephrine for goal of SBP
90
[2024-08-23 09:05] LABS: Lactic Acid 9.4 mmol/L (0.7-2.0)
[2024-08-23] MEDS: NEO-SYNEPHRINE 1% 260 MG IV (09:50)
[2024-08-23] MEDS: SODIUM BICARBONATE 1150 MEQ IV (09:52)
--- NOTE | 2024-08-23 10:51 | CM ---
CM following re: discharge planning.
Reviewed pt's chart, met with pt.
Pt is a 74 year old male, admitted with primary dx of Cardiac arrest. Pt intubated in the field yesterday by EMS, remains intubated, continue supportive care.
Patient is well known to this CM from previous admissions, lives with spouse in a home with 1 'big' step to enter. Ambulates with a walker, with a walker, owns a 'travel' w/c'. 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 Pt was in [place]
[facility], [facility] and [facility] in the past.
PCP: pt has no PCP;
Pharmacy: [facility].
D/C plan: uncertain at this time and will depend on pt's progress.
CM will follow with discharge plan updates as hospitalization progresses
--- NOTE | 2024-08-23 12:57 | CHAP ---
Asked by nursing to be with Everardo and his family. His of 50 years, Dacia, tearfully shared what a difficult and sorrowful moment this is. Two of their three daughters were present, with the third expected later today. Everardo and Dacia are
members of the [employer]. We offered prayers commending Everardo to God, thanking Him for his life and love, and asking peace for all. Prayer blanket provided, along with assurance of our on-going availability.
[2024-08-23 12:59] LABS: B.E. -23.7 mmol/L; PCO2 19 mmHg (35-48); PO2 67 mmHg (83-108)
[2024-08-23 13:00] LABS: HCO3 4.9 mmol/L (21-28); pH 7.02 (7.35-7.45)
[2024-08-23 13:04] LABS: Ionized Calcium 0.94 mMOL/L (1.15-1.33)
[2024-08-23 13:06] LABS: Ammonia 175 umol/L (9-30)
--- NOTE | 2024-08-23 13:06 | PTCARENOTE ---
pt and two daughters at bedside , Dr Gupta spoke re pts condition and outcome , they are aware of pts poor outcome , pastoral care consulted for emotional support , pts currently max on all vasopressors , currently BP 42/30 , his heart rate
is 40s , unable to get 02 sat reading, pt is mottled from chest to bilateral lower extremities , pt is a DNR
[2024-08-23 13:17] LABS: Lactic Acid 12.4 mmol/L (0.7-2.0)
--- NOTE | 2024-08-23 13:31 | W.PN.HOSP.TC ---
Today's Communication/Plan
-
Complex -- See A/P
Poor Prognosis
Assessment / Plan
Assessment / Plan
Impression:
1. Rxr-[id number]-juqzqtev cardiac arrest
2. Circulatory shock
3. Pseudomonas sepsis secondary to pneumonia versus SBP
4. Suspected DIC
5. Small to moderate right pneumothorax from chest compressions
6. Oliguric DELILAH on CKD
7. AGMA
8. Hypothermia
9. Hypoglycemia
10. Concern for Acute Liver Failure
11. H/O paroxysmal AF
12. H/O alcoholic cirrhosis
13. Chronic HFpEF
14. Chronic macrocytic anemia
15. H/O HTN
Plan:
Neurologic: No response to cranial nerve testing today. Attempt to wean sedation, RASS goal 0 to -2. EEG today with continuous EEG if necessary. Antiepileptic therapy deferred to neurology. Continue Fabian hugger for hypothermia. Monitor
neurologic exam and cranial nerves
Respiratory: Volume control with settings 26/450/0/100%. Avoid people with pneumothorax. Monitor P peak and P plateau. Plan for SAT/SBT, likely to start tomorrow at earliest. PRN lasix.
Cardiovascular: Continue vasopressor support for MAP goal >65, continue stress dose steroids with plan to wean after 72 hours. Plan to wean vasopressors as possible. Hold antihypertensive agents. IV fluids and Lasix as needed.
Renal: Monitor urine output, currently oliguric. Continue with IV fluids and bicarbonate for AGMA. Trend BMP closely, avoid nephrotoxic agents. Trend lactic acid to normal. Replete calcium and electrolytes as needed.
Gastrointestinal: Unable to provide tube feeds currently due to reliance on 4 vasopressors at high concentrations. Trend BMP and CBC for now. Consider tube feeds if vasopressor requirements improve. Trend LFTs, concern for acute liver failure
with worsening synthetic function though could be related to sepsis as well. Can trend ammonia if needed though does not necessarily correlate to hepatic encephalopathy
Infectious: Blood cultures x 2 growing Pseudomonas aeruginosa with sensitivities pending. Continue IV vancomycin and Zosyn, narrow based on culture sensitivities. Trend CBC and temperature curve. Consider testing for C. difficile and norovirus if
he develops diarrhea
Hematologic: Pancytopenic with initial concern for DIC in the context of sepsis. No active bleeding noted. Trend CBC and monitor for bleeding. Trend D-dimer and fibrinogen as well as coags daily. Supportive transfusions for hemoglobin <7,
platelets <50 with bleeding.
Endocrine: On stress dose steroids as above. Start sliding scale insulin with Accu-Cheks every 6 hours with blood glucose goal 140-180.
#Tubes/lines: ET tube, right IJ, left A-line, Silverio, Peripheral IVs
#Diet: NPO due to high pressor requirement
#GI prophylaxis: IV PPI
#DVT prophylaxis: Not indicated due to coagulopathy/low platelets
#CODE STATUS: DNR
#Prognosis: Very poor
Anticipated Discharge: > 48 hours
Subjective/Interval History
-
Date of Service: August 23, 2024
Seen and examined at the bed. No further acute events since admission. No significant events per telemetry
Currently requiring 4 vasopressors and stress dose steroids for normotension, remains hypothermic on bear hugger.
Remains on mechanical ventilation, volume control 26/450/0/100% with P peak 16 this morning
Urine output minimal via Silverio catheter
No cranial nerve responses today
Objective Data
-
Labs:
Laboratory Results
08/23/24 08/23/24 08/23/24
03:27 04:17 12:34
WBC 3.6 L
Hgb 8.6 L
Hct 28.0 L
Plt Count 48 L
HCO3 11.8 L* 4.9 L*
Sodium 132 L
Potassium 4.6
Chloride 105
Carbon Dioxide 13 L*
BUN 36 H
Creatinine 2.5 H
Glucose 119 H
Calcium 6.4 L*
Total Bilirubin 4.9 H
AST 81 H
ALT 45
Alkaline Phosphatase 156 H
Vital Signs:
Vital Signs
Temp Pulse Resp BP Pulse Ox
95.3 F L 43 20 90/50 92
08/23/24 12:59 08/23/24 12:45 08/23/24 12:45 08/23/24 05:15 08/23/24 12:00
I&O
08/22/24 08/23/24 08/24/24
06:59 06:59 06:59
Intake Total 2955.7 / 3138.5 / 1993.6
Output Total 94 / 96
Balance 2861.7 / 3042.5
Review of Systems
-
Unable to obtain full review of systems at this time due to: Patient Intubation
Physical Exam
-
General: Well Developed, Intubated, Obese and Other (Toxic appearing)
HEENT: Normocephalic, Atraumatic, Moist Mucous Membranes and Other (Scleral icterus)
Respiratory: Clear to Auscultation, Non Labored Respirations and Chest Tubes (Mechanical sounding); Negative Accessory Resp Muscle Use
Cardiac: Regular Rhythm, S1/S2 and Bradycardic; Negative Murmur, Rub or Gallop
GI: Soft, Nontender, Normal Bowel Sounds and Distended
Musculoskeletal: No Clubbing, No Cyanosis and No Edema
Skin: Warm (With Fabian hugger), Dry, Jaundice and Other (Ecchymoses)
Neuro: Sedated and Other (Intubated); Negative Central Nerve's Intact
Psych: Calm
Data Reviewed
-
Labs: Labs Reviewed by me and Discussed with Physician (ICU, neurology)
--- NOTE | 2024-08-23 13:36 | PTCARENOTE ---
recent labs given to Dr Gupta , ABG 7.02,/4.9 , I naty 0.94 , ammonia 175 and Lactate level of 12.4 , pt was given 2 amps of sodium bicarb and pt to receive 2grams of calcium gluconate , again pt and daughters aware of pts condition and
poor prognosis , goals of care were discussed and they want pt to receive medications for his improvement of labs , current BP 75/27 , HR 40s , his vent settings were changed to AC 30 TV 550 and 100% with 0 PEEP , pt continues to be anuric ,
albert coma score = 3
[2024-08-23] MEDS: CALCIUM GLUCONATE 100 IV (13:49)
[2024-08-23] MEDS: DEXTROSE 50% SYRINGE 12.5 GRAMS IV ×2 (13:56→14:38)
[2024-08-23 14:05] LABS: Glucose - Point of Care 20 mg/dl (70-99)
[2024-08-23 14:42] LABS: Glucose - Point of Care 25 mg/dl (70-99)
--- NOTE | 2024-08-23 14:55 | PTCARENOTE ---
pt blood glucose was 20 at 1400 he was given 12.5 of dextrose as per protocol then his repeat blood glucose 25 and he was given an additional 12.5 of dextrose , the pts and daughters here at bedside and now are requesting for patient to not
have any further treatments but to keep current treatments in practice , they are aware of the gravity of the situation and they are waiting for another daughter to arrive before they make any further decisions
--- NOTE | 2024-08-23 15:19 | CON.ID ---
Consultation
-
Date/Time Consultation Requested: August 23, 2024 1250
Date/Time Consultation Performed: August 23, 2024 1520
Requesting Provider: Dr. Papi Gupta
Performing Provider: Dr. Sona Tran
Reason for Consultation: Pseudomonas bacteremia
Chief Complaint / Past History
Chief Complaint
Unresponsiveness
History of Present Illness
History obtained from review medical records as well as from his at bedside since patient is currently critically ill. He is a 74-year-old male with atrial fibrillation, alcohol cirrhosis, history of ascites, heart failure who suddenly became
unresponsive yesterday. When EMS arrived patient was pulseless and cardiac arrest. He was resuscitated and intubated on the field. Temperature 88, lactic acid 10.8, hypotensive requiring 3 pressors. Blood cultures are positive for Pseudomonas.
Per , he was very weak at home. He was fluid overloaded. His abdomen was getting larger. No complaints of urinary symptoms although his urine output was lower. He had mild dry cough.
Past History
Additional Past Medical History:
Paroxysmal atrial fibrillation, not on AC
Hypertension
CKD 3B
CAD
Alcohol cirrhosis
HFpEF
Anxiety depression
Left hip hemiarthroplasty (05/2024)
L hip hematoma (07/26/2024)
Allergy History:
No Known Allergies Allergy (Verified 08/22/24 12:42)
Medications Reviewed: Yes
Current Antibiotics:
Vancomycin day 2
Zosyn day 2
Social History
Tobacco: Non-Smoker
Alcohol: Former
Drug: None
Personal:
Living: With Family
Family History
Family History: Not Pertinent
Review of Systems
Review of Systems
Unable to obtain as patient currently unresponsive.
Vital Signs
Temp Pulse Resp BP Pulse Ox
95.3 F L 43 20 90/50 100
08/23/24 12:59 08/23/24 12:45 08/23/24 12:45 08/23/24 05:15 08/23/24 14:47
Selected Entries
08/22/24
15:15
Temp 88.0 F L
Physical Exam
Physical Exam
Constitutional: Acutely Ill
Eyes: Other (sclera icteric)
Cardiovascular: S1/S2 and Other (bradycardic)
Pulmonary: Coarse (bilateral)
Gastrointestinal: Soft and Distended
Extremities: Edema
Skin: Jaundice and Other (Diffuse ecchymosis)
Lab / Diagnostic Study Results
08/23/24 03:27
08/23/24 03:27
Abs Immat Gran (auto) 0.0 10^3/uL (0-0.05) 08/23/24 03:27
Absolute Neuts (auto) 3.3 10^3/uL (1.4-6.5) 08/23/24 03:27
Absolute Lymphs (auto) 0.2 10^3/uL (1.2-3.4) L 08/23/24 03:27
Absolute Monos (auto) 0.1 10^3/uL (0.1-0.6) 08/23/24 03:27
Absolute Basos (auto) 0.0 10^3/uL (0-0.2) 08/23/24 03:27
Immature Gran % 0.3 % (0-0.5) 08/23/24 03:27
Neutrophils % 90.4 % (42.2-75.2) H 08/23/24 03:27
Lymphocytes % 6.0 % (20.5-51.1) L 08/23/24 03:27
Monocytes % 2.2 % (1.7-9.3) 08/23/24 03:27
Eosinophils % 0.3 % (0-6) 08/23/24 03:
Basophils % 0.8 % (0-2) 08/23/24 03:27
PT 44.1 Sec (11.4-14.6) H 08/22/24 12:45
INR 4.76 08/22/24 12:45
Lactic Acid 12.4 mmol/L (0.7-2.0) H* 08/23/24 12:34
Ur Squamous Epith Cells 0-2 /LPF (Few) 08/22/24 19:46
Microbiology Results
Micro:
08/23/24 12:34 Blood Culture - Pending
Blood/Venous
08/23/24 08:26 Respiratory Culture - Pending
Endotracheal Gram Stain - Preliminary
08/22/24 12:44 Blood Culture - Preliminary
Blood/Venous Pseudomonas aeruginosa
Gram Stain - Preliminary
08/22/24 19:46 Nasal Screen MRSA (PCR) - Final
Nose Staph aureus MRSA
08/22/24 12:44 Blood Culture - Preliminary
Blood/Venous Positive culture in progress
Gram Stain - Preliminary
08/22/24 19:46 Legionella Urinary Antigen - Final
Urine Negative for Legionella pneumophila Serogroup 1 antigen.
A negative result does not rule out the possiblity of
Legionella infection due to other serogroups or species of
Legionella. Clinical correlation is recommended.
Streptococcus pneumoniae Antigen (M - Final
Negative for Streptococcus pneumoniae antigen.
A negative result does not exclude infection with
Streptococcus pneumoniae. Clinical correlation is
recommended.
08/22/24 19:46 Urine Culture - Pending
Urine
08/23/24 CXR: Small right apical pneumothorax, estimated at less than 5% of overall lung volume. No significant change, or slightly decreased in size compared to prior chest x-ray. Bibasilar airspace consolidation, slightly progressed, which may
represent subsegmental atelectasis, aspiration, or pneumonia.
08/22/24 CT a/p: Small to moderate size right pneumothorax. No gross findings to suggest central pulmonary embolism. Bilateral lower lobe 'consolidation s', left greater than right, pneumonia versus atelectasis. Moderate volume abdominal and moderate
to large large volume pelvic ascites. Marked L3 vertebral compression fracture without significant retropulsion of bony elements.
Assessment / Plan
# Pseudomonas bacteremia
- Potential source includes PNA, SBP,
# Septic shock with multi-system organ failure, currently on 3 pressors
# Out of hospital cardiac arrest
# DIC
# Decompensated Alcohol cirrhosis
# MRSA colonized
- Overall prognosis is grim. He is actively dying.
- There is no benefit in escalating care.
- Can continue Vancomycin and Zosyn for now - most likely futile at this point.
--- NOTE | 2024-08-23 16:03 | W.PN.DEATH ---
Pronouncement of
-
Called to see patient to pronounce.
No spontaneous heart tones or respirations noted.
Patient not responsive to verbal stimuli.
Patient is pronounced .
Time of : 15:51
Date of : 08/23/24
Cause of : [id number] cardiac arrest, septic shock with Pseudomonas
--- NOTE | 2024-08-23 16:12 | W.DCSUMMARY ---
Discharge Summary
Discharge Data
Date of Admission: 08/22/24
Date of Discharge: 08/23/24
-
Pending Results: No
Hospital Course
74-year-old male with HFpEF, CAD, paroxysmal AF, alcoholic cirrhosis, CKD stage IIIb, HTN, chronic macrocytic anemia that presented to the hospital after an [id number] cardiac arrest that occurred at his home. Patient down for range of 5 to 15
minutes. EMS arrived and brought him into the hospital where he was admitted to the intensive care unit. Placed on 2 mechanical ventilation and started on vasopressors. Found to have likely pneumonia with Pseudomonas bacteremia. Clinically
deteriorated despite mechanical ventilation, stress dose steroids, broad-spectrum antibiotics, for vasopressors. Family withdrew care and patient passed naturally shortly thereafter. Time of 1551 on 08/23/2024. Cause of acute hypoxemic
respiratory failure and septic shock from possible pneumonia.
Discharge Plan
-
Patient Disposition:
Date/Time
Date/Time: 08/23/24 15:51
Discharge Date and Time
Print Language: BULGARIAN
--- NOTE | 2024-08-23 18:17 | PTCARENOTE ---
pt asystole on monitor at 1551, family at bedside , Dr Espana here to pronounce pt , emanational support given
== END 2024-08-23 15:51 | disposition expired | DRG 871 ==
LOC: ICU 15:01
PROVIDERS: Nurse Practitioner Family; Physician Assistant; ADMITTING PHYSICIAN Hospitalist; ATTENDING PHYSICIAN Internal Medicine; CONSULT PHYSICIAN Internal Medicine Critical Care Medicine; CONSULT PHYSICIAN Internal Medicine Infectious Disease; CONSULT PHYSICIAN Psychiatry & Neurology Neurology; EMERGENCY PHYSICIAN Emergency Medicine
PROC: 5A1935Z Respiratory Ventilation, Less than 24 Consecutive Hours (ICD-10-PCS; 2024-08-22)
PROC: 03HC33Z Insertion of Infusion Device into Left Radial Artery, Percutaneous Approach (ICD-10-PCS; 2024-08-23)
DX: A41.52 Sepsis due to Pseudomonas (principal); J15.1 Pneumonia due to Pseudomonas; R65.21 Severe sepsis with septic shock; J96.01 Acute respiratory failure with hypoxia; I13.0 Hypertensive heart and chronic kidney disease with heart failure and stage 1 through stage 4 chronic kidney disease, or unspecified chronic kidney disease; I50.32 Chronic diastolic (congestive) heart failure; Z66 Do not resuscitate; E87.20 Acidosis, unspecified; M48.56XA Collapsed vertebra, not elsewhere classified, lumbar region, initial encounter for fracture; J93.9 Pneumothorax, unspecified; N17.9 Acute kidney failure, unspecified; E87.1 Hypo-osmolality and hyponatremia; G93.1 Anoxic brain damage, not elsewhere classified; I46.8 Cardiac arrest due to other underlying condition; I48.0 Paroxysmal atrial fibrillation; N18.32 Chronic kidney disease, stage 3b; I25.10 Atherosclerotic heart disease of native coronary artery without angina pectoris; E83.51 Hypocalcemia; E16.2 Hypoglycemia, unspecified; D63.1 Anemia in chronic kidney disease; T68.XXXA Hypothermia, initial encounter; D69.59 Other secondary thrombocytopenia; E78.00 Pure hypercholesterolemia, unspecified; E88.09 Other disorders of plasma-protein metabolism, not elsewhere classified; F32.A Depression, unspecified; F41.9 Anxiety disorder, unspecified; K70.30 Alcoholic cirrhosis of liver without ascites; L89.152 Pressure ulcer of sacral region, stage 2; Z86.16 Personal history of COVID-19; Z86.73 Personal history of transient ischemic attack (TIA), and cerebral infarction without residual deficits; Z79.899 Other long term (current) drug therapy; Z79.82 Long term (current) use of aspirin
CPT/HCPCS: 31500; 36556; 36600; 70450; 71045; 71275; 74177; 80048; 80053; 80202; 81003; 81015; 82140; 82330; 82805; 82962; 83605; 83690; 83735; 83880; 84100; 84443; 84478; 84484; 85025; 85027; 85379; 85384; 85610; 85730; 86850; 86900; 86901; 87040; 87070; 87077; 87086; 87147; 87149; 87205; 87449; 87641; 87899; 93005; 94002; 94003; 96365; 96375; 99291; J7030; Q9967